=== PATIENT | female | born 1970 | race Caucasian/White ===

== ENCOUNTER → 2020-04-08 15:47 | Outpatient (BNVA) | payer OTHER, SELFPAY | PROVIDERS: PCP Family Medicine; Visit Provider Surgery | DX: L02.213 Cutaneous abscess of chest wall (principal); E11.9 Type 2 diabetes mellitus without complications | CPT/HCPCS: 10061; 99202 ==

== ENCOUNTER → 2020-04-15 15:12 | Outpatient (BNVA) | payer OTHER, SELFPAY | PROVIDERS: PCP Family Medicine; Visit Provider Internal Medicine Cardiovascular Disease | DX: I51.81 Takotsubo syndrome (principal); E11.9 Type 2 diabetes mellitus without complications; R94.31 Abnormal electrocardiogram [ECG] [EKG] | CPT/HCPCS: 93005; 99212 ==

== ENCOUNTER 2020-06-23 11:18 | Outpatient (REF) | payer OTHER, SELFPAY ==
--- NOTE | ~2020-06-23 | CT_ITS ---
EXAMINATION: CT ABDOMEN AND PELVIS WITH CONTRAST CLINICAL INFORMATION: Anorexia COMPARISON: Renal ultrasound dated 11/18/2019 TECHNIQUE: Multidetector volumetric images were obtained from the superior aspect of the liver through the pubic symphysis following administration 85 mL of Omnipaque 350 intravenous contrast. Sagittal and coronal reformatted images were obtained on the technologist's workstation. Oral contrast: No This CT examination was performed using dose optimization techniques as appropriate, variously including the following: *Automated exposure control *Adjustment of mA and/or kV according to patient size (this includes techniques or standardized protocols for targeted exams where dose is matched to indication/reason for exam; i.e. extremities or head) *Use of iterative reconstruction technique DLP: 503 mGy-cm FINDINGS: LUNG BASES: The visualized lung bases are unremarkable. LIVER, GALLBLADDER, AND BILIARY TREE: The liver is normal in size, shape, and attenuation. No focal hepatic lesion or biliary ductal dilatation is present. Gallbladder is surgically absent. PANCREAS: Unremarkable. SPLEEN: Unremarkable. ADRENAL GLANDS: Unremarkable. KIDNEYS AND URETERS: The kidneys are normal in size, shape, and attenuation. No hydronephrosis, hydroureter, or calculi seen. No perinephric stranding. A subcentimeter cyst in the right kidney at the right upper renal pole is less pronounced as compared to the prior ultrasound. No suspicious features. This is too small to characterize but statistically favored to correspond to a cyst. No suspicious renal lesions are identified. BLADDER: Unremarkable. GASTROINTESTINAL TRACT: Stomach, small bowel, and colon are normal in caliber. No bowel wall thickening or surrounding inflammatory changes. Incidental note is made of a 1 cm fat density polypoid focus within the lumen of the duodenum (image 44/92 of series 3), likely a submucosal lipoma. No intraperitoneal free fluid or free air. Appendix is surgically absent. ABDOMINAL WALL: No significant hernia is appreciated. LYMPH NODES: Normal. VASCULAR: Unremarkable. PELVIC VISCERA: Uterus is surgically absent. No adnexal lesions. OSSEOUS STRUCTURES: No acute osseous abnormalities in the lumbar spine. Minimal arthrosis in the hips. CT/CT abdomen pelvis w con IMPRESSION: 1. No acute intra-abdominal or intrapelvic abnormalities. 2. Status post hysterectomy and cholecystectomy. 3. Small 1 cm submucosal lipoma in the duodenum.
[2020-06-23 12:34] LABS: Blood Urea Nitrogen 9 mg/dL (9-16); Estimated Glomerular Filt Rate > 60
[2020-06-23 12:44] LABS: Estimated Average Glucose 229 mg/dL; Hemoglobin A1c % 9.6 %
[2020-06-23] MEDS: iohexoL 350 MG/ML 100 ML INFUS..BTL IV (16:07)
[2020-06-23] MEDS: Barium Sulfate Oral (Mocha) 450 ML ORAL.SUSP 900 ML PO (16:16)
== END 2020-06-23 11:19 | disposition home or self-care (01) ==
LOC: HO.CT 11:18
PROVIDERS: PCP Family Medicine; Visit Provider Family Medicine
DX: R63.0 Anorexia (principal); E11.9 Type 2 diabetes mellitus without complications
CPT/HCPCS: 36415; 74177; 82565; 83036; 84520; Q9967

== ENCOUNTER 2020-06-25 14:47 | Outpatient (REF) | payer OTHER, SELFPAY ==
--- NOTE | ~2020-06-25 | XR_ITS ---
EXAMINATION: XR ORBITS CLINICAL INFORMATION: Hx of detached retina 1985. COMPARISON: None TECHNIQUE: 4 views of the orbits were obtained. FINDINGS: No radiodense foreign bodies. There is no fracture. No bone, joint or soft tissue abnormality is demonstrated. XR/XR pre mri screening IMPRESSION: No metallic foreign bodies in the periorbital regions.
--- NOTE | ~2020-06-25 | MR_ITS ---
EXAMINATION: MR LUMBAR SPINE WITHOUT CONTRAST CLINICAL INFORMATION: Incontinence. COMPARISON: Lumbar spine radiographs 09/15/2014. TECHNIQUE: MRI of the lumbar spine was obtained using routine sequences without contrast. FINDINGS: Alignment is normal. Vertebral heights are preserved. No acute bone marrow signal changes. There is disc desiccation at L5-S1 without substantial loss of intervertebral disc height. The tip of the conus medullaris is located at L1. No mass effect on the conus. Visualized distal cord signal intensity is normal. No abnormal thickening of the filum terminale and no identifiable filar fibrolipoma. At L1-L2 and L2-L3 the annular contours are normal. No canal or neuroforaminal compromise at these 2 levels. At L3-L4 there is a slightly bulging disc. No canal stenosis. No mass effect on the traversing or foraminal nerve roots. At L4-L5 there is a slightly bulging disc. No canal stenosis. No mass effect on the traversing or foraminal nerve roots. At L5-S1 there is a slightly bulging disc. Bilateral facet degenerative change. No canal stenosis. No mass effect on the traversing or foraminal nerve root. Limited visualization of the retroperitoneal anatomy reveals no abnormal finding. Psoas and paraspinal muscle groups are symmetric. MR/MR lumbar spine wo con IMPRESSION: There is disc degeneration at multiple levels within the mid to lower lumbar spine. Otherwise unremarkable examination. No canal stenosis. No mass effect on the traversing or foraminal nerve roots.
== END 2020-06-25 14:48 | disposition home or self-care (01) ==
LOC: HO.MRI 14:47
PROVIDERS: Visit Provider Family Medicine
DX: R15.9 Full incontinence of feces (principal)
CPT/HCPCS: 72148

== ENCOUNTER 2020-06-29 10:17 | Outpatient (REF) | payer OTHER, SELFPAY ==
--- NOTE | ~2020-06-29 | US_ITS ---
EXAMINATION: US ABDOMEN COMPLETE CLINICAL INFORMATION: Fatty liver. COMPARISON: CT abdomen and pelvis 06/23/2020. Ultrasound renals 11/18/2019. Ultrasound abdomen 11/20/2017. TECHNIQUE: Real-time imaging of the abdominal viscera. FINDINGS: PANCREAS: Normal. ABDOMINAL AORTA: The proximal, mid, and distal segments are normal in caliber. INFERIOR VENA CAVA: Visualized portions are normal. LIVER: The liver is normal in size. The liver contour is normal. The liver echogenicity is diffusely increased. No focal hepatic lesion. There is no intrahepatic biliary duct dilatation seen. GALLBLADDER: Surgically absent. COMMON BILE DUCT: Normal in caliber measuring 0.33 cm in diameter. RIGHT KIDNEY: The kidney measures 12.0 cm in maximum dimension. 3 mm nonobstructing lower pole calculus. There is no hydronephrosis. Also appreciated is a 1.2 cm simple appearing upper pole cyst which is stable in size. LEFT KIDNEY: Normal. No hydronephrosis. No renal calculi or focal parenchymal lesions. The kidney measures 11.8 cm in maximum dimension. SPLEEN: Normal. The spleen measures 12.3 cm in maximum dimension. FREE FLUID: None. US/US abdomen complete IMPRESSION: 1. Diffusely increased liver echogenicity. This is a nonspecific finding but most suggestive of hepatic steatosis. Correlation with liver enzymes recommended. 2. Tiny nonobstructing renal calculi of the right kidney. There is no hydronephrosis.
== END 2020-06-29 10:18 | disposition home or self-care (01) ==
LOC: HO.US 10:17
PROVIDERS: Visit Provider Family Medicine
DX: K76.0 Fatty (change of) liver, not elsewhere classified (principal)
CPT/HCPCS: 76700

== ENCOUNTER → 2020-07-20 14:53 | Outpatient (BNVA) | payer OTHER, SELFPAY | PROVIDERS: PCP Family Medicine; Referring Provider Family Medicine; Visit Provider Surgery | DX: N64.4 Mastodynia (principal) | CPT/HCPCS: 99212 ==

== ENCOUNTER 2020-07-29 14:30 | Outpatient (REF) | payer OTHER, SELFPAY ==
--- NOTE | ~2020-07-29 | MM_ITS ---
EXAMINATION: MM DIAGNOSTIC DIGITAL BREAST TOMOSYNTHESIS, BILATERAL US DIAGNOSTIC ULTRASOUND BREAST, RIGHT CLINICAL INFORMATION: Right-sided breast pain. Remote history bilateral reduction mammoplasty 1985 and revised bilateral reduction surgery 1995. Recent aspiration at outside office lower outer right breast. Diabetic. Due for yearly. The lifetime risk of breast cancer based on the Tyrer-Cuzick Model is 13%. COMPARISON: Mammography: 11/20/2017, 04/02/2015, 09/09/2014 TECHNIQUE: Digital breast tomosynthesis is performed in both the craniocaudal and mediolateral oblique views along with computer-aided detection (CAD). Synthesized 2D images are generated from the tomosynthesis. Additional exaggerated right CC x2 views are obtained. Ultrasound right breast is targeted to the area of clinical concern outer right breast. Grayscale imaging and color Doppler are performed without and with harmonics. FINDINGS: There are scattered areas of fibroglandular density (ACR BI-RADS breast composition Category b). There is minor scarring consistent with the prior bilateral breast surgeries. Parenchymal pattern is similar to prior studies. There are scattered stable asymmetries similar to previous exams. There is no developing density or interval mass or architectural abnormality or abnormal calcifications. No skin thickening or coarsening of the Nain's ligaments. Ultrasound demonstrates no cystic or solid mass or architectural abnormality or focal duct ectasia. No skin thickening or edema tracking in soft tissue plane. Results are discussed with the patient at time of visit. MM/MM tomosynthesis diagnostic BI IMPRESSION: 1. No mammographic evidence of malignancy or inflammatory changes. 2. Unremarkable targeted right breast ultrasound.. ASSESSMENT: BI-RADS 2: Benign RECOMMENDATION: 1. Patient's breast pain should be managed based on the clinical impression. 2. Otherwise, routine annual screening mammography. This patient's information was entered into a reminder system with a target due date for their next mammogram.
== END 2020-07-29 14:31 | disposition home or self-care (01) ==
LOC: HO.MAMMO 14:30
PROVIDERS: Visit Provider Surgery
DX: N64.4 Mastodynia (principal)
CPT/HCPCS: 76642; 77062; 77066

== ENCOUNTER → 2020-08-26 15:21 | Outpatient (BNVA) | payer OTHER, SELFPAY | PROVIDERS: PCP Family Medicine; Referring Provider Family Medicine; Visit Provider Surgery ==

== ENCOUNTER → 2020-10-01 14:35 | Outpatient (BNVA) | payer OTHER, SELFPAY | PROVIDERS: PCP Family Medicine; Referring Provider Family Medicine; Visit Provider Nurse Practitioner Family | DX: K21.9 Gastro-esophageal reflux disease without esophagitis (principal); K59.00 Constipation, unspecified | CPT/HCPCS: 99202 ==

== ENCOUNTER 2020-10-22 13:49 | Outpatient (REF) | payer OTHER, SELFPAY ==
--- NOTE | ~2020-10-22 | CT_ITS ---
EXAMINATION: CT CHEST SCREENING CLINICAL INFORMATION: Smoking history COMPARISON: Previous chest x-ray most recent February 2015 TECHNIQUE: Multidetector volumetric CT imaging of the chest is performed without contrast using low dose technique. Additional 2D coronal and sagittal reformatted images and axial 3D maximum intensity projection (MIP) images are generated on the CT workstation. This CT examination was performed using dose optimization techniques as appropriate, variously including the following: *Automated exposure control *Adjustment of mA and/or kV according to patient size (this includes techniques or standardized protocols for targeted exams where dose is matched to indication/reason for exam; i.e. extremities or head) *Use of iterative reconstruction technique DLP: 53 mGy-cm FINDINGS: LUNGS: There is evidence of mild paraseptal emphysema. There is a 3 mm right lower lobe nodule axial image 216 series 5. There is a 3 mm right lower lobe nodule axial image 236 series 5..There is a 2 mm left lower lobe nodule axial image 353 series 5. MEDIASTINUM: There is a slightly prominent precarinal mediastinal lymph node measures 1.2 x 1.7 cm in AP and transverse dimension. No other adenopathy is seen. The mediastinum is otherwise normal. PLEURA: There is no pleural effusion. No pleural mass or thickening. AXILLA: No lymphadenopathy. UPPER ABDOMEN: The gallbladder has been removed. OSSEOUS STRUCTURES: Unremarkable. CT/CT lung screening IMPRESSION: Mild emphysema. Small pulmonary nodules. Prominent precarinal mediastinal lymph node. ASSESSMENT: Lung-RADS category 2: Benign RECOMMENDATION: Annual low-dose chest CT follow-up recommended.
== END 2020-10-22 13:50 | disposition home or self-care (01) ==
LOC: HO.CT 13:49
PROVIDERS: Visit Provider Physician Assistant Medical
DX: Z12.2 Encounter for screening for malignant neoplasm of respiratory organs (principal); F17.210 Nicotine dependence, cigarettes, uncomplicated
CPT/HCPCS: 71271; Q3014

== ENCOUNTER 2020-10-25 14:01 | Outpatient (REF) | payer OTHER, SELFPAY ==
[2020-10-25 15:13] LABS: Hematocrit 37.9 % (37-47); Mean Corpuscular HGB Conc 34.3 g/dl (31.0-35.0); Mean Corpuscular Hemoglobin 29.1 pg (27.0-33.0); Mean Platelet Volume 10.8 fL (9.4-12.3); Platelet Count 227 X10*3/uL (160-400); Red Blood Count 4.46 X10*6/uL (4.20-5.50); Red Cell Distribution Width 12.6 % (11.0-16.0); White Blood Count 10.1 X10*3/uL (4.8-10.8)
[2020-10-25 15:26] LABS: Estimated Average Glucose 278 mg/dL; Hemoglobin A1c % 11.3 %
[2020-10-25 15:48] LABS: Alanine Aminotransferase 29 U/L (0-31); Albumin Level 4.4 g/dL (3.5-5.0); Alkaline Phosphatase 177 U/L (39-117); Anion Gap 15 (12-20); Aspartate Amino Transferase 21 U/L (5-31); Bilirubin Total 0.4 mg/dL (0.0-1.0); Blood Urea Nitrogen 7 mg/dL (9-16); C Reactive Protein 1.58 mg/dL (< or = 0.50); Calcium 9.7 mg/dL (8.4-10.2); Carbon Dioxide 21 mmol/L (22-29); Chloride 107 mmol/L (96-108); Estimated Glomerular Filt Rate 57; Potassium 3.4 mmol/L (3.3-5.1); Sodium 140 mmol/L (135-145)
[2020-10-25 15:50] LABS: Glucose Random 467 mg/dL (60-115)
[2020-10-28 22:11] LABS: Transglutaminase Ab IgG 1 U/mL; Transglutaminase IgA 1 U/mL
== END 2020-10-25 14:02 | disposition home or self-care (01) ==
LOC: HO.LAB 14:01
PROVIDERS: PCP Family Medicine; Visit Provider Nurse Practitioner Family
DX: Z12.11 Encounter for screening for malignant neoplasm of colon (principal); K58.9 Irritable bowel syndrome, unspecified; E11.9 Type 2 diabetes mellitus without complications; R10.11 Right upper quadrant pain; R14.0 Abdominal distension (gaseous)
CPT/HCPCS: 36415; 80053; 83036; 83516; 85027; 86140

== ENCOUNTER 2020-11-22 13:44 | Outpatient (REF) | payer OTHER, SELFPAY ==
--- NOTE | 2020-11-22 13:54 | ECG_ITS ---
Test Reason : preop Blood Pressure : / mmHG Vent. Rate : 074 BPM Atrial Rate : 074 BPM P-R Int : 180 ms QRS Dur : 088 ms QT Int : 386 ms P-R-T Axes : 059 036 057 degrees QTc Int : 428 ms Normal sinus rhythm Normal ECG No previous ECGs available Referred By: Tracie Mcginnis Electronically Signed By:RASHMI FRAZIER
[2020-11-22 14:21] LABS: Hematocrit 40.2 % (37-47); Hemoglobin 13.5 g/dl (12.0-16.0); Mean Corpuscular HGB Conc 33.6 g/dl (31.0-35.0); Mean Corpuscular Volume 86.5 fL (80-98); Platelet Count 218 X10*3/uL (160-400); Red Blood Count 4.65 X10*6/uL (4.20-5.50); Red Cell Distribution Width 12.7 % (11.0-16.0); White Blood Count 7.7 X10*3/uL (4.8-10.8)
[2020-11-22 15:14] LABS: Alanine Aminotransferase 31 U/L (0-31); Albumin Level 4.4 g/dL (3.5-5.0); Alkaline Phosphatase 144 U/L (39-117); Anion Gap 14 (12-20); Aspartate Amino Transferase 23 U/L (5-31); Bilirubin Direct 0.2 mg/dL (0.0-0.5); Bilirubin Total 0.6 mg/dL (0.0-1.0); Blood Urea Nitrogen 10 mg/dL (9-16); Calcium 9.2 mg/dL (8.4-10.2); Carbon Dioxide 21 mmol/L (22-29); Chloride 108 mmol/L (96-108); Cholesterol 166 mg/dL; Estimated Glomerular Filt Rate > 60; Glucose Random 359 mg/dL (60-115); HDL Cholesterol 33 mg/dL; LDL Cholesterol Calculated 89 mg/dl; Potassium 4.1 mmol/L (3.3-5.1); Sodium 139 mmol/L (135-145); Triglycerides 224 mg/dL
[2020-11-22 15:20] LABS: Estimated Average Glucose 298 mg/dL
[2020-11-22 15:28] LABS: Free T4 (Free Thyroxine) 0.81 ng/dL (0.71-1.85); Vitamin D 25-OH Total 15.3 ng/mL (>30)
[2020-11-22 15:34] LABS: Creatinine Urine 156.01 mg/dL; Microalbum/Creatinine Ratio Ur 8.9 ug/mg cr
[2020-11-22 16:55] LABS: Syphilis Screen Nonreactive (Nonreactive)
[2020-11-22 17:02] LABS: CT PCR NOT DETECTED (Not Detect.); NG PCR NOT DETECTED (Not Detect.)
[2020-11-23 04:47] LABS: ~HepC Num1 0.13 S/CO (0.00-0.79); ~Hepatitis C Antibody Nonreactive (Nonreactive)
[2020-11-23 04:48] LABS: HIV AB/AG Nonreactive (Nonreactive); HIV Num 1 0.25 S/CO (0.00-0.99)
[2020-11-25 13:21] LABS: TS Negative Control Passed; TS Panel A 0; TS Panel B 0; TS Positive Control Passed; TSpotTB Negative (SeeBelow)
== END 2020-11-22 13:45 | disposition home or self-care (01) ==
LOC: HO.LAB 13:44
PROVIDERS: PCP Family Medicine; Visit Provider Family Medicine
DX: Z01.818 Encounter for other preprocedural examination (principal); Z11.4 Encounter for screening for human immunodeficiency virus [HIV]; Z11.3 Encounter for screening for infections with a predominantly sexual mode of transmission; Z11.1 Encounter for screening for respiratory tuberculosis; E11.65 Type 2 diabetes mellitus with hyperglycemia
CPT/HCPCS: 80048; 80061; 80076; 82043; 82306; 83036; 84439; 84443; 85027; 86481; 86780; 86803; 87389; 87491; 87591; 93005

== ENCOUNTER 2021-04-21 07:29 | Outpatient (REF) | payer OTHER, SELFPAY | END 2021-04-21 07:30 | disposition home or self-care (01) | LOC: HO.HOSX 07:29 | PROVIDERS: Visit Provider Physician Assistant | DX: Z13.89 Encounter for screening for other disorder (principal) ==

== ENCOUNTER → 2021-07-25 08:54 | Outpatient (BNVA) | payer OTHER, SELFPAY | PROVIDERS: PCP Family Medicine; Referring Provider Family Medicine; Visit Provider Nurse Practitioner Family | DX: K21.9 Gastro-esophageal reflux disease without esophagitis (principal); K58.0 Irritable bowel syndrome with diarrhea; R19.7 Diarrhea, unspecified | CPT/HCPCS: 99212 ==

== ENCOUNTER 2021-09-06 10:35 | Outpatient (REF) | payer OTHER, SELFPAY ==
--- NOTE | ~2021-09-06 | US_ITS ---
EXAMINATION: US ABDOMEN COMPLETE CLINICAL INFORMATION: Fatty liver. COMPARISON: Ultrasound abdomen complete 06/29/2020. TECHNIQUE: Real-time imaging of the abdominal viscera. FINDINGS: PANCREAS: Normal. ABDOMINAL AORTA: The proximal, mid, and distal segments are normal in caliber. INFERIOR VENA CAVA: Visualized portions are normal. LIVER: Liver is enlarged measuring 18.8 cm in span. The liver contour is normal. There is diffuse increased liver parenchymal echogenicity, consistent with infiltrative hepatocellular disease. No focal hepatic lesion. There is no intrahepatic biliary duct dilatation seen. GALLBLADDER: Surgically absent. COMMON BILE DUCT: Normal in caliber measuring 0.3 cm in diameter. RIGHT KIDNEY: Punctate 3 mm nonobstructing right upper pole renal stone new from prior. Benign-appearing 1.4 cm right renal cyst, no imaging follow-up recommended. No hydronephrosis. The kidney measures 10.7 cm in maximum dimension. LEFT KIDNEY: Normal. No hydronephrosis. No renal calculi or focal parenchymal lesions. The kidney measures 10.7 cm in maximum dimension. SPLEEN: Normal. The spleen measures 11.3 cm in maximum dimension. FREE FLUID: None. US/US abdomen complete IMPRESSION: Hepatomegaly. Increased hepatic echogenicity which can be seen in the setting of hepatic steatosis or underlying liver disease. Punctate 3 mm nonobstructing right upper pole renal stones new from prior.
== END 2021-09-06 10:36 | disposition home or self-care (01) ==
LOC: HO.US 10:35
PROVIDERS: Visit Provider Family Medicine
DX: K76.0 Fatty (change of) liver, not elsewhere classified (principal)
CPT/HCPCS: 76700

== ENCOUNTER 2021-11-18 12:47 | Outpatient (REF) | payer OTHER, SELFPAY ==
--- NOTE | ~2021-11-18 | XR_ITS ---
EXAMINATION: 1. RADIOGRAPHS BILATERAL HANDS 2. RADIOGRAPHS BILATERAL KNEES 3. RADIOGRAPHS BILATERAL ANKLES 4. RADIOGRAPHS BILATERAL FEET CLINICAL INFORMATION: Diffuse chronic pain COMPARISON: Bilateral ankle radiographs October 29, 2019, left foot x-rays August 04, 2019 and bilateral knee x-rays May 07, 2018. Bilateral hand x-rays November 22, 2014 were also reviewed. TECHNIQUE: 3 views of each hand, 3 views of each knee, 2 views of each ankle and 3 views of each foot were obtained. FINDINGS: Right hand: Visualized portion of the distal radius and ulna demonstrate no fracture. Carpal rows are aligned. No carpal bone fracture. No metacarpal or phalangeal fracture. Mild degenerative changes of scattered IP joints. No focal soft tissue swelling of the hand. No radiopaque foreign body. Left hand: Visualized portion of the distal radius and ulna demonstrate no fracture. Carpal rows are well aligned. No carpal bone fracture. No metacarpal or phalangeal fracture. Mild degenerative changes of scattered IP joints. No focal soft tissue swelling of the left hand. No radiopaque foreign body. Right knee: No fracture or dislocation. No suprapatellar joint effusion. Joint spaces are well-maintained. Tiny tricompartmental marginal osteophytes. No focal soft tissue swelling of the anterior knee. Left knee: No fracture or dislocation. No suprapatellar joint effusion. Mild narrowing of the medial joint space height. Tiny tricompartmental marginal osteophytes. No focal soft tissue swelling of the anterior knee. Right ankle/foot: Sized portion of the distal tibia and fibula demonstrate no fracture. Ankle mortise is grossly maintained. There is no focal soft tissue swelling of the ankle. No gross ankle joint effusion. Bones of the midfoot are well aligned. No tarsal, metatarsal or phalangeal fracture. Mild degenerative changes of scattered IP joints. No focal soft tissue swelling of the right foot. Tiny posterior calcaneal enthesophyte. Left ankle/foot: Visualized portion of the distal tibia and fibula demonstrate no fracture. Ankle mortise is grossly maintained. No focal soft tissue swelling of the ankle. No gross ankle joint effusion. Bones of the midfoot are well aligned. No tarsal, metatarsal or phalangeal fracture. Mild degenerative changes of scattered IP joints. No focal soft tissue swelling of the left foot. Small posterior calcaneal enthesophytes. XR/XR ankle RT min 3V IMPRESSION: 1. Minimal degenerative changes of both hands without fracture. 2. Minimal degenerative changes of both knees without fracture or dislocation. 3. No fracture or dislocation of either foot or ankle. Mild degenerative changes of both feet.
[2021-11-18 14:54] LABS: Vitamin B12 644 pg/mL (200-900)
[2021-11-23 12:32] LABS: Vitamin D 25-OH, D2 21 ng/mL; Vitamin D 25-OH, D3 12 ng/mL; Vitamin D 25-OH, Total 33 ng/mL (30-100)
== END 2021-11-18 12:48 | disposition home or self-care (01) ==
LOC: HO.LAB 12:47
PROVIDERS: Absent Provider Nurse Practitioner Family; PCP Family Medicine; Visit Provider Family Medicine
DX: R19.7 Diarrhea, unspecified (principal); E55.9 Vitamin D deficiency, unspecified; M79.642 Pain in left hand; M79.641 Pain in right hand; M25.561 Pain in right knee; M25.562 Pain in left knee; M25.571 Pain in right ankle and joints of right foot; M25.572 Pain in left ankle and joints of left foot; M79.671 Pain in right foot; M79.672 Pain in left foot
CPT/HCPCS: 36415; 73130; 73562; 73610; 73630; 82306; 82607; 82746; 99212

== ENCOUNTER 2021-12-06 15:10 | Outpatient (REF) | payer OTHER, SELFPAY ==
--- NOTE | ~2021-12-06 | MM_ITS ---
EXAMINATION: MM SCREENING DIGITAL BREAST TOMOSYNTHESIS, BILATERAL CLINICAL INFORMATION: Screening. Asymptomatic. History reduction mammoplasty, 1985; and revised bilateral reduction surgery, 1995. The lifetime risk of breast cancer based on the Tyrer-Cuzick Model is 12%. COMPARISON: Mammography: 07/29/2020, 11/20/2017, 04/02/2015 TECHNIQUE: Digital breast tomosynthesis is performed in both the craniocaudal and mediolateral oblique views along with computer-aided detection (CAD). Synthesized 2D images are generated from the tomosynthesis. FINDINGS: There are scattered areas of fibroglandular density (ACR BI-RADS breast composition Category b). Parenchymal pattern is similar to prior exams and there is no developing density or interval mass or architectural abnormality. Minor scarring is consistent with the prior studies and surgery. No abnormal calcifications. The axilla are unremarkable. No significant changes. MM/MM tomosynthesis screening BI IMPRESSION: No mammographic evidence of malignancy. ASSESSMENT: BI-RADS 2: Benign RECOMMENDATION: Routine annual mammography screening. This patient's information was entered into a reminder system with a target due date for their next mammogram.
== END 2021-12-06 15:11 | disposition home or self-care (01) ==
LOC: HO.MAMMO 15:10
PROVIDERS: Visit Provider Family Medicine
DX: Z12.31 Encounter for screening mammogram for malignant neoplasm of breast (principal)
CPT/HCPCS: 77063; 77067

== ENCOUNTER 2022-02-07 12:22 | Day surgery (SDC) | payer OTHER, SELFPAY ==
[2022-02-02 11:36] VITALS: BMI 25.7
[2022-02-03 09:55] VITALS: BMI 26.5
--- NOTE | 2022-02-06 12:31 | P.CONAN_ITS ---
Documented by User: Mary Jane Delanye NP 02/06/22 12:33 HPI - Anesthesia Eval Consult details Narrative: 51yo F for Upper Endoscopy Follows [facility] [place] cardiology for prolonged QT/Takatsubo - last seen 04/2020 and ok'd for 2 year f/u [facility] Active Problems Active Problems: All Active Problems (Updated 02/03/22 @ 09:43 by Chetna Murphy RN) Prolonged Q-T interval on ECG (Acute) Breast pain, right (Acute) Personal history of nicotine dependence (Acute) Takotsubo cardiomyopathy (Acute) Diabetes mellitus (Acute) GERD (gastroesophageal reflux disease) (Acute) Smoker (Acute) Abscess of skin or subcutaneous tissue (Acute) Past Medical History Medical History Abscess of skin or subcutaneous tissue Arthritis Bipolar disorder Diabetes mellitus Full dentures GERD (gastroesophageal reflux disease) High cholesterol HTN (hypertension) Peripheral neuropathy Personal history of nicotine dependence Smoker Takotsubo cardiomyopathy Family History Family History Mother Ovarian cancer Surgical History Surgical History History of cystoscopy History of endometrial ablation History of rectal sphincterotomy Hx of appendectomy Hx of bilateral breast reduction surgery Hx of cholecystectomy Hx of colonoscopy Hx of eye surgery Hx of nephrolithotomy with removal of calculi Hx of release of tendon Hx of tonsillectomy S/P excision of ganglion cyst S/P hysterectomy Social History Social History Are you a primary medical care administrator to a significant other at home: No Do you presently have visiting nurse or other home services: No Alcohol intake: current Alcohol intake frequency: does not drink Patient Tobacco Use Status: Current everyday Tobacco user Tobacco use type: Cigarette Cigarette Packs Per Day: 2 Cigarettes Per Day: 15 Years Smoked: 36 (onset 14, 1ppd x 36yrs, now 2-2.5ppd - 35+PYH) Substance Use Type: Marijuana Meds Allergies Allergy/AdvReac Type Severity Reaction Status Date / Time bupropion [From WELLBUTRIN] Allergy Severe SHAKES, Verified 02/07/22 12:32 VIOLENTLY ILL metformin [METFORMIN] Allergy Severe VIOLENTLY Verified 02/07/22 12:32 SICK, nausea and vomiting promethazine [From PHENERGAN] Allergy Severe HIVES,sob Verified 02/07/22 12:32 Home Medications Medication Instructions Recorded Confirmed Last Taken Type cetirizine 10 mg tablet 10 mg PO QAM 04/08/20 02/03/22 Unknown History ergocalciferol (vitamin D2) 1,250 1,250 mcg PO QWEEK 04/08/20 02/03/22 Unknown History mcg (50,000 unit) capsule ferrous sulfate 325 mg (65 mg 325 mg PO QAM 04/08/20 02/03/22 Unknown History iron) tablet fluticasone propionate 50 2 spray intranasal DAILY 04/08/20 02/03/22 Unknown History mcg/actuation nasal spray,suspension folic acid 1 mg tablet 1 mg PO QAM 04/08/20 02/03/22 Unknown History lamotrigine 100 mg tablet 150 mg PO DAILY 04/08/20 02/03/22 Unknown History metoprolol tartrate 50 mg tablet 50 mg PO BID 04/08/20 02/03/22 Unknown History mirtazapine 30 mg tablet 60 mg PO BEDTIME 04/08/20 02/03/22 Unknown History quetiapine 300 mg tablet 900 mg PO BEDTIME 04/08/20 02/03/22 Unknown History topiramate 50 mg tablet 50 mg PO BID 04/08/20 02/03/22 Unknown History zolpidem 10 mg tablet 10 mg PO BEDTIME PRN insomnia 04/08/20 02/03/22 Unknown History butorphanol 10 mg/mL nasal spray intranasal 04/15/20 07/22/20 Unknown History gabapentin 300 mg capsule 300 mg PO TID 04/15/20 02/03/22 Unknown History metoclopramide HCl 5 mg tablet 5 mg PO TID 10/01/20 02/03/22 Unknown History atorvastatin 40 mg tablet 40 mg PO BEDTIME 11/18/21 02/03/22 Unknown History cholecalciferol (vitamin D3) 50 50 mcg PO DAILY 11/18/21 02/03/22 Unknown H istory mcg (2,000 unit) capsule (Vitamin D3) diazepam 10 mg tablet 10 mg PO BID PRN Anxiety 11/18/21 02/03/22 Unknown History ondansetron HCl 4 mg tablet 4 mg PO Q8H 11/18/21 02/03/22 Unknown History oiaejt-rlyyunvas-pntswyap-dextrose g PO 11/18/21 Unknown History 10.6 mEq-4.7mEq/8.5 gram powdr pack (Pedialyte) triamcinolone acetonide 55 mcg 2 spray intranasal DAILY 11/18/21 02/03/22 Unknown History nasal spray aerosol varenicline 1 mg tablet 1 mg PO BID 11/18/21 02/03/22 02/07/22 09:00 History Exam Exam Date and Time: February 06, 2022 1231 Height,Weight and Vital Signs: Height 5 ft 3 in Weight 68.039 kg Assessment and Plan Assessment Anesthesia Assessment: Chart Reviewed Documented by User: Mark Krishnamurthy MD 02/07/22 19:52 [facility] Past Medical History Medical History Abscess of skin or subcutaneous tissue Arthritis Bipolar disorder Diabetes mellitus Full dentures GERD (gastroesophageal reflux disease) High cholesterol HTN (hypertension) Peripheral neuropathy Personal history of nicotine dependence Smoker Takotsubo cardiomyopathy Family History Family History Mother Ovarian cancer Family history of problems with anesthesia: No Surgical History Surgical History History of cystoscopy History of endometrial ablation History of rectal sphincterotomy Hx of appendectomy Hx of bilateral breast reduction surgery Hx of cholecystectomy Hx of colonoscopy Hx of eye surgery Hx of nephrolithotomy with removal of calculi Hx of release of tendon Hx of tonsillectomy S/P excision of ganglion cyst S/P hysterectomy History of Problems with Anesthesia: No Social History Social History Are you a primary medical care administrator to a significant other at home: No Do you presently have visiting nurse or other home services: No Alcohol intake: current Alcohol intake frequency: does not drink Patient Tobacco Use Status: Current everyday Tobacco user Tobacco use type: Cigarette Cigarette Packs Per Day: 2 Cigarettes Per Day: 15 Years Smoked: 35 (onset 14, 1ppd x 36yrs, now 2-2.5ppd - 35+PYH) Substance Use Type: Marijuana Meds Allergies Allergy/AdvReac Type Severity Reaction Status Date / Time bupropion [From WELLBUTRIN] Allergy Severe SHAKES, Verified 02/07/22 12:32 VIOLENTLY ILL metformin [METFORMIN] Allergy Severe VIOLENTLY Verified 02/07/22 12:32 SICK, nausea and vomiting promethazine [From PHENERGAN] Allergy Severe HIVES,sob Verified 02/07/22 12:32 Home Medications Medication Instructions Recorded Confirmed Last Taken Type cetirizine 10 mg tablet 10 mg PO QAM 04/08/20 02/03/22 Unknown History ergocalciferol (vitamin D2) 1,250 1,250 mcg PO QWEEK 04/08/20 02/03/22 Unknown History mcg (50,000 unit) capsule ferrous sulfate 325 mg (65 mg 325 mg PO QAM 04/08/20 02/03/22 Unknown History iron) tablet fluticasone propionate 50 2 spray intranasal DAILY 04/08/20 02/03/22 Unknown History mcg/actuation nasal spray,suspension folic acid 1 mg tablet 1 mg PO QAM 04/08/20 02/03/22 Unknown History lamotrigine 100 mg tablet 150 mg PO DAILY 04/08/20 02/03/22 Unknown History metoprolol tartrate 50 mg tablet 50 mg PO BID 04/08/20 02/03/22 Unknown History mirtazapine 30 mg tablet 60 mg PO BEDTIME 04/08/20 02/03/22 Unknown History quetiapine 300 mg tablet 900 mg PO BEDTIME 04/08/20 02/03/22 Unknown History topiramate 50 mg tablet 50 mg PO BID 04/08/20 02/03/22 Unknown History zolpidem 10 mg tablet 10 mg PO BEDTIME PRN insomnia 04/08/20 02/03/22 Unknown History butorphanol 10 mg/mL nasal spray intranasal 04/15/20 07/22/20 Unknown History gabapentin 300 mg capsule 300 mg PO TID 04/15/20 02/03/22 Unknown History metoclopramide HCl 5 mg tablet 5 mg PO TID 10/01/20 02/03/22 Unknown History atorvastatin 40 mg tablet 40 mg PO BEDTIME 11/18/21 02/03/22 Unknown History cholecalciferol (vitamin D3) 50 50 mcg PO DAILY 11/18/21 02/03/22 Unknown History mcg (2,000 unit) capsule (Vitamin D3) diazepam 10 mg tablet 10 mg PO BID PRN Anxiety 11/18/21 02/03/22 Unknown History ondansetron HCl 4 mg tablet 4 mg PO Q8H 11/18/21 02/03/22 Unknown History zjdzom-wvfzcviby-ewezflvr-dextrose g PO 11/18/21 Unknown History 10.6 mEq-4.7mEq/8.5 gram powdr pack (Pedialyte) triamcinolone acetonide 55 mcg 2 spray intranasal DAILY 11/18/21 02/03/22 Unknown History nasal spray aerosol varenicline 1 mg tablet 1 mg PO BID 11/18/21 02/03/22 02/07/22 09:00 History Exam Airway Mallampati Class: III TM Dist: >3cm Denture: Upper and Lower Loose/Missing/Broken Teeth: Yes Heart: S1,S2 Lungs: b/l breath sounds Assessment and Plan Assessment Anesthesia Assessment: Anesthesia Plan Discussed Final Anesthetic Review Family History of Problems with Anesthesia: No History of Problems with Anesthesia: No NPO: Yes ASA Class: III Final Preanesthetic Review: Meds/Allgs Chart Reviewed, Consent Obtained/Reviewed and Anes Risks/Benef Reviewed Patient Risk: Intermediate Procedure Risk: Intermediate Anesthetic Plan Anesthetic Plan: MAC: Disposition: Standard PACU
--- NOTE | 2022-02-07 | ECG_ITS ---
Test Reason : Prolonged QT Blood Pressure : / mmHG Vent. Rate : 074 BPM Atrial Rate : 074 BPM P-R Int : 202 ms QRS Dur : 084 ms QT Int : 414 ms P-R-T Axes : 034 006 035 degrees QTc Int : 459 ms Normal sinus rhythm Normal ECG When compared with ECG of 22-NOV-2020 14:07, No significant change was found Referred By: Mary Jane Delaney Electronically Signed By:LV SNELL MD
--- NOTE | 2022-02-07 12:42 | MHC.SHP ---
Pre-Procedural Eval Section A Date of Service: 02/07/22 Section B Chief Complaint: Gastro-esophageal reflux disease without esophagit Details of Present Illness: nausea, vomiting Relevant Family History (Specify if Yes): No Relevant Social History: Tobacco Use Present Medications: see Short Stay Collaborative assessment Medical History: Significant History (Abscess of skin or subcutaneous tissue Arthritis Bipolar disorder Diabetes mellitus Full dentures GERD (gastroesophageal reflux disease) High cholesterol HTN (hypertension) Peripheral neuropathy Personal history of nicotine dependence Smoker Takotsubo cardiomyopathy) History of Previous Operations: Relevant previous surgery/procedure and date(s) (History of cystoscopy History of endometrial ablation History of rectal sphincterotomy Hx of appendectomy Hx of bilateral breast reduction surgery Hx of cholecystectomy Hx of colonoscopy Hx of eye surgery Hx of nephrolithotomy with removal of calculi Hx of release of tendon Hx of tonsillectomy S/P e) Allergies: Allergies Allergy/AdvReac Type Severity Reaction Status Date / Time bupropion [From WELLBUTRIN] Allergy Severe SHAKES, Verified 02/07/22 12:32 VIOLENTLY ILL metformin [METFORMIN] Allergy Severe VIOLENTLY Verified 02/07/22 12:32 SICK, nausea and vomiting promethazine [From PHENERGAN] Allergy Severe HIVES,sob Verified 02/07/22 12:32 Review of Systems Sugical H&P ROS: Negative: Constitution, Cardiovascular, Respiratory, Neurological, Psychiatric, Hem-Onc, Allergic/Immunologic, Gastrointestinal, Genitourinary, Musculoskeletal, Integumentary, Endocrine and Eyes/Ears/Nose/Throat Exam Surgical H&P Exam: Normal: HEENT, Normal: Heart, Normal: Lungs, Normal: Extremities, Normal: Abdomen, Normal: Skin and Normal: Neurological Plan Diagnosis/Plan: Unchanged I have reviewed the history and physical and performed a pertinent physical examination on my patient. No changes have occurred unless specified.
[2022-02-07 13:04] VITALS: BP 112/70; PULSE 74; RESP 15; TEMP 36.9; O2SAT 99
[2022-02-07] MEDS: Lactated Ringers 1,000 ML 100 ML IVCONT (13:07)
[2022-02-07 13:14] LABS: Glucose, Whole Blood 100 mg/dL (60-115)
[2022-02-07] MEDS: Haloperidol Lactate 5 MG/ML VIAL 1 MG IV (13:28)
--- NOTE | 2022-02-07 14:04 | W.PM.OPN ---
Operative Note Operative Note Date of Service: 02/07/22 Narrative: Procedure Description: EGD Indication: nausea, vomiting Anesthesia: MAC FLEXIBLE TRANSORAL UPPER GASTROINTESTINAL ENDOSCOPY UPPER ENDOSCOPY Consent: Indications for the procedure and potential complications of bleeding, perforation, reaction to medications and missed diagnosis were discussed with the patient and informed consent was obtained. Instrument: Olympus GIF H 190 J mid size upper endoscope Monitoring: Vital signs and clinical assessment, continuous EKG monitoring, Pulse oximetry, Carbon Dioxide monitoring and blood pressure monitoring were done throughout the procedure. Procedure: The patient was placed in the left lateral decubitis position and pre-procedure medications were administered and a bite block was placed. The endoscope was inserted into the mouth and advanced under direct vision to the third part of duodenum. A careful inspection was made as the upper endoscope was withdrawn including a retroflexed examination of the proximal stomach; Findings and interventions are described below. Findings: Larynx:normal Esophagus: GE junction at 40 cm, diaphragm hiatus at 40 cm, bogginess and erythema at GEJ consistent with esophagitis, bx taken. The UES and LEs were balloon dialted to 19 mm, no tears seen. Stomach: Patchy gastric erythema. Biopsies were obtained. Grade 2 flap valve on retroflexed examination of the cardia. Some bile refluxate noted in stomach with abnormal angulation of the antrum. The pylorus was dilated with balloon up to 19 mm Duodenum: Normal bulb and descending duodenum, bx taken, there was a nodule in the descending part looked like a lipoma, with pillow sign,. tunneled bx taken Intervention: Biopsies as noted above Impression/Findings: esophagitis bile acid reflux gastritis PLAN: trial of PPi if not taking if ongoing sx then gastric emptying study sx could also be due to opiate use
[2022-02-07 14:45] VITALS: BP 99/54; PULSE 100; RESP 16; TEMP 36.4; O2SAT 97
[2022-02-07 15:00] VITALS: BP 102/81; PULSE 94; RESP 16; O2SAT 97
[2022-02-07 15:15] VITALS: BP 106/65; PULSE 94; RESP 16; O2SAT 94
[2022-02-07 15:30] VITALS: BP 117/49; PULSE 93; RESP 16; TEMP 36.5; O2SAT 100
== END 2022-02-07 15:52 | disposition home or self-care (01) ==
PROVIDERS: PCP Family Medicine; Visit Provider Internal Medicine Gastroenterology
PROC: 0DJ08ZZ Inspection of Upper Intestinal Tract, Via Natural or Artificial Opening Endoscopic (ICD-10-PCS; CPT 43235; principal; 2022-02-07 13:30)
DX: K21.00 Gastro-esophageal reflux disease with esophagitis, without bleeding (principal); R11.2 Nausea with vomiting, unspecified; K29.70 Gastritis, unspecified, without bleeding; K31.89 Other diseases of stomach and duodenum; K58.2 Mixed irritable bowel syndrome; E11.9 Type 2 diabetes mellitus without complications; I10 Essential (primary) hypertension; I51.81 Takotsubo syndrome; F17.210 Nicotine dependence, cigarettes, uncomplicated; Z79.899 Other long term (current) drug therapy; Z88.8 Allergy status to other drugs, medicaments and biological substances
CPT/HCPCS: 43249; 43245; 43239; 82947; 88305; 88342; 93005; C1726; J2250

== ENCOUNTER 2022-07-12 16:11 | Outpatient (REF) | payer OTHER, SELFPAY ==
--- NOTE | ~2022-07-12 | XR_ITS ---
EXAMINATION: XR FOOT, LEFT CLINICAL INFORMATION: Pain COMPARISON: None available. TECHNIQUE: AP, lateral, and oblique views of the left foot. FINDINGS: The bones and soft tissues are normal. No fracture. Alignment is anatomic. Joint spaces are maintained. XR/XR foot LT min 3V IMPRESSION: No fracture or dislocation.
== END 2022-07-12 16:12 | disposition home or self-care (01) ==
LOC: HO.HHCX 16:11
PROVIDERS: Visit Provider Registered Nurse
DX: M79.672 Pain in left foot (principal)
CPT/HCPCS: 73630

== ENCOUNTER 2022-09-04 13:53 | Outpatient (REF) | payer OTHER, SELFPAY | END 2022-09-04 13:54 | disposition home or self-care (01) | LOC: HO.US 13:53 | PROVIDERS: PCP Family Medicine; Visit Provider Family Medicine | DX: N20.0 Calculus of kidney (principal) | CPT/HCPCS: 76775 ==

== ENCOUNTER 2022-09-22 14:44 | Outpatient (AMB) | payer OTHER, SELFPAY ==
--- NOTE | 2022-09-22 07:11 | A.OFFVIS_ITS ---
Intake Intake Visit Reasons: Nephrolithiasis ([place] 09/04) Intake Note: NEW Patient presents today to established treatment for: Meds- None Allergies to Antibiotic- No Known Allergies Blood Thinner- None Welding Equipment Repairer Supervisor Required: No Accompanied by: Self / Same As Patient Allergies bupropion [From WELLBUTRIN] Allergy (Severe, Verified 09/22/22 14:47) SHAKES, VIOLENTLY ILL metformin [METFORMIN] Allergy (Severe, Verified 09/22/22 14:47) VIOLENTLY SICK, nausea and vomiting promethazine [From PHENERGAN] Allergy (Severe, Verified 09/22/22 14:47) HIVES,sob HPI HPI Comments History of Present Illness Details Tiffanie is a 52-year-old female who presents today to the office as a new patient for evaluation for nephrolithiasis. 09/22/2022-- Past medical history notable for diabetes, bipolar disorder, and history of nicotine dependence. She had a renal ultrasound on 09/04/22. The renal ultrasound results revealed multiple echogenic foci suggestive of right kidney stones and a 4 mm renal calculus in the upper pole of the left kidney. She has had multiple procedures for kidney stones. About 11 years ago, she had a percutaneous nephrolithotomy for a large kidney stone and has had ureteroscopies in the past for obstructing smaller ureteral stones. She is on vitamin B6 currently. She has a diagnosis of gastroparesis and she states that water is a trigger and she has not been able to drink a lot of water as it makes her extremely nauseous. She is able to tolerate lemonade. She does take soda as well. She has found a specialist in GI who is going to be managing her gastroparesis. She does smoke cigarettes. She is trying to quit smoking, but she is having a hard time due to her history of gastroparesis. Evaluation today -- UA -- Leukocytes: 1+ Severo/uL. Blood: Negative Tawanda/uL. Plan: Ordered a CAT scan of the abdomen and pelvis. Continue drinking lemonade. I counseled her to limit her soda intake. Recommended to quit smoking. Follow up pending CAT scan results. [facility] Medical History Abscess of skin or subcutaneous tissue Arthritis Bipolar disorder Diabetes mellitus Full dentures GERD (gastroesophageal reflux disease) High cholesterol HTN (hypertension) Peripheral neuropathy Personal history of nicotine dependence Smoker Takotsubo cardiomyopathy Surgical History History of cystoscopy History of endometrial ablation History of esophagogastroduodenoscopy (EGD) History of rectal sphincterotomy Hx of appendectomy Hx of bilateral breast reduction surgery Hx of cholecystectomy Hx of colonoscopy Hx of eye surgery Hx of nephrolithotomy with removal of calculi Hx of release of tendon Hx of tonsillectomy S/P excision of ganglion cyst S/P hysterectomy Family History Mother Ovarian cancer Social History Are you a primary physician primary care sports medicine to a significant other at home: No Do you presently have visiting nurse or other home services: No Alcohol intake: current Alcohol intake frequency: does not drink Patient Tobacco Use Status: Current everyday Tobacco user Tobacco use type: Cigarette Cigarette Packs Per Day: 2 Cigarettes Per Day: 15 Years Smoked: 35 (onset 14, 1ppd x 36yrs, now 2-2.5ppd - 35+PYH) Substance Use Type: Marijuana Review of Systems Const All systems reviewed & are unremarkable except as noted in HPI and below Reports no additional complaints Eyes Reports no additional complaints ENT Reports no additional complaints Card Denies dyspnea Resp Denies cough and Denies dyspnea GI Reports no additional complaints Reports no additional complaints Musc Reports no additional complaints Skin/Breast Denies rash and Denies unusual bruising Neuro Reports no additional complaints Psych Reports no additional complaints Endo Reports no additional complaints Matt/Lymph Reports no additional complaints Aller/Immun Reports no additional complaints Physical Exam Const General: cooperative, healthy appearing and no acute distress Orientation/consciousness: patient oriented x3 HEENT Head: Yes normal to inspection, Yes normocephalic and Yes atraumatic Eyes Conjunctivae: conjunctivae normal Neck Neck: Yes normal visual inspection and Yes trachea midline Chest Chest palpation & inspection: normal inspection of the chest Resp Effort & Inspection: normal respiratory effort Cardio Rate: regular rate GI Inspection: Yes normal to inspection Neuro General: patient oriented x3 Extrem General: No edema Psych Appearance: grossly normal Results AMB Urinalysis, Automated UA Leukoctes 70 Severo/uL Last Edit by Priyank Fowler [facility] on 09/22/22 14:55 UA Nitrite Negative Last Edit by Priyank Fowler [facility] on 09/22/22 14:55 UA Urobilinogen 0.2 mg/dL Last Edit by Priyank Fowler [facility] on 09/22/22 14:5 5 UA Protein 15 mg/dL Last Edit by Priyank Folwer [facility] on 09/22/22 14:55 UA pH 6.0 Last Edit by Priyank Fowler [facility] on 09/22/22 14:55 UA Blood 0 Tawanda/uL Last Edit by Priyank Fowler [facility] on 09/22/22 14:55 UA Specific Pratts 1.030 Last Edit by Priyank Fowler [facility] on 09/22/22 14: 55 UA Ketone Negative Last Edit by Priyank Fowler [facility] on 09/22/22 14:55 UA Bilirubin 1 mg/dL Last Edit by Priyank Fowler [facility] on 09/22/22 14:55 1+ Priyank Fowler 09/22/22 14:55 UA Glucose 0 mg/dL Last Edit by Priyank Fowler [facility] on 09/22/22 14:55 Results Reviewed Results Reviewed: Laboratory Last Values Urine pH (Auto) 6.0 09/22/22 14:51 Specific Pratts (Auto) 1.030 09/22/22 14:51 Urine Protein (Auto) 15 mg/dL 09/22/22 14:51 Glucose (UA)(Auto) 0 mg/dL 09/22/22 14:51 Urine Ketones (Auto) Negative 09/22/22 14:51 Urine Blood (Auto) 0 Tawanda/uL 09/22/22 14:51 Urine Nitrite (Auto) Negative 09/22/22 14:51 Urine Bilirubin (Auto) 1 mg/dL 09/22/22 14:51 Urine Urobilinogen (Auto) 0.2 mg/dL 09/22/22 14:51 Leukocyte Esterase (Auto) 70 Severo/uL 09/22/22 14:51 Date of Service: 09/04/22 EXAMINATION: US RETROPERITONEAL LIMITED (RENAL ONLY) CLINICAL INFORMATION: Renal calculus. COMPARISON: None available. FINDINGS: RIGHT KIDNEY: 10.1 x 5.6 x 5.3 cm (SAG x AP x TRV). The kidney is normal in size, contour, and echogenicity. Renal cortical thickness is normal. No hydronephrosis. 1.1 x 0.9 x 1.1 cm simple upper pole cyst is seen. No imaging follow-up of this finding is recommended. There are multiple areas of echogenic foci. LEFT KIDNEY: 9.1 x 5.8 x 5.3 cm (SAG x AP x TRV). The kidney is normal in size, contour, and echogenicity. Renal cortical thickness is normal. No focal parenchymal lesions or hydronephrosis. 0.4 x 0.2 x 0.4 cm nodule in calculus is seen in the upper pole. IMPRESSION: 1.? Multiple echogenic foci within the right kidney. 2.? 0.4 cm calculus in the upper pole of the left kidney. Assessment & Plan Assessment & Plan (1) Nephrolithiasis: Code(s): N20.0 - Calculus of kidney (2) Bilateral flank pain: Code(s): R10.9 - Unspecified abdominal pain (3) Nicotine dependence: Code(s): F17.200 - Nicotine dependence, unspecified, uncomplicated Plan Ordered a CAT scan of the abdomen and pelvis. Continue drinking lemonade. I counseled her to limit her soda intake. Recommended to quit smoking. Follow up pending CAT scan results. Orders: Orders AMB Urinalysis Automated 09/22/22 Z13.9 - Encounter for screening, unspecified Patient Instructions: The patient had an opportunity to ask questions regarding treatment plan. All questions were answered. Imaging, Laboratory studies and physical exam results were discussed and reviewed in detail. No major barriers to understanding were identified. The patient expressed understanding and agreement with the above treatment plan. The patient is aware they should contact our office by phone for worsening of their current condition or the appearance of new symptoms. Compliance is encouraged with any medications and followup testing that is ordered. It is a privilege to be allowed the opportunity to participate in the urologic care of your patient. If you have any questions or concerns regarding treatment for the above conditions please do not hesitate to contact me. The office telephone contact is [phone]. This note is constructed in part using voice recognition software. While every effort has been made to ensure accuracy laboratory machinist errors may have been included. Yours sincerely, Emir Pablo MD Coding Level of Care Code New Pt Level 4 (18561) Diagnoses Nephrolithiasis N20.0 Bilateral flank pain R10.9 Nicotine dependence F17.200
== END 2022-09-22 16:06 | disposition home or self-care (01) ==
PROVIDERS: PCP Family Medicine; Visit Provider Urology
DX: N20.0 Calculus of kidney (principal); R10.9 Unspecified abdominal pain; F17.200 Nicotine dependence, unspecified, uncomplicated
CPT/HCPCS: 99204

== ENCOUNTER → 2022-09-22 14:44 | Outpatient (BNVA) | payer OTHER, SELFPAY | PROVIDERS: PCP Family Medicine; Visit Provider Urology | DX: N20.0 Calculus of kidney (principal); R10.9 Unspecified abdominal pain; F17.210 Nicotine dependence, cigarettes, uncomplicated | CPT/HCPCS: 99202 ==

== ENCOUNTER 2022-11-10 14:11 | Outpatient (AMB) | payer OTHER, SELFPAY ==
--- NOTE | 2022-11-10 14:13 | A.OFFVIS_ITS ---
Intake Intake Visit Reasons: [address] Intake Note: Patient presents today for a follow-up on CT Results: CT scan booked for 12/04/2022 Meds- None Allergies to Antibiotic- No Known Allergies Blood Thinner- None Linux Vmware Administrator Required: No Accompanied by: Self / Same As Patient Allergies bupropion [From WELLBUTRIN] Allergy (Severe, Verified 09/22/22 14:47) SHAKES, VIOLENTLY ILL metformin [METFORMIN] Allergy (Severe, Verified 09/22/22 14:47) VIOLENTLY SICK, nausea and vomiting promethazine [From PHENERGAN] Allergy (Severe, Verified 09/22/22 14:47) HIVES,sob HPI HPI Comments History of Present Illness Details Tiffanie is a 52-year-old female who presents today to the office for a follow-up. 11/10/2022? She was scheduled for CT scan to FU on kidney stones. Imaging pending. She was last seen by me on 09/22/2022 for bilateral flank pain. CAT scan of the abdomen and pelvis was ordered at that time. The patient was counseled her to limit her soda intake. The patient was recommended to quit smoking. The patient has h/o gastroparesis and states she has difficulty drinking alot of water. I reviewed the renal US results from 09/04/2022 revealed multiple echogenic foci suggestive of right kidney stones and a 4 mm renal calculus in the upper pole of the left kidney. She did not have her CAT scan of the abdomen/pelvis. She has a history of kidney stones. She states that she has had multiple procedures in the past. Currently, she is complaining of pain on the right flank area. She states that she is not able to drink a lot of water due to the diagnosis of gastroparesis, but she tries to drink lemonade.? Review of charts: Last visit: 09/22/2022? Past medical history notable for diabetes, bipolar disorder, and history of nicotine dependence. She had a renal ultrasound on 09/04/22. The renal ultrasound results revealed multiple echogenic foci suggestive of right kidney stones and a 4 mm renal calculus in the upper pole of the left kidney. She has had multiple procedures for kidney stones. About 11 years ago, she had a percutaneous nephrolithotomy for a large kidney stone and has had ureteroscopies in the past for obstructing smaller ureteral stones. She is on vitamin B6 currently. She has a diagnosis of gastroparesis and she states that water is a trigger and she has not been able to drink a lot of water as it makes her extremely nauseous. She is able to tolerate lemonade. She does take soda as well. She has found a specialist in GI who is going to be managing her gastroparesis. She does smoke cigarettes. She is trying to quit smoking, but she is having a hard time due to her history of gastroparesis. Evaluation today -- UA -- Leukocytes: 1+ Severo/uL. Blood: Negative Tawanda/uL. Plan: Ordered a CAT scan of the abdomen and pelvis. 11/10/2022: Plan: Diet sheet for renal calculi prevention was provided to the patient. Discussed to reduce sodium intake. Discussed to consume adequate amount of water. Discussed Low oxalate diet---green leafy vegetable, nuts, and tea in moderation as they are rich in oxalate. CAT scan of the abdomen/pelvis is pending. Will obtain blood work for serum calcium, and serum parathyroid hormone level, and 24 hr urine PFSH Medical History Abscess of skin or subcutaneous tissue Arthritis Bipolar disorder Diabetes mellitus Full dentures GERD (gastroesophageal reflux disease) High cholesterol HTN (hypertension) Peripheral neuropathy Personal history of nicotine dependence Smoker Takotsubo cardiomyopathy Surgical History History of cystoscopy History of endometrial ablation History of esophagogastroduodenoscopy (EGD) History of rectal sphincterotomy Hx of appendectomy Hx of bilateral breast reduction surgery Hx of cholecystectomy Hx of colonoscopy Hx of eye surgery Hx of nephrolithotomy with removal of calculi Hx of release of tendon Hx of tonsillectomy S/P excision of ganglion cyst S/P hysterectomy Family History Mother Ovarian cancer Social History Are you a primary hospice patient care secretary to a significant other at home: No Do you presently have visiting nurse or other home services: No Alcohol intake: current Alcohol intake frequency: does not drink Patient Tobacco Use Status: Current everyday Tobacco user Tobacco use type: Cigarette Cigarette Packs Per Day: 2 Cigarettes Per Day: 15 Years Smoked: 36 (onset 14, 1ppd x 36yrs, now 2-2.5ppd - 35+PYH) Substance Use Type: Marijuana Review of Systems Const All systems reviewed & are unremarkable except as noted in HPI and below Reports no additional complaints Eyes Reports no additional complaints ENT Reports no additional complaints Card Denies dyspnea Resp Denies cough and Denies dyspnea GI Reports no additional complaints Reports no additional complaints Musc Reports no additional complaints Skin/Breast Denies rash and Denies unusual bruising Neuro Reports no additional complaints Psych Reports no additional complaints Endo Reports no additional complaints Matt/Lymph Reports no additional complaints Aller/Immun Reports no additional complaints Assessment & Plan Assessment & Plan (1) Nephrolithiasis: Code(s): N20.0 - Calculus of kidney (2) Nicotine dependence: Code(s): F17.200 - Nicotine dependence, unspecified, uncomplicated (3) Bilateral flank pain: Code(s): R10.9 - Unspecified abdominal pain Plan Diet sheet for renal calculi prevention was provided to the patient. Discussed to reduce sodium intake. Discussed to consume adequate amount of water. Discussed Low oxalate diet---green leafy vegetable, nuts, and tea in moderation as they are rich in oxalate. CAT scan of the abdomen/pelvis is pending. Will obtain blood work for serum calcium, and serum parathyroid hormone level, 24 hr urine Orders: Orders Calcium Today N20.0 - Calculus of kidney Parathyroid Hormone Related Pr Today N20.0 - Calculus of kidney Patient Instructions: The patient had an opportunity to ask questions regarding treatment plan. All questions were answered. Imaging, Laboratory studies and physical exam results were discussed and reviewed in detail. No major barriers to understanding were identified. The patient expressed understanding and agreement with the above treatment plan. The patient is aware they should contact our office by phone for worsening of their current condition or the appearance of new symptoms. Compliance is encouraged with any medications and followup testing that is ordered. It is a privilege to be allowed the opportunity to participate in the urologic care of your patient. If you have any questions or concerns regarding treatment for the above conditions please do not hesitate to contact me. The office telephone contact is [phone]. This note is constructed in part using voice recognition software. While every effort has been made to ensure accuracy brush stainer errors may have been included. Yours sincerely, Emir Pablo MD Coding Level of Care Code Est Pt Level 3 (05306) Diagnoses Nephrolithiasis N20.0 Nicotine dependence F17.200 Bilateral flank pain R10.9
--- NOTE | 2022-11-10 14:14 | A.OFFVIS_ITS ---
Intake Intake Visit Reasons: [address] Allergies bupropion [From WELLBUTRIN] Allergy (Severe, Verified 09/22/22 14:47) SHAKES, VIOLENTLY ILL metformin [METFORMIN] Allergy (Severe, Verified 09/22/22 14:47) VIOLENTLY SICK, nausea and vomiting promethazine [From PHENERGAN] Allergy (Severe, Verified 09/22/22 14:47) HIVES,sob HPI HPI Comments History of Present Illness Details Tiffanie is a 52-year-old female who presents today to the office for a follow-up. 11/10/2022? She is followed today for [address] She was last seen by me on 09/22/2022 for bilateral flank pain. CAT scan of the abdomen and pelvis was ordered at that time. The patient was advised to continue drinking lemonade. The patient was counseled her to limit her soda intake. The patient was recommended to quit smoking. I reviewed the renal US results from 09/04/2022 revealed multiple echogenic foci suggestive of right kidney stones and a 4 mm renal calculus in the upper pole of the left kidney. Review of charts: Last visit: 09/22/2022? Past medical history notable for diabetes, bipolar disorder, and history of nicotine dependence.? She had a renal ultrasound on 09/04/22. The renal ultrasound results revealed multiple echogenic foci suggestive of right kidney stones and a 4 mm renal calculus in the upper pole of the left kidney.? She has had multiple procedures for kidney stones. About 11 years ago, she had a percutaneous nephrolithotomy for a large kidney stone and has had ureteroscopies in the past for obstructing smaller ureteral stones. She is on vitamin B6 currently. She has a diagnosis of gastroparesis and she states that water is a trigger and she has not been able to drink a lot of water as it makes her extremely nauseous. She is able to tolerate lemonade. She does take soda as well. She has found a specialist in GI who is going to be managing her gastroparesis. She does smoke cigarettes. She is trying to quit smoking, but she is having a hard time due to her history of gastroparesis Evaluation today -- UA -- Leukocytes: 1+ Severo/uL. Blood: Negative Tawanda/uL. Plan: Ordered a CAT scan of the abdomen and pelvis.? Continue drinking lemonade. I counseled her to limit her soda intake. Recommended to quit smoking. Follow up pending CAT scan results. 11/10/2022: Evaluation today?UA? 11/10/2022: Plan: [facility] Medical History Abscess of skin or subcutaneous tissue Arthritis Bipolar disorder Diabetes mellitus Full dentures GERD (gastroesophageal reflux disease) High cholesterol HTN (hypertension) Peripheral neuropathy Personal history of nicotine dependence Smoker Takotsubo cardiomyopathy Surgical History History of cystoscopy History of endometrial ablation History of esophagogastroduodenoscopy (EGD) History of rectal sphincterotomy Hx of appendectomy Hx of bilateral breast reduction surgery Hx of cholecystectomy Hx of colonoscopy Hx of eye surgery Hx of nephrolithotomy with removal of calculi Hx of release of tendon Hx of tonsillectomy S/P excision of ganglion cyst S/P hysterectomy Family History Mother Ovarian cancer Social History Are you a primary long term care administrator to a significant other at home: No Do you presently have visiting nurse or other home services: No Alcohol intake: current Alcohol intake frequency: does not drink Patient Tobacco Use Status: Current everyday Tobacco user Tobacco use type: Cigarette Cigarette Packs Per Day: 2 Cigarettes Per Day: 15 Years Smoked: 36 (onset 14, 1ppd x 36yrs, now 2-2.5ppd - 35+PYH) Substance Use Type: Marijuana Assessment & Plan Assessment & Plan Patient Instructions: The patient had an opportunity to ask questions regarding treatment plan. All questions were answered. Imaging, Laboratory studies and physical exam results were discussed and reviewed in detail. No major barriers to understanding were identified. The patient expressed understanding and agreement with the above treatment plan.? ? ? The patient is aware they should contact our office by phone for worsening of their current condition or the appearance of new symptoms. Compliance is encouraged with any medications and followup testing that is ordered.? ? ? It is a privilege to be allowed the opportunity to participate in the urologic care of your patient. If you have any questions or concerns regarding treatment for the above conditions please do not hesitate to contact me. The office telephone contact is [phone].? ? ? This note is constructed in part using voice recognition software. While every effort has been made to ensure accuracy investigation lieutenant errors may have been included.? ? ? Yours sincerely,? ? ? Emir Pablo MD? ? Coding
== END 2022-11-10 14:58 | disposition home or self-care (01) ==
PROVIDERS: PCP Family Medicine; Visit Provider Urology
DX: N20.0 Calculus of kidney (principal); F17.200 Nicotine dependence, unspecified, uncomplicated; R10.9 Unspecified abdominal pain
CPT/HCPCS: 99213

== ENCOUNTER → 2022-11-10 14:11 | Outpatient (BNVA) | payer OTHER, SELFPAY | PROVIDERS: PCP Family Medicine; Visit Provider Urology | DX: N20.0 Calculus of kidney (principal); F17.210 Nicotine dependence, cigarettes, uncomplicated | CPT/HCPCS: 99212 ==

== ENCOUNTER 2022-11-24 12:03 | Outpatient (REF) | payer OTHER, SELFPAY ==
--- NOTE | ~2022-11-24 | CT_ITS ---
EXAMINATION: CT ABDOMEN AND PELVIS WITHOUT CONTRAST CLINICAL INFORMATION: Renal calculus. COMPARISON: Renal ultrasound from 09/04/2022. Abdomen CT from 06/23/2020. TECHNIQUE: Multidetector volumetric imaging was performed from the superior aspect of the liver through the pubic symphysis. Sagittal and coronal reformatted images were obtained on the technologist's workstation. This CT examination was performed using dose optimization techniques as appropriate, variously including the following: *Automated exposure control *Adjustment of mA and/or kV according to patient size (this includes techniques or standardized protocols for targeted exams where dose is matched to indication/reason for exam; i.e. extremities or head) *Use of iterative reconstruction technique DLP: 479 mGy-cm FINDINGS: LOCALIZER IMAGES: Large body habitus. Cholecystectomy clips in right upper quadrant of the abdomen. Normal bowel gas pattern. LUNG BASES: Normal. No pulmonary consolidation or pleural effusion. LIVER: Chronic mild hepatomegaly. Liver has normal parenchymal attenuation. No evidence of hepatic mass. GALLBLADDER AND BILIARY TREE: Gallbladder is surgically absent. No dilated bile ducts. PANCREAS: Mildly atrophied. No edema, pancreatic ductal dilatation or mass. SPLEEN: Normal. ADRENAL GLANDS: Normal. KIDNEYS AND URETERS: Kidneys are normal in size. There appears to be a small 0.2 cm calyceal stone of the mid right kidney. The left kidney is unremarkable. No large renal calculi. No ureteral stones, hydroureter or hydronephrosis. BLADDER: Normal. No calculi or wall thickening. BOWEL AND PERITONEUM: Stomach is unremarkable. 1 cm lipoma of the duodenum is unchanged compared to 06/23/2020. No dilated bowel loops. No focal bowel wall thickening, mesenteric fat stranding or free fluid. Status post appendectomy. ABDOMINAL WALL: Unremarkable. VASCULATURE: Mild atherosclerosis of the abdominal aorta without aneurysm. LYMPH NODES: No pathologic sized lymph nodes in the abdomen or pelvis. No inguinal lymphadenopathy. PELVIC VISCERA: Hysterectomy. No adnexal mass or pelvic free fluid. MUSCULOSKELETAL: There is a focal concave depression or Schmorl's node of the L4 superior endplate that is new since 06/23/2020. No acute abnormalities within the lumbar spine. L5 and left iliac bone islands. No suspicious osseous lesion. CT/CT abdomen pelvis wo IV con IMPRESSION: * There appears to be a 0.2 cm stone of the mid right kidney. No large renal stones or hydronephrosis. * Large body habitus and mild hepatomegaly. * Incidentally noted is a 1 cm lipoma of the duodenum.
== END 2022-11-24 12:04 | disposition home or self-care (01) ==
LOC: HO.CT 12:03
PROVIDERS: PCP Family Medicine; Visit Provider Urology
DX: N20.0 Calculus of kidney (principal); R10.9 Unspecified abdominal pain
CPT/HCPCS: 74176

== ENCOUNTER 2022-12-13 13:18 | Outpatient (AMB) | payer OTHER, SELFPAY ==
--- NOTE | 2022-12-13 13:19 | A.OFFVIS_ITS ---
Intake Intake Visit Reasons: CT results- follow up/litholink Intake Note: Patient presents today via telephone for a follow-up on CT Results: Completed on 11/24/2022, No urine specimen was sent to [facility] Meds- None Allergies to Antibiotic- No Known Allergies Blood Thinner- None Mitten Sewer Required: No Accompanied by: Self / Same As Patient Allergies bupropion [From WELLBUTRIN] Allergy (Severe, Verified 12/13/22 13:20) SHAKES, VIOLENTLY ILL metformin [METFORMIN] Allergy (Severe, Verified 12/13/22 13:20) VIOLENTLY SICK, nausea and vomiting promethazine [From PHENERGAN] Allergy (Severe, Verified 12/13/22 13:20) HIVES,sob HPI CT results- follow up/litholink HPI Details Tiffanie Dumont is a 52-year-old female who presents today via tele- visit for a follow up review of CT scan and litholink results. 12/13/22 -- The patient last visit was on 11/10/22. She has not completed the 24 hr urine. I reviewed CTKUB results 2 mm right renal stone. She inquired about the renal calculi on the left side and denies passing any stone recently. I reviewed the renal US from 09/04/22 that revealed 4 mm renal calculi in the upper pole of the left kidney. I informed the patient that at this time there is only a small stone in the right side. I encouraged her to follow the diet plan that was given to her including maintaining a good fluid intake, low sodium, low protein diet. 11/24/22 ? CTAP result reviewed: Kidneys are normal in size. There appears to be a 0.2 cm stone of the mid right kidney. The left kidney is unremarkable. No large renal calculi. No ureteral stones, hydroureter or hydronephrosis. LV-- 11/10/2022 She was scheduled for CT scan to FU on kidney stones. Imaging pending. She was last seen by me on 09/22/2022 for bilateral flank pain. CAT scan of the abdomen and pelvis was ordered at that time. The patient was counseled her to limit her soda intake. The patient was recommended to quit smoking. The patient has h/o gastroparesis and states she has difficulty drinking a lot of water. I reviewed the renal US results from 09/04/2022 revealed multiple echogenic foci suggestive of right kidney stones and a 4 mm renal calculus in the upper pole of the left kidney. She did not have her CAT scan of the abdomen/pelvis. She has a history of kidney stones. She states that she has had multiple procedures in the past. Currently, she is complaining of pain on the right flank area. She states that she is not able to drink a lot of water due to the diagnosis of gastroparesis, but she tries to drink lemonade. Plan: Diet sheet for renal calculi prevention was provided to the patient on the last visit. Discussed to consume about 32-60 ounces of water. Discussed Low sodium, protein, and oxalate diet The patient will continue to monitor at this time. The patient will follow up in a year. I will check a stone protocol CAT scan at that time. She will call us, renal colic pain or blood in the urine. [facility] Medical History Full dentures Arthritis Peripheral neuropathy High cholesterol HTN (hypertension) Bipolar disorder Personal history of nicotine dependence Takotsubo cardiomyopathy Diabetes mellitus GERD (gastroesophageal reflux disease) Smoker Abscess of skin or subcutaneous tissue Surgical History History of esophagogastroduodenoscopy (EGD) History of cystoscopy History of rectal sphincterotomy S/P excision of ganglion cyst S/P hysterectomy Hx of release of tendon Hx of nephrolithotomy with removal of calculi Hx of colonoscopy Hx of eye surgery History of endometrial ablation Hx of bilateral breast reduction surgery Hx of cholecystectomy Hx of tonsillectomy Hx of appendectomy Family History Mother Ovarian cancer Social History Are you a primary campground caretaker to a significant other at home: No Do you presently have visiting nurse or other home services: No Alcohol intake: current Alcohol intake frequency: does not drink Patient Tobacco Use Status: Current everyday Tobacco user Tobacco use type: Cigarette Cigarette Packs Per Day: 2 Cigarettes Per Day: 15 Years Smoked: 36 (onset 14, 1ppd x 36yrs, now 2-2.5ppd - 35+PYH) Substance Use Type: Marijuana Review of Systems Const All systems reviewed & are unremarkable except as noted in HPI and below Reports no additional complaints Eyes Reports no additional complaints ENT Reports no additional complaints Card Reports no additional complaints Resp Reports no additional complaints GI Reports no additional complaints Musc Reports no additional complaints Skin/Breast Reports system reviewed and no additional complaints, except as documented Neuro Reports no additional complaints Psych Reports no additional complaints Endo Reports no additional complaints Matt/Lymph Reports no additional complaints Aller/Immun Reports no additional complaints Results Reviewed Results Reviewed: 11/24/22: CT ABDOMEN AND PELVIS WITHOUT CONTRAST FINDINGS: LOCALIZER IMAGES: Large body habitus. Cholecystectomy clips in right upper quadrant of the abdomen. Normal bowel gas pattern. LUNG BASES: Normal. No pulmonary consolidation or pleural effusion. LIVER: Chronic mild hepatomegaly. Liver has normal parenchymal attenuation. No evidence of hepatic mass. GALLBLADDER AND BILIARY TREE: Gallbladder is surgically absent. No dilated bile ducts. PANCREAS: Mildly atrophied. No edema, pancreatic ductal dilatation or mass. SPLEEN: Normal. ADRENAL GLANDS: Normal. KIDNEYS AND URETERS: Kidneys are normal in size. There appears to be a small 0.2 cm calyceal stone of the mid right kidney. The left kidney is unremarkable. No large renal calculi. No ureteral stones, hydroureter or hydronephrosis. BLADDER: Normal. No calculi or wall thickening. BOWEL AND PERITONEUM: Stomach is unremarkable. 1 cm lipoma of the duodenum is unchanged compared to 06/23/2020. No dilated bowel loops. No focal bowel wall thickening, mesenteric fat stranding or free fluid. Status post appendectomy. ABDOMINAL WALL: Unremarkable. VASCULATURE: Mild atherosclerosis of the abdominal aorta without aneurysm. LYMPH NODES: No pathologic sized lymph nodes in the abdomen or pelvis. No inguinal lymphadenopathy. PELVIC VISCERA: Hysterectomy. No adnexal mass or pelvic free fluid. MUSCULOSKELETAL: There is a focal concave depression or Schmorl's node of the L4 superior endplate that is new since 06/23/2020. No acute abnormalities within the lumbar spine. L5 and left iliac bone islands. No suspicious osseous lesion. IMPRESSION: * There appears to be a 0.2 cm stone of the mid right kidney. No large renal stones or hydronephrosis. * Large body habitus and mild hepatomegaly. * Incidentally noted is a 1 cm lipoma of the duodenum. Assessment & Plan Assessment & Plan (1) Nephrolithiasis: Code(s): N20.0 - Calculus of kidney Plan Diet sheet for renal calculi prevention was provided to the patient on the last visit. Discussed to consume about 32-60 ounces of water. Discussed Low sodium, protein, and oxalate diet The patient will continue to monitor at this time. The patient will follow up in a year. I will check a stone protocol CAT scan at that time. She will call us, renal colic pain or blood in the urine. Orders: Orders CT abdomen pelvis wo IV con 11 Months N20.0 - Calculus of kidney Patient Instructions: The patient had an opportunity to ask questions regarding treatment plan. All questions were answered. Imaging, Laboratory studies and physical exam results were discussed and reviewed in detail. No major barriers to understanding were identified. The patient expressed understanding and agreement with the above treatment plan. The patient is aware they should contact our office by phone for worsening of their current condition or the appearance of new symptoms. Compliance is encouraged with any medications and followup testing that is ordered. It is a privilege to be allowed the opportunity to participate in the urologic care of your patient. If you have any questions or concerns regarding treatment for the above conditions please do not hesitate to contact me. The office telephone contact is [phone]. This note is constructed in part using voice recognition software. While every effort has been made to ensure accuracy parts room associate errors may have been included. Yours sincerely, Emir Pablo MD Telehealth Telehealth Location of provider rendering services: practice address Location of patient: address on file Patient Identification confirmed using: Name, : Yes Telehealth method: voice only Patient verbally consented to treatment: Yes Patient verbally consented to billing insurance company: Yes Patient informed of any privacy concerns related to visit: Yes Minutes spent on Phone/Video with Pt.: 15 Coding Level of Care Code Tele New Pt Level 3 (93068) Diagnoses Nephrolithiasis N20.0
== END 2022-12-13 13:51 | disposition home or self-care (01) ==
LOC: HO.HUSH 13:18
PROVIDERS: PCP Family Medicine; Visit Provider Urology
DX: N20.0 Calculus of kidney (principal)
CPT/HCPCS: 99442

== ENCOUNTER → 2022-12-13 13:18 | Outpatient (BNVA) | payer OTHER, SELFPAY | PROVIDERS: PCP Family Medicine; Visit Provider Urology ==

== ENCOUNTER 2023-01-03 15:10 | Outpatient (REF) | payer OTHER, SELFPAY ==
[2023-01-03 15:55] LABS: MANUAL DIFF FLAG NO
[2023-01-03 16:10] LABS: Basophils Percent Auto 0.4 % (0-2); Eosinophils Absolute Auto 0.2 X10*3/uL (0.0-0.4); Hematocrit 35.8 % (37.0-47.0); Hemoglobin 11.7 g/dl (12.0-16.0); Imm Gran Abs Auto 0.02 X10*3/uL (0.00-0.03); Imm Gran Pct Auto 0.3 % (0.0-0.4); Lymphocytes Absolute Auto 2.8 X10*3/uL (1.2-4.9); Lymphocytes Percent Auto 35.5 % (20-40); Mean Corpuscular HGB Conc 32.7 g/dl (31.0-35.0); Mean Corpuscular Hemoglobin 29.3 pg (27.0-33.0); Mean Corpuscular Volume 89.7 fL (80.0-98.0); Mean Platelet Volume 10.1 fL (9.4-12.3); Monocytes Absolute Auto 0.3 X10*3/uL (0.1-1.2); Monocytes Percent Auto 3.9 % (2-11); Neutrophils Absolute Auto 4.4 x10*3/uL (2.0-8.3); Neutrophils Percent Auto 56.9 % (45-73); Platelet Count 219 X10*3/uL (160-400); Red Blood Count 3.99 X10*6/uL (4.20-5.50); Red Cell Distribution Width 13.3 % (11.0-16.0); White Blood Count 7.8 X10*3/uL (4.8-10.8)
[2023-01-03 16:24] LABS: Estimated Average Glucose 117 mg/dL; Hemoglobin A1c % 5.7 % (<6.0)
[2023-01-03 16:57] LABS: Erythrocyte Sedimentation Rate 20 MM/HR (0-20)
[2023-01-03 17:50] LABS: Rheumatoid Factor < 13.0 IU/mL (<15.0)
[2023-01-03 17:59] LABS: Creatinine Urine 332.73 mg/dL; Microalbum/Creatinine Ratio Ur 4.5 ug/mg cr (<30)
[2023-01-03 18:00] LABS: Alanine Aminotransferase 16 U/L (0-31); Albumin Level 4.4 g/dL (3.5-5.0); Alkaline Phosphatase 187 U/L (39-117); Anion Gap 11 (12-20); Aspartate Amino Transferase 13 U/L (5-31); Bilirubin Direct 0.2 mg/dL (0.0-0.5); Bilirubin Total 0.3 mg/dL (0.0-1.0); Blood Urea Nitrogen 7 mg/dL (9-16); C Reactive Protein 0.89 mg/dL (< or = 0.50); Calcium 9.3 mg/dL (8.4-10.2); Carbon Dioxide 21 mmol/L (22-29); Chloride 112 mmol/L (96-108); Cholesterol 128 mg/dL (<200); Estimated Glomerular Filt Rate > 60; Glucose Random 104 mg/dL (60-115); HDL Cholesterol 32 mg/dL (>40); LDL Cholesterol Calculated 76 mg/dL (<100); Sodium 141 mmol/L (135-145); Total Protein 7.6 g/dL (6.5-8.0); Triglycerides 104 mg/dL (<150)
[2023-01-03 18:17] LABS: Free T4 (Free Thyroxine) 0.69 ng/dL (0.71-1.85); Thyroid Stimulating Hormone 2.01 uIU/mL (0.32-4.0); Vitamin D 25-OH Total 21.3 ng/mL (>30)
[2023-01-04 07:25] LABS: HBS Num1 4.19 mIU/mL (0-7.99); HBsAGNum1 0.73 S/CO (0.00-0.99); HIV AB/AG Nonreactive (Nonreactive); HIV Num 1 0.08 S/CO (0.00-0.99); Hepatitis B Surface Antigen Negative (Negative); ~HepC Num1 0.09 S/CO (0.00-0.79); ~Hepatitis B Surface Antibody NONREACTIVE (Nonreactive); ~Hepatitis C Antibody Nonreactive (Nonreactive)
[2023-01-04 07:31] LABS: Syphilis Screen Nonreactive (Nonreactive)
[2023-01-04 11:40] LABS: CT PCR NOT DETECTED (Not Detect.); NG PCR NOT DETECTED (Not Detect.)
[2023-01-05 09:09] LABS: Lyme Abs Screen <0.90 index
[2023-01-05 12:48] LABS: Alpha Fetoprotein 4.6 ng/mL
[2023-01-08 12:13] LABS: Anti Nuclear Antibody Screen NEGATIVE (NEGATIVE)
== END 2023-01-03 15:11 | disposition home or self-care (01) ==
LOC: HO.HHCL 15:10
PROVIDERS: Visit Provider Family Medicine
DX: E11.9 Type 2 diabetes mellitus without complications (principal); K76.0 Fatty (change of) liver, not elsewhere classified; M25.50 Pain in unspecified joint; Z20.2 Contact with and (suspected) exposure to infections with a predominantly sexual mode of transmission; K21.9 Gastro-esophageal reflux disease without esophagitis; R11.2 Nausea with vomiting, unspecified; R19.7 Diarrhea, unspecified; E78.5 Hyperlipidemia, unspecified; I10 Essential (primary) hypertension; N20.0 Calculus of kidney
CPT/HCPCS: 0353U; 36415; 80048; 80061; 80076; 82043; 82105; 82306; 82570; 83036; 84439; 84443; 85025; 85652; 86038; 86140; 86431; 86617; 86618; 86706; 86780; 86803; 87340; 87389

== ENCOUNTER 2023-04-09 14:59 | Outpatient (REF) | payer OTHER, SELFPAY ==
--- NOTE | ~2023-04-09 | XR_ITS ---
EXAMINATION: XR WRIST, LEFT CLINICAL INFORMATION: Pain and swelling status-post fall. COMPARISON: Radiographs dated 11/18/2021. TECHNIQUE: PA, lateral, and oblique views of the left wrist are submitted, together with a dedicated navicular view. FINDINGS: Bony alignment and mineralization are normal. There is a neutral ulnar variance. No fracture or dislocation is seen. The proximal and distal carpal rows are intact. There is very mild osteoarthritic change of the first carpometacarpal joint. A small subarticular cyst is seen of the distal trapezoid. There is no abnormal bone erosion. No focal soft tissue swelling, gas or foreign body seen. XR/XR wrist LT min 3V IMPRESSION: 1. No acute fracture or dislocation is seen. 2. There is very mild osteoarthritic change of the left first carpometacarpal joint.
[2023-04-09 17:21] LABS: Anion Gap 13 (12-20); Blood Urea Nitrogen 8 mg/dL (9-16); Calcium 9.2 mg/dL (8.4-10.2); Carbon Dioxide 23 mmol/L (22-29); Chloride 107 mmol/L (96-108); Estimated Glomerular Filt Rate 48; Glucose Random 148 mg/dL (60-115); Potassium 3.8 mmol/L (3.3-5.1); Sodium 139 mmol/L (135-145)
[2023-04-09 17:31] LABS: TSH reflex Free T4 2.48 uIU/mL (0.32-4.0)
== END 2023-04-09 15:00 | disposition home or self-care (01) ==
LOC: HO.HHCL 14:59
PROVIDERS: Visit Provider General Practice
DX: M25.532 Pain in left wrist (principal); M25.432 Effusion, left wrist; R55 Syncope and collapse
CPT/HCPCS: 36415; 73110; 80048; 84443

== ENCOUNTER 2023-04-27 13:22 | Outpatient (REF) | payer OTHER, SELFPAY ==
[2023-04-29 22:23] LABS: TS Negative Control Passed; TS Panel A 0; TS Panel B 0; TS Positive Control Passed; TSpotTB Negative (Negative)
== END 2023-04-27 13:23 | disposition home or self-care (01) ==
LOC: HO.HHCL 13:22
PROVIDERS: Visit Provider Internal Medicine
DX: Z11.1 Encounter for screening for respiratory tuberculosis (principal)
CPT/HCPCS: 36415; 86481

== ENCOUNTER 2023-09-03 09:48 | Outpatient (REF) | payer OTHER, SELFPAY | END 2023-09-03 09:49 | disposition home or self-care (01) | LOC: HO.HOSX 09:48 | DX: Z13.89 Encounter for screening for other disorder (principal) ==

== ENCOUNTER 2023-09-04 09:25 | Outpatient (REF) | payer OTHER, SELFPAY ==
--- NOTE | ~2023-09-04 | XR_ITS ---
Examination: Left toe and left hand. CLINICAL INDICATION: Left second toe swelling and redness after trauma Technique:: 3 views left hand and 3 views left toe. Findings left toes: There is a nondisplaced fracture distal end proximal phalanx second toe. No additional fracture or dislocation. As mild soft tissue swelling second digit. Left hand: There is no visible acute fracture, dislocation or subluxation. The soft tissues are normal. XR/XR hand LT min 3V IMPRESSION: 1. Nondisplaced fracture distal end proximal phalanx second toe with mild soft tissue swelling. 2. No acute fracture or dislocation left hand.
--- NOTE | ~2023-09-04 | XR_ITS ---
Examination: Left toe and left hand. CLINICAL INDICATION: Left second toe swelling and redness after trauma Technique:: 3 views left hand and 3 views left toe. Findings left toes: There is a nondisplaced fracture distal end proximal phalanx second toe. No additional fracture or dislocation. As mild soft tissue swelling second digit. Left hand: There is no visible acute fracture, dislocation or subluxation. The soft tissues are normal. XR/XR toe LT min 2V IMPRESSION: 1. Nondisplaced fracture distal end proximal phalanx second toe with mild soft tissue swelling. 2. No acute fracture or dislocation left hand.
== END 2023-09-04 09:26 | disposition home or self-care (01) ==
LOC: HO.HOSX 09:25
DX: M79.642 Pain in left hand (principal); M25.532 Pain in left wrist; M79.675 Pain in left toe(s); R22.42 Localized swelling, mass and lump, left lower limb
CPT/HCPCS: 73130; 73660; 99202

== ENCOUNTER 2023-09-04 12:37 | Outpatient (AMB) | payer OTHER, SELFPAY ==
--- NOTE | 2023-09-04 13:04 | A.OFFVIS_ITS ---
Vital Signs 09/04/23 13:07 Height 5 ft 3 in Weight 170 lb BMI 30.1 Intake Visit Reasons: N/P Left hand/wrist pain Intake Note: Tiffanie a 53 year old female who presents today for as a new patient for an evaluation of left hand/wrist pain. Patient reports that she fell down a flight of stairs about 4 months ago. She presented to [facility] ER however her wrist was not evaluated. She followed up with her PCP who ordered and MRI and wrist brace was given. She d/c use of brace due to an increase of discomfort. MRI done at [facility]. Her pain is located around her wrist and radiates into her fingers. Allergies bupropion [From WELLBUTRIN] Allergy (Severe, Verified 09/04/23 13:05) SHAKES, VIOLENTLY ILL metformin [METFORMIN] Allergy (Severe, Verified 09/04/23 13:05) VIOLENTLY SICK, nausea and vomiting promethazine [From PHENERGAN] Allergy (Severe, Verified 09/04/23 13:05) HIVES,sob HPI HPI N/P Left hand/wrist pain : Details: Patient is a 53-year-old female who presents for evaluation of left hand and wrist pain that began approximately 4 months ago after a fall down a flight of stairs. Patient reports that she was previously evaluated at [facility], and no acute intervention was taken at time of injury. Patient was also evaluated by primary care provider, who ordered MRI and placed the patient in a wrist splint. MRI report indicates that the MRI demonstrated nondisplaced triquetral body fracture, fraying of the scapholunate ligament, generalized inflammatory changes potentially indicative of a rheumatologic condition, and trace tenosynovitis involving the 1st extensor compartment. We do not currently have access to the MRI itself. Today, the patient reports that she is still experiencing pain, worst on the ulnar and dorsal aspect of the left hand, but also present in the palm, radial aspect of the hand, wrist, and fingers. She reports that she stopped using the brace, because ?there was a piece of metal in it and it was very uncomfortable?. Patient is a smoker. [facility] Medical History Full dentures Arthritis Peripheral neuropathy High cholesterol HTN (hypertension) Bipolar disorder Personal history of nicotine dependence Takotsubo cardiomyopathy Diabetes mellitus GERD (gastroesophageal reflux disease) Smoker Abscess of skin or subcutaneous tissue Surgical History History of esophagogastroduodenoscopy (EGD) History of cystoscopy History of rectal sphincterotomy S/P excision of ganglion cyst S/P hysterectomy Hx of release of tendon Hx of nephrolithotomy with removal of calculi Hx of colonoscopy Hx of eye surgery History of endometrial ablation Hx of bilateral breast reduction surgery Hx of cholecystectomy Hx of tonsillectomy Hx of appendectomy Family History Mother Ovarian cancer Social History Are you a primary career technical education instructor to a significant other at home: No Do you presently have visiting nurse or other home services: No Alcohol intake: current Alcohol intake frequency: does not drink Patient Tobacco Use Status: Current everyday Tobacco user Tobacco use type: Cigarette Cigarette Packs Per Day: 2 Cigarettes Per Day: 15 Years Smoked: 36 (onset 14, 1ppd x 36yrs, now 2-2.5ppd - 35+PYH) Substance Use Type: Marijuana Review of Systems Const All systems reviewed & are unremarkable except as noted in HPI and below Physical Exam Vital Signs: BMI result Body Mass Index 30.1 Const Other: Patient is alert, oriented, cooperative, and in no acute distress HEENT Head: Yes normocephalic and Yes atraumatic Resp Effort & Inspection: normal respiratory effort and able to speak in complete sentences Cardio Jugular venous distension: no JVD Neuro General: gait normal Cognition (Neuro): normal cognition Extrem Other: Patient is alert, oriented, and in no acute distress. Neuro: Patient denies any numbness or tingling in the median nerve distribution, however she reports that her sensation ?feels different? than in her other fingers Ulnar, radial nerves motor and sensory intact Vascular: Cap refill brisk Pain: Patient reports diffuse tenderness to palpation throughout the left hand, but re ports that her pain is worst along the ulnar and dorsal aspects of the left hand ROM: Patient is able to flex and extend fingers fully Able to make a fist with encouragement, good finger cross Patient is able to flex and extend at the wrist Skin: No lacerations or abrasions. General: No ecchymosis, erythema, or evidence of infection. Psych: Appears grossly normal Affect normal Attitude cooperative Psych Appearance: grossly normal Mental Status: mental status grossly normal Results Reviewed Results Reviewed: X-rays obtained in the office today and independently reviewed by me, Edy Patel PA-C, demonstrate area of lucency on the left triquetral body, concerning for potential delayed healing versus nonunion of old triquetral body fracture. Assessment & Plan Assessment & Plan (1) Left hand pain: Code(s): M79.642 - Pain in left hand Category: Medical Plan 1. Left wrist triquetrum fracture 2. Left hand and wrist pain DOI 4 months ago At the time, after consultation with Dr. Reynolds, we decided that it would be best for this patient to be evaluated by Dr. Reynolds in clinic Due to patient's smoking history, delayed healing versus nonunion of triquetral fracture must be considered Referral to OT placed to promote ROM in the fingers, gentle ROM at the wrist Patient provided with a velcro wrist splint for additional stabilization of the wrist. Patient will see Dr. Reynolds at some point in the next 4 weeks for further evaluation, sooner for any acute concerns. Orders: Orders XR hand LT min 3V Today M79.642 - Pain in left hand OT Evaluation and Treatment Today M79.642 - Pain in left hand Coding Level of Care Code New Pt Level 3 (97349) Diagnoses Left hand pain M79.642
[2023-09-04 13:07] VITALS: BMI 30.1
== END 2023-09-04 14:55 | disposition home or self-care (01) ==
PROVIDERS: PCP Family Medicine
DX: M79.642 Pain in left hand (principal); S62.115A Nondisplaced fracture of triquetrum [cuneiform] bone, left wrist, initial encounter for closed fracture
CPT/HCPCS: 99203

== ENCOUNTER 2023-09-21 12:55 | Outpatient (REF) | payer OTHER, SELFPAY ==
[2023-09-24 13:24] LABS: Mumps Virus IgG Antibody >300.00 AU/mL; Rubeola IgG (Measles) >300.00 AU/mL
[2023-09-24 19:13] LABS: Varicella IgG Antibody >4000.00 index
== END 2023-09-21 12:56 | disposition home or self-care (01) ==
LOC: HO.HHCL 12:55
PROVIDERS: Visit Provider Family Medicine
DX: Z00.00 Encounter for general adult medical examination without abnormal findings (principal); S92.502A Displaced unspecified fracture of left lesser toe(s), initial encounter for closed fracture; W20.8XXA Other cause of strike by thrown, projected or falling object, initial encounter; Y93.9 Activity, unspecified; Y92.9 Unspecified place or not applicable; Y99.9 Unspecified external cause status
CPT/HCPCS: 36415; 86735; 86762; 86765; 86787; 99212

== ENCOUNTER 2023-09-21 13:23 | Outpatient (AMB) | payer OTHER, SELFPAY ==
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
== END 2023-09-21 13:53 | disposition home or self-care (01) ==
PROVIDERS: PCP Family Medicine
DX: S92.502A Displaced unspecified fracture of left lesser toe(s), initial encounter for closed fracture (principal)
CPT/HCPCS: 99213

== ENCOUNTER 2023-10-02 08:44 | Outpatient (REF) | payer OTHER, SELFPAY ==
--- NOTE | ~2023-10-02 | XR_ITS ---
EXAMINATION: XR WRIST, LEFT CLINICAL INFORMATION: Left wrist pain. COMPARISON: 04/09/2023 TECHNIQUE: PA, lateral, oblique, and scaphoid views of the left wrist. FINDINGS: Minimal osteoarthritis at the first MCP, first CMC, and second CMC joints. No fractures. Bones are osteopenic. No erosions. Soft tissues are unremarkable. No soft tissue calcifications. No periostitis. 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 No acute osseous findings.
== END 2023-10-02 08:45 | disposition home or self-care (01) ==
LOC: HO.HOSX 08:44
DX: M79.642 Pain in left hand (principal); M25.532 Pain in left wrist
CPT/HCPCS: 73110; 99212

== ENCOUNTER 2023-10-02 13:42 | Outpatient (AMB) | payer OTHER, SELFPAY ==
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
== END 2023-10-02 15:15 | disposition home or self-care (01) ==
PROVIDERS: PCP Family Medicine
DX: M79.642 Pain in left hand (principal)
CPT/HCPCS: 99213

== ENCOUNTER → 2023-10-19 19:30 | Outpatient (REF) | payer OTHER, SELFPAY | LOC: HO.SL 19:30 | PROVIDERS: PCP Family Medicine; Visit Provider Family Medicine | DX: Z13.89 Encounter for screening for other disorder (principal) ==

== ENCOUNTER 2023-10-22 07:58 | Outpatient (REF) | payer OTHER, SELFPAY | END 2023-10-22 07:59 | disposition home or self-care (01) | LOC: HO.HOSX 07:58 | DX: Z13.89 Encounter for screening for other disorder (principal) ==

== ENCOUNTER 2023-11-28 10:57 | Outpatient (AMB) | payer OTHER, SELFPAY ==
[2023-11-28 10:58] VITALS: BMI 30.1
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
== END 2023-11-28 11:36 | disposition home or self-care (01) ==
PROVIDERS: PCP Family Medicine; Visit Provider Orthopaedic Surgery
DX: S62.115 Nondisplaced fracture of triquetrum [cuneiform] bone, left wrist (principal); E11.9 Type 2 diabetes mellitus without complications; F17.200 Nicotine dependence, unspecified, uncomplicated
CPT/HCPCS: 99214

== ENCOUNTER → 2023-11-28 10:57 | Outpatient (BNVA) | payer OTHER, SELFPAY | PROVIDERS: PCP Family Medicine; Visit Provider Orthopaedic Surgery | DX: M79.642 Pain in left hand (principal); S62.115 Nondisplaced fracture of triquetrum [cuneiform] bone, left wrist; X58.XXXD Exposure to other specified factors, subsequent encounter | CPT/HCPCS: 99212 ==

== ENCOUNTER 2023-12-04 13:32 | Outpatient (AMB) | payer OTHER, SELFPAY ==
--- NOTE | 2023-12-04 13:33 | A.OFFVIS_ITS ---
Vital Signs 12/04/23 13:34 Height 5 ft 3 in Weight 178 lb BMI 31.5 BP 129/67 Blood Pressure Location Rt brachial Position Sitting Pulse 99 Intake Visit Reasons: Abscess left lower abdominal Intake Note: Patient referred by pcp Dr. Mcginnis for abscess on lt lower abdomen. Patient c/o: reports hard lump, reports purple color, reports completed a round of abx and cream with no improvement. Head Of Merchandise Buying Required: No Accompanied by: Self / Same As Patient Allergies bupropion [From WELLBUTRIN] Allergy (Severe, Verified 12/04/23 13:42) SHAKES, VIOLENTLY ILL metformin [METFORMIN] Allergy (Severe, Verified 12/04/23 13:42) VIOLENTLY SICK, nausea and vomiting promethazine [From PHENERGAN] Allergy (Severe, Verified 12/04/23 13:42) HIVES,sob Medication List - Last Reconciled 12/04/23 by Miguel Torre MD atorvastatin 40 mg PO BEDTIME butorphanol intranasal cetirizine 10 mg PO QAM diazepam 10 mg PO BID PRN ergocalciferol (vitamin D2) 1,250 mcg PO QWEEK famotidine 40 mg PO BEDTIME ferrous sulfate 325 mg PO QAM fluticasone propionate 50 mcg/actuation 2 sprays intranasal DAILY folic acid 1 mg PO QAM gabapentin 300 mg PO TID lamotrigine 150 mg PO DAILY ossxkq-uaxootsj-zohdnsm 12,000-38,000 -60,000 unit (Creon) 1 cap PO QID metoclopramide HCl 5 mg PO TID metoprolol tartrate 50 mg PO BID mirtazapine 60 mg PO BEDTIME ondansetron HCl 4 mg PO Q8H oxycodone 5 mg PO TID PRN quetiapine 900 mg PO BEDTIME topiramate 50 mg PO BID triamcinolone acetonide 2 sprays intranasal DAILY varenicline 1 mg PO BID zolpidem 10 mg PO BEDTIME PRN HPI Comments Details: Patient presents for evaluation of abdominal wall abscess. She has had this fascia was for several weeks time. She has had antibiotic course is with minimal relief of symptoms. She has never had such lesion before. Chart was reviewed and patient evaluated [facility] Medical History Full dentures Arthritis Peripheral neuropathy High cholesterol HTN (hypertension) Bipolar disorder Personal history of nicotine dependence Takotsubo cardiomyopathy Diabetes mellitus GERD (gastroesophageal reflux disease) Smoker Abscess of skin or subcutaneous tissue Surgical History History of esophagogastroduodenoscopy (EGD) History of cystoscopy History of rectal sphincterotomy S/P excision of ganglion cyst S/P hysterectomy Hx of release of tendon Hx of nephrolithotomy with removal of calculi Hx of colonoscopy Hx of eye surgery History of endometrial ablation Hx of bilateral breast reduction surgery Hx of cholecystectomy Hx of tonsillectomy Hx of appendectomy Family History Mother Ovarian cancer Social History Are you a primary healthcare translator to a significant other at home: No Do you presently have visiting nurse or other home services: No Alcohol intake: current Alcohol intake frequency: does not drink Patient Tobacco Use Status: Current everyday Tobacco user Tobacco use type: Cigarette Cigarette Packs Per Day: 2 Cigarettes Per Day: 15 Years Smoked: 35 (onset 14, 1ppd x 36yrs, now 2-2.5ppd - 35+PYH) Substance Use Type: Marijuana Current occupation: rt handed Physical Exam Vital Signs: Last Vital Signs Pulse 99 12/04/23 13:34 BP 129/67 12/04/23 13:34 BMI result Body Mass Index 31.5 GI Other: Left lower quadrant abdominal wall abscess measuring roughly 3 x 2 cm. Office Procedures I&D Drain Details: Risks, benefits, alternatives of incision drainage of abdominal abscess were reviewed the patient included but not limited to bleeding, infection, recurrence, numbness, pain, scarring the patient wished to proceed. All questions answered. After appropriate positioning, patient underwent 1% lidocaine and Betadine prep and uneventful incision drainage of abdominal wall abscess measuring roughly 3 x 2 cm with small loculations.. Permanent serial was retrieved. Wound was irrigated, secured hemostasis, packed, and sterile dressing applied. Patient tolerated procedure well. [address]5535-[place] of Skin Abscess, complex All charges added?: Procedure code (CPT) selection complete Assessment & Plan Assessment & Plan (1) Abdominal wall abscess: Code(s): L02.211 - Cutaneous abscess of abdominal wall Category: Surgical Plan: Patient has analgesics home, she had been given a script for antibiotics, local wound instructions, we will arrange with Ramos Arriaga nurse packing changes, and will see me as directed or p.r.n.. All questions answered. Orders: Orders AMB Incision & Drainage Today L02.211 - Cutaneous abscess of abdominal wall Medications: New cephalexin 500 mg PO TID 30 caps 0RF Coding Level of Care Code New Pt Level 5 (78369) Diagnoses Abdominal wall abscess L02. CPT Codes I&D Drain - Drain 2: [id number]-[facility] of Skin Abscess, complex ([id number])
[2023-12-04 13:34] VITALS: BP 129/67; PULSE 99; BMI 31.5
== END 2023-12-04 14:00 | disposition home or self-care (01) ==
PROVIDERS: PCP Family Medicine; Visit Provider Surgery
DX: L02.211 Cutaneous abscess of abdominal wall (principal)
CPT/HCPCS: 10060; 99204

== ENCOUNTER → 2023-12-04 13:32 | Outpatient (BNVA) | payer OTHER, SELFPAY | PROVIDERS: PCP Family Medicine; Visit Provider Surgery | DX: L02.211 Cutaneous abscess of abdominal wall (principal) | CPT/HCPCS: 10060; 99202 ==

== ENCOUNTER → 2023-12-05 13:37 | Outpatient (BNVA) | payer OTHER, SELFPAY | PROVIDERS: PCP Family Medicine; Visit Provider Surgery | DX: Z48.00 Encounter for change or removal of nonsurgical wound dressing (principal) | CPT/HCPCS: 99211 ==

== ENCOUNTER 2023-12-10 10:16 | Outpatient (REF) | payer OTHER, SELFPAY ==
--- NOTE | ~2023-12-10 | XR_ITS ---
EXAMINATION: XR FOOT LEFT 4 VIEWS CLINICAL INFORMATION: Pain in left foot M79.672. Attn second toe. COMPARISON: XR Left foot 07/12/2022 TECHNIQUE: AP, lateral, and oblique views of the left foot. FINDINGS: No acute visible fracture or dislocation. Extracortical chronic changes involving the second proximal phalangeal diaphysis potentially representing sequela of trauma, chronicity indeterminate. Joint space alignment otherwise maintained. Soft tissues are unremarkable. XR/XR foot LT min 3V IMPRESSION: 1. No acute visible fracture or dislocation. 2. Extracortical chronic changes involving the second proximal phalangeal diaphysis potentially representing sequela of trauma, chronicity indeterminate. Electronically signed by: Moises Lopez MD 02/19/2024 02:42 PM EST
== END 2023-12-10 10:17 | disposition home or self-care (01) ==
LOC: HO.HOSX 10:16
DX: M79.672 Pain in left foot (principal); M25.642 Stiffness of left hand, not elsewhere classified; S92.502D Displaced unspecified fracture of left lesser toe(s), subsequent encounter for fracture with routine healing; Z87.2 Personal history of diseases of the skin and subcutaneous tissue; Z98.890 Other specified postprocedural states
CPT/HCPCS: 73630; 99212

== ENCOUNTER 2023-12-10 13:03 | Outpatient (AMB) | payer OTHER, SELFPAY ==
--- NOTE | 2023-12-10 13:22 | A.OFFVIS_ITS ---
Vital Signs 12/10/23 13:24 Height 5 ft 3 in Weight 175 lb BMI 31.0 Intake Visit Reasons: OV-LT 2nd toe fx, swelling Intake Note: Tiffanie is a 53 year old female who presents today for a follow up of her left foot fracture of second toe, DOI: 08/31/2023. Patient reports she is having pain that comes and goes. If she has extreme pain she says she takes oxycodone and ib uprofen for relief. Patient has some concerns but she would like to wait for the provider to see her so she can talk with him. Allergies bupropion [From WELLBUTRIN] Allergy (Severe, Verified 12/10/23 14:39) SHAKES, VIOLENTLY ILL metformin [METFORMIN] Allergy (Severe, Verified 12/10/23 14:39) VIOLENTLY SICK, nausea and vomiting promethazine [From PHENERGAN] Allergy (Severe, Verified 12/10/23 14:39) HIVES,sob HPI HPI OV-LT 2nd toe fx, swelling: Details: Patient is a 53-year-old female who presents for follow-up evaluation of left 2nd toe fracture, date of injury 08/31/2023. 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 Today, the patient reports that she has been going about her daily life with no extra precautions or issues. No other acute complaints or concerns at this time. [facility] Medical History Full dentures Arthritis Peripheral neuropathy High cholesterol HTN (hypertension) Bipolar disorder Personal history of nicotine dependence Takotsubo cardiomyopathy Diabetes mellitus GERD (gastroesophageal reflux disease) Smoker Abscess of skin or subcutaneous tissue Surgical History History of esophagogastroduodenoscopy (EGD) History of cystoscopy History of rectal sphincterotomy S/P excision of ganglion cyst S/P hysterectomy Hx of release of tendon Hx of nephrolithotomy with removal of calculi Hx of colonoscopy Hx of eye surgery History of endometrial ablation Hx of bilateral breast reduction surgery Hx of cholecystectomy Hx of tonsillectomy Hx of appendectomy Family History Mother Ovarian cancer Social History Are you a primary rn care manager to a significant other at home: No Do you presently have visiting nurse or other home services: No Alcohol intake: current Alcohol intake frequency: does not drink Patient Tobacco Use Status: Current everyday Tobacco user Tobacco use type: Cigarette Cigarette Packs Per Day: 2 Cigarettes Per Day: 15 Years Smoked: 36 (onset 14, 1ppd x 36yrs, now 2-2.5ppd - 35+PYH) Substance Use Type: Marijuana Current occupational status: disabled Current occupation: rt handed Review of Systems Const All systems reviewed & are unremarkable except as noted in HPI and below Physical Exam Vital Signs: BMI result Body Mass Index 31.0 Extrem Other: On examination, there is no edema, erythema, ecchymosis noted of the left foot Patient is non tender to palpation over this area No subungual hematoma noted No open area noted Patient is able to flex and extend in all toes Sensation intact Capillary refill brisk Normal gait Results Reviewed Results Reviewed: X-rays obtained in the office today and independently reviewed by me, Edy Patel PA-C, demonstrate minimally displaced transverse fracture of the proximal phalanx of the left 2nd digit with evidence of interval bony healing. Assessment & Plan Assessment & Plan (1) Fracture of second toe, left, closed: Code(s): S92.502A - Displaced unspecified fracture of left lesser toe(s), initial encounter for closed fracture Category: Medical Plan 1. Fracture of the left 2nd toe, minimally displaced Date of injury 08/31/2023 Patient appears to be recovering well from her injury Patient is educated about the typical recovery course Patient is informed that at this time, no further acute intervention is indicated for her toe fracture, as she still appears to be Healing well no evidence of displacement or refracture of previous fracture after injury Patient was amenable to this plan Patient will follow-up as needed with any acute concerns Orders: Orders OT Evaluation and Treatment Today M25.642 - Stiffness of left hand, not elsewhere classified XR foot LT min 3V Today M79.672 - Pain in left foot Coding Level of Care Code Est Pt Level 3 (58350) Diagnoses Fracture of second toe, left, closed S92.502A
[2023-12-10 13:24] VITALS: BMI 31.0
== END 2023-12-10 13:44 | disposition home or self-care (01) ==
PROVIDERS: PCP Family Medicine
DX: S92.502A Displaced unspecified fracture of left lesser toe(s), initial encounter for closed fracture (principal); W10.8XXA Fall (on) (from) other stairs and steps, initial encounter
CPT/HCPCS: 99213

== ENCOUNTER 2023-12-10 14:29 | Outpatient (AMB) | payer OTHER, SELFPAY ==
--- NOTE | 2023-12-10 14:35 | A.OFFVIS_ITS ---
Intake Visit Reasons: one week, post I&D abscess left lower abdominal Intake Note: Patient here for 1wk s/p I&D abdomen. Did not take Cephalexin due to it being called to wrong pharmacy. Patient uses [facility] [place] which is pharmacy on file. Patient c/o: inflammation, redness. Director Of Physical Education Required: No Accompanied by: Self / Same As Patient Allergies bupropion [From WELLBUTRIN] Allergy (Severe, Verified 12/10/23 14:39) SHAKES, VIOLENTLY ILL metformin [METFORMIN] Allergy (Severe, Verified 12/10/23 14:39) VIOLENTLY SICK, nausea and vomiting promethazine [From PHENERGAN] Allergy (Severe, Verified 12/10/23 14:39) HIVES,sob HPI Comments Details: Patient presents for follow-up status post I&D abdominal wall infected sebaceous cyst abscess. She has had marked improvement of her symptoms. She has undergoing local wound care. [facility] Medical History Full dentures Arthritis Peripheral neuropathy High cholesterol HTN (hypertension) Bipolar disorder Personal history of nicotine dependence Takotsubo cardiomyopathy Diabetes mellitus GERD (gastroesophageal reflux disease) Smoker Abscess of skin or subcutaneous tissue Surgical History History of esophagogastroduodenoscopy (EGD) History of cystoscopy History of rectal sphincterotomy S/P excision of ganglion cyst S/P hysterectomy Hx of release of tendon Hx of nephrolithotomy with removal of calculi Hx of colonoscopy Hx of eye surgery History of endometrial ablation Hx of bilateral breast reduction surgery Hx of cholecystectomy Hx of tonsillectomy Hx of appendectomy Family History Mother Ovarian cancer Social History Are you a primary care associate to a significant other at home: No Do you presently have visiting nurse or other home services: No Alcohol intake: current Alcohol intake frequency: does not drink Patient Tobacco Use Status: Current everyday Tobacco user Tobacco use type: Cigarette Cigarette Packs Per Day: 2 Cigarettes Per Day: 15 Years Smoked: 36 (onset 14, 1ppd x 36yrs, now 2-2.5ppd - 35+PYH) Substance Use Type: Marijuana Current occupational status: disabled Current occupation: rt handed Physical Exam GI Other: Marked improvement of sebaceous cyst abscess wound of abdominal wall. Erythema and edema resolved. Wound granulating well. Assessment & Plan Assessment & Plan (1) Status post incision and drainage: Code(s): Z98.890 - Other specified postprocedural states Category: Medical Plan Patient was been given local instructions. She will see me in a few weeks time for elective excision of this process because she does not wished to have it recur or p.r.n.. Arrangements were made for this. Coding Level of Care Code Est Pt Level 3 (84026) Diagnoses Status post incision and drainage Z98.890
== END 2023-12-10 14:54 | disposition home or self-care (01) ==
PROVIDERS: PCP Family Medicine; Visit Provider Surgery
DX: Z98.890 Other specified postprocedural states (principal)
CPT/HCPCS: 99024

== ENCOUNTER 2023-12-10 14:51 | Outpatient (REF) | payer OTHER, SELFPAY ==
[2023-12-10 15:25] LABS: Hematocrit 37.5 % (37.0-47.0); Hemoglobin 12.3 g/dl (12.0-16.0); Mean Corpuscular HGB Conc 32.8 g/dl (31.0-35.0); Mean Corpuscular Hemoglobin 29.4 pg (27.0-33.0); Mean Corpuscular Volume 89.7 fL (80.0-98.0); Mean Platelet Volume 9.7 fL (9.4-12.3); Platelet Count 247 X10*3/uL (160-400); Red Blood Count 4.18 X10*6/uL (4.20-5.50); Red Cell Distribution Width 13.2 % (11.0-16.0); White Blood Count 9.1 X10*3/uL (4.8-10.8)
[2023-12-10 15:37] LABS: Estimated Average Glucose 140 mg/dL; Hemoglobin A1C 146.8521 umol/L; Hemoglobin A1c % 6.5 % (<6.0); Total Hemoglobin (HGBA1C) 3090.6354 umol/L
[2023-12-10 15:59] LABS: Creatinine Urine 164.37 mg/dL; Microalbum/Creatinine Ratio Ur 4.2 ug/mg cr (<30)
[2023-12-10 16:02] LABS: Alanine Aminotransferase 25 U/L (0-31); Albumin Level 4.2 g/dL (3.5-5.0); Alkaline Phosphatase 159 U/L (39-117); Anion Gap 11 (12-20); Aspartate Amino Transferase 22 U/L (5-31); Bilirubin Direct 0.1 mg/dL (0.0-0.5); Bilirubin Total 0.3 mg/dL (0.0-1.0); Blood Urea Nitrogen 7 mg/dL (9-16); Calcium 9.1 mg/dL (8.4-10.2); Carbon Dioxide 24 mmol/L (22-29); Chloride 106 mmol/L (96-108); Cholesterol 145 mg/dL (<200); Estimated Glomerular Filt Rate 53; Glucose Random 154 mg/dL (60-115); HDL Cholesterol 32 mg/dL (>40); LDL Cholesterol Calculated 81 mg/dL (<100); Potassium 3.8 mmol/L (3.3-5.1); Sodium 137 mmol/L (135-145); Total Protein 7.4 g/dL (6.5-8.0); Triglycerides 161 mg/dL (<150)
[2023-12-10 16:22] LABS: Free T4 (Free Thyroxine) 0.69 ng/dL (0.71-1.85); Thyroid Stimulating Hormone 1.27 uIU/mL (0.32-4.0); Vitamin D 25-OH Total 22.1 ng/mL (>30)
[2023-12-10 17:20] LABS: CT PCR NOT DETECTED (Not Detect.); NG PCR NOT DETECTED (Not Detect.)
[2023-12-11 04:35] LABS: HBS Num1 7.75 mIU/mL (0-7.99); HBc Num1 0.35 S/CO (0.00-0.79); HBsAGNum1 0.45 S/CO (0.00-0.99); HIV AB/AG Nonreactive (Nonreactive); HIV Num 1 0.07 S/CO (0.00-0.99); Hepatitis B Core Antibody Nonreactive (Nonreactive); Hepatitis B Surface Antigen Negative (Negative); ~HepC Num1 0.18 S/CO (0.00-0.79); ~Hepatitis B Surface Antibody NONREACTIVE (Nonreactive); ~Hepatitis C Antibody Nonreactive (Nonreactive)
[2023-12-11 04:42] LABS: Hepatitis A Antibody IgG Nonreactive (Nonreactive); ~Hepatitis A Antibody IgG 0.32 S/CO (0.00-0.99)
[2023-12-12 11:03] LABS: Alpha Fetoprotein 5.6 ng/mL
[2023-12-12 16:58] LABS: RPR Rapid Plasma Reagin NON-REACTIVE (NON-REACTIVE)
== END 2023-12-10 14:52 | disposition home or self-care (01) ==
LOC: HO.LAB 14:51
PROVIDERS: PCP Family Medicine; Visit Provider Family Medicine
DX: Z00.00 Encounter for general adult medical examination without abnormal findings (principal); E11.22 Type 2 diabetes mellitus with diabetic chronic kidney disease; N18.30 Chronic kidney disease, stage 3 unspecified; I10 Essential (primary) hypertension; E78.49 Other hyperlipidemia; F31.9 Bipolar disorder, unspecified; G43.909 Migraine, unspecified, not intractable, without status migrainosus; K76.0 Fatty (change of) liver, not elsewhere classified; K21.9 Gastro-esophageal reflux disease without esophagitis; R11.2 Nausea with vomiting, unspecified; R19.7 Diarrhea, unspecified; N20.0 Calculus of kidney; R20.2 Paresthesia of skin; M25.532 Pain in left wrist; G89.29 Other chronic pain; R93.89 Abnormal findings on diagnostic imaging of other specified body structures; J38.5 Laryngeal spasm; L02.91 Cutaneous abscess, unspecified; F17.200 Nicotine dependence, unspecified, uncomplicated
CPT/HCPCS: 80048; 80061; 80076; 82043; 82105; 82306; 82570; 83036; 84439; 84443; 85027; 86592; 86704; 86706; 86708; 86803; 87340; 87389; 87491; 87591

== ENCOUNTER 2023-12-21 09:25 | Outpatient (REF) | payer OTHER, SELFPAY ==
--- NOTE | ~2023-12-21 | XR_ITS ---
EXAMINATION: XR KNEE LEFT 2 VIEWS CLINICAL INFORMATION: Pain in left knee M25.562. COMPARISON: XR Left knee 11/18/2021 TECHNIQUE: Two views of the left knee. FINDINGS: No significant joint effusion. Alignment is anatomic. Mild patellofemoral joint space narrowing. XR/XR knee LT 3V IMPRESSION: No acute abnormality. Electronically signed by: Naresh Law MD 02/14/2024 01:52 PM EST
== END 2023-12-21 09:26 | disposition home or self-care (01) ==
LOC: HO.HOSX 09:25
DX: M25.562 Pain in left knee (principal); M25.561 Pain in right knee; M17.12 Unilateral primary osteoarthritis, left knee
CPT/HCPCS: 73560; 73562; 99212

== ENCOUNTER 2023-12-21 12:53 | Outpatient (AMB) | payer OTHER, SELFPAY ==
[2023-12-21 13:06] VITALS: BMI 31.0
--- NOTE | 2023-12-21 13:06 | A.OFFVIS_ITS ---
Vital Signs 12/21/23 13:06 Height 5 ft 3 in Weight 175 lb BMI 31.0 Intake Visit Reasons: Newprob-Left knee pain Intake Note: Tiffanie is a 53 year old female who presents in the office today for a new problem visit with complaints of left knee pain. Patient states that she fell downstairs in May. Patient states that she ad other injuries that were more concerning at the time, and the pin her left knee is painful, she is currently taking oxycodone for pain relief. Allergies bupropion [From WELLBUTRIN] Allergy (Severe, Verified 12/21/23 13:18) SHAKES, VIOLENTLY ILL metformin [METFORMIN] Allergy (Severe, Verified 12/21/23 13:18) VIOLENTLY SICK, nausea and vomiting promethazine [From PHENERGAN] Allergy (Severe, Verified 12/21/23 13:18) HIVES,sob HPI HPI Newprob-Left knee pain: Details: Patient is a 53-year-old female who presents for a new problem visit for left knee pain, ongoing for multiple years. Patient reports that this pain is intermittent, does not occur every day, and he is primarily associated with going down stairs. The patient states that she is not overly bothered by this pain, but states that she would like to ?have a better idea what is going on in my knee?. The patient reports that her daily activities and not affected by this pain. No other acute complaints concerns at this time. [facility] Medical History Full dentures Arthritis Peripheral neuropathy High cholesterol HTN (hypertension) Bipolar disorder Personal history of nicotine dependence Takotsubo cardiomyopathy Diabetes mellitus GERD (gastroesophageal reflux disease) Smoker Abscess of skin or subcutaneous tissue Surgical History History of esophagogastroduodenoscopy (EGD) History of cystoscopy History of rectal sphincterotomy S/P excision of ganglion cyst S/P hysterectomy Hx of release of tendon Hx of nephrolithotomy with removal of calculi Hx of colonoscopy Hx of eye surgery History of endometrial ablation Hx of bilateral breast reduction surgery Hx of cholecystectomy Hx of tonsillectomy Hx of appendectomy Family History Mother Ovarian cancer Social History Are you a primary personal care attendant to a significant other at home: No Do you presently have visiting nurse or other home services: No Alcohol intake: current Alcohol intake frequency: does not drink Patient Tobacco Use Status: Current everyday Tobacco user Tobacco use type: Cigarette Cigarette Packs Per Day: 2 Cigarettes Per Day: 15 Years Smoked: 36 (onset 14, 1ppd x 36yrs, now 2-2.5ppd - 35+PYH) Substance Use Type: Marijuana Current occupational status: disabled Current occupation: rt handed Physical Exam Vital Signs: BMI result Body Mass Index 31.0 Extrem Other: On inspection, there is no visible deformity of the left knee No edema, erythema, ecchymosis noted No lacerations, abrasions, open areas No evidence of infection Patient reports mild tenderness to palpation about the left patella and parapatellar region Patient reports no tenderness to palpation of the medial and lateral joint line, posterior knee Patient is able to extend the left knee to 0 degrees and flex to approximately 120 degrees without difficulty No ligamentous laxity noted Distal sensation intact Capillary refill brisk Negative Grayson's Positive patellar grind Results Reviewed Results Reviewed: X-rays obtained in the office today and independently reviewed by me, Edy Patel PA-C, demonstrate mild degenerative changes of the left knee consistent with osteoarthritis. No fracture or acute bony abnormality noted. Assessment & Plan Assessment & Plan (1) Osteoarthritis of left knee: Code(s): M17.12 - Unilateral primary osteoarthritis, left knee Category: Medical Plan 1. Left knee osteoarthritis, mild Symptoms ongoing for approximately 2-3 years Patient is educated about this condition and the treatment options available, including but not limited to conservative pain management, physical therapy, and injections Patient states she would like to proceed with conservative management and physical therapy Patient was referred to PT at this time for range of motion, strengthening, stabilization of left knee Patient is also educated on conservative pain management measures, such as rest, ice, elevation, and [id number]-[id number]-[id number] pain medication as needed Patient is amenable to this plan Patient will follow-up as needed with any acute concerns Orders: Orders XR knee LT 3V 12/21/23 M25.562 - Pain in left knee XR knee RT 1V 12/21/23 M25.561 - Pain in right knee Coding Level of Care Code Est Pt Level 3 (86099) Diagnoses Osteoarthritis of left knee M17.12
== END 2023-12-21 13:35 | disposition home or self-care (01) ==
PROVIDERS: PCP Family Medicine
DX: M17.12 Unilateral primary osteoarthritis, left knee (principal)
CPT/HCPCS: 99213

== ENCOUNTER 2023-12-25 13:36 | Outpatient (REF) | payer OTHER, SELFPAY ==
--- NOTE | ~2023-12-25 | MM_ITS ---
EXAMINATION: MM SCREENING DIGITAL BREAST TOMOSYNTHESIS, BILATERAL CLINICAL INFORMATION: Screening. Asymptomatic. COMPARISON: Mammography: Comparison is made with available priors TECHNIQUE: Digital breast mammography with tomosynthesis is performed in both the craniocaudal and mediolateral oblique views along with computer-aided detection (CAD). FINDINGS: There are scattered areas of fibroglandular density (ACR BI-RADS breast composition Category b). Bilateral reduction mammoplasty. There are no significant masses, abnormal calcifications, or other abnormalities. MM/MM tomosynthesis screening BI IMPRESSION: No mammographic evidence of malignancy. ASSESSMENT: BI-RADS BI-RADS 2 - Benign Findings RECOMMENDATION: Routine annual mammography screening. 1 year F/U This examination should not preclude the clinical evaluation of a suspicious palpable abnormality. This patient's information was entered into a reminder system with a target due date for their next mammogram. Electronically signed by: Zandra Casas DO 01/07/2024 03:46 PM TANYA
== END 2023-12-25 13:37 | disposition home or self-care (01) ==
LOC: HO.MAMMO 13:36
PROVIDERS: PCP Family Medicine; Visit Provider Family Medicine
DX: Z12.31 Encounter for screening mammogram for malignant neoplasm of breast (principal)
CPT/HCPCS: 77063; 77067

== ENCOUNTER → 2023-12-25 13:45 | Outpatient (BNV) | payer OTHER, SELFPAY | PROVIDERS: PCP Family Medicine; Visit Provider Internal Medicine | DX: Z12.31 Encounter for screening mammogram for malignant neoplasm of breast (principal) | CPT/HCPCS: 77063; 77067 ==

== ENCOUNTER 2023-12-31 12:50 | Outpatient (REF) | payer OTHER, SELFPAY | END 2023-12-31 12:51 | disposition home or self-care (01) | LOC: HO.LNP 12:50 | PROVIDERS: PCP Family Medicine; Visit Provider Surgery | DX: L02.211 Cutaneous abscess of abdominal wall (principal); L72.3 Sebaceous cyst | CPT/HCPCS: 11403; 88304 ==

== ENCOUNTER 2023-12-31 12:50 | Outpatient (AMB) | payer OTHER, SELFPAY ==
--- NOTE | 2023-12-31 12:59 | A.OFFVIS_ITS ---
Vital Signs 12/31/23 13:20 Height 5 ft 3 in Weight 184 lb BMI 32.6 BP 115/64 Blood Pressure Location Rt brachial Position Sitting Pulse 94 Intake Visit Reasons: Excision abscess left lower abdominal Intake Note: Patient here for excision of abscess on left lower abdomen. Corrections Identification Technician Required: No Accompanied by: Self / Same As Patient Allergies bupropion [From WELLBUTRIN] Allergy (Severe, Verified 12/31/23 13:21) SHAKES, VIOLENTLY ILL metformin [METFORMIN] Allergy (Severe, Verified 12/31/23 13:21) VIOLENTLY SICK, nausea and vomiting promethazine [From PHENERGAN] Allergy (Severe, Verified 12/31/23 13:21) HIVES,sob Medication List - Last Reconciled 12/31/23 by Miguel Torre MD atorvastatin 40 mg PO BEDTIME butorphanol intranasal cephalexin 500 mg PO TID cephalexin 500 mg PO BID cetirizine 10 mg PO QAM diazepam 10 mg PO BID PRN ergocalciferol (vitamin D2) 1,250 mcg PO QWEEK famotidine 40 mg PO BEDTIME ferrous sulfate 325 mg PO QAM fluticasone propionate 50 mcg/actuation 2 sprays intranasal DAILY folic acid 1 mg PO QAM gabapentin 300 mg PO TID lamotrigine 150 mg PO DAILY ldtyoe-cgumozre-hjotlbt 12,000-38,000 -60,000 unit (Creon) 1 cap PO QID metoclopramide HCl 5 mg PO TID metoprolol tartrate 50 mg PO BID mirtazapine 60 mg PO BEDTIME ondansetron HCl 4 mg PO Q8H oxycodone 5 mg PO TID PRN quetiapine 900 mg PO BEDTIME topiramate 50 mg PO BID triamcinolone acetonide 2 sprays intranasal DAILY varenicline 1 mg PO BID zolpidem 10 mg PO BEDTIME PRN HPI Comments Details: Patient presents for excision of lower left abdominal wall sebaceous cyst/mass. Risks, benefits, alternatives of the procedure reviewed with the patient included but not limited to bleeding, infection, recurrence, numbness, pain, scarring the patient wished to proceed. All questions answered. Consent site. [facility] Medical History Full dentures Arthritis Peripheral neuropathy High cholesterol HTN (hypertension) Bipolar disorder Personal history of nicotine dependence Takotsubo cardiomyopathy Diabetes mellitus GERD (gastroesophageal reflux disease) Smoker Abscess of skin or subcutaneous tissue Surgical History History of esophagogastroduodenoscopy (EGD) History of cystoscopy History of rectal sphincterotomy S/P excision of ganglion cyst S/P hysterectomy Hx of release of tendon Hx of nephrolithotomy with removal of calculi Hx of colonoscopy Hx of eye surgery History of endometrial ablation Hx of bilateral breast reduction surgery Hx of cholecystectomy Hx of tonsillectomy Hx of appendectomy Family History Mother Ovarian cancer Social History Are you a primary career based intervention coordinator to a significant other at home: No Do you presently have visiting nurse or other home services: No Alcohol intake: current Alcohol intake frequency: does not drink Patient Tobacco Use Status: Current everyday Tobacco user Tobacco use type: Cigarette Cigarette Packs Per Day: 2 Cigarettes Per Day: 15 Years Smoked: 36 (onset 14, 1ppd x 36yrs, now 2-2.5ppd - 35+PYH) Substance Use Type: Marijuana Current occupational status: disabled Current occupation: rt handed Physical Exam Vital Signs: Last Vital Signs Pulse 94 12/31/23 13:20 BP 115/64 12/31/23 13:20 BMI result Body Mass Index 32.6 Office Procedures Excision Details: After appropriate positioning, patient underwent % lidocaine Betadine prep and transverse by elliptical incision of left lower quadrant abdominal wall sebaceous cyst. Specimen excised and sent to pathology. Wound was irrigated, secured hemostasis, and closed using running subcuticular 3-0 Vicryl suture followed by Steri-Strips and sterile dressings. Patient tolerated procedure well. 48788-cudfv/arms/legs 2.1-3cm Procedure code (CPT) selection complete Office Meds lidocaine 1 %-epinephrine 1:100,000 injection solution Performing Provider: Miguel Torre MD Performing Location[place] [facility] Administered by: Miguel Torre MD on 12/31/23 13:36 Dose Route Admin Location Dispensed Lot Number Expiration Date [facility] Machine Operator Replanter 10 mL Infiltration 10 mL Assessment & Plan Assessment & Plan (1) Sebaceous cyst: Code(s): L72.3 - Sebaceous cyst Category: Surgical Plan: Patient was been given local instructions including avoiding strenuous activities, may shower in 2 days removing only outside dressing leaving Steri- Strips intact, Tylenol and Motrin p.r.n. pain, ice periodically and will see me as directed or p.r.n.. All questions answered. Orders: Orders AMB Excision Today L72.3 - Sebaceous cyst Medications: New lidocaine-epinephrine 1 %-1:100,000 10 mL Infiltration ONCE 30 mL 0RF L72.3 - Sebaceous cyst Coding Level of Care Code Est Pt Level 5 (30262) Diagnoses Sebaceous cyst L72.3 CPT Codes Trunk/Arms/Legs - CPT: 67614-bnsiq/arms/legs 2.1-3cm ([id number])
[2023-12-31 13:20] VITALS: BP 115/64; PULSE 94; BMI 32.6
== END 2023-12-31 13:21 | disposition home or self-care (01) ==
LOC: HO.HGS 12:50
PROVIDERS: PCP Family Medicine; Visit Provider Surgery
DX: L72.3 Sebaceous cyst (principal)
CPT/HCPCS: 11403

== ENCOUNTER 2024-01-08 13:07 | Outpatient (AMB) | payer OTHER, SELFPAY ==
--- NOTE | 2024-01-08 13:08 | A.OFFVIS_ITS ---
Vital Signs 01/08/24 13:13 Height 5 ft 3 in Weight 184 lb BMI 32.6 BP 121/68 Blood Pressure Location Rt brachial Position Sitting Pulse 106 H Intake Visit Reasons: abscess excision follow up Intake Note: This patient presents for follow-up assessment status post excision left lower quadrant abdominal wall sebaceous cyst. Pt c/o; reports no complaints. Solar Pv Installer Required: No Accompanied by: Self / Same As Patient Allergies bupropion [From WELLBUTRIN] Allergy (Severe, Verified 01/08/24 13:15) SHAKES, VIOLENTLY ILL metformin [METFORMIN] Allergy (Severe, Verified 01/08/24 13:15) VIOLENTLY SICK, nausea and vomiting promethazine [From PHENERGAN] Allergy (Severe, Verified 01/08/24 13:15) HIVES,sob HPI Comments Details: Patient presents for follow-up status post I&D of abdominal wall abscess wound. She is doing well. She says her wound is completely healed. [facility] Medical History Full dentures Arthritis Peripheral neuropathy High cholesterol HTN (hypertension) Bipolar disorder Personal history of nicotine dependence Takotsubo cardiomyopathy Diabetes mellitus GERD (gastroesophageal reflux disease) Smoker Abscess of skin or subcutaneous tissue Surgical History History of esophagogastroduodenoscopy (EGD) History of cystoscopy History of rectal sphincterotomy S/P excision of ganglion cyst S/P hysterectomy Hx of release of tendon Hx of nephrolithotomy with removal of calculi Hx of colonoscopy Hx of eye surgery History of endometrial ablation Hx of bilateral breast reduction surgery Hx of cholecystectomy Hx of tonsillectomy Hx of appendectomy Family History Mother Ovarian cancer Social History Are you a primary emergency care attendant to a significant other at home: No Do you presently have visiting nurse or other home services: No Alcohol intake: current Alcohol intake frequency: does not drink Patient Tobacco Use Status: Current everyday Tobacco user Tobacco use type: Cigarette Cigarette Packs Per Day: 2 Cigarettes Per Day: 15 Years Smoked: 35 (onset 14, 1ppd x 36yrs, now 2-2.5ppd - 35+PYH) Substance Use Type: Marijuana Current occupational status: disabled Current occupation: rt handed Physical Exam Vital Signs: Last Vital Signs Pulse 106 H 01/08/24 13:13 BP 121/68 01/08/24 13:13 BMI result Body Mass Index 32.6 GI Other: I&D site completely healed on abdomen abdominal wall Assessment & Plan Assessment & Plan (1) Follow-up exam: Code(s): Z09 - Encounter for follow-up examination after completed treatment for conditions other than malignant neoplasm Category: Surgical Plan Patient was doing well. She has been given local instructions and otherwise follow-up p.r.n.. All questions answered. Coding Level of Care Code Global (79089) Diagnoses Follow-up exam Z09
[2024-01-08 13:13] VITALS: BP 121/68; PULSE 106; BMI 32.6
== END 2024-01-08 13:33 | disposition home or self-care (01) ==
LOC: HO.HGS 13:07
PROVIDERS: PCP Family Medicine; Visit Provider Surgery
DX: Z09 Encounter for follow-up examination after completed treatment for conditions other than malignant neoplasm (principal)
CPT/HCPCS: 99024

== ENCOUNTER → 2024-01-08 13:07 | Outpatient (BNVA) | payer OTHER, SELFPAY | PROVIDERS: PCP Family Medicine; Visit Provider Surgery | DX: Z09 Encounter for follow-up examination after completed treatment for conditions other than malignant neoplasm (principal) | CPT/HCPCS: 99212 ==

== ENCOUNTER 2024-03-10 13:26 | Outpatient (REF) | payer OTHER, SELFPAY ==
--- OUTSIDE RECORDS SUMMARY | 2024-03-10 15:46 | XMS_ITS ---
Author Organization [facility], Address [address] [facility] [place] [address] Care Team Providers Care Health Insurance Agent Name Role Phone Tracie Villavicencio Unavailable [phone] ALLERGIES, ADVERSE REACTIONS, ALERTS Substance Code Code System Type Reaction Severity Status Start Date End Date Phenergan 057026 RxNorm Drug allergy () 0 Wellbutrin 96697 RxNorm Drug allergy () 1 Wellbutrin 27337 RxNorm Drug allergy () 0 metformin 6809 RxNorm Drug allergy () 1 metformin 6809 RxNorm Drug allergy () 0 Phenergan 152200 RxNorm Drug allergy () 1 MEDICATIONS Medication Code Code System Start Date Stop Date Route Dosage Directions Fill Instructions Seroquel RxNorm 3 metoprolol succinate RxNorm 3 Ambien RxNorm 3 butorphanol tartrate (bulk) RxNorm 3 ondansetron RxNorm 3 diazepam RxNorm 3 Remeron RxNorm 3 amantadine HCl 100 mg tablet RxNorm 3 1 butorphanol 10 mg/mL nasal spray RxNorm 3 1 fexofenadine 180 mg tablet RxNorm 3 1 gabapentin 300 mg capsule RxNorm 3 2 mirtazapine 30 mg tablet RxNorm 3 2 quetiapine 300 mg tablet RxNorm 3 3 PROBLEMS Problem Name Code Code System Start Date End Date [facility] Bipolar disorder, unspecified 331032580 [facility] 07/14/2022 Active Anxiety disorder 84946152 [facility] 07/14/2022 Act veronica Pain in unspecified foot 09571702 [facility] 07/14/2022 Resolved Nondisplaced unspecified fra cture of left lesser toe(s), initial encounter for closed fracture 35082012 [facility] 11/07/2022 Active ENCOUNTERS Encounter Diagnosis Code Code System Date Stat us Nondisplaced unspecified fra cture of left lesser toe(s), initial encounter for closed fracture 71291706 [facility] 11/07/2022 Active IMMUNIZATIONS * None VITAL SIGNS Code Code System Vitals Name Date Value and Un its 8462-4 Lost. [facility] Blood Pressure-Diastolic 11/07/2022 84 mmHg 8480-6 [facility] Blood Pressure-Systolic 11/07/2022 1 22 mmHg 8867-4 [facility] Heart Rate 11/07/2022 74 /min 9279-1 [facility] Respiratory Rate 11/07/2022 16 /min 8310-5 [facility] Body Temperature 11/07/2022 97.9 F 41707-3 [facility] Oxygen Saturation 11/07/2022 98 % SOCIAL HISTORY * None PROCEDURES Code Code System Procedure Date Status Notes 35653 Cpt4 Finger/Toe Taping 11/07/2022 completed Tracie Villavicencio - 11/07/2022 left fourth toe(s) taped, Patient tolerated procedure well, Patient left room ambulating without difficulty. MEDICAL EQUIPMENT * Patient has no history of implantable devices ASSESSMENT * None TREATMENT PLAN Type Description Date [facility] [address] [id number] [phone]. [id number] [place], [place] [address] [address] [place], [place] [phone] 11/07/2022 APPOINTMENT If not feeling debbi r in 3 day(s), please see your primary care physician. If you do not have a primary care physician, please return to this clinic. 11/07/2022 Lab Tests None GOALS * None HEALTH CONCERNS * No Health Concerns FUNCTIONAL AND COGNITIVE STATUS * None CONSULTATION NOTES * None DISCHARGE SUMMARY NOTES * None HISTORY AND PHYSICAL NOTES * Reason for visit - Illness IMAGING NOTES * /Eastern History: pt stubbed toeLeft Fourth Toe, 3 views:There is a minimally displaced fracture involving the distal aspect of the proximal phalanx.There is preservation of the joint spaces. There is mild soft tissue swelling about the fracture. IMPRESSION:Minimally displaced proximal phalanx fracture. LABORATORY REPORT NARRATIVE NOTES * None PATHOLOGY REPORT NARRATIVE NOTES * None PROGRESS NOTES * None
[2024-03-10 17:13] LABS: Free T4 (Free Thyroxine) 0.71 ng/dL (0.71-1.85); T4 Thyroxine < 3.0 ug/dL (4.5-12.0); Thyroid Stimulating Hormone 1.12 uIU/mL (0.32-4.0)
[2024-03-11 09:14] LABS: Triiodothyronine T3 Free 2.4 pg/mL (2.3-4.2); Triiodothyronine T3 Total 76 ng/dL (76-181)
[2024-03-11 10:49] LABS: Thyroglobulin Antibodies <1 IU/mL (< or = 1)
[2024-03-14 21:23] LABS: Thyrotropin Receptor Antibody <1.00 IU/L (<=2.00)
== END 2024-03-10 13:27 | disposition home or self-care (01) ==
LOC: HO.HHCL 13:26
PROVIDERS: Visit Provider Family Medicine
DX: R79.89 Other specified abnormal findings of blood chemistry (principal)
CPT/HCPCS: 36415; 83520; 84436; 84439; 84443; 84480; 84481; 86800

== ENCOUNTER 2024-05-10 14:11 | Outpatient (REF) | payer OTHER, SELFPAY ==
--- NOTE | ~2024-05-10 | MR_ITS ---
EXAMINATION: MR BRAIN WITHOUT IV CONTRAST HISTORY: Pt having sx of mild cognitive impairment TECHNIQUE: Sagittal T1, and axial T1, FLAIR, T2, gradient echo, and diffusion weighted MR images of the brain were obtained. COMPARISON: None FINDINGS: A few scattered subcortical white matter hyperintensities are noted on the FLAIR and T2-weighted images which are nonspecific, but often seen in the setting of small vessel ischemic disease. Mejía/white differentiation is otherwise normal. There is no mass effect or midline shift. The ventricular system is normal in size and configuration. No intra or extra-axial fluid collections are identified. There are no foci of restricted diffusion. Normal vascular flow voids are noted in the basilar and carotid arteries. The visualized paranasal sinuses are clear. There is fluid signal intensity in the bilateral mastoid air cells. There is T2 hyperintense signal in the left petrous apex, which could represent fluid within and otherwise normally aerated petrous apex. MR/MR head/brain wo con IMPRESSION: 1. Minimal nonspecific white matter hyperintensities, often seen in the setting of small vessel ischemic disease. 2. Fluid in the bilateral mastoid air cells. Electronically signed by: Eduardo Yang MD 05/13/2024 07:17 AM EDT
== END 2024-05-10 14:12 | disposition home or self-care (01) ==
LOC: HO.MRI 14:11
PROVIDERS: PCP Family Medicine
DX: G31.84 Mild cognitive impairment of uncertain or unknown etiology (principal)
CPT/HCPCS: 70551

== ENCOUNTER → 2024-05-10 14:59 | Outpatient (BNV) | payer OTHER, SELFPAY | PROVIDERS: PCP Family Medicine; Visit Provider Radiology Diagnostic Radiology | DX: H74.8X3 Other specified disorders of middle ear and mastoid, bilateral (principal) | CPT/HCPCS: 70551 ==

== ENCOUNTER 2024-06-04 12:21 | Outpatient (REF) | payer OTHER, SELFPAY ==
[2024-06-04 13:17] LABS: MANUAL DIFF FLAG NO
[2024-06-04 13:33] LABS: Basophils Percent Auto 0.4 % (0-2); Eosinophils Absolute Auto 0.2 X10*3/uL (0.0-0.4); Eosinophils Percent Auto 2.1 % (0-4); Hematocrit 35.4 % (37.0-47.0); Hemoglobin 11.7 g/dl (12.0-16.0); Imm Gran Abs Auto 0.03 X10*3/uL (0.00-0.03); Imm Gran Pct Auto 0.4 % (0.0-0.4); Lymphocytes Absolute Auto 2.4 X10*3/uL (1.2-4.9); Mean Corpuscular HGB Conc 33.1 g/dl (31.0-35.0); Mean Corpuscular Hemoglobin 30.2 pg (27.0-33.0); Mean Corpuscular Volume 91.5 fL (80.0-98.0); Mean Platelet Volume 10.1 fL (9.4-12.3); Monocytes Absolute Auto 0.3 X10*3/uL (0.1-1.2); Monocytes Percent Auto 4.5 % (2-11); Neutrophils Absolute Auto 4.6 x10*3/uL (2.0-8.3); Neutrophils Percent Auto 60.6 % (45-73); Platelet Count 216 X10*3/uL (160-400); Red Blood Count 3.87 X10*6/uL (4.20-5.50); Red Cell Distribution Width 13.3 % (11.0-16.0); White Blood Count 7.5 X10*3/uL (4.8-10.8)
[2024-06-04 13:38] LABS: Estimated Average Glucose 206 mg/dL; Hemoglobin A1C 225.1637 umol/L; Hemoglobin A1c % 8.8 % (<6.0); Total Hemoglobin (HGBA1C) 3077.2176 umol/L
[2024-06-04 14:10] LABS: Erythrocyte Sedimentation Rate 29 MM/HR (0-20)
[2024-06-04 14:13] LABS: Alanine Aminotransferase 37 U/L (0-31); Alkaline Phosphatase 163 U/L (39-117); Anion Gap 9 (12-20); Aspartate Amino Transferase 26 U/L (5-31); Bilirubin Direct 0.1 mg/dL (0.0-0.5); Bilirubin Total 0.3 mg/dL (0.0-1.0); Blood Urea Nitrogen 11 mg/dL (9-16); Calcium 8.9 mg/dL (8.4-10.2); Carbon Dioxide 26 mmol/L (22-29); Chloride 109 mmol/L (96-108); Cholesterol 146 mg/dL (<200); Estimated Glomerular Filt Rate 60; Glucose Random 173 mg/dL (60-115); HDL Cholesterol 31 mg/dL (>40); Iron 35 mcg/dL (30-160); LDL Cholesterol Calculated 82 mg/dL (<100); Percent Iron Saturation 15 % (15-50); Potassium 3.8 mmol/L (3.3-5.1); Rheumatoid Factor < 13.0 IU/mL (<15.0); Sodium 140 mmol/L (135-145); Total Iron Binding Capacity 234 mcg/dL (228-428); Triglycerides 165 mg/dL (<150); Unsaturated Iron Binding 199 ug/dL
[2024-06-04 14:35] LABS: Folate 2.4 ng/mL (> or = 4.0); Vitamin B12 624 pg/mL (200-900)
[2024-06-04 14:41] LABS: Ferritin 88 ng/mL (10-250); Vitamin D 25-OH Total 19.1 ng/mL (>30)
--- OUTSIDE RECORDS SUMMARY | 2024-06-04 14:51 | XMS_ITS | Encounter Summary ---
Author Organization [employer] Address [address] [place] [address] [address] [place] [address] Care Team Providers Care Radio Communications Mechanician Name Role Phone Tracie Mcginnis DO Primary Care Provider + [phone] Reason for Visit * Reason Comments Med Refill Encounter Details Date Type Department Care Team ([facility] st Contact Info) Description 06/15/2023 Refill [facility] [address] [place], [place] [phone] Tracie Mcginnis DO [address] [place], [place] [phone] Social History Tobacco Use Types Packs/Day Years Used Date Smoking Tobacco: Every Day Cigarettes Passive Smoke Exposure: Current Smokeless Tobacco: Never Alcohol Use Standard Drinks/Week Comments Never 0 (1 standard drink = 0.6 oz pur e alcohol) Depression Answer Date Recorded Patient Health Questionnaire-9 Score 0 05/11/2023 Patient Health Questionnaire-9 Score 0 05/11/2023 Last PHQ-9: Questionnaire Data Not on file 0 05/11/2023 Housing Stability Answer Date Recorded What is your housing situation today? I have nahid smart 05/11/[address] you li ve. Do you have problems with any of the following? None of the above 05/11/2023 Food Insecurity Answer Date Recorded Within the past 12 months, y ou worried that your food would run out before you got money to buy more: Never True 05/11/2023 Within the past 12 months,th e food you bought just didn't last and you didn't have enough money to get more: Never True 10/2023 Transportation Answer Date Recorded In the past 12 months, has l ack of transportation kept you from medical appts, meetings, work or from getting things needed for daily living? Yes, it has kept me from medical appointments or getting medications. 05/11/2023 Utilities Answer Date Recorded In the past 12 months, has t he electric, gas, oil or water company threatened to shut off services in your home? No 05/11/2023 Depression Answer Date Recorded Patient Health Questionnaire-2 Score 0 05/11/2023 Comments Unknown Sex and Gender Information Value Date Recorded Sex Assigned at Female 01/02/2022 10:22 AM EDT Legal Sex Female 10:22 AM EDT Gender Identity Female 01/02/2022 10:22 AM EDT Sexual Orientation Straight 01/02/2022 10 :22 AM EDT documented as of this encounter Plan of Treatment Not on file documented as of this encounter Visit Diagnoses Not on filedocumented in this encounter Additional Health Concerns Assessment Noted Time PHQ-9 Depression Total Score: 0 05/11/19 24 11:50 AM EST documented as of this encounter Care Teams Radio Communications Mechanician Relationship Specialty Start Date End Date Tracie Mcginnis DO [address] [place] [address] PCP - General Family Medicine 08/27/13 documented as of this encounter
--- OUTSIDE RECORDS SUMMARY | 2024-06-04 14:51 | XMS_ITS | Encounter Summary ---
Author Organization [employer] Address [address] [facility] [address] [place] [address] Care Team Providers Care Physical Education Teacher Name Role Phone Tracie Mcginnis DO Primary Care Provider + [phone] Encounter Details Date Type Department Care Team ([facility] st Contact Info) Description 08/17/2023 Telephone [facility] [address] [place], [place] [phone] Tracie Mcginnis DO [address] [place], [place] [phone] Social History Tobacco Use Types Packs/Day Years [...] documented as of this encounter Care Teams Physical Education Teacher Relationship Specialty Start Date End Date Tracie Mcginnis DO [address] [place] [address] PCP - General Family Medicine 08/27/13 documented as of this encounter
--- OUTSIDE RECORDS SUMMARY | 2024-06-04 14:51 | XMS_ITS | Encounter Summary ---
Author Organization [employer] Address [address] [place] [address] [address] [place] [address] Care Team Providers Care Client Architect Name Role Phone Ras Tracie Primary Care Provider + [phone] Reason for Visit * Reason Comments Med Refill Encounter Details Date Type Department Care Team ([facility] st Contact Info) Description 03/03/2024 Refill [facility] [address] [place], [place] [phone] Gwendolyn Ortega MD [address] [place], [place] [phone] Nonintractable chronic migraine Social History Tobacco Use Types Packs/Day Years [...] AM EDT documented as of this encounter Miscellaneous Notes * Telephone Encounter - Tracie Mcginnis DO - 03/10/2024 2:20 PM EST Rx already sent. documented in this encounter Plan of Treatment Not on file documented as of this encounter Visit Diagnoses Diagnosis Nonintractable chronic migraine documented in this encounter Additional Health Concerns Assessment Noted Time PHQ-9 Depression Total Score: 0 05/11/19 24 11:50 AM EST documented as of this encounter Care Teams Client Architect Relationship Specialty Start Date End Date Tracie Mcginnis DO [address] [place] [id number] PCP - General Family Medicine 08/27/13 documented as of this encounter
--- OUTSIDE RECORDS SUMMARY | 2024-06-04 14:51 | XMS_ITS | Encounter Summary ---
Author Organization [employer] Address [address] [place] [address] 7t [place] [address] Care Team Providers Care Vest Backer Name Role Phone Tracie Mcginnis DO Primary Care Provider [phone] Encounter Details Date Type Department Care Team ([facility] st Contact Info) Description 02/28/2022 Orders Only [facility] [address] [place], [place] [phone] Tracie Dalton LPN Social History Tobacco Use Types Packs/Day Years Used Date Smoking Tobacco: Never Assessed Comments Unknown Sex and Gender Information Value Date Recorded Sex Assigned at Female 01/02/2022 10:22 AM EDT Legal Sex Female 10:22 AM EDT Gender Identity Female 01/02/2022 10:22 AM EDT Sexual Orientation Straight 01/02/2022 10 :22 AM EDT documented as of this encounter Plan of Treatment Not on file documented as of this encounter Visit Diagnoses Not on filedocumented in this encounter Care Teams Vest Backer Relationship Specialty Start Date End Date Tracie Mcginnis DO [address] [place] [address] PCP - General Family Medicine 08/27/13 documented as of this encounter
--- OUTSIDE RECORDS SUMMARY | 2024-06-04 14:51 | XMS_ITS | Encounter Summary ---
Author Organization [employer] Address [address] [place] [address] 7t [place] [address] Care Team Providers Care Stamp Mounter Name Role Phone Tracie Mcginnis DO Primary Care Provider + [phone] Reason for Visit * Reason Comments Med Refill Encounter Details Date Type Department Care Team ([facility] st Contact Info) Description 02/12/2023 Refill [facility] MED[facility]INE [address] [place], [place] [phone] Tracie Mcginnis DO [address] [place], [place] [phone] Social History Tobacco Use Types Packs/Day Years Used Date Smoking Tobacco: Every Day Cigarettes Passive Smoke Exposure: Current Smokeless Tobacco: Never Alcohol Use Standard Drinks/Week Comments Never 0 (1 standard drink = 0.6 oz pur e alcohol) PHQ-2 Answer Date Recorded Patient Health Questionnaire-2 Score 0 04/06/2022 Housing Stability Answer Date Recorded What is your housing situation today? I have nahid smart 12/21/[address] you li ve. Do you have problems with any of the following? None of the above 12/21/2022 Food Insecurity Answer Date Recorded Within the past 12 months, y ou worried that your food would run out before you got money to buy more: Never True 12/21/2022 Within the past 12 months,th e food you bought just didn't last and you didn't have enough money to get more: Never True Transportation Answer Date Recorded In the past 12 months, has l ack of transportation kept you from medical appts, meetings, work or from getting things needed for daily living? Yes, it has kept me from medical appointments or getting medications. 12/11/2022 Utilities Answer Date Recorded In the past 12 months, has t he electric, gas, oil or water company threatened to shut off services in your home? No 12/21/2022 Depression Answer Date Recorded Patient Health Questionnaire-2 Score 0 04/06/2022 Comments Unknown Sex and Gender Information Value [...] on filedocumented in this encounter Care Teams Stamp Mounter Relationship Specialty Start Date End Date Tracie Mcginnis DO [address] [place] [address] PCP - General Family Medicine 08/27/13 documented as of this encounter
--- OUTSIDE RECORDS SUMMARY | 2024-06-04 14:51 | XMS_ITS | Encounter Summary ---
Author Organization [employer] Address [address] [place] [address] 7 [place] [address] Care Team Providers Care Wireline Supervisor Name Role Phone Tracie Mcginnis DO Primary Care Provider + [phone] Reason for Visit * Reason Onset Date Comments Med Refill 08/17/2023 Encounter Details Date Type Department Care Team ([facility] st Contact Info) Description 08/17/2023 Telephone [facility] MED[facility]INE [address] [place], [place] [phone] Tracie Mcginnis DO [address] [place], [place] [phone] Med Refill Social History Tobacco Use Types Packs/Day Years [...] Miscellaneous Notes * Telephone Encounter - Tracie Dalton LPN - 08/17/2023 3:09 PM EDT Medication pended to PCP. * Telephone Encounter - Silvia Segovia - 08/17/2023 3:06 PM EDT TC from pt requesting medication refill. Medications needing refill : ondansetron ODT (Zofran-ODT) 4 MG disintegrating tablet To be sent to: [facility] - [place], [place] - [address] documented in this encounter Plan of Treatment Not on file documented as of this encounter Visit Diagnoses Not on filedocumented in this encounter Additional Health Concerns Assessment Noted Time PHQ-9 Depression Total Score: 0 05/11/19 24 11:50 AM EST documented as of this encounter Care Teams Wireline Supervisor Relationship Specialty Start Date End Date Tracie Mcginnis DO [address] [place] [address] PCP - General Family Medicine 08/27/13 documented as of this encounter
--- OUTSIDE RECORDS SUMMARY | 2024-06-04 14:51 | XMS_ITS | Encounter Summary ---
Author Organization [employer] Address [address] [place] [address] 7t [place] [address] Care Team Providers Care Corporate Real Estate Specialist Name Role Phone Tracie Mcginnis DO Primary Care Provider + [phone] Reason for Visit * Reason Comments Med Change Request Encounter Details Date Type Department Care Team ([facility] st Contact Info) Description 06/02/2024 Refill [facility] MEDICINE [address] [place], [place] [phone] Tracie Mcginnis DO [address] [place], [place] [phone] Social History Tobacco Use Types Packs/Day Years Used Date Smoking Tobacco: Every Day Cigarettes Passive Smoke Exposure: Current Smokeless Tobacco: Never Alcohol Use Standard Drinks/Week Comments Never 0 (1 standard drink = 0.6 oz pur e alcohol) Depression Answer Date Recorded Patient Health Questionnaire-9 Score 14 06/04/2024 Patient Health Questionnaire-9 Score 14 06/04/2024 Last PHQ-9: Questionnaire Data Not on file 0 06/04/2024 Housing Stability Answer Date Recorded What is your housing situation today? I have nahid smart 06/04/[address] you li ve. Do you have problems with any of the following? None of the above 06/04/2024 Food Insecurity Answer Date Recorded Within the past 12 months, y ou worried that your food would run out before you got money to buy more: Never True 2024 Within the past 12 months,th e food you bought just didn't last and you didn't have enough money to get more: Sometimes True 06/04/2024 Transportation Answer Date Recorded In the past 12 months, has l ack of transportation kept you from medical appts, meetings, work or from getting things needed for daily living? No 06/04/2024 Utilities Answer Date Recorded In the past 12 months, has t he electric, gas, oil or water company threatened to shut off services in your home? No 06/04/2024 Depression Answer Date Recorded Patient Health Questionnaire-2 Score 2 06/04/2024 Internet Access Answer Date Recorded Internet Access Q1 Yes 06/04/2024 Internet Access Q2 Not on file 06/04/2024 Comments Unknown Sex and Gender Information Value [...] documented as of this encounter Care Teams Corporate Real Estate Specialist Relationship Specialty Start Date End Date Tracie Mcginnis DO [address] [place] [address] PCP - General Family Medicine 08/27/13 documented as of this encounter
--- OUTSIDE RECORDS SUMMARY | 2024-06-04 14:51 | XMS_ITS | Encounter Summary ---
Author Organization [employer] Address [address] [place] [address] 7 [place] [address] Care Team Providers Care Front End Manager Name Role Phone Tracie Mcginnis DO Primary Care Provider + [phone] Reason for Visit * Reason Onset Date Comments Nurse Triage 04/18/2023 Encounter Details Date Type Department Care Team ([facility] st Contact Info) Description 04/18/2023 Telephone [facility] MEDICINE [address] [place], [place] [phone] Tracie Mcginnis DO [address] [place], [place] [phone] Nurse Triage Social History Tobacco Use Types Packs/Day Years [...] encounter Miscellaneous Notes * Telephone Encounter - Yumiko French RN - 04/18/2023 3:36 PM EST Triage call Pt reports some dizziness when turning over in the bed and when standing up. Dizziness comes and goes. Pt reports blood sugars have been good the highest has been 130. Pt was seen in OV 04/09/23 due to fall. Pt also reports 12 purvi on the left side of head which need to be removed. Pt reports inadequate liquids, advised to increase liquids 6-8 glasses daily. Careful not to get up toofast and wait for any dizziness to pass before ambulating. Pt also reports much pain from rib area.Pt is taking tylenol with little to no relief. Pt is given appt with Dr. Erwin 03/26/23 1215pm for staple removal. Insurance is verified as active prior to booking. Protocol Used: Dizziness (Adult) Care Advice Discussed: * Reassurance and Education - Dizziness From Not Drinking Enough Liquids * Drink Fluids * Lie Down and Rest * Prevention - Dizziness * Reasons To Call Back - After 2 hours of rest and fluids And still feeling dizzy. - Passes out (faints). - You become worse. * Telephone Encounter - Maria Isabel Feldman - 04/18/2023 2:57 PM EST Symptom: Dizziness Outcome: Schedule an appointment to be seen within 24 hours Reason: Caller denied all higher acuity questions The caller accepted this outcome documented in this encounter Plan of Treatment Not on file documented as of this encounter Visit Diagnoses Not on filedocumented in this encounter Care Teams Front End Manager Relationship Specialty Start Date End Date Tracie Mcginnis DO [address] [place] [id number] PCP - General Family Medicine 08/27/13 documented as of this encounter
--- OUTSIDE RECORDS SUMMARY | 2024-06-04 14:51 | XMS_ITS | Clinical Summary ---
Author Organization [employer] Address [address] [address] Care Team Providers Care Fax Machine Operator Name Role Phone Tracie Mcginnis Primary Care Provider Allergies Active Allergy Reactions Criticality Noted Date Comments Metformin GI Intolerance 09/03/2015 Promethazine Hives 09/03/2015 Bupropion Hcl Anxiety Low 09/03/2015 Medications EPIPEN 2-ALEJANDRA 0.3 mg/0.3 mL atIn INJECT 1 SYRINGE INTRAMUSCULARLY NEEDED FOR AIRWAY SWELLING AND GO TO [facility] 0 08/23/19 16 Active glipiZIDE (GLUCOTROL) 5 MG tablet Take 5 mg by mouth 2 (two) times a day before meals. Active QUEtiapine (SEROquel XR) 300 MG 24 hr tablet Take 300 mg by mouth nightly. Active metoprolol (TOPROL-XL) 100 MG 24 hr tablet Take 1 mg by mouth daily. Active lamoTRIgine (LaMICtal) 100 MG tablet Take 100 mg by mouth daily. Active Social History Tobacco Use Types Packs/Day Years Used Date Smoking Tobacco: Every Day Comments No Sex and Gender Information Value Date Recorded Sex Assigned at Not on file Legal Sex Female 5:39 PM EDT Gender Identity Not on file Sexual Orientation Not on file Last Filed Vital Signs Vital Sign Reading Time Taken Comments Blood Pressure 118/68 09/03/2015 5:53 PM EDT Pulse 80 09/03/2015 5:53 PM EDT Temperature 37.7 ??C (99.8 ??F) 09/03/2015 5:53 PM ED T Respiratory Rate 14 09/03/2015 5:53 PM EDT Oxygen Saturation - - Inhaled Oxygen Concentration - - Weight 97.1 kg (214 lb) 09/03/2015 5:53 PM EDT Height 160 cm (5' 3 ) 09/03/2015 5:53 PM EDT Body Mass Index 37.91 09/03/2015 5:53 PM EDT Plan of Treatment Health Maintenance Due Date Last Done Comments Colorectal Cancer: COLONOS[place] PY Screening every 10 yrs (or Modifier) 1969 Depression: Screening Annual ly using PHQ-2/9 in Adults 18 yrs or above (or HM Modifier)([facility]) 05/27/1987 Hepatitis C Virus Infection in Adolescents and Adults: Screening (or Modifier) ([facility]) 05/27/1987 SDOH Screening Reminder: Jacki cummins for all adults ([facility]) 05/27/1987 Tobacco Smoking Cessation: i n Adults excluding Women: Behavioral and Pharmacotherapy Interventions ([facility]) 05/27/1987 DTaP/Tdap/Td Vaccines ([facility]) (1 - Tdap) 1988 Cervical Cancer Screenin 1-65 yrs of age (or Modifier) 1990 Cervical Cancer Screening: P ap every 3 yrs pts age 21-65 1990 Cervical Cancer: Pap Screeni ng with Modifier timing ([facility]) 1990 Cervical Cancer: hrHPV alone or with cotesting Pap for Pts 30-65yrs screening every 5yrs ([facility]) 1990 Colorectal Cancer Screening 45 -75 Yrs (or HM Modifier) 2014 Colorectal Cancer: FLEXIBLE SIGMOIDOSCOPY Screening every 5 yrs 2014 Colorectal Cancer: Fecal Immunochemical Test (FIT) Annually [facility] 2014 Colorectal Cancer: High-sens itivity gFOBT Screening Annually [facility] 2014 Colorectal Cancer: Stool Col oguard Screening every 3 yrs 2014 Colorectal Cancer:CT Colonog joao Screening every 5 yrs 2014 Lipid Screening: Every 5 yrs for Women aged 45+ (or HM Modifier) ([facility]) 05/27/2015 Breast Cancer: Screening Jacki ually age 50-74 yrs (or HM Modifier)([facility]) 05/27/2019 Lung Cancer: Screening Annua lly in adults aged 50 to 80 years (or HM Modifiers)([facility]) 05/27/2019 Zoster/Shingles Vaccine Seri es Screening: Adults aged 18+ yrs (or HM Modifiers)([facility]) (1 of 2) 05/27/2019 Flu Vaccination: Yearly for ages 18mos through 64 years (or Modifier)([facility]) 10/04/2023 COVID-19 Vaccine Screening: Initial Series and Booster Status ([facility]) (2023- season) 2023 Pneumococcal Vaccination Scr eening: Pts 0-19 & 19-49 yrs of age ([facility]) Aged Out No longer eligible based on patient's age to complete this topic Medical Devices Not on file Insurance [facility] [employer] Care Teams Fax Machine Operator Relationship Specialty Start Date End Date Tracie Mcginnis DO [address] [place] [phone] PCP - General Family Medicine 09/03/15
--- OUTSIDE RECORDS SUMMARY | 2024-06-04 14:51 | XMS_ITS | Encounter Summary ---
Author Organization [employer] Address [address] [facility] 7t [place] [address] Care Team Providers Care Materials Management Supervisor Name Role Phone RasTracie Primary Care Provider + [phone] Encounter Details Date Type Department Care Team (Latest Contact Info) Description 06/04/2024 Travel Social History Tobacco Use Types Packs/Day Years [...] Access Q2 Not on file 06/04/2024 Comments No Sex and Gender Information Value [...] Assessment Noted Time PHQ-9 Depression Total Score: 14 025 11:26 AM EDT documented as of this encounter Care Teams Materials Management Supervisor Relationship Specialty Start Date End Date Tracie Mcginnis DO [address] [place] [address] PCP - General Family Medicine 08/27/13 documented as of this encounter
--- OUTSIDE RECORDS SUMMARY | 2024-06-04 14:51 | XMS_ITS | Encounter Summary ---
Author Organization [employer] Address [address] [place] [address] 7t [place] [address] Care Team Providers Care Ripsaw Operator Name Role Phone Tracie Mcginnis DO Primary Care Provider + [phone] Reason for Visit * Reason Comments Med Refill Encounter Details Date Type Department Care Team ([facility] st Contact Info) Description 04/11/2024 Refill [facility] MEDICINE [address] [place], [place] [phone] Tracie Mcginnis DO [address] [place], [place] [phone] Primary insomnia Social History Tobacco Use Types Packs/Day Years [...] as of this encounter Visit Diagnoses Diagnosis Primary insomnia Persistent disorder of initiating or maintaining sleep documented in this encounter Additional Health Concerns Assessment Noted Time PHQ-9 Depression Total Score: 0 05/11/19 24 11:50 AM EST documented as of this encounter Care Teams Ripsaw Operator Relationship Specialty Start Date End Date Tracie Mcginnis DO [address] [place] [address] PCP - General Family Medicine 08/27/13 documented as of this encounter
--- OUTSIDE RECORDS SUMMARY | 2024-06-04 14:51 | XMS_ITS | Encounter Summary ---
Author Organization [employer] Address [address] [place] [address] 7t [place] [address] Care Team Providers Care Field Mechanical Meter Tester Name Role Phone Tracie Mcginnis DO Primary Care Provider + [phone] Reason for Visit * Reason Comments Med Refill Encounter Details Date Type Department Care Team ([facility] st Contact Info) Description 05/11/2023 Refill [facility] MEDICINE 230 [place], [place] [phone] Tracie Mcginnis DO [address] [place], [place] [phone] Nonintractable chronic migraine Social History Tobacco Use [...] documented as of this encounter Care Teams Field Mechanical Meter Tester Relationship Specialty Start Date End Date Tracie Mcginnis DO [address] [place] [id number] PCP - General Family Medicine 08/27/13 documented as of this encounter
--- OUTSIDE RECORDS SUMMARY | 2024-06-04 14:51 | XMS_ITS | Encounter Summary ---
Author Organization [email or web address] Address [address] [place] [address] 7t [place] [address] Care Team Providers Care Engineer Operations And Maintenance Name Role Phone Tracie Mcginnis DO Primary Care Provider + [phone] Reason for Visit * Reason Comments Med Refill Encounter Details Date Type Department Care Team ([facility] st Contact Info) Description 02/06/2024 Refill [facility] MEDICINE [address] [place], [place] [phone] Tracie Mcginnis DO [address] [place], [place] [phone] Primary insomnia Social History Tobacco Use Types [...] documented as of this encounter Care Teams Engineer Operations And Maintenance Relationship Specialty Start Date End Date Tracie Mcginnis DO [address] [place] [address] PCP - General Family Medicine 08/27/13 documented as of this encounter
--- OUTSIDE RECORDS SUMMARY | 2024-06-04 14:51 | XMS_ITS | Encounter Summary ---
Author Organization [employer] Address [address] [facility] 7t [place] [address] Care Team Providers Care Welt Wheeler Name Role Phone Tracie Mcginnis DO Primary Care Provider + [phone] Encounter Details Date Type Department Care Team ([facility] st Contact Info) Description 12/13/2022 Telephone [facility] MEDICINE [address] [place], [place] [phone] Tracie Mcginnis DO [address] [place], [place] [phone] Social History Tobacco Use Types Packs/Day Years Used Date Smoking Tobacco: Every Day Cigarettes Passive Smoke Exposure: Current Smokeless Tobacco: Never Alcohol Use Standard Drinks/Week Comments Never 0 (1 standard drink = 0.6 oz pur e alcohol) PHQ-2 Answer Date Recorded Patient Health Questionnaire-2 Score 0 04/06/2022 Housing Stability Answer Date Recorded What is your housing situation today? I have nahid smart 12/11/[address] you li ve. Do you have problems with any of the following? None of the above 12/11/2022 Food Insecurity Answer Date Recorded Within the past 12 months, y ou worried that your food would run out before you got money to buy more: Never True 12/11/2022 Within the past 12 months,th e food you bought just didn't last and you didn't have enough money to get more: Never True 11/2022 Transportation Answer Date Recorded In the past [...] shut off services in your home? No 12/11/2022 Depression Answer Date Recorded Patient Health Questionnaire-2 [...] on filedocumented in this encounter Care Teams Welt Wheeler Relationship Specialty Start Date End Date Tracie Mcginnis DO [address] [place] [address] PCP - General Family Medicine 08/27/13 documented as of this encounter
--- OUTSIDE RECORDS SUMMARY | 2024-06-04 14:51 | XMS_ITS | Encounter Summary ---
Author Organization [employer] Address [address] [place] [address] 7t [place] [address] Care Team Providers Care Correctional Casework Specialist Name Role Phone Ras Tracie Primary Care Provider + [phone] Reason for Visit * Reason Comments Med Refill Encounter Details Date Type Department Care Team ([facility] st Contact Info) Description 02/29/2024 Refill [facility] MEDICINE 230 [place], [place] [phone] Gwendolyn Ortega MD [address] [place], [place] [phone] Nonintractable chronic migraine Social History Tobacco Use [...] documented as of this encounter Care Teams Correctional Casework Specialist Relationship Specialty Start Date End Date Tracie Mcginnis DO [address] [place] [address] PCP - General Family Medicine 08/27/13 documented as of this encounter
--- OUTSIDE RECORDS SUMMARY | 2024-06-04 14:51 | XMS_ITS | Encounter Summary ---
Author Organization [employer] Address [address] [facility] 7t [place] [address] Care Team Providers Care Technical Lead Name Role Phone Ras Tracie Primary Care Provider + [phone] Encounter Details Date Type Department Care Team (Late st Contact Info) Description 06/14/2023 Orders Only [facility] MEDICINE [address] [place], [place] [phone] Abbi Conway MD [address] [place], [place] [phone] Social History Tobacco Use Types Packs/Day Years [...] documented as of this encounter Care Teams Technical Lead Relationship Specialty Start Date End Date Tracie Mcginnis DO [address] [place] [address] PCP - General Family Medicine 08/27/13 documented as of this encounter
--- OUTSIDE RECORDS SUMMARY | 2024-06-04 14:51 | XMS_ITS | Encounter Summary ---
Author Organization [employer] Address [address] [place] [address] Care Team Providers Care Mine Manager Name Role Phone Tracie Mcginnis DO Primary Care Provider + [phone] Reason for Visit * Reason Comments Med Refill Encounter Details Date Type Department Care Team ([facility] st Contact Info) Description 11/28/2022 Refill [facility] MEDICINE 230 [place], [place] [phone] Tracie Mcginnis DO [address] [place] [address] Social History Tobacco Use Types Packs/Day Years Used Date Smoking Tobacco: Every Day Cigarettes Passive Smoke Exposure: Current Smokeless Tobacco: Never Alcohol Use Standard Drinks/Week Comments Never 0 (1 standard drink = 0.6 oz pur e alcohol) PHQ-2 Answer Date Recorded Patient Health Questionnaire-2 Score 0 04/06/2022 Depression Answer Date Recorded Patient Health Questionnaire-2 [...] on filedocumented in this encounter Care Teams Mine Manager Relationship Specialty Start Date End Date Tracie Mcginnis DO [address] [place], [place] [phone] PCP - General Family Medicine 08/27/13 documented as of this encounter
--- OUTSIDE RECORDS SUMMARY | 2024-06-04 14:51 | XMS_ITS | Clinical Summary ---
Author Organization [facility] ity Address [address] [place] [address] Care Team Providers Care Quantitative Analyst Developer Name Role Phone BroallieWendy marshallfer Robyn MATUTE Primary Care Provider [phone] Social History Tobacco Use Types Packs/Day Years Used Date Smoking Tobacco: Never Assessed Comments Unknown Sex and Gender Information Value Date Recorded Sex Assigned at Not on file Legal Sex Female 8:00 AM EST Gender Identity Not on file Sexual Orientation Not on file Plan of Treatment Health Maintenance Due Date Last Done Comments Breast Cancer Screening 1969 DTaP,Tdap,and Td Vaccines (1 - Tdap) 1988 Hepatitis B Vaccines (1 of 3 - 19+ 3-dose series) 1988 Cervical Cancer Screening: P ap Smear 1990 Pneumococcal Vaccine: 50+ Ye ars (1 of 1 - PCV) 05/27/2019 Zoster Vaccines (1 of 2) 05/27/2019 Colorectal Cancer Screening: Colonoscopy 02/05/2022 Depression Screening 02/05/2022 HIV Screening 02/05/2022 Hepatitis C Screening 02/05/2022 Social Influencers of Health Screening 02/05/2022 COVID-19 Vaccine (1 - 2023-2 5 season) 2023 Influenza Vaccine (Season Ended) 2024 HIB Vaccines Aged Out No longer eligi ble based on patient's age to complete this topic HPV Vaccines Aged Out No longer eligi ble based on patient's age to complete this topic Hepatitis A Vaccines Aged Out No long er eligible based on patient's age to complete this topic IPV Vaccines Aged Out No longer eligi ble based on patient's age to complete this topic MMR Vaccines Aged Out No longer eligi ble based on patient's age to complete this topic Meningococcal ACWY Vaccine Aged Out N o longer eligible based on patient's age to complete this topic Meningococcal B Vacine Aged Out No lo nger eligible based on patient's age to complete this topic Pneumococcal Vaccine: Pediat rics (0 to 5 Years) and At-Risk Patients (6 to 64 Years) Aged Out No longer eligible b ased on patient's age to complete this topic RSV Immunization Patients Un robert 20 months Aged Out No longer eligible b ased on patient's age to complete this topic Varicella Vaccines Aged Out No longer eligible based on patient's age to complete this topic Care Teams Quantitative Analyst Developer Relationship Specialty Start Date End Date Tracie Mcginnis DO [address] [place] [address] PCP - General 10/10/16
--- OUTSIDE RECORDS SUMMARY | 2024-06-04 14:51 | XMS_ITS | Encounter Summary ---
Author Organization [employer] Address [address] [place] [address] [address] [place] [address] Care Team Providers Care Heat And Vent Aircraft Mechanic Name Role Phone Tracie Mcginnis DO Primary Care Provider [phone] Encounter Details Date Type Department Care Team (Late st Contact Info) Description 03/16/2022 Telephone [facility] MEDICINE [address] [place], [place] [phone] Tracie Mcginnis DO [address] [place] [address] Social History Tobacco Use Types Packs/Day Years [...] on filedocumented in this encounter Care Teams Heat And Vent Aircraft Mechanic Relationship Specialty Start Date End Date Tracie Mcginnis DO [address] [place], [place] [phone] PCP - General Family Medicine 08/27/13 documented as of this encounter
--- OUTSIDE RECORDS SUMMARY | 2024-06-04 14:51 | XMS_ITS | Encounter Summary ---
Author Organization [employer] Address [address] [place] [address] [address] [place] [address] Care Team Providers Care Underwriter Solicitation Director Name Role Phone Tracie Mcginnis DO Primary Care Provider + [phone] Reason for Visit * Reason Comments Med Refill Encounter Details Date Type Department Care Team ([facility] st Contact Info) Description 02/26/2024 Refill [facility] MEDICINE [address] [place], [place] [phone] Tracie Mcginnis DO [address] [place], [place] [phone] Primary insomnia Social History Tobacco Use Types [...] documented as of this encounter Care Teams Underwriter Solicitation Director Relationship Specialty Start Date End Date Tracie Mcginnis DO [address] [place] [address] PCP - General Family Medicine 08/27/13 documented as of this encounter
--- OUTSIDE RECORDS SUMMARY | 2024-06-04 14:51 | XMS_ITS | Encounter Summary ---
Author Organization [employer] Address [address] [facility] [address]t [place] [address] Care Team Providers Care Dye Range Operator Name Role Phone Wendy Mcginnisfer Primary Care Provider + [phone] Encounter Details Date Type Department Care Team (Late st Contact Info) Description 04/19/2024 Orders Only [facility] MEDICINE [address] [place] [address] ProviderMarlon MD Social History Tobacco Use Types Packs/Day Years [...] on file documented as of this encounter Procedures Procedure Name Priority Date/Time Associated Diagnosis Comments HM COLONOSCOPY Routine 11/21/2022 6:53 PM EDT documented in this encounter Results * Hm Colonoscopy (11/21/2022 6:53 PM EDT) us Historical Provider HEALTH MAINTENANCE Final Result documented in this encounter Visit Diagnoses Not on filedocumented in this encounter Additional Health Concerns Assessment Noted Time PHQ-9 Depression Total Score: 0 05/11/19 24 11:50 AM EST documented as of this encounter Care Teams Dye Range Operator Relationship Specialty Start Date End Date Tracie Mcginnis DO [address] [place] [address] PCP - General Family Medicine 08/27/13 documented as of this encounter
--- OUTSIDE RECORDS SUMMARY | 2024-06-04 14:51 | XMS_ITS | Encounter Summary ---
Author Organization [employer] Address [address] [facility] [address]t [place] [address] Care Team Providers Care Field Operations Supervisor Name Role Phone Tracie Mcginnis DO Primary Care Provider + [phone] Reason for Visit * Reason Comments Med Refill Encounter Details Date Type Department Care Team ([facility] st Contact Info) Description 04/23/2024 Refill [facility] [address] [place], [place] [phone] Tracie Mcginnis DO [address] [place] [address] Social History Tobacco Use Types Packs/Day Years [...] enough money to get more: Never True 03/ 10/2023 Transportation Answer Date Recorded In the [...] as of this encounter Care Teams Field Operations Supervisor Relationship Specialty Start Date End Date Tracie Mcginnis DO [address] [place] [address] PCP - General Family Medicine 08/27/13 documented as of this encounter
--- OUTSIDE RECORDS SUMMARY | 2024-06-04 14:51 | XMS_ITS | Encounter Summary ---
Author Organization [employer] Address [address] [place] [address] [address] [place] [address] Care Team Providers Care Subscription Agent Name Role Phone Tracie Mcginnis DO Primary Care Provider + [phone] Reason for Visit * Reason Comments Med Refill Encounter Details Date Type Department Care Team ([facility] st Contact Info) Description 02/07/2024 Refill [facility] MEDICINE [address] [place], [place] [phone] Tracie Mcginnis DO [address] [place], [place] [phone] Primary insomnia Social History Tobacco Use Types [...] documented as of this encounter Care Teams Subscription Agent Relationship Specialty Start Date End Date Tracie Mcginnis DO [address] [place] [address] PCP - General Family Medicine 08/27/13 documented as of this encounter
--- OUTSIDE RECORDS SUMMARY | 2024-06-04 14:51 | XMS_ITS | Encounter Summary ---
Author Organization [employer] Address [address] [place] [address] [address] [place] [address] Care Team Providers Care Solid Tire Finisher Name Role Phone Tracie Mcginnis DO Primary Care Provider + [phone] Reason for Visit * Reason Comments Med Refill Encounter Details Date Type Department Care Team ([facility] st Contact Info) Description 06/02/2024 Refill [facility] MEDICINE [address] [place], [place] [phone] Tracie Mcginnis DO [address] [place], [place] [phone] Nonintractable chronic migraine Social History Tobacco Use [...] documented as of this encounter Care Teams Solid Tire Finisher Relationship Specialty Start Date End Date Tracie Mcginnis DO [address] [place] [address] PCP - General Family Medicine 08/27/13 documented as of this encounter
--- OUTSIDE RECORDS SUMMARY | 2024-06-04 14:51 | XMS_ITS | Encounter Summary ---
Author Organization [employer] Address [address] [place] [address] 7[address] [place] [address] Care Team Providers Care Supervisor Coin Machine Name Role Phone Tracie Mcginnis DO Primary Care Provider + [phone] Encounter Details Date Type Department Care Team (Latest Contact Info) Description 06/04/2024 10:45 AM EDT Office Visit [facility] [address] [place], [place] [phone] Tracie Mcginnis DO [address] [place], [place] [phone] Type 2 diabetes mellitus with stage 3 chronic kidney disease, without long-term current use of insulin, unspecified whether stage 3a or 3b CKD (CMS/HCC) (Primary Dx); Essential hypertension; Other hyperlipidemia; Chronic bipolar disorder (CMS/HCC); Chronic migraine; Fatty liver; Chronic gastroesophageal reflux disease; Nausea, vomiting, and diarrhea; Nephrolithiasis; Paresthesia of both feet; Chronic pain of left wrist; Abnormal MRI; Sleep related laryngospasm; Abscess; Tobacco dependence; Healthcare maintenance; Type 2 diabetes mellitus without complication, without long-term current use of insulin (CMS/HCC) Social History Tobacco Use Types Packs/Day Years [...] your housing situation today? I have nahid sing 06/04/[address] you li [...] AM EDT documented as of this encounter Last Filed Vital Signs Vital Sign Reading Time Taken Comments Blood Pressure 110/70 06/04/2024 11:18 AM EDT Pulse 92 06/04/2024 11:18 AM EDT Temperature 36.2 ??C (97.1 ??F) 06/04/2024 11:18 AM E DT Respiratory Rate 20 06/04/2024 11:18 AM EDT Oxygen Saturation 99% 06/04/2024 11:18 AM EDT Inhaled Oxygen Concentration - - Weight 81.6 kg (180 lb) 06/04/2024 11:18 AM EDT Height 160 cm (5' 3 ) 06/04/2024 11:18 AM EDT Body Mass Index 31.89 06/04/2024 11:18 AM EDT documented in this encounter Plan of Treatment Scheduled Orders Name Type Priority Associated Diagnoses Orde r Schedule Albumin, Random Urine W/Creatinine Lab Routine Type 2 diabetes mellitus with stage 3 chronic kidney disease, without long-term current use of insulin, unspecified whether stage 3a or 3b CKD (CMS/HCC) Expected: 06/04/2024 (Approximate), Expires: 06/04/2025 documented as of this encounter Procedures Procedure Name Priority Date/Time Associated Diagnosis Comments VITAMIN D,25-OH,TOTAL,IA Routine 06/04/2024 12:26 PM EDT Type 2 diabetes mellitus with stage 3 chronic kidney disease, without long-term current use of insulin, unspecified whether stage 3a or 3b CKD (CMS/HCC) VITAMIN B12/FOLATE, SERUM PANEL Routine 06/04/2024 12:26 PM EDT Type 2 diabetes mellitus with stage 3 chronic kidney disease, without long-term current use of insulin, unspecified whether stage 3a or 3b CKD (CMS/HCC) CBC WITH AUTO DIFFERENTIAL Routine 06/04/2024 12:26 PM EDT Type 2 diabetes mellitus with stage 3 chronic kidney disease, without long-term current use of insulin, unspecified whether stage 3a or 3b CKD (CMS/HCC) IRON AND TOTAL IRON BINDING CAPACITY Routine 06/04/2024 12:26 PM EDT Type 2 diabetes mellitus with stage 3 chronic kidney disease, without long-term current use of insulin, unspecified whether stage 3a or 3b CKD (CMS/HCC) TSH Routine 06/04/2024 12:26 PM EDT Type 2 diabetes mellitus with stage 3 chronic kidney disease, without long-term current use of insulin, unspecified whether stage 3a or 3b CKD (CMS/HCC) T4, FREE Routine 06/04/2024 12:26 PM EDT Type 2 diabetes mellitus with stage 3 chronic kidney disease, without long-term current use of insulin, unspecified whether stage 3a or 3b CKD (CMS/HCC) HEMOGLOBIN A1C Routine 06/04/2024 12:26 PM EDT Type 2 diabetes mellitus with stage 3 chronic kidney disease, without long-term current use of insulin, unspecified whether stage 3a or 3b CKD (CMS/HCC) FERRITIN Routine 06/04/2024 12:26 PM EDT Type 2 diabetes mellitus with stage 3 chronic kidney disease, without long-term current use of insulin, unspecified whether stage 3a or 3b CKD (CMS/HCC) HEPATIC FUNCTION PANEL Routine 06/04/2024 12:26 PM EDT Type 2 diabetes mellitus with stage 3 chronic kidney disease, without long-term current use of insulin, unspecified whether stage 3a or 3b CKD (CMS/HCC) LIPID PANEL, STANDARD Routine 06/04/2024 12:26 PM EDT Type 2 diabetes mellitus with stage 3 chronic kidney disease, without long-term current use of insulin, unspecified whether stage 3a or 3b CKD (CMS/HCC) BASIC METABOLIC PANEL Routine 06/04/2024 12:26 PM EDT Type 2 diabetes mellitus with stage 3 chronic kidney disease, without long-term current use of insulin, unspecified whether stage 3a or 3b CKD (CMS/HCC) POCT GLYCATED HEMOGLOBIN, TOTAL Routine 06/04/2024 11:30 AM EDT Type 2 diabetes mellitus with stage 3 chronic kidney disease, without long-term current use of insulin, unspecified whether stage 3a or 3b CKD (CMS/HCC) POCT GLUCOSE Routine 06/04/2024 11:30 AM EDT Type 2 diabetes mellitus with stage 3 chronic kidney disease, without long-term current use of insulin, unspecified whether stage 3a or 3b CKD (CMS/HCC) documented in this encounter Results * (ABNORMAL) CBC auto differential (06/04/2024 12:26 PM EDT) White Blood Count 7.5 4.8 - 10.8 X10*3/uL [facility] Red Blood Count 3.87(L) 4.20 - 5.50 X10*6/uL [facility] Hemoglobin 11.7(L) 12.0 - 16.0 g/dl [facility] Hematocrit 35.4(L) 37.0 - 47.0 % [facility] Mean Corpuscular Volume 91.5 80.0 - 98.0 fL [facility] Mean Corpuscular Hemoglobin 30.2 27.0 - 33.0 pg [facility] Mean Corpuscular HGB Conc 33.1 31.0 - 35.0 g/dl [facility] Red Cell Distribution Width 13.3 11.0 - 16.0 % [facility] Platelet Count 216 160 - 400 X10*3/uL [facility] Mean Platelet Volume 10.1 9.4 - 12.3 fL [facility] Neutrophils Percent Auto 60.6 45 - 73 % [facility] Imm Gran Pct Auto 0.4 0.0 - 0.4 % [facility] Lymphocytes Percent Auto 32.0 20 - 40 % [facility] Monocytes Percent Auto 4.5 2 - 11 % [facility] Eosinophils Percent Auto 2.1 0 - 4 % [facility] Basophils Percent Auto 0.4 0 - 2 % [facility] NRBC Pct Auto 0.0 0.0 - 0.2 /100WBC [facility] Neutrophils Absolute Auto 4.6 2.0 - 8.3 x10*3/uL [facility] Imm Gran Abs Auto 0.03 0.00 - 0.03 X10*3/uL [facility] Lymphocytes Absolute Auto 2.4 1.2 - 4.9 X10*3/uL [facility] Monocytes Absolute Auto 0.3 0.1 - 1.2 X10*3/uL [facility] Eosinophils Absolute Auto 0.2 0.0 - 0.4 X10*3/uL [facility] Basophils Absolute Auto 0.0 0.0 - 0.2 X10*3/uL [facility] NRBC Abs Auto 0.000 0.0 - 0.012 X10*3/uL [facility] Blood Venous blood specimen / Unknown 06/04/2024 12:26 PM EDT 06/04/2024 1:12 PM EDT us Tracie Ras DO LAB BLOOD ORDERABLES Final R esult Performing Organization Address [facility]/ZIP Co de Phone Number [facility] [address] [place] [phone] * Iron And Total Iron Binding Capacity (06/04/2024 12:26 PM EDT) Iron 35 30 - 160 mcg/dL [facility] Total Iron Binding Capacity 234 228 - 428 mcg/dL [facility] Percent Iron Saturation 15 15 - 50 % [facility] Unsaturated Iron Binding 199 ug/dL [facility] Blood Venous blood specimen / Unknown 06/04/2024 12:26 PM EDT 06/04/2024 1:12 PM EDT Tracie Ras DO LAB BLOOD ORDERABLES Final R esult Performing Organization Address [facility] Co de Phone Number [facility] [address] [place] [phone] * Ferritin (06/04/2024 12:26 PM EDT) Pathologist [facility] Ferritin 88 10 - 250 ng/mL [facility] Blood Venous blood specimen / Unknown 06/04/2024 12:26 PM EDT 06/04/2024 1:12 PM EDT Tracie Ras DO LAB BLOOD ORDERABLES Final R esult Performing Organization Address [facility] Co de Phone Number [facility] [address] [place] [phone] * (ABNORMAL) Vitamin B12 (Cobalamin) and Folate Panel, Serum (06/04/2024 12:26 PM EDT) Vitamin B12 624 200 - 900 pg/mL [facility] Comment:NORMAL 200-900 PG/ML INDETERMINATE 160-199 PG/ML DEFICIENT < 160 PG/ML Folate 2.4(L) > or = 4.0 ng/mL [facility] Comment:Reference Values:> o r = 4.0 ng/mL< 4.0 ng/mL suggests folate deficiency Methotrexate, aminopterin and folinic acid(leucovorin) are chemotherapeutic agents whose molecularstructures are similar to folate; therefore, the Architectfolate assay cannot be used for patients using these drugs. Blood 06/04/2024 12:2 6 PM EDT 06/04/2024 1:12 PM EDT Tracie Mcginnis DO LAB BLOOD ORDERABLES Final R esult Performing Organization Address City/[facility]/ZIP Co de Phone Number [facility] [address] [place] [phone] * (ABNORMAL) Basic Metabolic Panel (06/04/2024 12:26 PM EDT) Sodium 140 135 - 145 mmol/L [facility] Potassium 3.8 3.3 - 5.1 mmol/L [facility] Chloride 109(H) 96 - 108 mmol/L [facility] Carbon Dioxide 26 22 - 29 mmol/L [facility] Anion Gap 9(L) 12 - 20 [facility] Urea Nitrogen (BUN) 11 9 - 16 mg/dL [facility] Creatinine, Serum 0.97 0.5 - 1.4 mg/dL [facility] Estimated Glomerular Filt Rate 60 [facility] Comment:Chronic Kidney Disea se: Estimated GFR < 60 mL/min/1.53t0Drkgov Kidney Disease: Estimated GFR < 15 mL/min/1.73m2 Glucose 173(H) 60 - 115 mg/dL [facility] Calcium 8.9 8.4 - 10.2 mg/dL [facility] Blood Venous blood specimen / Unknown 06/04/2024 12:26 PM EDT 06/04/2024 1:12 PM EDT Tracie Mcginnis DO LAB BLOOD ORDERABLES Final R esult [facility] [address] [place] [phone] * (ABNORMAL) Hemoglobin A1c (06/04/2024 12:26 PM EDT) Hemoglobin A1c 8.8(H) <6.0 % [facility] Comment:Hemoglobin A1C Refer ence Range Adults: 4.8 - 6.0 % Non diabetic: < 6.0 % Goal: < 7.0 %Additional Action Suggested: > 8.0 %Note: Hemoglobin A1c results are invalid for patients with abnormal amounts of HbF. Blood transfusions may impact the HbA1c concentration in the patient sample. Estimated Average Glucose 206 mg/dL [facility] Comment:eAG = Estimated ave rage glucose which is %A1C expressed asaverage glucose, using the formula of the O4Y-OuyqvolTbbdfks Glucose study (ADAG), Diabetes Care, Vol.31,#8,Oct. 2007 Blood Venous blood specimen / Unknown 06/04/2024 12:26 PM EDT 06/04/2024 1:12 PM EDT us Tracie Mcginnis DO LAB BLOOD ORDERABLES Final R esult Performing Organization Address City/[facility]/ZIP Co de Phone Number [facility] [address] [place] [phone] * (ABNORMAL) Hepatic Function Panel (06/04/2024 12:26 PM EDT) Bilirubin, Total 0.3 0.0 - 1.0 mg/dL [facility] Bilirubin, Direct 0.1 0.0 - 0.5 mg/dL [facility] Aspartate Amino Transferase 26 5 - 31 U/L [facility] Alanine Aminotransferase 37(H) 0 - 31 U/L [facility] Total Protein 7.0 6.5 - 8.0 g/dL [facility] Albumin Level 4.0 3.5 - 5.0 g/dL [facility] Alkaline Phosphatase 163(H) 39 - 117 U/L [facility] Blood Venous blood specimen / Unknown 06/04/2024 12:26 PM EDT 06/04/2024 1:12 PM EDT Tracie Mcginnis DO LAB BLOOD ORDERABLES Final R esult Performing Organization Address [facility]/ZIP Co de Phone Number [facility] [address] [place] [phone] * TSH (06/04/2024 12:26 PM EDT) Thyroid Stimulating Hormone 2.00 0.32 - 4.0 uIU/mL [facility] Comment:TSH 3rd Generation ( [employer]) Blood Venous blood specimen / Unknown 06/04/2024 12:26 PM EDT 06/04/2024 1:12 PM EDT Tracie Ras LAB BLOOD ORDERABLES Final R esult Performing Organization Address [facility] Co de Phone Number [facility] [address] [place] [phone] * (ABNORMAL) Lipid Panel, Standard (06/04/2024 12:26 PM EDT) Triglycerides 165(H) <150 mg/dL [facility] Comment:Desirable Triglyceri de: less than 150 mg/dLBorderline High Triglyceride 150-199 mg/dLHigh Triglyceride: 200-499 mg/dLVery High Triglyceride: greater than or equal to 5OO mg/dL Cholesterol 146 <200 mg/dL [facility] Comment:Desirable Cholestero l: less than 200 mg/dLBorderline High Cholesterol: 200-239 mg/dLHigh Cholesterol: greater than 239 mg/dL LDL Cholesterol Calculated 82 <100 mg/dL [facility] Comment:Desirable LDL: less than 100 mg/dLNear Optimal/Above Optimal LDL: 110- 129 mg/dLBorderline High LDL: 130-159 mg/dLHigh LDL: 160-189 mg/dLVery High LDL: greater than or equal to 190 mg/dL HDL Cholesterol 31(L) >40 mg/dL [facility] Comment:Desirable HDL: great er than 40 mg/dL Note: This HDL assay may give artificially low results in patients with liver disease. Blood Venous blood specimen / Unknown 06/04/2024 12:26 PM EDT 06/04/2024 1:12 PM EDT Tracie Mcginnis DO LAB BLOOD ORDERABLES Final R esult [facility] [address] [place] [phone] * (ABNORMAL) Vitamin D, 25-Hydroxy, Total, Immunoassay (06/04/2024 12:26 PM EDT) Vitamin D 25-OH Total 19.1(L) >30 ng/mL [facility] Comment: Health Based Reference Values*< 20 ??ng/mL ??Zoyhcntci91-61 ng/mL ??Insufficient> 30 ??ng/mL ??Sufficient*Carline CAM. N Engl J Med. 2007;357:266-280There is no well-established upper level of normal vitamin Dlevels. Some laboratories use 50 ng/mL as an upper limit ofnormal. However, toxicity is patient-dependent and may occurat any level. Careful correlation with the patient'spresentation is necessary and, if there is concern forvitamin D toxicity, treatment should be consideredirrespective of the serum level.Care must be taken in interpreting Vitamin D results fromdifferent laboratories and methodologies. ??Published datademonstrated that results from patients undergoinghemodialysis may show a negative bias when tested withvarious automated 25-OH vitamin D assays when compared toLC- MS/MS.When testing samples from patients whose predominant form ofVitamin D is Vitamin D2, such as patients receiving VitaminD2 supplementation, results that are subtherapeutic shouldbe confirmed with another method such as LC-MS/MS. Blood Venous blood specimen / Unknown 06/04/2024 12:26 PM EDT 06/04/2024 1:12 PM EDT Tracie Mcginnis DO LAB BLOOD ORDERABLES Final R esult Performing Organization Address City/[facility]/ZIP Co de Phone Number [facility] [address] [place] [phone] * (ABNORMAL) T4, Free (06/04/2024 12:26 PM EDT) Free T4 (Free Thyroxine) 0.70(L) 0.71 - 1.85 ng/dL [facility] Blood Venous blood specimen / Unknown 06/04/2024 12:26 PM EDT 06/04/2024 1:12 PM EDT Tracie Mcginnis DO LAB BLOOD ORDERABLES Final R esult Performing Organization Address [facility]/ZIP Co de Phone Number [facility] [address] [place] [phone] * (ABNORMAL) POCT HGB A1C (06/04/2024 11:30 AM EDT) Hemoglobin A1C 10,230,191 .0(A) 4.0 - 6.0 % QC Media Lot # ,[id number] Lot# Expiration Date Blood 06/04/2024 11:3 0 AM EDT Result [facility] Tracie Mcginnis DO POINT OF CARE TEST ENTER/CRISTOPHER T ORDERABLES Final Result * POCT Glucose (06/04/2024 11:30 AM EDT) Glucose Blood, POC 194 60 - 200 mg/dL QC Media Lot # [id number] Lot# Expiration Date Blood Capillary blood specimen / Unknown 06/04/2024 11:30 AM EDT Result [facility] Tracie Mcginnis DO POINT OF CARE TEST ENTER/CRISTOPHER T ORDERABLES Final Result documented in this encounter Visit Diagnoses Diagnosis Type 2 diabetes mellitus with stage 3 chronic kidney disease, without long-term current use of insulin, unspecified whether stage 3a or 3b CKD (CMS/HCC)- Primary Essential hypertension Unspecified essential hypertension Other hyperlipidemia Chronic bipolar disorder (CMS/HCC) Chronic migraine Fatty liver Other chronic nonalcoholic liver disease Chronic gastroesophageal reflux disease Nausea, vomiting, and diarrhea Nephrolithiasis Calculus of kidney Paresthesia of both feet Chronic pain of left wrist Abnormal MRI Other nonspecific (abnormal) findings on radiological and other examinations of body structure Sleep related laryngospasm Abscess Cellulitis and abscess of unspecified site Tobacco dependence Tobacco use disorder Healthcare maintenance documented in this encounter Additional Health Concerns Assessment Noted Time PHQ-9 Depression Total Score: 14 025 11:26 AM EDT documented as of this encounter Care Teams Supervisor Coin Machine Relationship Specialty Start Date End Date Tracie Mcginnis DO [address] [place] [phone] PCP - General Family Medicine 08/27/13 documented as of this encounter
--- OUTSIDE RECORDS SUMMARY | 2024-06-04 14:51 | XMS_ITS | Encounter Summary ---
Author Organization [employer] Address [address] [place] [address] [address] [place] [address] Care Team Providers Care Physical Education Professor Name Role Phone Tracie Mcginnis DO Primary Care Provider + [phone] Reason for Visit * Reason Comments Med Refill Encounter Details Date Type Department Care Team (Late st Contact Info) Description 03/30/2022 Refill [facility] [address] [place], [place] [phone] Tracie Mcginnis DO [address] [place], [place] [phone] Other hyperlipidemia (Primary Dx) Social History Tobacco Use Types Packs/Day Years Used Date Smoking Tobacco: Never Assessed Comments Unknown Sex and Gender Information Value Date Recorded Sex Assigned at Female 01/02/2022 10:22 AM EDT Legal Sex Female 10:22 AM EDT Gender Identity Female 01/02/2022 10:22 AM EDT Sexual Orientation Straight 01/02/2022 10 :22 AM EDT COVID-19 Exposure Response Date Recorded In the last 10 days, have yo u been in contact with someone who was confirmed or suspected to have Coronavirus/COVID-19? No / Unsure 03/31/2022 3:52 PM EST documented as of this encounter Miscellaneous Notes * Telephone Encounter - Ann Jain RN - 04/03/2022 1:35 PM EST T/C placed to pt re below lab results and POC. Pt verbalized understanding and denied having any further questions or concerns at this time. * Telephone Encounter - Ann Jain RN - 04/03/2022 1:35 PM EST ----- Message from AMEE Herron sent at 04/03/2022 12:56 PM EST ----- Please contact Pt and notify her urine culture came back positive for E. Coli, a type of bacteria. The Antibiotic your provider sent on Sunday03/31/22 will treat that type of bacteria. Finish the antibiotic as prescribed. Macrobid 100mg BID x 5 days Followup PRN ----- Message ----- From: Narcisa Toro Sent: 03/31/2022 4:23 PM EST To: AMEE Herron documented in this encounter Plan of Treatment Not on file documented as of this encounter Visit Diagnoses Diagnosis Other hyperlipidemia- Primary documented in this encounter Care Teams Physical Education Professor Relationship Specialty Start Date End Date Tracie Mcginnis DO [address] [place] [phone] PCP - General Family Medicine 08/27/13 documented as of this encounter
--- OUTSIDE RECORDS SUMMARY | 2024-06-04 14:52 | XMS_ITS | Encounter Summary ---
Author Organization [employer] Address [address] [place] [address] [address] [place] [address] Care Team Providers Care Nurse Assessor Name Role Phone Tracie Mcginnis DO Primary Care Provider + [phone] Reason for Visit * Reason Comments Med Refill Encounter Details Date Type Department Care Team (Late st Contact Info) Description 08/11/2022 Refill [facility] [address] [place], [place] [phone] Tracie Mcginnis DO [address] [place], [place] [phone] Nonintractable chronic migraine Social History Tobacco Use [...] suspected to have Coronavirus/COVID-19? No / Unsure 07/12/2022 2:38 PM EDT documented as of this encounter Miscellaneous Notes * Telephone Encounter - Tracie Mcginnis DO - 08/11/2022 3:22 PM EDT Rx already sent. documented in this encounter Plan of Treatment Not on file documented as of this encounter Visit Diagnoses Diagnosis Nonintractable chronic migraine documented in this encounter Care Teams Nurse Assessor Relationship Specialty Start Date End Date Tracie Mcginnis DO [address] [place] [phone] PCP - General Family Medicine 08/27/13 documented as of this encounter
--- OUTSIDE RECORDS SUMMARY | 2024-06-04 14:52 | XMS_ITS | Encounter Summary ---
Author Organization [employer] Address [address] [place] [address] 7 [place] [address] Care Team Providers Care Sorting Supervisor Name Role Phone Tracie Mcginnis DO Primary Care Provider + [phone] Reason for Visit * Reason Onset Date Comments Nurse Triage 10/26/2023 Encounter Details Date Type Department Care Team ([facility] st Contact Info) Description 10/26/2023 Telephone [facility] [address], [place] [phone] Tracie Mcginnis DO [address] [place], [place] [phone] Nurse Triage Social History Tobacco Use Types [...] encounter Miscellaneous Notes * Telephone Encounter - Deyanira Dye RN - 10/29/2023 1:52 PM EDT Noted. [facility] Pt was dx w/ cellulitis and given RX for cephalexin 500mg q6 hours x10 days. Per instED note: Dispatched to the call address for the female with a spot of concern on her stomach. Pt states shehad this small area on her lower left abd that didn't bother her really but after a month she saw her embedder who advised to just leave it alone unless it starts to bother her. About 2 weeks ago it started to become painful and tender. Pt called her embedder today who was not able to see her and is calling back Sunday with an appointment. Pt was found sitting at kitchen table, CAOx4 airway open and patent, breathing non labored, able to speak in full sentences, -JVD, -HEENT, skin PWD with good turgor, abd soft non tender/distended (except for area of concern), lung sounds CTA, +CMSx4, pupils PERRL. Area of concern is approx the size of a quarter, raised, red and tender. [facility] consulted. Pt given 500mg of Cephalexin. Script called into preferred pharmacy. Red flags discussed. ALL times are approx. TC placed to pt [phone] who reports she has NOT p/u abx yet from the pharmacy. Pt reports she will p/u the abx today (from [facility]). Pt advised if no improvement once the abx are completed to call [facility] for an appt for re-evaluation. Pt advised to avoid ETOH while on abx and to take abx in their entirety even if improvement is noted. Pt aware a message was sent to dermatology pool to schedule pt for a f/u as well and should be receiving a call from derm to schedule. Pt verbalized understanding. RN has printed instED note and placed in scan bin. * Telephone Encounter - Carrie Massey LPN - 10/26/2023 2:47 PM EDT Triage call returned to patient who reports area in right groin in abdominal fold that has been present for some time and was seen by previously. Now larger red hot and painful. It is about the size of a quarter. Not draining and patient reports not feeling well and feverish she thinksfor the last several days. Patient wants area removed/excised as needed. No PCP or Team appts available at time of call. Patient wih [facility] and Insted visit offered and accepted for today. Address and phone verified at time of call. Dermatology Team tasked to follow with patient appt. PCP Team tasked to follow with patient next week for update and need for appt following Insted visit. Protocol Used: Boil (Skin Abscess) (Adult) Protocol-Based Disposition: Go to Office or Video Visit Now Override (Final) Disposition: Go to Urgent Care Now Override Reason: Nurse judgment Positive Triage Question: * Severe pain (e.g., excruciating) * All higher-acuity triage questions were negative Care Advice Discussed: * Treatment - General * Treatment for a Boil - Incision and Drainage by a Healthcare Provider * Pain Medicines * Reasons To Call Back - Severe pain or fever occurs - Widespread rash occurs - You become worse * Telephone Encounter - Randall Jenkins - 10/26/2023 2:27 PM EDT Symptom: Skin Lump Outcome: Schedule an urgent appointment (within 4 hours) or talk to a nurse or provider soon Reason: Red and larger than 1 inch The caller accepted this outcome documented in this encounter Plan of Treatment Not on file documented as of this encounter Visit Diagnoses Not on filedocumented in this encounter Additional Health Concerns Assessment Noted Time PHQ-9 Depression Total Score: 0 05/11/19 11:50 AM EST documented as of this encounter Care Teams Sorting Supervisor Relationship Specialty Start Date End Date Tracie Mcginnis DO [address] [place] [address] PCP - General Family Medicine 08/27/13 documented as of this encounter
--- OUTSIDE RECORDS SUMMARY | 2024-06-04 14:52 | XMS_ITS | Clinical Summary ---
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 Role Phone RasTracie Primary Care Provider [phone] Allergies Active Allergy Reactions Criticality Noted Date Comments Bupropion Anxiety High 09/03/2015 Other reaction(s): Not Indicated, severe tremors Other reaction(s): Other (See Comments) Very nervous, agitation Other Reaction(s): severe tremors Other reaction(s): Not Indicated, severe tremors Other reaction(s): Other (See Comments) Very nervous, agitation Fish Allergy Anaphylaxis High 08/11/2022 Reaction varies form rash to shortness of breath Fish-Derived Products Anaphylaxis High 08/11/2022 Reaction varies form rash to shortness of breath Metformin Diarrhea Medium 08/11/2014 Other reaction(s): GI Intolerance Other reaction(s): Gi upset, Not Indicated vomiting Promethazine Hives,Shortness of breath,Anaphylaxis High 02/22/2012 Other reaction(s): Not Indicated hives Shellfish Allergy Anaphylaxis High 08/11/2022 Reaction varies form rash to difficulty breathing. Reaction varies form rash to difficulty breathing. Medications varenicline (Chantix Continuing Month ) 1 MG tabletIndications :Tobacco dependence Take 1 tablet by mouth twice daily after meals with glass of water 56 tablet 022 Active lamoTRIgine (LaMICtal) 100 MG tablet TAKE 1 AND 1/2 TABLETS BY MOUTH IN THE MORNING AND AT BEDTIME 023 Active mirtazapine (Remeron) 30 MG tablet TAKE 2 TABLETS BY MOUTH EVERY DAY AT BEDTIME Active Oral Electrolytes (Pedialyte) pack MIX ONE PACKET WITH LARGE GLASS OF WATER AND TAKE SMALL SIPS THROUGHOUT THE DAY NEEDED FOR VOMITING Active betamethasone dipropionate 0.05 % creamIndications: Dermatitis Apply topically if needed in the morning and at bedtime for rash. 45 g 023 Active triamcinolone (Kenalog) 0.1 % ointment APPLY A THIN LAYER TOPICALLY TO THE AFFECTED AREA(S) TWICE DAILY NEEDED FOR ITCHING AND RASH 30 g 1 023 Active haloperidol (Haldol) 1 MG tablet Active omeprazole (PriLOSEC) [address] capsule Active naloxone (Narcan) 4 mg/0.1 mL nasal spray FOR SUSPECTED OPIOID OVERDOSE. SPRAY 0.1mL IN ONE NOSTRIL. REPEAT IN ALTERNATE NOSTRIL 2-3 MINUTES IF NEEDED. SEEK MEDICAL ATTENTION IMMEDIATELY EVEN IF PATIENT RESPONDS. Active nabumetone (Relafen) 500 MG tablet Take 1 tablet (500 mg) by mouth 2 times daily. 60 tablet 024 2024 Active metoprolol succinate XL (Toprol XL) 50 MG 24 hr tablet Take 1 tablet (50 mg) by mouth Once per day. Do not crush or chew. 30 tablet 11 024 2024 Active vilazodone (Viibryd) 10 mg tablet Active Diclofenac Sodium 1 % gel Apply 2 g topically if needed in the morning, at noon, in the evening, and at bedtime (pain). 150 g 3 024 Active metoclopramide (Reglan) 5 MG tabletIndications :Nausea TAKE 1 TABLET BY MOUTH BEFORE MEALS DIRECTED 90 tablet Active famotidine (Pepcid) 40 MG tablet Take 40 mg by mouth at bedtime. Active Spacer/Aero-Holdi ng Chambers device Use with albuterol MDI as directed 1 each Active albuterol 108 (90 Base) MCG/ACT inhaler Inhale 2 puffs every 4 (four) hours if needed for wheezing or shortness of breath. 18 g 024 2024 Active FeroSul 325 (65 Fe) MG tabletIndications :Iron deficiency TAKE 1 TABLET BY MOUTH EVERY MORNING 90 tablet 1 024 Active QUEtiapine (SEROquel) 300 MG tablet TAKE 3 TABLETS BY MOUTH AT BEDTIME 90 tablet 024 Active folic acid (Folvite) 1 MG tablet TAKE 1 TABLET BY MOUTH EVERY MORNING 90 tablet 1 024 Active zolpidem (Ambien) 10 MG tabletIndications :Primary insomnia Take 1 tablet (10 mg) by mouth if needed at bedtime for sleep. 30 tablet 024 Active D3 Super Strength 50 MCG (1999 UT) capsuleIndication s:Vitamin D deficiency TAKE 1 CAPSULE BY MOUTH EVERY MORNING 90 capsule 3 025 Active topiramate 50 MG tablet TAKE 1 TABLET BY MOUTH TWICE DAILY IN THE MORNING AND AT BEDTIME 60 tablet 5 025 Active ondansetron ODT (Zofran-ODT) 4 MG disintegrating tabletIndications :Nausea, vomiting, and diarrhea DISSOLVE TWO TABLETS BY MOUTH TWICE A DAY DIRECTED 30 tablet 2 025 Active atorvastatin (Lipitor) 40 MG tabletIndications :Other hyperlipidemia TAKE 1 TABLET BY MOUTH AT BEDTIME 90 tablet 3 025 Active potassium chloride CR (Klor-Con M20) 20 MEQ ER tablet TAKE 1 TABLET BY MOUTH TWICE DAILY WITH FOOD 60 tablet 5 025 Active Fiber-Lax 625 MG tablet TAKE 1 TABLET BY MOUTH TWICE DAILY WITH A FULL GLASS OF WATER 60 tablet 5 025 Active gabapentin (Neurontin) 300 MG capsuleIndication s:Diabetic polyneuropathy associated with type 2 diabetes mellitus (CMS/HCC) TAKE 2 CAPSULES BY MOUTH THREE TIMES DAILY IN THE MORNING, EVENING AND BEDTIME 180 capsule 1 025 Active butorphanol (Stadol) 10 MG/ML nasal sprayIndications: Nonintractable chronic migraine USE 1 SPRAY IN one NOSTRIL ONCE DAILY NEEDED FOR MIGRAINE 2.5 mL 025 Active Vascepa 1 g capsule TAKE 1 CAPSULE BY MOUTH TWICE DAILY IN THE MORNING AND IN THE EVENING 180 capsule 3 025 Active fluconazole (Diflucan) 150 MG tablet Take 1 tablet (150 mg) by mouth 1 (one) time for 1 dose. 1 tablet 025 2024 Active terconazole (Terazol 7) 0.4 % vaginal cream Insert 1 applicator into the vagina at bedtime for 7 days. 45 g 025 2024 Active triamcinolone (Nasacort) 55 MCG/ACT nasal inhaler Administer 2 sprays into each nostril Once per day. 16.5 g 11 Active cetirizine (ZyrTEC) 10 MG tablet Take 1 tablet (10 mg) by mouth Once per day. 30 tablet 11 025 2025 Active pseudoephedrine (Sudafed) 30 MG tablet Take 1 tablet (30 mg) by mouth every 6 (six) hours if needed for congestion for up to 10 days. 20 tablet 025 2024 Active triamcinolone (Nasacort) 55 MCG/ACT nasal inhaler USE 2 SPRAYS IN EACH NOSTRIL EVERY DAY 023 2024 Discontinued(R eorder (will not trigger notification to Pharmacy)) Continuous Blood Gluc Sensor (FreeStyle Nelda 2 Sensor) [facility] [place] 2 each 2 023 2024 Discontinued fexofenadine (Allergy Relief) 180 MG tablet Take 1 tablet (180 mg) by mouth in the morning. 90 tablet 3 024 2024 Discontinued omega-3 (Fish Oil) 1000 MG capsule TAKE 1 CAPSULE BY MOUTH TWICE DAILY IN THE MORNING AND IN THE EVENING 180 capsule 3 024 2024 Discontinued atorvastatin (Lipitor) 40 MG tabletIndications :Other hyperlipidemia TAKE 1 TABLET BY MOUTH AT BEDTIME 90 tablet 3 024 2024 Discontinued Continuous Glucose Bid Manager (FreeStyle Nelda 14 Day [place]) deviceIndications :Type 2 diabetes mellitus without complication, without long-term current use of insulin ([facility]) Use as directed 1 each 024 2024 Discontinued potassium chloride CR (Klor-Con M20) 20 MEQ ER tablet TAKE 1 TABLET BY MOUTH TWICE DAILY WITH FOOD 60 tablet 5 024 2024 Discontinued polycarbophil (Fiber-Lax) 625 MG tablet TAKE 1 TABLET BY MOUTH TWICE DAILY WITH A FULL GLASS OF WATER 60 tablet 5 024 2024 Discontinued ondansetron ODT (Zofran-ODT) 4 MG disintegrating tabletIndications :Nausea, vomiting, and diarrhea DISSOLVE TWO TABLETS BY MOUTH TWICE A DAY DIRECTED 30 tablet 2 024 2024 Discontinued gabapentin (Neurontin) 300 MG capsuleIndication s:Diabetic polyneuropathy associated with type 2 diabetes mellitus (CMS/HCC) TAKE 2 CAPSULES BY MOUTH THREE TIMES DAILY IN THE MORNING, EVENING AND BEDTIME 180 capsule 1 025 2024 Discontinued butorphanol (Stadol) 10 MG/ML nasal sprayIndications: Nonintractable chronic migraine USE 1 SPRAY IN one NOSTRIL ONCE DAILY NEEDED FOR MIGRAINE 2.5 mL 025 2024 Discontinued amoxicillin-clavu lanate (Augmentin) 875-125 MG tabletIndications :Other acute nonsuppurative otitis media of right ear, recurrence not specified Take 1 tablet by mouth 2 times daily for 5 days. 10 tablet 025 2024 Discontinued(T herapy completed) fluconazole (Diflucan) 150 MG tablet Take 1 tablet (150 mg) by mouth 1 (one) time for 1 dose. 1 tablet 025 2024 Discontinued(R eorder (will not trigger notification to Pharmacy)) terconazole (Terazol 7) 0.4 % vaginal cream Insert 1 applicator into the vagina at bedtime for 7 days. 45 g 025 2024 Discontinued(R eorder (will not trigger notification to Pharmacy)) Active Problems Problem Noted Date Diagnosed Date Mild cognitive impairment 04/25/2024 Assessment & Plan (04/25/2024 1:34 PM EST): Pt exhibiting s/sx of short term memory loss over last 2-3 weeks and has a family hx of alzheimers Neuromotor exam was abnormal Plan to obtain brain MRI and refer to neurology Also educated pt about her medications and their interactions with caffeine and how it may be affecting her sleeping patterns Encouraged reduction of soda consumption and advised sleep hygiene F/u with PCP in june Paresthesia of both feet 11/09/2023 Chronic pain of left wrist 05/13/2023 Assessment & Plan (05/13/2023 5:25 PM EDT): Xrays negative x 2 for fracture Ongoing pain at anatomic snuffbox Will MRI to rule out occult fracture or ligamentous injury Erosive esophagitis 08/11/2022 Gastroparesis 08/11/2022 Chronic bipolar disorder 08/11/2022 Irritable bowel syndrome 08/11/2022 Hyperlipidemia 05/05/2022 Nephrolithiasis 04/06/2022 Healthcare maintenance 04/06/2022 Assessment & Plan (04/27/2023 1:32 PM EST): -Order Tb test for her PCP -she needs RSV vax, o/w IZs UTD -f/u w/ PCP for PE if needed Assessment & Plan (04/06/2022 11:40 AM EST): -s/p flu vaccine FEB 2021->repeat today -s/p COVID vaccine June 2020+booster#03 JUN 2021+booster#2 encouraged -s/p Tdap Nov 2014 -s/p pneumovax Nov 2014 and Jan 2020 -s/p shingrix SEP 2020 -s/p Hep A vaccine -Hep-B immune -pap wnl/HPV neg Oct 2014 with midwifery, s/p RA [facility] BSO, pathology benign, Oct 2016 -mammo BIRADS 04 Jul 2020->referred for repeat -colonoscopy nml May 2016 -STI/HIV screen negative Jan 2020 Polyarthralgia 04/06/2022 Assessment & Plan (04/25/2024 1:32 PM EST): Plan to obtain repeat FESTUS, Rf and ESR Pt was referred to rheum 11/2023, appt is pending Advised pt that she would benefit from soft wrist brace for support while doing activities such as typing or writing. F/u with PCP in june Assessment & Plan (04/06/2022 11:39 AM EST): Diffuse joint/bone pain, LE>UE -ESR slightly elevated JULY 2021 -CRP, FESTUS, RF, and lyme disease neg JULY 2021 -re-referred for knee x-rays -re-referred for ankle x-rays -re-referred for foot x-rays -encouraged diclofenac gel and lidocaine patch -cont gabapentin TID -consider trial amitriptyline -advised reschedule rheumatology eval -advised contact [facility] if sx worsen or do not improve Nausea, vomiting, and diarrhea 04/06/2022 Assessment & Plan (05/05/2022 2:36 PM EST): With continued daily N/V and intermittent explosive diarrhea -CT abd/pelvis w/ no acute abnormalities JUN 2020 -stool studies and fecal WBCs neg JUN 2021 -GES w/ delayed gastric emptying FEB 2022 -EGD w/ esophageal stricture, esophagitis, and gastritis FEB 2022 -cont reglan TID before meals -cont protonix daily and pepcid nightly as per GI -cont fiber supplement BID -cont vit B6 prn -referred to GI for eval Assessment & Plan (04/06/2022 11:37 AM EST): With persistent sx -CT abd/pelvis w/ no acute abnormalities JUN 2020 -cont reglan TID before meals -cont nexium BID -cont fiber supplement BID -cont vit B6 prn -stool studies and fecal WBCs neg JUN 2021 -will check status of GES order -will have sooner f/u w/ GI scheduled Fatty liver 04/06/2022 Assessment & Plan (04/06/2022 11:36 AM EST): -abd US with echogenic liver and hepatomegaly, no focal lesion SEP 2021 -AFP 6.05 JAN 2020->repeat w/ next labs -LFTs nml JUN 2021 -s/p Hep A vaccine -Hep B immune Essential hypertension 03/28/2022 Assessment & Plan (04/06/2022 11:35 AM EST): BP controlled -cont metoprolol BID -Cr, GFR, and urine microalbumin nml JUN 2021 -there is EKG in chart -optho as above -f/u with cards as scheduled, due APR 2022 BMI 32.0-32.9,adult 12/08/2014 Chronic gastroesophageal reflux disease 12/09/19 15 Assessment & Plan (04/06/2022 11:38 AM EST): Controlled -encouraged protonix daily -encouraged pepcid nightly -f/u w/ GI as scheduled Chronic migraine 12/08/2014 Assessment & Plan (04/06/2022 11:37 AM EST): -cont topamax 50mg BID -cont with SC imitrex for acute migraine and stadol if no relief with imitrex -she is to use marinol as needed for severe N/V -f/u with neurology as scheduled Tobacco dependence 12/08/2014 Assessment & Plan (04/06/2022 11:36 AM EST): CT chest OCT 2020->repeat 1 year Type 2 diabetes mellitus 12/08/2014 Assessment & Plan (04/06/2022 11:35 AM EST): A1c at-goal -will cont to monitor -cont lipitor daily -s/p optho eval JUN 2021->awaiting copy of most recent eval -nml monofilament exam JAN 2020->repeat next visit Resolved Problems Problem Noted Date Diagnosed Date Resolved Date Scalp laceration, subsequent encounter 04/27/2023 05/09/2023 Assessment & Plan (04/27/2023 1:33 PM EST): Completely healed. 10 [place] removed w/ staple removed w/out complication -advised pt keep area clean and dry -advised shampoo gently w/ warm water -advised pt if she notices any additional purvi, she may RTC -will put Td booster today, as last Td IZ was >5 y/a Syncope 04/12/2023 05/09/2023 Assessment & Plan (04/12/2023 3:23 PM EST): TSH and CMP normal No seizure activity witnessed She will speak with her psychiatrist about appropriateness of medication combination Echo/Holter with cardiology Fall down stairs 04/09/2023 05/09/2023 Pain and swelling of left wrist 04/09/2023 05/09/2023 Assessment & Plan (04/12/2023 3:22 PM EST): Limited flexion and extension of L wrist, bruising at lateral edge Xray negative for fracture Oxycodone 5mg every 8 hours for 3 days Atypical chest pain 08/11/2022 08/12/19 Bipolar affective disorder, currently depressed, moderate 08/11/2022 08/11/2022 Daily nausea 08/11/2022 08/11/2022 Epigastric pain 08/11/2022 08/11/2022 Heartburn symptom 08/11/2022 08/11/2022 Pain in unspecified foot 04/06/202211/2022 Assessment & Plan (04/06/2022 11:39 AM EST): Likely diabetic neuropathy -cont gabapentin 600mg TID -cont check feet daily -advised contact [facility] if sx change or worsen Urinary urgency 08/20/2017 04/06/2022 Bipolar I disorder 12/08/2014 Assessment & Plan (04/06/2022 11:36 AM EST): Mood stable -she denies any current SI/HI -she denies any AH/VH -she has the number for crisis and contracts for safety -cont current med regimen as per psychiatry -f/u closely with therapist and new psychiatrist as scheduled Other hyperlipidemia 12/08/2014 03 023 Assessment & Plan (04/06/2022 11:35 AM EST): Slight bump in LDL JUN 2021 -cont lipitor nightly -cont fish oil supplementation BID Kidney stone 12/08/2014 04/06/2022 Encounters Date Type Department Care Team Description 06/04/2024 10:45 AM EDT Office Visit [facility] [address] [place] [id number] Tracie Mcginnis DO Type 2 diabetes mellitus with stage 3 chronic kidney disease, without long-term current use of insulin, unspecified whether stage 3a or 3b CKD (CMS/HCC) (Primary Dx); Essential hypertension; Other hyperlipidemia; Chronic bipolar disorder ([facility]); Chronic migraine; Fatty liver; Chronic gastroesophageal reflux disease; Nausea, vomiting, and diarrhea; Nephrolithiasis; Paresthesia of both feet; Chronic pain of left wrist; Abnormal MRI; Sleep related laryngospasm; Abscess; Tobacco dependence; Healthcare maintenance; Type 2 diabetes mellitus without complication, without long-term current use of insulin ([facility]) 06/04/2024 Travel 06/02/2024 Refill [facility] [address] [place] [address] Tracie Mcginnis DO 06/02/2024 Refill [facility] [address] [place] [address] Tracie Mcginnis DO Nonintractable chronic migraine 2024 6:00 PM EDT Office Visit [facility] [address] [place] [address] Other acute nonsuppurative otitis media of right ear, recurrence not specified (Primary Dx) 2024 Travel 05/25/2024 Refill [facility] [address] [place] [address] Tracie Mcginnis DO Diabetic polyneuropathy associated with type 2 diabetes mellitus ([facility]) 05/19/2024 Refill [facility] [address] [place] [address] Tracie Mcginnis DO Other hyperlipidemia 05/12/2024 Refill [facility] [address] [place] [address] Tracie Mcginnis DO Nausea, vomiting, and diarrhea 05/02/2024 Refill [facility] [address] [place] [address] Tracie Mcginnis DO Nonintractable chronic migraine 04/28/2024 Telephone [facility] [address] [place] [address] Tracie Mcginnis DO Durable Medical Equipment (brace) 04/28/2024 Refill [facility] [address] [place] [address] Tracie Mcginnis DO 04/23/2024 3:45 PM EST Office Visit [facility] [address] [facility] [place] [address] Rolando Brito CNP Mild cognitive impairment (Primary Dx); Polyarthralgia 04/23/2024 Travel 04/23/2024 Refill [facility] [address] [facility] [place] [facility] [place] [address] Tracie Mcginnis DO 04/22/2024 Telephone [facility] [address] [facility] [place] [address] Tracie Mcginnis DO Chart Prep 04/19/2024 Orders Only [facility] [address] [facility] [place] [address] ProviderMarlon MD 04/17/2024 Travel 04/11/2024 Refill [facility] [address] [facility] [place] [address] Tracie Mcginnis DO Primary insomnia 04/10/2024 Telephone [facility] [address] [place] [address] Tracie Mcginnis DO Recall Letter (Recall Letter sent 04/09/24.) 03/31/2024 Refill [facility] [address] [facility] [place] [address] Gwendolyn Ortega MD Nonintractable chronic migraine 03/31/2024 Refill [facility] [address] [place] [address] Tracie Mcginnis DO Primary insomnia 03/24/2024 Refill [facility] [address] [place] [address] Tracie Mcginnis DO Vitamin D deficiency 03/20/2024 Refill [facility] [address] [place] [address] Tracie Mcginnis DO Diabetic polyneuropathy associated with type 2 diabetes mellitus ([facility]) 03/14/2024 Orders Only [facility] [address] [facility] [place] [address] Tracie Mcginnis DO Sleep related laryngospasm (Primary Dx) 03/10/2024 Orders Only [facility] [address] [place] [address] Tracie Mcginnis DO 03/06/2024 Refill [facility] [address] [place] [address] Tracie Mcginnis DO Nonintractable chronic migraine 03/06/2024 Telephone [facility] [address] [place] [address] Tracie Mcginnis DO from Last 3 Months Immunizations Name Administration Dates Next Due Hep A, Adult 03/27/2017,09/12/2016 Hep B, adult 06/23/2015,01/20/2015,11/16/2014 Influenza injectable quadriv alent IIV4 with preservative 01/25/2016,11/16/2014 Influenza injectable quadriv alent preservative free 01/16/2023,11/11/2021,02/18/2021,11/25,11/29/2018,03/12/2018,12/12/2016 Influenza, IIV3, injectable 02/14/2011 Influenza, Split (incl. suki fied surface antigen) 02/22/2012 Moderna Covid-19 Vaccine 12+ 06/24/2021,06/09/19 21,05/11/2020 Moderna Covid-19 Vaccine 6+ Bivalent 04/06/2022 Pneumococcal Conjugate PCV 20 02/14/2022 Pneumococcal Polysaccharide PPSV23 02/02/2020, RSV Bivalent 04/27/2023 TD (adult), 2 Lf tetanus tox oid, preservative free, adsorbed 04/27/2023 Tdap 11/16/2014 Zoster, Recombinant 09/09/2020,06/29/2020 Social History Tobacco Use Types Packs/Day Years Used Date Smoking Tobacco: Every Day Cigarettes Passive Smoke Exposure: Current Smokeless Tobacco: Never Tobacco Cessation:Ready to Q uit: Not Asked; Counseling Given: Not Answered Alcohol Use Standard Drinks/Week Comments Never 0 [...] Orientation Straight 01/02/2022 10 :22 AM EDT Last Filed Vital Signs Vital Sign Reading [...] Mass Index 31.89 06/04/2024 11:18 AM EDT Plan of Treatment Health Maintenance Due Date Last Done Comments CT Colonography 1969 FIT DNA/Cologuard 1969 FIT 1969 FOBT 1969 Sigmoidoscopy 1969 Diabetes: Foot Exam 05/27/1979 Eye Exam 05/27/1979 Pap Smear 1990 Cervical Cancer Screening 05/27/1999 HPV/Cotest 05/27/1999 Influenza Vaccine (#1) 2023 , 11/11/2021, 02/18/2021, Additional history exists Diabetes: Hemoglobin A1C 09/03/2024 025, 06/04/2024, 12/10/2023, Additional history exists Depression Monitoring (PHQ-9) 12/04/2024 06/04/2024, 06/04/2024 Mammogram 12/24/2024 12/25/2023, 06/2021, 07/29/2020, Additional history exists Alcohol/Substance Use Screening 06/04/2025 06/04/2024 Depression Screening 06/04/2025 06/04/2024, 06/05/19 25 Lipid Panel 06/04/2025 06/04/2024, 09/2023, 01/03/2023, Additional history exists SDOH Screening 06/04/2025 06/04/2024 Tobacco Screening 06/04/2025 06/04/2024 Colonoscopy 11/21/2032 11/21/2022 Colorectal Cancer Screening 11/21/2032 DTaP/Tdap/Td Vaccines (3 - Td or Tdap) 04/27/2033 04/27/2023, 11/16/2014 Hepatitis B Vaccines Completed 06/23/2015, 01/20/2015, 11/16/2014 Hepatitis A Vaccines Completed 03/27/2017, 09/13/19 17 Zoster Vaccines Completed 09/09/2020, 06/29/2020 Pneumococcal Vaccine: 50+ Years Completed 02/14/2022, 02/02/2020, 11/16/2014 RSV Patients and Patients Aged 60 years or older Completed 04/27/2023 HIV Screening Completed 12/10/2023, 03/2022, 11/22/2020, Additional history exists Hepatitis C Screening Completed 12/10/2023 , 01/03/2023, 11/22/2020, Additional history exists COVID-19 Vaccine Completed 02/12/2024, , 04/06/2022, Additional history exists HIB Vaccines Aged Out No longer eligi ble based on patient's age to complete this topic HPV Vaccines Aged Out No longer eligi ble based on patient's age to complete this topic IPV Vaccines Aged Out No longer eligi ble based on patient's age to complete this topic Meningococcal Vaccine Aged Out No chikis brandon eligible based on patient's age to complete this topic RSV under 20 months Aged Out No longe r eligible based on patient's age to complete this topic Rotavirus Vaccines Aged Out No longer eligible based on patient's age to complete this topic Procedures Procedure Name Priority Date/Time Associated Diagnosis Comments CBC WITH AUTO DIFFERENTIAL Routine 06/04/2024 12:26 [...] stage 3a or 3b CKD (CMS/HCC) VITAMIN D,25-OH,TOTAL,IA Routine 06/04/2024 12:26 PM EDT Type 2 diabetes mellitus with stage 3 chronic kidney disease, without long-term current use of insulin, unspecified whether stage 3a or 3b CKD (CMS/HCC) T4, FREE Routine 06/04/2024 12:26 PM EDT Type 2 diabetes mellitus with stage 3 chronic kidney disease, without long-term current use of insulin, unspecified whether stage 3a or 3b CKD (CMS/HCC) RHEUMATOID FACTOR Routine 06/04/2024 12: 26 PM EDT Polyarthralgia SED RATE BY MODIFIED WESTERGREN Routine 06/04/2024 12:26 PM EDT Polyarthralgia POCT GLYCATED HEMOGLOBIN, TOTAL Routine 06/04/2024 11:30 [...] whether stage 3a or 3b CKD (CMS/HCC) MR BRAIN WO CONTRAST Routine 05/10/2024 2:40 PM EST Mild cognitive impairment AMB REFERRAL TO ENDOCRINOLOGY Urgent 03/13/2024 Low thyroxine (T4) level THYROGLOBULIN ANTIBODIES Routine 03/10/2024 1:29 PM EST T4 (THYROXINE), TOTAL Routine 03/10/2024 1:29 PM EST Low thyroxine (T4) level TRAB (TSH RECEPTOR BINDING ANTIBODY) Routine 03/10/2024 1:29 PM EST Low thyroxine (T4) level T3, FREE Routine 03/10/2024 1:29 PM EST Low thyroxine (T4) level T3, TOTAL Routine 03/10/2024 1:29 PM EST Low thyroxine (T4) level T4, FREE Routine 03/10/2024 1:29 PM EST Low thyroxine (T4) level TSH Routine 03/10/2024 1:29 PM EST Low thyroxine (T4) level BI MAMMOGRAM SCREENING TOMOSYNTHESIS BILATERAL Routine 12/25/2023 1:40 PM EDT Breast cancer screening by mammogram HEPATITIS C AB W/REFL TO HCV RNA, QN, PCR Routine 12/10/2023 3:11 PM EDT Type 2 diabetes mellitus with stage 3 chronic kidney disease, without long-term current use of insulin, unspecified whether stage 3a or 3b CKD (CMS/HCC) Essential hypertension Other hyperlipidemia Chronic bipolar disorder (CMS/HCC) Chronic migraine Fatty liver Chronic gastroesophageal reflux disease Nausea, vomiting, and diarrhea Nephrolithiasis Paresthesia of both feet Chronic pain of left wrist Abnormal MRI Sleep related laryngospasm Abscess Tobacco dependence Healthcare maintenance HIV 1/2 ANTIGEN/ANTIBODY, FOURTH GENERATION W/RFL Routine 12/10/2023 3:11 PM EDT Type 2 diabetes mellitus with stage 3 chronic kidney disease, without long-term current use of insulin, unspecified whether stage 3a or 3b CKD (CMS/HCC) Essential hypertension Other hyperlipidemia Chronic bipolar disorder (CMS/HCC) Chronic migraine Fatty liver Chronic gastroesophageal reflux disease Nausea, vomiting, and diarrhea Nephrolithiasis Paresthesia of both feet Chronic pain of left wrist Abnormal MRI Sleep related laryngospasm Abscess Tobacco dependence Healthcare maintenance COLONOSCOPY Routine 11/21/2022 6:53 PM EDT from Last 3 Months or Most Recently Relevant to Health Maintenance Results * (ABNORMAL) Vitamin D, 25-Hydroxy, Total, Immunoassay (06/04/2024 12:26 PM EDT) [facility] Vitamin D 25-OH Total 19.1(L) >30 ng/mL [facility] Comment: Health Based Reference Values*< 20 ??ng/mL ??Qcrsnfulg39-61 ng/mL ??Insufficient> 30 ??ng/mL ??Sufficient*Carline CAM. N [...] DO LAB BLOOD ORDERABLES Final R esult [facility] [address] [place] [phone] * (ABNORMAL) Vitamin B12 (Cobalamin) and Folate Panel, Serum (06/04/2024 12:26 PM EDT) Vitamin B12 624 200 - 900 pg/mL [facility] Comment:NORMAL 200-900 PG/ML INDETERMINATE 160-199 PG/ML DEFICIENT < 160 PG/ML Folate 2.4(L) > or = 4.0 ng/mL [facility] Comment:Reference Values:> o r = 4.0 ng/mL< 4.0 ng/mL suggests folate deficiency Methotrexate, aminopterin and folinic acid(leucovorin) are chemotherapeutic agents whose molecularstructures are similar to folate; therefore, the Architectfolate assay cannot be used for patients using these drugs. Blood 06/04/2024 12:2 6 PM EDT 06/04/2024 1:12 PM EDT us Tracie Mcginnis DO LAB BLOOD ORDERABLES Final R esult Performing Organization Address [facility] Co de Phone Number [facility] [address] [place] [phone] * (ABNORMAL) CBC auto differential (06/04/2024 12:26 PM EDT) White Blood Count 7.5 4.8 - 10.8 X10*3/uL [facility] Red Blood Count 3.87(L) 4.20 - 5.50 X10*6/uL [facility] Hemoglobin 11.7(L) 12.0 - 16.0 g/dl [facility] Hematocrit 35.4(L) 37.0 - 47.0 % [facility] Mean Corpuscular Volume 91.5 80.0 - 98.0 fL [facility] Mean Corpuscular Hemoglobin 30.2 27.0 - 33.0 pg [facility] Mean Corpuscular HGB Conc 33.1 31.0 - 35.0 g/dl [facility] Red Cell Distribution Width 13.3 11.0 - 16.0 % [facility] Platelet Count 216 160 - 400 X10*3/uL [facility] Mean Platelet Volume 10.1 9.4 - 12.3 fL [facility] Neutrophils Percent Auto 60.6 45 - 73 % [facility] Imm Gran Pct Auto 0.4 0.0 - 0.4 % [facility] Lymphocytes Percent Auto 32.0 20 - 40 % [facility] Monocytes Percent Auto 4.5 2 - 11 % [facility] Eosinophils Percent Auto 2.1 0 - 4 % [facility] Basophils Percent Auto 0.4 0 - 2 % [facility] NRBC Pct Auto 0.0 0.0 - 0.2 /100WBC [facility] Neutrophils Absolute Auto 4.6 2.0 - 8.3 x10*3/uL [facility] Imm Gran Abs Auto 0.03 0.00 - 0.03 X10*3/uL [facility] Lymphocytes Absolute Auto 2.4 1.2 - 4.9 X10*3/uL [facility] Monocytes Absolute Auto 0.3 0.1 - 1.2 X10*3/uL [facility] Eosinophils Absolute Auto 0.2 0.0 - 0.4 X10*3/uL [facility] Basophils Absolute Auto 0.0 0.0 - 0.2 X10*3/uL [facility] NRBC Abs Auto 0.000 0.0 - 0.012 X10*3/uL [facility] Blood Venous blood specimen / Unknown 06/04/2024 12:26 PM EDT 06/04/2024 1:12 PM EDT us Tracie Mcginnis DO LAB BLOOD ORDERABLES Final R esult [facility] [address] [place] [phone] * Iron And Total Iron Binding Capacity (06/04/2024 12:26 PM EDT) Iron 35 30 - 160 mcg/dL [facility] Total Iron Binding Capacity 234 228 - 428 mcg/dL [facility] Percent Iron Saturation 15 15 - 50 % [facility] Unsaturated Iron Binding 199 ug/dL [facility] Blood Venous blood specimen / Unknown 06/04/2024 12:26 PM EDT 06/04/2024 1:12 PM EDT Tracie Mcginnis DO LAB BLOOD ORDERABLES Final R esult Performing Organization Address [facility]/ZIP Co de Phone Number [facility] [address] [place] [phone] * (ABNORMAL) Sed Rate by Modified Darshana (06/04/2024 12:26 PM EDT) Erythrocyte Sedimentation Rate 29(H) 0 - 20 MM/HR [facility] Comment:Patients with polycy themia and many hemoglobin abnormalitiesmay have depressed sed rates whereas patients with anemiamay have elevated sed rates. Blood Venous blood specimen / Unknown 06/04/2024 12:26 PM EDT 06/04/2024 1:12 PM EDT [facility] LAB BLOOD ORDERABLES Denise l Result Performing Organization Address [facility] Co de Phone Number [facility] [address] [place] [phone] * Rheumatoid Factor (06/04/2024 12:26 PM EDT) Rheumatoid Factor <13.0 <15.0 IU/mL [facility] Blood Venous blood specimen / Unknown 06/04/2024 12:26 PM EDT 06/04/2024 1:12 PM EDT [facility] LAB BLOOD ORDERABLES Denise l Result Performing Organization Address City/[facility]/ZIP Co de Phone Number [facility] [address] [place] [address] [phone] * TSH (06/04/2024 12:26 PM EDT) Only the most recent of2 resultswithin the time period is included. Thyroid Stimulating Hormone 2.00 0.32 - 4.0 uIU/mL [facility] Comment:TSH 3rd Generation ( [employer]) Blood Venous blood specimen / Unknown 06/04/2024 12:26 PM EDT 06/04/2024 1:12 PM EDT us Tracie Mcginnis LAB BLOOD ORDERABLES Final R esult [facility] [address] [place] [address] [phone] * (ABNORMAL) T4, Free (06/04/2024 12:26 PM EDT) Only the most recent of2 resultswithin the time period is included. Free T4 (Free Thyroxine) 0.70(L) 0.71 - 1.85 ng/dL [facility] Blood Venous blood specimen / Unknown 06/04/2024 12:26 PM EDT 06/04/2024 1:12 PM EDT us Tracie Mcginnis DO LAB BLOOD ORDERABLES Final R esult [facility] [address] [place] [phone] * (ABNORMAL) Hemoglobin A1c (06/04/2024 12:26 PM EDT) Hemoglobin A1c 8.8(H) <6.0 % [facility] Comment:Hemoglobin A1C Refer ence Range Adults: 4.8 - 6.0 % Non diabetic: < 6.0 % Goal: < 7.0 %Additional Action Suggested: > 8.0 %Note: Hemoglobin A1c results are invalid for patients with abnormal amounts of HbF. Blood transfusions may impact the HbA1c concentration in the patient sample. Estimated Average Glucose 206 mg/dL [facility] Comment:eAG = Estimated ave rage glucose which is %A1C expressed asaverage glucose, using the formula of the K8S-BcqyvauOguntkt Glucose study (ADAG), Diabetes Care, Vol.31,#8,2007 Blood Venous blood specimen / Unknown 06/04/2024 12:26 PM EDT 06/04/2024 1:12 PM EDT Tracie Mcginnis DO LAB BLOOD ORDERABLES Final R esult Performing Organization Address [facility]/ZIP Co de Phone Number [facility] [address] [place] [phone] * Ferritin (06/04/2024 12:26 PM EDT) Ferritin 88 10 - 250 ng/mL [facility] Blood Venous blood specimen / Unknown 06/04/2024 12:26 PM EDT 06/04/2024 1:12 PM EDT Tracie Mcginnis DO LAB BLOOD ORDERABLES Final R esult Performing Organization Address [facility] Co de Phone Number [facility] [address] [place] [phone] * (ABNORMAL) Hepatic Function Panel (06/04/2024 12:26 PM EDT) Bilirubin, Total 0.3 0.0 - 1.0 mg/dL [facility] Bilirubin, Direct 0.1 0.0 - 0.5 mg/dL [facility] Aspartate Amino Transferase 26 5 - 31 U/L [facility] Alanine Aminotransferase 37(H) 0 - 31 U/L [facility] Total Protein 7.0 6.5 - 8.0 g/dL [facility] Albumin Level 4.0 3.5 - 5.0 g/dL [facility] Alkaline Phosphatase 163(H) 39 - 117 U/L [facility] Blood Venous blood specimen / Unknown 06/04/2024 12:26 PM EDT 06/04/2024 1:12 PM EDT Tracie Ras LAB BLOOD ORDERABLES Final R esult Performing Organization Address [facility] Co de Phone Number [facility] [address] [place] [address] [phone] * (ABNORMAL) Lipid Panel, Standard (06/04/2024 12:26 PM EDT) Triglycerides 165(H) <150 mg/dL [facility] Comment:Desirable Triglyceri de: less than 150 mg/dLBorderline High Triglyceride 150-199 mg/dLHigh Triglyceride: 200-499 mg/dLVery High Triglyceride: greater than or equal to 5OO mg/dL Cholesterol 146 <200 mg/dL [facility] Comment:Desirable Cholestero l: less than 200 mg/dLBorderline High Cholesterol: 200-239 mg/dLHigh Cholesterol: greater than 239 mg/dL LDL Cholesterol Calculated 82 <100 mg/dL [facility] Comment:Desirable LDL: less than 100 mg/dLNear Optimal/Above Optimal LDL: 110- 129 mg/dLBorderline High LDL: 130-159 mg/dLHigh LDL: 160-189 mg/dLVery High LDL: greater than or equal to 190 mg/dL HDL Cholesterol 31(L) >40 mg/dL [facility] Comment:Desirable HDL: great er than 40 mg/dL Note: This HDL assay may give artificially low results in patients with liver disease. Blood Venous blood specimen / Unknown 06/04/2024 12:26 PM EDT 06/04/2024 1:12 PM EDT Tracie Mcginnis LAB BLOOD ORDERABLES Final R esult Performing Organization Address City/[facility]/ZIP Co de Phone Number [facility] [address] [place] [phone] * (ABNORMAL) Basic Metabolic Panel (06/04/2024 12:26 PM EDT) Pathologist [facility] Sodium 140 135 - 145 mmol/L [facility] Potassium 3.8 3.3 - 5.1 mmol/L [facility] Chloride 109(H) 96 - 108 mmol/L [facility] Carbon Dioxide 26 22 - 29 mmol/L [facility] Anion Gap 9(L) 12 - 20 [facility] Urea Nitrogen (BUN) 11 9 - 16 mg/dL [facility] Creatinine, Serum 0.97 0.5 - 1.4 mg/dL [facility] Estimated Glomerular Filt Rate 60 [facility] Comment:Chronic Kidney Disea se: Estimated GFR < 60 mL/min/1.88x1Htcadq Kidney Disease: Estimated GFR < 15 mL/min/1.73m2 Glucose 173(H) 60 - 115 mg/dL [facility] Calcium 8.9 8.4 - 10.2 mg/dL [facility] Blood Venous blood specimen / Unknown 06/04/2024 12:26 PM EDT 06/04/2024 1:12 PM EDT Tracie Mcginnis DO LAB BLOOD ORDERABLES Final R esult [facility] [address] [place] [phone] * (ABNORMAL) POCT HGB A1C (06/04/2024 11:30 AM EDT) Pathologist [facility] Hemoglobin A1C 10,230,191 .0(A) 4.0 - 6.0 % QC Media Lot # Lot# Expiration Date Blood 06/04/2024 11:3 0 AM EDT Tracie Mcginnis DO POINT OF CARE TEST ENTER/CRISTOPHER T ORDERABLES Final Result * POCT Glucose (06/04/2024 11:30 AM EDT) Glucose Blood, POC 194 60 - 200 mg/dL QC Media Lot # [id number] Lot# Expiration Date Blood Capillary blood specimen / Unknown 06/04/2024 11:30 AM EDT us Tracie Mcginnis DO POINT OF CARE TEST ENTER/CRISTOPHER T ORDERABLES Final Result * MR Brain w/o Contrast (05/10/2024 2:40 PM EST) Anatomical Region Laterality Modality Brain Magnetic Resonan ce 05/10/2024 2:40 PM EST Narrative 05/13/2024 7:20 AM EDT ? [facility] ?[address] ?[place] [address] ? Magnetic Resonance Report ? Signed ? Patient: JuliaTiffanie A ?MR#: [id number] ?? [id number] ? : 1970 ?Acct:[id number] ? Age/Sex: 53 / F ?ADM Date: 05/10/24 ? Loc: HO.MRI ? Attending Dr: Rolando Brito BENEFITS SPECIALIST ? Ordering Physician: Rolando Brito ?? Date of Service: 05/10/24 ?? Procedure(s): MR head/brain wo con ?? Accession Number(s): [id number] ? cc: Tracie Mcginnis DO; Rolando Brito ? EXAMINATION: ??MR BRAIN WITHOUT IV CONTRAST ? HISTORY: ??Pt having sx of mild cognitive impairment ? TECHNIQUE: ?Sagittal T1, and axial T1, FLAIR, T2, gradient echo, and ?? diffusion weighted MR images of the brain were obtained. ? COMPARISON: None ? FINDINGS: ? A few scattered subcortical white matter hyperintensities are noted on ?? the FLAIR and T2-weighted images which are nonspecific, but often seen ?? in the setting of small vessel ischemic disease. Mejía/white ?? differentiation is otherwise normal. ??There is no mass effect or ?? midline shift. ??The ventricular system is normal in size and ?? configuration. No intra or extra-axial fluid collections are ?? identified. There are no foci of restricted diffusion. ? Normal vascular flow voids are noted in the basilar and carotid ?? arteries. ??The visualized paranasal sinuses are clear. There is fluid ?? signal intensity in the bilateral mastoid air cells. There is T2 ?? hyperintense signal in the left petrous apex, which could represent ?? fluid within and otherwise normally aerated petrous apex. ? MR/MR head/brain wo con ?? IMPRESSION: ? 1. Minimal nonspecific white matter hyperintensities, often seen in the ?? setting of small vessel ischemic disease. ? 2. Fluid in the bilateral mastoid air cells. ? Electronically signed by: ??Eduardo Yang MD ??05/13/2024 07:17 AM EDT ? Dictated By: ?Eduardo Yang MD ? Signed By: ?<Electronically signed by Eduardo Yang MD in OV> ?05/13/24 0717 ? DD/ 1440 ? TD/TT: 05/10/24 1456 ? Venereal Disease Control Head: ? Procedure Note [place], Image - 05/13/2024 [place] [id number] Magnetic Resonance Report Signed Patient: Tiffanie Dumont AMR#: [id number] : 1970Acct:[id number] Age/Sex: 53 / FADM Date: 05/10/24 Loc: HO.MRI Attending Dr: Rolando Brito BENEFITS SPECIALIST Ordering Physician: Rolando Brito Date of Service: 05/10/24 Procedure(s): MR head/brain wo con Accession Number(s): [id number] cc: Tracie Mcginnis DO; Rolando Brito EXAMINATION: MR BRAIN WITHOUT IV CONTRAST HISTORY: Pt having sx of mild cognitive impairment TECHNIQUE: Sagittal T1, and axial T1, FLAIR, T2, gradient echo, and diffusion weighted MR images of the brain were obtained. COMPARISON: None FINDINGS: A few scattered subcortical white matter hyperintensities are noted on the FLAIR and T2-weighted images which are nonspecific, but often seen in the setting of small vessel ischemic disease. Mejía/white differentiation is otherwise normal. There is no mass effect or midline shift. The ventricular system is normal in size and configuration. No intra or extra-axial fluid collections are identified. There are no foci of restricted diffusion. Normal vascular flow voids are noted in the basilar and carotid arteries. The visualized paranasal sinuses are clear. There is fluid signal intensity in the bilateral mastoid air cells. There is T2 hyperintense signal in the left petrous apex, which could represent fluid within and otherwise normally aerated petrous apex. MR/MR head/brain wo con IMPRESSION: 1. Minimal nonspecific white matter hyperintensities, often seen in the setting of small vessel ischemic disease. 2. Fluid in the bilateral mastoid air cells. Electronically signed by: Eduardo Yang MD 05/13/2024 07:17 AM EDT Dictated By: Eduardo Yang MD Signed By: <Electronically signed by Eduardo Yang MD in OV> 05/13/24 0717 DD/ 1440 TD/TT: 05/10/24 1456 Venereal Disease Control Head: us Rolando Brito CNP IM MRI PROCEDURES Final Result * Referral to Endocrinology (03/13/2024) Tracie Mcginnis DO OUTPATIENT REFERRAL ORDERABL ES Final Result * TRAb (TSH Receptor Binding Antibody) (03/10/2024 1:29 PM EST) TRAb (TSH Receptor Binding Antibody) <1.00 <=2.00 IU/L [facility] Comment:This test was perfor med using the TRAb Antibody ELISAmethod which is standardized against the 1stInternational Standard 90/672 and is reported inInternational Units (IU/L). The reference rangereported was established specifically for this testmethod.THIS TEST WAS PERFORMED AT:[employer]/[id number] [place] [id number] LOWRY MD,PHD Blood Venous blood specimen / Unknown 03/10/2024 1:29 PM EST 03/10/2024 4:16 PM EST Tracie Mcginnis DO LAB BLOOD ORDERABLES Final R esult Performing Organization Address City/[facility]/ZIP Co de Phone Number [facility] [address] [place] [phone] * Thyroglobulin Antibodies (03/10/2024 1:29 PM EST) Thyroglobulin Antibodies <1 < or = 1 IU/mL [facility] Comment:THIS TEST WAS PERFOR MED AT:[facility] [place] [phone] FAITH MD 03/10/2024 1:29 PM EST 03/10/2024 4:16 PM EST Tracie Mcginnis LAB BLOOD ORDERABLES Final R esult Performing Organization Address [facility]/ZIP Co de Phone Number [facility] [address] [place] [phone] * T3, Free (03/10/2024 1:29 PM EST) T3, Free 2.4 2.3 - 4.2 pg/mL [facility] Comment:THIS TEST WAS PERFOR MED AT:[facility] [place] [phone] FAITH MD Blood Venous blood specimen / Unknown 03/10/2024 1:29 PM EST 03/10/2024 4:16 PM EST Tracie Mcginnis LAB BLOOD ORDERABLES Final R esult Performing Organization Address City/[facility]/ZIP Co de Phone Number [facility] [address] [place] [address] [phone] * T3, Total (03/10/2024 1:29 PM EST) T3, Total 76 76 - 181 ng/dL [facility] Comment:THIS TEST WAS PERFOR MED AT:[facility] [place] [phone] FAITH MD Blood Venous blood specimen / Unknown 03/10/2024 1:29 PM EST 03/10/2024 4:16 PM EST Tracie Mcginnis DO LAB BLOOD ORDERABLES Final R esult Performing Organization Address City/[facility]/ZIP Co de Phone Number [facility] [address] [place] [address] [phone] * (ABNORMAL) T4 (Thyroxine), Total (03/10/2024 1:29 PM EST) Pathologist [facility] T4 Thyroxine <3.0(L) 4.5 - 12.0 ug/dL [facility] Blood Venous blood specimen / Unknown 03/10/2024 1:29 PM EST 03/10/2024 4:16 PM EST Tracie Mcginnis DO LAB BLOOD ORDERABLES Final R esult Performing Organization Address City/[facility] Co de Phone Number [facility] [address] [place] [address] [phone] * BI Mammogram Screening Tomosynthesis Bilateral (12/25/2023 1:40 PM EDT) Anatomical Region Laterality Modality Breast Bilateral Mammography 12/25/2023 1:40 PM EDT Narrative 01/07/2024 3:49 PM EST ? [facility] ? [address] ?[place] [address] ? Mammography Report ? Signed ? Patient: Julia,Tiffanie A ?MR#: [id number] ?? [id number] ? : 1970 ?Acct:[id number] ? Age/Sex: 53 / F ?ADM Date: 10/22/24 ? Loc: HO.MAMMO ? Attending Dr: Tracie Mcginnis DO ? Ordering Physician: Tracie Mcginnis DO ?Results: 2B ?? enign Findings ? Date of Service: 12/25/23 ?Follow Up: 1 Year From Orig ?? inal Mammogram ? Procedure(s): MM tomosynthesis screening BI ?? Accession Number(s): [id number] ? cc: Tracie Mcginnis DO ? EXAMINATION: ?? MM SCREENING DIGITAL BREAST TOMOSYNTHESIS, BILATERAL ? CLINICAL INFORMATION: ? Screening. Asymptomatic. ? COMPARISON: ?? Mammography: Comparison is made with available priors ? TECHNIQUE: ?? Digital breast mammography with tomosynthesis is performed in both the ?? craniocaudal and mediolateral oblique views along with computer-aided ?? detection (CAD). ? FINDINGS: ?? There are scattered areas of fibroglandular density (ACR BI-RADS breast ?? composition Category b). ?? Bilateral reduction mammoplasty. ?? There are no significant masses, abnormal calcifications, or other ?? abnormalities. ? MM/MM tomosynthesis screening BI ?? IMPRESSION: ?? No mammographic evidence of malignancy. ? ASSESSMENT: ? BI-RADS BI-RADS 2 - Benign Findings ? RECOMMENDATION: ?? Routine annual mammography screening. ? 1 year F/U ? This examination should not preclude the clinical evaluation of a ?? suspicious palpable abnormality. ? This patient's information was entered into a reminder system with a ?? target due date for their next mammogram. ? Electronically signed by: ??Zandra Casas DO ??01/07/2024 03:46 PM EST ?? RP ? Dictated By: ?Zandra Casas DO ? Signed By: ?<Electronically signed by Zandra Casas, DO in OV> ? 01/07/24 1546 ? DD/ 1340 ? TD/TT: 12/25/23 1353 ? Venereal Disease Control Head: ? Procedure Note Donmichel[place], Image - 01/07/2024 Jack[facility] [address] [place], [place] [address] Mammography Report Signed Patient: Tiffanie Dumont AMR#: [id number] : 1970Acct:[id number] Age/Sex: 53 / FADM Date: 12/25/23 Loc: HO.MAMMO Attending Dr: Tracie Mcginnis DO Ordering Physician: Tracie Mcginnisults: 2B enign Findings Date of Service: 12/25/23Follow Up: 1 Year From Orig inal Mammogram Procedure(s): MM tomosynthesis screening BI Accession Number(s): [id number] cc: Tracie Mcginnis DO EXAMINATION: MM SCREENING DIGITAL BREAST TOMOSYNTHESIS, BILATERAL CLINICAL INFORMATION: Screening. Asymptomatic. COMPARISON: Mammography: Comparison is made with available priors TECHNIQUE: Digital breast mammography with tomosynthesis is performed in both the craniocaudal and mediolateral oblique views along with computer-aided detection (CAD). FINDINGS: There are scattered areas of fibroglandular density (ACR BI-RADS breast composition Category b). Bilateral reduction mammoplasty. There are no significant masses, abnormal calcifications, or other abnormalities. MM/MM tomosynthesis screening BI IMPRESSION: No mammographic evidence of malignancy. ASSESSMENT: BI-RADS BI-RADS 2 - Benign Findings RECOMMENDATION: Routine annual mammography screening. 1 year F/U This examination should not preclude the clinical evaluation of a suspicious palpable abnormality. This patient's information was entered into a reminder system with a target due date for their next mammogram. Electronically signed by: Zandra Casas DO 01/07/2024 03:46 PM EST Dictated By: Zandra Casas DO Signed By: <Electronically signed by Zandra Casas DO in OV> 01/07/24 1546 DD/ 1340 TD/TT: 12/25/23 1353 Venereal Disease Control Head: Tracie Mcginnis DO IMG BI PROCEDURES Edited Res ult - Final * Hepatitis C Antibody with Reflex to HCV, RNA, Quantitative, Real-Time PCR (12/10/2023 3:11 PM EDT) Hepatitis C Antibody Nonreactive Nonreactive [facility] Comment:Antibodies to HCV no t detected; does not exclude early acuteHCV infection. Blood Venous blood specimen / Unknown 12/10/2023 3:11 PM EDT 12/10/2023 3:11 PM EDT us Tracie Mcginnis DO LAB BLOOD ORDERABLES Final R esult [facility] [address] [place] [phone] * HIV-1/2 Antigen and Antibodies, Fourth Generation, with Reflexes (12/10/2023 3:11 PM EDT) HIV AB/AG Nonreactive Nonreactive [facility] Comment:HIV-1 p24 Ag and/or HIV-1/HIV-2 Ab not detected.A test result that is nonreactive does not exclude thepossibility of exposure to or infection with HIV-1 and/orHIV-2. Nonreactive results in this assay for individualswith prior exposure to HIV-1 and/or HIV-2 may be due toantigen and antibody levels that are below the limit ofdetection of this assay.The [employer] HIV Ag/Ab Combo assay result andsupplemental assay results should be interpreted inconjunction with the patient's clinical presentation,history and other laboratory results. If the results areinconsistent with clinical evidence, additional testing issuggested to confirm the result. 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
--- OUTSIDE RECORDS SUMMARY | 2024-06-04 14:52 | XMS_ITS | Encounter Summary ---
Author Organization [facility] Address [address] [place] [address] [place] [phone] Phone Care Team Providers Care Electrical And Electronic Assembler Name Role Phone Debbie Luna MD Primary Care Provider [phone] Encounter Details Date Type Department Care Team (Late st Contact Info) Description 02/20/2023 Procedure Pass [facility] Endoscopy Admitting Dept Virtual Department [address] [place] [address] Social History Tobacco Use Types Packs/Day Years Used Date Smoking Tobacco: Every Day Cigarettes 1.5 40 Smokeless Tobacco: Never Alcohol Use Standard Drinks/Week Comments Not Currently 0 (1 standard drink = 0.6 oz pur e alcohol) Education Answer Date Recorded Are you interested in more education? Not on wilner e 09/29/2022 Are you concerned about learning? Not on file 09/29/2022 No 09/29/2022 No 09/29/2022 Digital Access Answer Date Recorded No 09/29/2022 No 09/29/2022 Reliable internet access at home? Not on file 09/29/2022 Device with a working camera? Not on file Intimate Partner Violence Answer Date R ecorded Are you denied basic needs s uch as food, clothing, or medical care? No 02/19/2023 In the past 12 months have y ou been in a relationship with a person who hurts, threatens, or tries to control you? No 02/19/2023 Are you denied basic needs s uch as food, clothing, or medical care? No 02/19/2023 In the past 12 months have y ou been in a relationship with a person who hurts, threatens, or tries to control you? No 02/19/2023 Sex and Gender Information Value Date Recorded Sex Assigned at Not on file Gender Identity Not on file Sexual Orientation Not on file documented as of this encounter Plan of Treatment Not on file documented as of this encounter Visit Diagnoses Not on filedocumented in this encounter Care Teams Electrical And Electronic Assembler Relationship Specialty Start Date End Date Debbie Luna MD [email or web address] PCP - General Internal Medicine 02/08/23 KAVYA SUBRAMANIAN Primary Care Physician 02/20/23 documented as of this encounter Additional Source Comments The information contained in this document represents components of the legal health record. It is not the complete legal health record.[facility]
--- OUTSIDE RECORDS SUMMARY | 2024-06-04 14:52 | XMS_ITS | Clinical Summary ---
Author Organization [facility] Address [address] [place] [address] Phone Care Team Providers Care Group Leader Wafer Polishing Name Role Phone Debbie Luna MD Primary Care Provider [phone] Allergies Active Allergy Reactions Criticality Noted Date Comments Bupropion Anxiety High 09/03/2015 Other Reaction(s): severe tremors Other reaction(s): Not Indicated, severe tremors Other reaction(s): Other (See Comments) Very nervous, agitation Fish Containing Products Anaphylaxis High 08/11/2022 Reaction varies form rash to shortness of breath Metformin Diarrhea Medium 11/16/2022 vomiting Promethazine Anaphylaxis High 11/16/2022 hives Shellfish Containing Products Anaphylaxis High 08/11/2022 Reaction varies form rash to difficulty breathing. Bupropion Hcl Other (See Comments) High 11/16/2022 Very nervous, agitation Medications Medication Sig Dispensed Refills Start Date End Date Status diazePAM (VALIUM) 5 MG tabletIndications:anx iety,as needed only Take 5 mg by mouth 3 (three) times a day. Indications: anxious, as needed only Active zolpidem (AMBIEN) 10 mg tabletIndications:@ BT Take 10 mg by mouth daily. Indications: @ BT Active haloperidoL (HALDOL) 1 MG tabletIndications:as needed only Take 1 mg by mouth 3 (three) times a day. Indications: as needed only Active butorphanol (STADOL) 10 mg/mL nasal spray 1 spray by Nasal route as needed for pain (specific location in comments). Active QUEtiapine (SEROQUEL) 300 MG tabletIndications:@ BT Take 900 mg by mouth nightly at bedtime. Indications: @ BT Active mirtazapine (REMERON) 30 MG tablet Take 60 mg by mouth nightly at bedtime. Active metoprolol succinate (TOPROL-XL) 50 MG 24 hr tabletIndications:@ BT Take 50 mg by mouth daily. Indications: @ BT Active lamoTRIgine (LAMICTAL XR) 100 mg [id number]:@ BT Take 150 mg by mouth daily. Indications: @ BT Active gabapentin (NEURONTIN) 600 MG tabletIndications:@ BT Take 600 mg by mouth daily. Indications: @ BT Active atorvastatin (LIPITOR) 40 MG tabletIndications:hyp erlipidemia Take 40 mg by mouth daily. Indications: excessive fat in the blood Active famotidine (PEPCID) 40 MG tabletIndications:@ BT Take 40 mg by mouth daily. Indications: @ BT Active potassium chloride (KLOR-CON) 10 MEQ ER tablet Take 20 mEq by mouth 2 (two) times a day. Active fluticasone propionate (FLONASE) 50 mcg/actuation nasal spray 1 spray by Nasal route daily. Active pantoprazole (PROTONIX) 40 MG tablet Take 40 mg by mouth daily. Active [employer] 2 READER as directed. 05/25/2022 Active Active Problems No known active problems Social History Tobacco Use Types Packs/Day Years [...] Sign Reading Time Taken Comments Blood Pressure 90/53 02/20/2023 11:36 AM EST Pulse 80 02/20/2023 11:36 AM EST Temperature 36.1 ??C (97 ??F) 02/20/2023 11:29 AM EST Respiratory Rate 16 02/20/2023 11:36 AM EST Oxygen Saturation 99% 02/20/2023 11:36 AM EST Inhaled Oxygen Concentration - - Weight 77.1 kg (170 lb) 11/16/2022 2:52 PM EDT Height 160 cm (5' 3 ) 11/16/2022 2:52 PM EDT Body Mass Index 30.11 11/16/2022 2:52 PM EDT Plan of Treatment Health Maintenance Due Date Last Done Comments POTASSIUM LEVEL 1970 DEPRESSION SCREENING 1981 SMOKING Hx and SMOKELESS TOBACCO SCREENING 1982 HEPATITIS C SCREENING 05/27/1987 HIV ONE-TIME SCREENING (18-65 YEARS) 05/27/1987 PAP SMEAR 1990 COLOGUARD 2014 FIT TEST 2014 FOBT 2014 SIGMOIDOSCOPY 2014 VIRTUAL COLONOSCOPY 2014 MAMMOGRAM 11/22/2019 11/21/2017 INFLUENZA VACCINE (#1) 2023 , 11/11/2021, 02/18/2021, Additional history exists COVID-19 VACCINE ( season) 2023 01/16/2023, 04/06/2022, 06/24/2021, Additional history exists Adult Td,Tdap Booster 11/16/2024 11/16/2014 SCREENING FOR DIABETES 12/13/2025 12/13/2022 LIPID PANEL 01/04/2028 01/03/2023 COLONOSCOPY 11/21/2032 11/21/2022 COLORECTAL CANCER SCREENING 11/21/2032 HEPATITIS A VACCINES Aged Out 03/27/2017, 09/13/19 17 No longer eligible based on patient's age to complete this topic ZOSTER VACCINES Completed 09/09/2020, 06/29/2020 PNEUMOCOCCAL VACCINES (50+ years) Completed 02/14/2022, 02/02/2020, 11/16/2014 HIB VACCINES Aged Out No longer eligi ble based on patient's age to complete this topic MENINGOCOCCAL VACCINES (ACWY) Aged Out No longer eligible based on patient's age to complete this topic Medical Devices Not on file Procedures Procedure Name Priority Date/Time Associated Diagnosis Comments ENDOSCOPY, COLON 11/21/2022 9:42 AM EDT from Last 3 Months or Most Recently Relevant to Health Maintenance Results * ENDOSCOPY, COLON (11/21/2022 9:42 AM EDT) Narrative Transcriptions Debbie Luna MD, MPH - 11/21/2022 9:42 AM EDT [facility] Patient Name: Tiffanie Julia Attending MD:: Debbie Luna MD, Procedure Date: 11/21/2022 9:42 AM Date of : 1970 Age: 52 Admit Type: Outpatient Gender: Female Room: [place] [address] Referring MD: Kavya Mcginnis MD Exam Type: Colonoscopy Indications: Generalized abdominal pain, Clinically significant diarrhea of unexplained origin Medications: Monitored Anesthesia Care Procedure: Informed consent was obtained from the patientafter discussion of the indications, limitations, alternatives, benefits, and risks of the procedure. Risks specifically discussed include but are not limited to medication reactions, missed lesions, bleeding, perforation, or the need for emergent surgery. Throughout the procedure, the patient's blood pressure, pulse, end-tidal CO2, and oxygensaturations were monitored continuously. The Olympus adult variable colonoscope [id number] #6 was introduced through the anus and advanced to the cecum, identified by appendiceal orifice andileocecal valve. The colonoscopy was performed without difficulty. The patient tolerated the procedurewell. The quality of the bowel preparation was evaluated using the BBPS ([place] Bowel Preparation Scale)with scores of: Right Colon = 3, Transverse Colon = 3and Left Colon = 3 (entire mucosa seen well with no residual staining, small fragments of stool oropaque liquid). The total BBPS score equals 9. Theileocecal valve, appendiceal orifice, and rectum were photographed. Complications: No immediate complications. Findings: The perianal and digital rectal examinations were normal. The colon (entire examined portion) appearednormal. Biopsies were taken with a cold forceps forhistology and to rule out microscopic colitis. No additional abnormalities were found onretroflexion. Impression: - The entire examined colon is normal. Biopsied. Recommendation: - Await pathology results. - The etiology of the patient's diarrhea was not clearly elucidated on this exam. - Follow-up in clinic. Dr Debbie Luna Debbie Luna MD 11/21/2022 10:31:39 AM This report has been signed electronically. Number of Addenda: 0 Note Initiated On: 11/21/2022 9:42 AM Procedure Code(s): --- Professional --- 81257, Colonoscopy, flexible; with biopsy, single or multiple --- Technical --- 68800, Colonoscopy, flexible; with biopsy, single or multiple Diagnosis Code(s): --- Professional --- R10.84, Generalized abdominal pain R19.7, Diarrhea, unspecified --- Technical --- R10.84, Generalized abdominal pain R19.7, Diarrhea, unspecified CPT copyright 2021 [employer]. All rights reserved. The codes documented in this report are preliminary and upon mysql dba reviewmay be revised to meet current compliance requirements. Procedure Date: 11/21/2022 9:42:58 AM [address] [place] [address] Kavya CAIN PROCEDURE ORDERAB LES from Last 3 Months or Most Recently Relevant to Health Maintenance Care Teams Group Leader Wafer Polishing Relationship Specialty Start Date End Date Debbie Luna MD [email or web address] PCP - General Internal Medicine 02/08/23 KAVYA MCGINNIS Primary Care Physician 02/20/23 Additional Source Comments The information contained in this document represents components of the legal health record. It is not the complete legal health record.[facility]
--- OUTSIDE RECORDS SUMMARY | 2024-06-04 14:52 | XMS_ITS | Encounter Summary ---
Author Organization [facility] Address [address] [place] [address] [place] [address] Phone Care Team Providers Care Computer Security Specialist Name Role Phone Debbie Luna MD Primary Care Provider [phone] Encounter Details Date Type Department Care Team (Late st Contact Info) Description 11/21/2022 Procedure Pass [facility] Endoscopy Admitting Dept Virtual Department [address] [place] [address] Social History Tobacco Use Types Packs/Day Years Used Date Smoking Tobacco: Every Day Cigarettes Smokeless Tobacco: Never Alcohol Use Standard Drinks/Week [...] with a working camera? Not on file Sex and Gender Information Value Date Recorded Sex Assigned at Not on file Gender Identity Not on file Sexual Orientation Not on file documented as of this encounter Plan of Treatment Not on file documented as of this encounter Visit Diagnoses Not on filedocumented in this encounter Care Teams Computer Security Specialist Relationship Specialty Start Date End Date Debbie Luna MD PCP - General Internal Medicine 02/08/23 KAVYA SUBRAMANIAN Primary Care Physician 02/20/23 documented as of this encounter Additional Source Comments The information contained in this document represents components of the legal health record. It is not the complete legal health record.[facility]
--- OUTSIDE RECORDS SUMMARY | 2024-06-04 14:52 | XMS_ITS | Encounter Summary ---
Author Organization [employer] Address [address] [place] [address] [address] [place] [address] Care Team Providers Care Chair Name Role Phone Tracie Mcginnis DO Primary Care Provider [phone] Reason for Visit * Reason Comments Med Refill Encounter Details Date Type Department Care Team ([facility] st Contact Info) Description 12/07/2023 Refill [facility] [address] [place], [place] [phone] Tracie Mcginnis DO [address] [place], [place] [phone] Primary insomnia Social History Tobacco Use Types [...] documented as of this encounter Care Teams Chair Relationship Specialty Start Date End Date Tracie Mcginnis DO [address] [place] [address] PCP - General Family Medicine 08/27/13 documented as of this encounter
--- OUTSIDE RECORDS SUMMARY | 2024-06-04 14:52 | XMS_ITS | Data Portability ---
Author Organization [employer] [place] [facility] [email or web address] Address [address] [place] [id number] Care Team Providers Care Account Services Specialist Name Role Phone SAMPSONTAMELA KAVYA Primary Care Provider HIM FLAQUITA OTHER Assessment Encounter Date Assessment Date Assessment LastModified by Organization Details LastModified Time 09/17/2023 09/17/2023 As noted, we kathia murillo called to see this patient regarding concerns of laryngospasm. PMHx notable for: BMI 31.0-31.9 Essential hypertension Chronic gastroesophageal reflux disease Chronic migraine Tobacco dependence Type 2 diabetes mellitus ([facility]/HCC) Nephrolithiasis Healthcare maintenance Arthralgia Nausea, vomiting, and diarrhea Fatty liver Hyperlipidemia Erosive esophagitis Gastroparesis Chronic bipolar disorder (CMS/HCC) Irritable bowel syndrome 53 yo F with noted pmhx being evaluated today for episode of ?laryngospasm at appx 430a today while sleeping. Patient is a daily smoker, admits to chronic cough and also with hoarseness. No f/c. No sore throat. No cp. No sob. Able to take POs. No neck pain or stiffness. No new dental pain. Able to open mouth. Patient also reports chronic gerd and gastroparesis and she is on PPI On medic exam she appears well; no dysphonia; no drooling; no trismus; neck supple w/o obvious masses; op clear; mmm; no stridor; lungs clear Evaluation in the field was performed by my lodge attendant colleague, as noted above, I provided real-time direction and supervision for this visit. Impression & Plan: Laryngospasm DDx is broad given h/o tobacco use (current) and h/o GERD/gastroparesis . She is already on PPI. Lower clinical suspicion for acute infection or acute vascular issue. No stridor, drooling on exam. Can take POs Patient is due to f/u with her PCP on 09/20. Advised that she may need an ENT or GI evaluation to rule out any anatomical issues as well as CXR in light of chronic cough and tobacco hx Red flag s/s reviewed. She is comfortable with plan Primary care, consider ENT evaluation and CXR as patient has a tobacco hx and reports chronic hoarseness and cough. We also discussed possible reflux as contributor to hoarseness and sxs of laryngospasm. She is due to follow up in your office on 09/21/23. Thank you. Disposition: We discussed the diagnostic uncertainty of home visits and the risk associated with this. In this case, the patient and I felt this to be an acceptable and reasonable amount of risk given the benefit of avoiding an ED visit. We discussed the need to seek care urgently/emergentl y in the setting of any new or worsening serious symptoms, particularly fevers, chills, neck stiffness, trouble opening mouth or speaking or eating/drinking [email or web address] Not available 09/17/2023 18:14:04 10/26/2023 10/26/2023 HTN, DM c/o 2 wk worsening rash on lower abdomen, now tender, painful, red denies specific inciting event All: metformin, phenergan, wellbutrin VSS quarter-sized dark red and bright red area, raised no discharge visible #Cellulitis appears uncomplicated at this time empiric keflex notify service if no improvemnet or worsening otherwise return to primary team [email or web address] Not available 10/26/2023 23:27:31 Plan of Treatment Reminders Order Date Submit Date Provider Last Modified By Organization Details Last Modified Time Details Appointments None recorded . Lab None recorded . Referral None recorded . Procedures None recorded . Surgeries None recorded . Imaging None recorded . Medication Orders cephalex in 250 mg capsule 2023 024 [email or web address] [facility], [email or web address], [place], [address], 17:27:11 cephalex in 500 mg capsule 2023 024 [facility], [address], [place], [address], 4 17:27:14 ketorola c 30 mg/mL injectio n solution 2023 024 [email or web address] Not available 4 12:28:31 ketorola c 30 mg/mL injectio n solution 2023 024 [email or web address] Not available 4 21:43:11 ketorola c 30 mg/mL (1 mL) injectio n solution 2022 023 [email or web address] Not available 3 23:22:46 Patient TargetsNo targets recorded. Patient InstructionsNo instructions recorded. Reason for Referral None Reported. Medical Equipment None Reported. Allergies Allergen ID Allergen Name Allergen Category Reaction Reaction Severity Criticality Documentation Date Start Date Code Code System Note Provider Name and Address Organization Details Recorded Time 5439 Phenergan medicatio n Not available Not available Not available 09/17/2023 17964 8 RxNorm SELENA ODOM MD [address] [place] [address],[address], [place], [address], Revstr 4 17:33:21 5440 Wellbutri n medicatio n Not available Not available Not available 09/17/2023 21898 RxNorm SELENA ODOM MD [address] [facility],[address], [place], [address], Revstr 4 17:33:29 5441 metformin medicatio n Not available Not available Not available 09/17/2023 6809 RxNorm SELENA ODOM MD [address] [place] [address],[address], [place], [address], Revstr 4 17:33:39 Medications Name Sig Start Date Stop Date Status Note LastModified by Organization Details LastModified Time medbox status USE DIRECTED active Not Available Not Available No t Available amantadine HCl 100 mg tablet TAKE 1 TABLET BY MOUTH ONCE DAILY FOR 7 DAYS THEN INCREASE TO 1 TABLET TWICE DAILY active Not Available Not Available Not Available butorphanol 10 mg/mL nasal spray USE 1 SPRAY IN 1 NOSTRIL ONCE DAILY NEEDED FOR MIGRAINE active Not Available Not Available No t Available haloperidol 0.5 mg tablet active Not Available Not Available Not Available atorvastatin 40 mg tablet TAKE 1 TABLET BY MOUTH AT BEDTIME active Not Available Not Available No t Available Vitamin B-6 25 mg tablet TAKE 1 TABLET BY MOUTH THREE TIMES DAILY NEEDED FOR NAUSEA active Not Available Not Available N ot Available benztropine 0.5 mg tablet active Not Available Not Available Not Available quetiapine 300 mg tablet TAKE 3 TABLETS BY MOUTH AT BEDTIME active Not Available Not Available No t Available metoprolol succinate ER 50 mg tablet,exten ded release 24 hr active Not Available Not Available Not Available sucralfate 100 mg/mL oral suspension active Not Available Not Available N ot Available famotidine 40 mg tablet TAKE 1 TABLET BY MOUTH AT BEDTIME active Not Available Not Available No t Available haloperidol 1 mg tablet active Not Available Not Available Not Available fexofenadine 180 mg tablet TAKE 1 TABLET BY MOUTH EVERY MORNING active Not Available Not Available No t Available sulfamethoxa zole 800 mg-trimethop rim 160 mg tablet active Not Available Not Available Not Available omeprazole 40 mg capsule,ryan yed release active Not Available Not Available Not Available tramadol 50 mg tablet active Not Available Not Available No t Available ketorolac 30 mg/mL (1 mL) injection solution Inject 1 mL every 6 hours by intramuscul ar route. 2022 active Not Available Not Available Not Avai lable acetaminophe n ER 650 mg tablet,exten ded release active Not Available Not Available Not Available baclofen 20 mg tablet TAKE 1 TABLET BY MOUTH THREE TIMES DAILY NEEDED FOR MUSCLE SPASMS / FOR PAIN active Not Available Not Available No t Available potassium chloride ER 20 mEq tablet,exten ded release(part /cryst) TAKE 1 TABLET BY MOUTH TWICE DAILY WITH FOOD active Not Available Not Available No t Available metocloprami de 5 mg tablet TAKE 1 TABLET BY MOUTH BEFORE MEALS DIRECTED active Not Available Not Available No t Available cephalexin 500 mg capsule Take 1 capsule every 6 hours by oral route for 10 days. active Not Available Not Available No t Available pantoprazole 40 mg tablet,delay ed release TAKE 1 TABLET BY MOUTH EVERY MORNING active Not Available Not Available No t Available mirtazapine 30 mg tablet TAKE 2 TABLETS BY MOUTH EVERY DAY AT BEDTIME active Not Available Not Available No t Available triamcinolon e acetonide 0.1 % topical ointment APPLY TO THE AFFECTED AREA(S) TWICE DAILY NEEDED FOR ITCHING AND RASH active Not Available Not Available No t Available triamcinolon e acetonide 55 mcg nasal spray aerosol USE 2 SPRAYS IN EACH NOSTRIL EVERY DAY active Not Available Not Available No t Available metoprolol tartrate 50 mg tablet TAKE 1 TABLET BY MOUTH TWICE DAILY IN THE MORNING AND AT BEDTIME WITH MEALS active Not Available Not Available N ot Available betamethason e dipropionate 0.05 % topical cream active Not Available Not Available Not Available gabapentin 300 mg capsule TAKE 2 CAPSULES BY MOUTH THREE TIMES DAILY IN THE MORNING, EVENING AND BEDTIME active Not Available Not Available No t Available folic acid 1 mg tablet TAKE 1 TABLET BY MOUTH EVERY MORNING active Not Available Not Available No t Available hydroxyzine HCl 25 mg tablet TAKE 2 TABLETS BY MOUTH TWICE DAILY active Not Available Not Available No t Available mupirocin 2 % topical ointment active Not Available Not Available Not Available diazepam 10 mg tablet TAKE 1 TABLET BY MOUTH TWICE DAILY NEEDED FOR ANXIETY active Not Available Not Available No t Available zolpidem 10 mg tablet TAKE 1 TABLET BY MOUTH AT BEDTIME NEEDED for SLEEP active Not Available Not Available No t Available scopolamine 1 mg over 3 days transdermal patch active Not Available Not Available Not Available ondansetron 4 mg disintegrati ng tablet DISSOLVE 2 TABLETS UNDER THE TONGUE BY MOUTH TWICE DAILY DIRECTED active Not Available Not Available No t Available lamotrigine 100 mg tablet TAKE 1 AND 1/2 TABLETS BY MOUTH IN THE MORNING AND AT BEDTIME active Not Available Not Available No t Available Ventolin HFA 90 mcg/actuatio n aerosol inhaler active Not Available Not Available Not Available oxycodone 5 mg tablet active Not Available Not Available No t Available Fiber-Lax 625 mg tablet TAKE 1 TABLET BY MOUTH TWICE DAILY WITH A FULL GLASS OF WATER active Not Available Not Available No t Available topiramate 50 mg tablet TAKE 1 TABLET BY MOUTH TWICE DAILY IN THE MORNING AND AT BEDTIME active Not Available Not Available No t Available nitrofuranto in monohydrate/ macrocrystal s 100 mg capsule active Not Available Not Available Not Available varenicline tartrate 1 mg tablet TAKE 1 TABLET BY MOUTH TWICE DAILY AFTER MEALS WITH GLASS OF WATER active Not Available Not Available No t Available FeroSul 325 mg (65 mg iron) tablet TAKE 1 TABLET BY MOUTH EVERY MORNING active Not Available Not Available No t Available diclofenac 1 % topical gel active Not Available Not Available Not Available Creon 12,000-38,00 0-60,000 unit capsule,ryan yed release TAKE 1 CAPSULE BY MOUTH FOUR TIMES DAILY WITH MEALS AND / OR SNACKS active Not Available Not Available No t Available ketorolac 30 mg/mL injection solution Inject 1 mL by intravenous route. 2023 active Not Available Not Available Not Avai lable Pedialyte 10.6 mEq-4.7mEq/8 .5 gram oral powder packet MIX ONE PACKET WITH LARGE GLASS OF WATER AND TAKE SMALL SIPS THROUGHOUT THE DAY NEEDED FOR VOMITING active Not Available Not Available No t Available Vitamin D3 50 mcg (2,000 unit) capsule TAKE 1 CAPSULE BY MOUTH EVERY MORNING active Not Available Not Available No t Available vilazodone 10 mg tablet TAKE 1 TABLET BY MOUTH AT BEDTIME WITH FOOD active Not Available Not Available No t Available [facility] spacer active Not Available Not Available Not Available Pedialyte 10.6 mEq-4.7mEq/9 gram oral powder packet active Not Available Not Available Not Available naloxone 4 mg/actuation nasal spray FOR SUSPECTED OPIOID OVERDOSE. SPRAY 0.1mL IN ONE NOSTRIL. REPEAT IN ALTERNATE NOSTRIL 2-3 MINUTES IF NEEDED. SEEK MEDICAL ATTENTION IMMEDIATELY EVEN IF PATIENT RESPONDS. active Not Available Not Available No t Available omega-3 300 mg-dha 120 mg-epa 180 mg-fish oil 1,000 mg capsule TAKE 1 CAPSULE BY MOUTH TWICE DAILY IN THE MORNING AND IN THE EVENING active Not Available Not Available No t Available Vitals Date Recorded Heart rate Respiratory rate Body temperature Oxygen saturation Oxygen saturation in Arterial blood by Pulse oximetry Systolic blood pressure Diastolic blood pressure Provider Name and Address Organization Details Last Updated DateTime 3 98 /min 16 /min 97 [degF] 97 % 97 % 126 mm[Hg] 65 mm[Hg] Not Available [employer] [employer] 3 18:08:47 Date Recorded Body weight Body temperature Oxygen saturation Oxygen saturation in Arterial blood by Pulse oximetry Respiratory rate Heart rate Body height Systolic blood pressure Diastolic blood pressure Provider Name and Address Organization Details Last Updated DateTime 4 36434.8 g 98.4 [degF] 98 % 98 % 14 /min 106 /min 157.48 cm 124 mm[Hg] 80 mm[Hg] Not Available [employer] 4 19:03:10 Date Recorded Respiratory rate Oxygen saturation Oxygen saturation in Arterial blood by Pulse oximetry Body weight Body temperature Body height Heart rate Systolic blood pressure Diastolic blood pressure Provider Name and Address Organization Details Last Updated DateTime 4 14 /min 95 % 95 % 11565.3 76 g 98.3 [degF] 160.02 cm 80 /min 107 mm[Hg] 68 mm[Hg] Not Available [facility] [employer] 4 12:08:35 Date Recorded Oxygen saturation Oxygen saturation in Arterial blood by Pulse oximetry Body temperature Body height Heart rate Body weight Respiratory rate Systolic blood pressure Diastolic blood pressure Provider Name and Address Organization Details Last Updated DateTime 4 98 % 98 % 98.3 [degF] 160.02 cm 96 /min 88844.6 g 16 /min 111 mm[Hg] 76 mm[Hg] Not Available [employer] [employer] 4 17:31:33 Date Recorded Oxygen saturation Oxygen saturation in Arterial blood by Pulse oximetry Body temperature Respiratory rate Heart rate Systolic blood pressure Diastolic blood pressure Provider Name and Address Organization Details Last Updated DateTime 4 97 % 97 % 98.5 [degF] 16 /min 85 /min 122 mm[Hg] 86 mm[Hg] Not Available [employer] [facility] [employer] 4 17:18:53 Social History None recorded. Functional Status None recorded. Mental Status None recorded. Family History Nothing Reported. Medical History No medical history recorded. Gynecological HistoryNo gynecological history recorded. Obstetrics History GPAL:G 0 P 0 0 0 0 Past Encounters Encounter ID Performer Location Encounter Start Date Encounter Closed Date Diagnosis/Indication Diagnosis SNOMED-CT Code Diagnosis ICD10 Code Diagnosis Note [id number] Leigha Edwards MD [facility] [address] [place] [phone] 11/24/2022 19:46:20 11/26/2022 18:07:10 Kidney stone 21951328 N20.0 52 year old female with history of kidney stones, being evaluated for recurrent pain secondary to kidney stones. Patient reports having two known kidney stones that are both <5 mm. Patient reports no fever/chil ls, nausea or vomiting currently. Patient generally receives toradol and dilaudid with good effect, however has been unable to reach her urologist or PCP to assist with a prescripti on. Exam notable for normal vital signs. Presentati on consistent with uncomplica niki nephrolith iasis, with suboptimal pain control. Administer ed toradol IM, advised that would need to present to hospital for additional pain control beyond this, or if develops intractabl e nausea, vomiting with inability to tolerate PO. I have reviewed and agree with the assessment and plan as documented by the lodge attendant. I provided real-time medical direction for this encounter and was immediatel y available to provide additional phone-base d assistance as needed. [id number] Lisa Hensley MD [facility] [address] [place] [phone] 11/29/2022 18:06:21 01/15/2023 14:59:54 Kidney stone 75985610 N20.0 I provided real -time medical direction via phone for this encounter, and was available for additional phone based assistance as needed. I have reviewed and agree with the Assessment and Plan as documented by the Restrooms Or Lounges Maid. Patient given the opportunit y to ask questions. 52 yo F w/ known bilateral kidney stones followed by urology c/o persistent pain awaiting for definitive management of stones. Requesting toradol as she received last week with good relief. Pt verbalizes understand ing re risk of bleeding and renal injury. Agreed to administer 30mg toradol x1. Reviewed warning signs/sx. Leigha Edwards MD [facility] [address] [place] [phone] 04/18/2023 19:03:08 04/18/2023 21:43:21 Fall W19.XXXS 52 year old female being evaluated for pain after a fall 10 days ago. Patient reports being evaluated in the ER, had a head laceration and some bruising of her ribs and wrist without fracture. Patient reports no benefit from tylenol, but she has derived benefit from toradol in the past and would like this again for her pain. She is not on anticoagul ation. Exam notable for normal vital signs. Presentati on consistent with multiple minor injuries secondary to a fall 10 days ago, requesting IM toradol for additional pain relief. IM toradol administer ed, continue PO nsaids prn tomorrow. I have reviewed and agree with the assessment and plan as documented by the lodge attendant. I provided real-time medical direction for this encounter and was immediatel y available to provide additional phone-base d assistance as needed. We discussed the diagnostic uncertaint y of home visits and associated risks. We discussed the need to seek care urgently/e mergently in the setting of any new or worsening symptoms. Lisa Hensley MD [facility] [address] [place] [phone] 04/23/2023 12:08:33 04/24/2023 11:07:37 Pain in wrist 19841757 M25.532 I provided real -time medical direction via phone for this encounter, and was available for additional phone based assistance as needed. I have reviewed and agree with the Assessment and Plan as documented by the Restrooms Or Lounges Maid. Patient given the opportunit y to ask questions. fall down stairs 2 weeks ago with dx of wrist sprain and ? rib contusion. PCP prescribed oxycodone which has since run out. Tylenol not providing relief. Has not been immobilizi ng wrist. Got toradol 2d ago with improvemen t in pain. Agree with repeat toradol 30mg IM x1 and will help pt make PCP appt for further evaluation . Recommende d wrapping wrist and using heat/cold therapy. [id number] SELENA ODOM MD [facility] [address] [place] [phone] 09/17/2023 17:31:28 09/17/2023 20:57:33 Chronic hoarseness 4364192857 105 R49.0 Cough 06673785 R05.9 Laryngeal spasm 50163316 2 J38.5 [id number] Brennan Gonzalez MD [facility] [address] [place] [phone] 10/26/2023 17:18:45 10/28/2023 18:19:59 Cellulitis of skin 471607749 L03.90 Health Concerns Section Related Observation LastModified by Organization Detai ls LastModified Time None Recorded Concern Status LastModified by Organization Details LastModified Time None Recorded Advance Directives Directive None Recorded Payers Encounter Date Sequence Insurance Name Policy Number Policy Amor Covered Member ID Amor Member ID Guarantor Name 11/29/2022 1 [facility] - DOS ON OR AFTER 2022 - DUAL ELIGIBLE - PENITENTIARY OPTIONS AND ONE CARE (MEDICARE REPLACEMENT/ADV ANTAGE - HMO) Tiffanie Dumont [id number] Tiffanie Dumont 04/18/2023 1 [facility] - DOS ON OR AFTER 2022 - DUAL ELIGIBLE - PENITENTIARY OPTIONS AND ONE CARE (MEDICARE REPLACEMENT/ADV ANTAGE - HMO) Tiffanie Dumont [id number] Tiffanie Dumont 04/23/2023 1 [facility] - DOS ON OR AFTER 2022 - DUAL ELIGIBLE - PENITENTIARY OPTIONS AND ONE CARE (MEDICARE REPLACEMENT/ADV ANTAGE - HMO) Tiffanie Julia [id number] Tiffanie Carlson Julia 09/17/2023 1 [facility] - DOS ON OR AFTER 2022 - DUAL ELIGIBLE - PENITENTIARY OPTIONS AND ONE CARE (MEDICARE REPLACEMENT/ADV ANTAGE - HMO) Tiffanie Julia [id number] Tiffanie Carlson Julia 10/26/2023 1 [facility] - DOS ON OR AFTER 2022 - DUAL ELIGIBLE - PENITENTIARY OPTIONS AND ONE CARE (MEDICARE REPLACEMENT/ADV ANTAGE - HMO) Tiffanie Julia [id number] Tiffanie A Julia Notes Date Note Type Note Provider Name and Address Organization Details Recorded Time 11/29/2022 text/html [facility] Nursing Assessment: Reason For Request: Pain Chief Complaints: Pain PMH: Hypertension, Diabetes Allergies: Unknown Pain Assessment: Level 8 out of 10 Comments: Verified identity / address Member has 4mil left side/ 3 on right kidney stone . Member was given 30 mg of IM Toradol last week that helped control the pain . Member does not normally pass on their own, normally has to have them surgically removed . Member is currently looking for a new urologist . Member is not on blood thinners ................... ................... ................... ................... ................... ................... ................... ........ Restrooms Or Lounges Maid Note From iBju Garsia: Pt reports that she was recently DX with a kidney stone states that she has been having pain . States that her DR will not give her med and states that she hasn? t been taking any OTC states that she had a toradol shot last Sunday which help and is requesting another denies any changes or worsening of pain or symptoms. On scene vs taken and C was called m. Pt given 30mg of toradol and cleared. ................... ................... ................... ................... ................... ................... ................... ........ Disposition: Fulfilled Lisa Hensley MD [address] [facility],[address], [place], [address], [facility] 01/07/2023 23:23:06 04/18/2023 text/html [facility] Nurse Triage Notes (Guillermina Jenkins): Reason For Request: Pain Chief Complaints: Pain PMH: Hypertension, Diabetes Allergies: Unknown Pain Assessment: Level 10 out of 10 Comments: Verified identity / address / Member is a 52 yr old female. Member had a fall 1.5 weeks ago with rib bruising. Member has 12 purvi in her head. Member had exrays/ ct scan was in the hospital for observation. Member has c/o Rib pain/ Left wrist and hand / right knee Member is not on blood thinner/ no kidney disease ................... ................... ................... ................... ................... ................... ................... ........ Restrooms Or Lounges Maid Note From Jarrod Morgan: Pt [place] x3 complains of left rib pain and left wrist pain after a fall on that side x10 days ago. Was seen at ED and cleared by xray. Pt has been taking tylenol without relief. PT denies difficulty breathing or any other pain or complaints. Pt reports she had toradol x3-4 months ago and requests same. Pt pink warm and dry, no visible bruising or deformity noted. [facility] orders toradol 30mg IM, administered as noted. Red flags and pt education discussed. ................... ................... ................... ................... ................... ................... ................... ........ Disposition: Fulfilled Leigha Edwards MD [address] [place] [address],[address], [place], [phone], [facility] 04/18/2023 21:43:19 04/23/2023 text/html [facility] Nurse Triage Notes (Guillermina Jenkins): Reason For Request: Pain Chief Complaints: Pain PMH: Hypertension, Diabetes Allergies: Unknown Pain Assessment: Level 10 out of 10 Comments: Verified identity / address/ Member is a 52 yr old female/ a/o 3. Member has c/o Left wrist and hand and ribs . Member fells down the stairs 2 weeks ago , member has exrays at the time, denies any fracture . Member is not on blood thinners ................... ................... ................... ................... ................... ................... ................... ........ Restrooms Or Lounges Maid Note From Jose Cantu: 52 yo F suffered a mechanical fall down, estimated 5-12 stairs, about 2 weeks ago. Since then, pt has had pain 8/10 in left wrist and left rib cage. [ASSESSMENT] Pt is able to take full deep breaths. Lungs clear bilateral. No redness, warmth, or deformity noted to chest/abd area. Left wrist is able to rotate wrist in all direction without deficits. Pt is able to extend elbow to 180 degrees, and flex to below 90 degrees. Equal information technology account manager strength, and POS PMS in affected extremity. No swelling noted. Pt has tried Tylenol without relief, along with head and cold. Allergic: Metformin Wellbutrin Seafood Phenergan Tylenol 7am, 1g with no relief. Pt denies alcohol use. Pt is on Gabapentin for neuropathy. Has not taken Ibuprofen or other NSAIDs. Pt denies renal disease. Normal BM, last night. Pt denies, N/V/D. Pt reports normal urine functions as well. Pt denies flu/cold-like symptoms. Denies fever, sore throat, cough, or chills. iSTAT completed. Consult. Call PCP for PT - Unable to complete today due to office being closed. Pt reports will call tomorrow. questioning the need for PT. 30mg Toradol IM - Completed R deltoid. Left wrist was wrapped in Fabio wrap. ................... ................... ................... ................... ................... ................... ................... ........ Disposition: Evy Hensley MD [address] [facility],[address], [place], [address], [facility] - [facility] 04/23/2023 23:27:41 09/17/2023 text/html HPI: Call returned to Tiffanie Dumont to triage below. Pt believes having episodes of laryngeal spasm while asleep this morning at 4:30am. Per pt unsure if could be sleep apnea. Per pt only happens when starting to fall asleep or while asleep. Per pt denies difficulty with swallowing. Per pt having ST and hoarse voice. No choking episodes. No constant coughing . No fever. Pt advised of disposition, agrees to [email or web address] for exam as not able to come into our [facility] for exam today. Reviewed home care advise, ER precautions and reasons to call back.Pt address confirmed [id number] [place] [address] ................... ................... ................... ................... ................... ................... ................... ........ CRC Nurse Triage Notes (Guillermina Jenkins): Comments: CRC RN DID NOT NEED FURTHER INFO Restrooms Or Lounges Maid POC Test Results from Edy Torre JOHN Rapid strep test (18:24:28) Strep: - ................... ................... ................... ................... ................... ................... ................... ........ Restrooms Or Lounges Maid Note From Edy Torre: [facility] visit for female patient. Pt presents conscious and alert. Pt awoke this morning around 4am reportedly gasping for air with a history of laryngeal spasms. Pt reports issues resolved on it's own quickly. Pt is also questioning possible sleep apnea. Pt called PCP office today who put in request for home visit. V/S taken as listed. Pt afebrile. Rapid flu swab negative. Lung sounds clear. No stridor noted in upper airway. Difficult to view posterior pharynx but no obvious redness or inflammation in posterior pharynx. Consulted with [facility] Dr. Odom who advised follow up with PCP. Reviewed red flags for ED. Pt education provided. ................... ................... ................... ................... ................... ................... ................... ........ Disposition: Fulfilled SELENA ODOM MD [address] [place] [address],[address], [place], [address], [employer] [place] 09/17/2023 18:42:32 10/26/2023 text/html HPI: Patient with area in groin under abdominal fold larger than a quarter red raised and painful. ................... ................... ................... ................... ................... ................... ................... ........ CRC Nurse Triage Notes (Smitha Enciso): Chief Complaints: Pain, Wound Care PMH: Hypertension, Hypertension, Diabetes Other Allergies: Buproprion,fish, fish products, shellfish, promethazine,metfor min Comments: Allergies: Buproprion,fish, fish products, shellfish, promethazine,metfor minHPI reviewed. No further information needed to process visit. ................... ................... ................... ................... ................... ................... ................... ........ Restrooms Or Lounges Maid Note From Santosh Hernandez: Dispatched to the call address for the female with a spot of concern on her stomach. Pt states she had this small area on her lower left abd that didn't bother her really but after a month she saw her closing machine operator who advised to just leave it alone unless it starts to bother her. About 2 weeks ago it started to become painful and tender. Pt called her closing machine operator today who was not able to see [...] of a quarter, raised, red and tender. C consulted. Pt given 500mg of Cephalexin. Script called into preferred pharmacy. Red flags discussed. ALL times are approx. ................... ................... ................... ................... ................... ................... ................... ........ Disposition: Fulfilled Brennan Gonzalez MD [address] [place] [address],[address], [place], [address], [employer] [facility] 10/26/2023 23:27:43 OBGyn Episode No OBEpisode recorded.
--- OUTSIDE RECORDS SUMMARY | 2024-06-04 14:52 | XMS_ITS | Encounter Summary ---
Author Organization [employer] Address [address] [facility] 7t [place] [address] Care Team Providers Care Class A Lineman Name Role Phone Tracie Mcginnis DO Primary Care Provider + [phone] Reason for Visit * Reason Comments Med Refill Encounter Details Date Type Department Care Team ([facility] st Contact Info) Description 10/04/2023 Refill [facility] MED & PEDS [address] [place], [place] [phone] Tracie Mcginnis DO 230 [place], [place] [phone] Diabetic polyneuropathy associated with type 2 diabetes mellitus (CMS/HCC); Nausea Social History Tobacco Use Types Packs/Day Years [...] as of this encounter Visit Diagnoses Diagnosis Diabetic polyneuropathy associated with type 2 diabetes mellitus ([facility]) Nausea Nausea alone documented in this encounter Additional Health Concerns Assessment Noted Time PHQ-9 Depression Total Score: 0 05/11/19 24 11:50 AM EST documented as of this encounter Care Teams Class A Lineman Relationship Specialty Start Date End Date Tracie Mcginnis DO [address] [place] [address] PCP - General Family Medicine 08/27/13 documented as of this encounter
[2024-06-04 14:53] LABS: Creatinine Urine 157.52 mg/dL; Microalbum/Creatinine Ratio Ur 4.4 ug/mg cr (<30)
[2024-06-10 14:39] LABS: ANA Pattern 2 Nuclear, Homogeneous; Anti Nuclear Antibody Screen POSITIVE (NEGATIVE)
== END 2024-06-04 12:22 | disposition home or self-care (01) ==
LOC: HO.HHCL 12:21
PROVIDERS: Visit Provider Family Medicine
DX: E11.22 Type 2 diabetes mellitus with diabetic chronic kidney disease (principal); N18.30 Chronic kidney disease, stage 3 unspecified; M25.50 Pain in unspecified joint
CPT/HCPCS: 36415; 80048; 80061; 80076; 82043; 82306; 82570; 82607; 82728; 82746; 83036; 83540; 84439; 84443; 85025; 85652; 86038; 86039; 86431

== ENCOUNTER 2024-06-11 17:04 | Outpatient (REF) | payer OTHER, SELFPAY ==
--- OUTSIDE RECORDS SUMMARY | 2024-06-11 17:54 | XMS_ITS | Encounter Summary ---
Author Organization [employer] Address [address] [place] [address] 7t [place] [address] Care Team Providers Care Microscopist Name Role Phone Tracie Mcginnis DO Primary Care Provider + [phone] Reason for Visit * Reason Comments Med Refill Encounter Details Date Type Department Care Team ([facility] st Contact Info) Description 02/07/2024 Refill [facility] MEDICINE 230 [place], [place] [phone] Tracie Mcginnis DO 230 [place], [place] [phone] Primary insomnia Social History Tobacco Use Types [...] documented as of this encounter Care Teams Microscopist Relationship Specialty Start Date End Date Tracie Mcginnis DO [address] [place] [address] PCP - General Family Medicine 08/27/13 documented as of this encounter
--- OUTSIDE RECORDS SUMMARY | 2024-06-11 17:54 | XMS_ITS | Encounter Summary ---
Author Organization [employer] Address [address] [place] [address] 7 [place] [address] Care Team Providers Care Business Continuity Strategy Director Name Role Phone Tracie Mcginnis DO Primary Care Provider + [phone] Reason for Visit * Reason Onset Date Comments Med Refill 08/17/2023 Encounter Details Date Type Department Care Team ([facility] st Contact Info) Description 08/17/2023 Telephone [facility] MEDICINE 230 [place], [place] [phone] Tracie Mcginnis DO 230 [place], [place] [phone] Med Refill Social History Tobacco Use Types [...] MG disintegrating tablet To be sent to: [facility] - [place], [place] - [address] documented in this encounter Plan of Treatment Not on file documented as of this encounter Visit Diagnoses Not on filedocumented in this encounter Additional Health Concerns Assessment Noted Time PHQ-9 Depression Total Score: 0 05/11/19 24 11:50 AM EST documented as of this encounter Care Teams Business Continuity Strategy Director Relationship Specialty Start Date End Date Tracie Mcginnis DO 230 [place] [address] PCP - General Family Medicine 08/27/13 documented as of this encounter
--- OUTSIDE RECORDS SUMMARY | 2024-06-11 17:54 | XMS_ITS | Encounter Summary ---
Author Organization [employer] Address [address] [place] [address] 7t [place] [address] Care Team Providers Care Electrical Calibrator Name Role Phone Tracie Mcginnis DO Primary Care Provider + [phone] Reason for Visit * Reason Comments Med Refill Encounter Details Date Type Department Care Team ([facility] st Contact Info) Description 06/15/2023 Refill [facility] MEDICINE 230 [place], [place] [phone] Tracie Mcginnis DO 230 [place], [place] [phone] Social History Tobacco Use Types Packs/Day Years [...] documented as of this encounter Care Teams Electrical Calibrator Relationship Specialty Start Date End Date Tracie Mcginnis DO 230 [place] [address] PCP - General Family Medicine 08/27/13 documented as of this encounter
--- OUTSIDE RECORDS SUMMARY | 2024-06-11 17:54 | XMS_ITS | Encounter Summary ---
Author Organization [employer] Address [address] [facility] 7t [place] [address] Care Team Providers Care Escort Service Attendant Name Role Phone Tracie Mcginnis DO Primary Care Provider + [phone] Encounter Details Date Type Department Care Team ([facility] st Contact Info) Description 08/17/[address] [facility] MEDICINE [address] [place], [place] [phone] Tracie Mcginnis DO 230 [place], [place] [phone] Social History Tobacco Use Types Packs/Day Years [...] documented as of this encounter Care Teams Escort Service Attendant Relationship Specialty Start Date End Date Tracie Mcginnis DO [address] [place] [address] PCP - General Family Medicine 08/27/13 documented as of this encounter
--- OUTSIDE RECORDS SUMMARY | 2024-06-11 17:54 | XMS_ITS | Encounter Summary ---
Author Organization [employer] Address [address] [facility] 7t [place] [address] Care Team Providers Care Nuclear Powerplant Mechanic Helper Name Role Phone Ras Tracie Primary Care Provider + [phone] Encounter Details Date Type Department Care Team (Late st Contact Info) Description 06/14/2023 Orders Only [facility] MEDICINE 230 [place], [place] [phone] Abbi Conway MD 230 [place], [place] [phone] Social History Tobacco Use Types Packs/Day Years [...] documented as of this encounter Care Teams Nuclear Powerplant Mechanic Helper Relationship Specialty Start Date End Date Tracie Mcginnis DO 230 [place] [address] PCP - General Family Medicine 08/27/13 documented as of this encounter
--- OUTSIDE RECORDS SUMMARY | 2024-06-11 17:54 | XMS_ITS | Encounter Summary ---
Author Organization [employer] Address [address] [place] [address] 7t [place] [address] Care Team Providers Care Technology Applications Consultant Name Role Phone Tracie Mcginnis DO Primary Care Provider [phone] Encounter Details Date Type Department Care Team (Late st Contact Info) Description 03/16/2022 Telephone [facility] MEDICINE 230 [place], [place] [phone] Tracie Mcginnis DO 230 [place] [address] Social History Tobacco Use Types Packs/Day Years [...] on filedocumented in this encounter Care Teams Technology Applications Consultant Relationship Specialty Start Date End Date Tracie Mcgninis DO 230 [place], [place] [phone] PCP - General Family Medicine 08/27/13 documented as of this encounter
--- OUTSIDE RECORDS SUMMARY | 2024-06-11 17:54 | XMS_ITS | Encounter Summary ---
Author Organization [employer] Address [address] [place] [address] 7t [place] [address] Care Team Providers Care Manager Proposal Name Role Phone Tracie Mcginnis DO Primary Care Provider + [phone] Reason for Visit * Reason Comments Med Refill Encounter Details Date Type Department Care Team (Late st Contact Info) Description 03/30/2022 Refill [facility] MEDICINE 230 [place], [place] [phone] Tracie Mcginnis DO 230 [place], [place] [phone] Other hyperlipidemia (Primary Dx) Social History Tobacco [...] Primary documented in this encounter Care Teams Manager Proposal Relationship Specialty Start Date End Date Tracie Mcginnis DO [address] [place] [address] PCP - General Family Medicine 08/27/13 documented as of this encounter
--- OUTSIDE RECORDS SUMMARY | 2024-06-11 17:54 | XMS_ITS | Encounter Summary ---
Author Organization [employer] Address [address] [place] [address] 7 [place] [address] Care Team Providers Care Sandfill Operator Name Role Phone Tracie Mcginnis DO Primary Care Provider + [phone] Reason for Visit * Reason Onset Date Comments Nurse Triage 04/18/2023 Encounter Details Date Type Department Care Team ([facility] st Contact Info) Description 04/18/2023 Telephone [facility] MEDICINE 230 [place], [place] [phone] Tracie Mcginnis DO 230 [place], [place] [phone] Nurse Triage Social History Tobacco Use Types [...] on filedocumented in this encounter Care Teams Sandfill Operator Relationship Specialty Start Date End Date Tracie Mcginnis DO [address] [place] [address] PCP - General Family Medicine 08/27/13 documented as of this encounter
--- OUTSIDE RECORDS SUMMARY | 2024-06-11 17:54 | XMS_ITS | Clinical Summary ---
Author Organization [facility] ity Address [address] [place] [address] Care Team Providers Care Waffle Machine Operator Name Role Phone BroallieWendy marshallfer Robyn MATUTE Primary Care Provider [phone] Social History Tobacco Use Types Packs/Day Years [...] [employer] of Health Screening 02/05/2022 COVID-19 Vaccine ( - 2023-2 5 season) 2023 Influenza Vaccine [...] age to complete this topic Meningococcal B Vaccine Aged Out No l onger eligible based on patient's age to complete [...] age to complete this topic Care Teams Waffle Machine Operator Relationship Specialty Start Date End Date Tracie Mcginnis DO [address] [place] [address] PCP - General 10/10/16
--- OUTSIDE RECORDS SUMMARY | 2024-06-11 17:54 | XMS_ITS | Encounter Summary ---
Author Organization [employer] Address [address] [place] [address] 7t [place] [address] Care Team Providers Care Hand Striper Name Role Phone Tracie Mcginnis DO Primary Care Provider [phone] Encounter Details Date Type Department Care Team ([facility] st Contact Info) Description 02/28/2022 Orders Only [facility] MED & PEDS [address] [place], [place] [phone] Tracie Dalton LPN Social History Tobacco Use [...] on filedocumented in this encounter Care Teams Hand Striper Relationship Specialty Start Date End Date Tracie Mcginnis DO [address] [place] [address] PCP - General Family Medicine 08/27/13 documented as of this encounter
--- OUTSIDE RECORDS SUMMARY | 2024-06-11 17:54 | XMS_ITS | Encounter Summary ---
Author Organization [employer] Address [address] [place] [address] 7t [place] [address] Care Team Providers Care Dental Hygienist Name Role Phone Tracie Mcginnis DO Primary Care Provider + [phone] Reason for Visit * Reason Comments Med Refill Encounter Details Date Type Department Care Team ([facility] st Contact Info) Description 02/06/2024 Refill [facility] MEDICINE 230 [place], [place] [phone] Tracie Mcginnis DO 230 [place], [place] [phone] Primary insomnia Social History Tobacco Use Types [...] documented as of this encounter Care Teams Dental Hygienist Relationship Specialty Start Date End Date Tracie Mcginnis DO 230 [place] [address] PCP - General Family Medicine 08/27/13 documented as of this encounter
--- OUTSIDE RECORDS SUMMARY | 2024-06-11 17:54 | XMS_ITS | Encounter Summary ---
Author Organization [employer] Address [address] [place] [address] 7t [place] [address] Care Team Providers Care Glass Washer Name Role Phone Tracie Mcginnis DO Primary Care Provider + [phone] Reason for Visit * Reason Comments Med Refill Encounter Details Date Type Department Care Team ([facility] st Contact Info) Description 05/11/2023 Refill [facility] MEDICINE 230 [place], [place] [phone] Tracie Mcginnis DO 230 [place], [place] [phone] Nonintractable chronic migraine Social History Tobacco Use [...] documented as of this encounter Care Teams Glass Washer Relationship Specialty Start Date End Date Tracie Mcginnis DO [address] [place] [address] PCP - General Family Medicine 08/27/13 documented as of this encounter
--- OUTSIDE RECORDS SUMMARY | 2024-06-11 17:55 | XMS_ITS | Encounter Summary ---
Author Organization [employer] Address [address] [facility] 7t [place] [address] Care Team Providers Care Office Clinician Name Role Phone Wendy Mcginnisfer Primary Care Provider + [phone] Encounter Details Date Type Department Care Team (Late st Contact Info) Description 04/19/2024 Orders Only [facility] MEDICINE [address] [place] [address] ProviderMarlon MD Social History Tobacco Use Types [...] documented as of this encounter Care Teams Office Clinician Relationship Specialty Start Date End Date Tracie Mcginnis DO [address] [place] [address] PCP - General Family Medicine 08/27/13 documented as of this encounter
--- OUTSIDE RECORDS SUMMARY | 2024-06-11 17:55 | XMS_ITS | Encounter Summary ---
Author Organization [employer] Address [address] [place] [address] 7 [place] [address] Care Team Providers Care Corporate Associate Name Role Phone Tracie Mcginnis DO Primary Care Provider + [phone] Reason for Visit * Reason Onset Date Comments Medication Question 06/06/2024 Encounter Details Date Type Department Care Team ([facility] st Contact Info) Description 06/06/2024 Telephone [facility] MEDICINE 230 [place], [place] [phone] Tracie Mcginnis DO 230 [place], [place] [phone] Medication Question Social History Tobacco Use Types Packs/Day Years [...] Telephone Encounter - Deyanira Dye RN - 06/11/2024 1:56 PM EDT TC placed to patient [phone] in regards to below message. Upon chart review, patient had RX for verapamil sent to the pharmacy on 06/04/[address] Lebron. Patient confirms this is correct and confirms she obtained RX from the pharmacy. Patient reports her request was not for a refill on the medication however to determine if she should take the medication since she is switching neurologists (patient did not like neurologist at [facility] and requests a referral to [facility] neurology). Patient advised to take medication as Rx'd and to advise the new neurologist (when she obtains the appointment) of previous neurologist starting verapamil medication. Patient verbalized understanding. Patient to f/u PRN. New referral to [facility] neurologist will be placed by PCP. * Telephone Encounter - Lopez Dia RN - 06/06/2024 4:20 PM EDT TC placed to patient [phone] regarding below message. Pt reported if her PCP will order her Verapamil 40 mg which was ordered by prior neurologist or wait for a appt with new neurologist. Pt currently does not have a neurologist. PCP to review. Please advise if agreeable. PT to F/U PRN. * Telephone Encounter - Edwin Valeriy - 06/06/2024 4:09 PM EDT Tc form pt requesting call back regarding Verapamil 40 mg tablet stating it was prescribed by neurologist and pt wants to know if pcp wants pt to continue taking medication or rather her wait to see new neurologist. Please contact pt at [phone]. documented in this encounter Plan of Treatment Not on file documented as of this encounter Visit Diagnoses Not on filedocumented in this encounter Additional Health Concerns Assessment Noted Time PHQ-9 Depression Total Score: 14 025 11:26 AM EDT documented as of this encounter Care Teams Corporate Associate Relationship Specialty Start Date End Date Tracie Mcginnis DO [address] [place] [address] PCP - General Family Medicine 08/27/13 documented as of this encounter
--- OUTSIDE RECORDS SUMMARY | 2024-06-11 17:55 | XMS_ITS | Encounter Summary ---
Author Organization [employer] Address [address] [place] [address] 7t [place] [address] Care Team Providers Care Warehouse Delivery Manager Name Role Phone Tracie Mcginnis DO Primary Care Provider + [phone] Reason for Visit * Reason Comments Med Refill Encounter Details Date Type Department Care Team ([facility] st Contact Info) Description 12/07/2023 Refill [facility] MEDICINE 230 [place], [place] [phone] Tracie Mcginnis DO 230 [place], [place] [phone] Primary insomnia Social History Tobacco Use Types [...] documented as of this encounter Care Teams Warehouse Delivery Manager Relationship Specialty Start Date End Date Tracie Mcginnis DO [address] [place] [address] PCP - General Family Medicine 08/27/13 documented as of this encounter
--- OUTSIDE RECORDS SUMMARY | 2024-06-11 17:55 | XMS_ITS | Encounter Summary ---
Author Organization [employer] Address [address] [facility] 7t [place] [address] Care Team Providers Care Chemical Operator Name Role Phone Ras Tracie Primary Care Provider + [phone] Encounter Details Date Type Department Care Team (Latest Contact Info) Description 06/10/2024 Travel Social History Tobacco Use Types Packs/Day [...] documented as of this encounter Care Teams Chemical Operator Relationship Specialty Start Date End Date Tracie Mcginnis DO [address] [place] [address] PCP - General Family Medicine 08/27/13 documented as of this encounter
--- OUTSIDE RECORDS SUMMARY | 2024-06-11 17:55 | XMS_ITS | Encounter Summary ---
Author Organization [employer] Address [address] [place] [address] 7 [place] [address] Care Team Providers Care Computer Tech Name Role Phone Tracie Mcginnis DO Primary Care Provider + [phone] Reason for Visit * Reason Comments Med Refill Encounter Details Date Type Department Care Team (Late st Contact Info) Description 08/11/2022 Refill [facility] MEDICINE 230 [place], [place] [phone] Tracie Mcginnis DO [address] [place], [place] [phone] Nonintractable chronic migraine Social History Tobacco Use [...] migraine documented in this encounter Care Teams Computer Tech Relationship Specialty Start Date End Date Tracie Mcginnis DO [address] [place] [address] PCP - General Family Medicine 08/27/13 documented as of this encounter
--- OUTSIDE RECORDS SUMMARY | 2024-06-11 17:55 | XMS_ITS | Encounter Summary ---
Author Organization [employer] Address [address] [place] [address] [address] [place] [address] Care Team Providers Care Human Resources Assistant Manager Name Role Phone Tracie Mcginnis DO Primary Care Provider + [phone] Reason for Visit * Reason Comments Gynecologic Exam Encounter Details Date Type Department Care Team ([facility] st Contact Info) Description 06/10/2024 3:45 PM EDT Office Visit [facility] [address] [place], [place] [phone] Erica Almodovar CNM [address] [place] [address] Dysuria (Primary Dx) Social History Tobacco Use Types [...] Sign Reading Time Taken Comments Blood Pressure 132/75 06/10/2024 3:56 PM EDT Pulse 80 06/10/2024 3:56 PM EDT Temperature 36.2 ??C (97.2 ??F) 06/10/2024 3:56 PM ED T Respiratory Rate 20 06/10/2024 3:56 PM EDT Oxygen Saturation 98% 06/10/2024 3:56 PM EDT Inhaled Oxygen Concentration - - Weight 83.9 kg (185 lb) 06/10/2024 3:56 PM EDT Height 160 cm (5' 3 ) 06/10/2024 3:56 PM EDT Body Mass Index 32.77 06/10/2024 3:56 PM EDT documented in this encounter Progress Notes * Erica Almodovar CNM - 06/10/2024 3:45 PM EDT Subjective Patient ID: Tiffanie Dumont is a 54 y.o. female who presents for UTI symptoms Notes urgency, frequency and burning with urination since yesterday. Treated for vulvovaginal candidiasis last week with full resolution of vaginal symptoms. S/p hysterectomy. Doesn't think she has had UTI in the past year. eCrCl > 60, GFR > 60. History of kidney stones, this doesn't feel like kidney stone for her. Review of Systems Constitutional: Negative for chills and fever. Gastrointestinal: Negative for abdominal pain. Genitourinary: Positive for dysuria, frequency and urgency. Negative for flank pain, hematuria and vaginal discharge. Musculoskeletal: Negative for back pain. Objective BP 132/75 (BP Location: Left arm, Patient Position: Sitting, BP Cuff Size: Adult) Pulse 80 Temp97.2 ??F (36.2 ??C) (Temporal) Resp 20 Ht 5' 3 (1.6 m) Wt 185 lb (83.9 kg) LMP (LMP Unknown) SpO2 98% BMI 32.77 kg/m?? Physical Exam Constitutional: Appearance: Normal appearance. Abdominal: Tenderness: There is no right CVA tenderness or left CVA tenderness. Neurological: Mental Status: She is alert. Psychiatric: Mood and Affect: Mood normal. Behavior: Behavior normal. Assessment/Plan Diagnoses and all orders for this visit: Dysuria - POCT urinalysis dipstick manually resulted - Culture, Urine, Routine Leuks and blood on UA, symptomatic of UTI. Will send Macrobid. Stay hydrated. Urged to work on glucose control. Seek care urgently if symptoms worsen or persist after treatment. Urine C&S sent. Other orders - nitrofurantoin, macrocrystal-monohydrate, (Macrobid) 100 MG capsule; Take 1 capsule (100 mg) by mouth 2 times daily for 7 days. documented in this encounter Plan of Treatment Scheduled Orders Name Type Priority Associated Diagnoses Orde r Schedule Culture, Urine, Routine Microbiology Routine Dysuria Ordered: 06/10/2024 documented as of this encounter Procedures Procedure Name Priority Date/Time Associated Diagnosis Comments POCT URINALYSIS DIPSTICK Routine 06/10/2024 3:57 PM EDT Dysuria documented in this encounter Results * (ABNORMAL) POCT urinalysis dipstick manually resulted (06/10/2024 3:57 PM EDT) Color, UA Yellow Clarity, UA Clear Glucose, UA Negative Bilirubin, UA Negative Ketones, UA Negative Spec Grav, UA 1.020 Blood, UA Positive(A) Negative, None Detected pH, UA 7.0 Protein, UA Many Urobilinogen, UA 0.2 Leukocytes, UA Many(A) Negative, Rare, Trace Nitrite, UA Negative Negative, None Detected Appearance, UA clear QC Media Lot # [id number] Lot# Expiration Date ,[id number] Urine 06/10/2024 3:57 PM EDT Erica Almodovar CNM POINT OF CARE TEST ENTER/ EDIT ORDERABLES Final Result documented in this encounter Visit Diagnoses Diagnosis Dysuria- Primary documented in this encounter Additional Health Concerns Assessment Noted Time PHQ-9 Depression Total Score: 14 025 11:26 AM EDT documented as of this encounter Care Teams Human Resources Assistant Manager Relationship Specialty Start Date End Date Tracie Mcginnis DO [address] [place] [address] PCP - General Family Medicine 08/27/13 documented as of this encounter
--- OUTSIDE RECORDS SUMMARY | 2024-06-11 17:55 | XMS_ITS | Encounter Summary ---
Author Organization [email or web address] Address [address] [place] [address] Care Team Providers Care Weatherization Crew Leader Name Role Phone Tracie Mcginnis DO Primary Care Provider + [phone] Reason for Visit * Reason Comments Med Refill Encounter Details Date Type Department Care Team ([facility] st Contact Info) Description 11/28/[address] [facility] [address] [place], [place] [phone] Tracie Mcginnis DO [address] [place] [address] Social History Tobacco Use Types Packs/Day Years [...] on filedocumented in this encounter Care Teams Weatherization Crew Leader Relationship Specialty Start Date End Date Tracie Mcginnis DO [address] [place], [place] [phone] PCP - General Family Medicine 08/27/13 documented as of this encounter
--- OUTSIDE RECORDS SUMMARY | 2024-06-11 17:55 | XMS_ITS | Encounter Summary ---
Author Organization [employer] Address [address] [place] [address] [address] [place] [address] Care Team Providers Care Furnace Unloader Name Role Phone Ras Tracie Primary Care Provider + [phone] Reason for Visit * Reason Comments Med Refill Encounter Details Date Type Department Care Team ([facility] st Contact Info) Description 02/29/2024 Refill [facility] [address] [place], [place] [phone] Gwendolyn Ortega MD [address] [place], [place] [phone] Nonintractable chronic migraine Social History Tobacco Use [...] documented as of this encounter Care Teams Furnace Unloader Relationship Specialty Start Date End Date Tracie Mcginnis DO [address] [place] [address] PCP - General Family Medicine 08/27/13 documented as of this encounter
--- OUTSIDE RECORDS SUMMARY | 2024-06-11 17:55 | XMS_ITS | Encounter Summary ---
Author Organization [employer] Address [address] [facility] [address] [place] [address] Care Team Providers Care Side Hemmer Name Role Phone Tracie Mcginnis DO Primary Care Provider + [phone] Reason for Visit * Reason Comments Med Refill Encounter Details Date Type Department Care Team ([facility] st Contact Info) Description 04/23/2024 Refill [facility] [address] [place], [place] [phone] Tracie Mcginnis DO [address] [place] [address] Social History Tobacco Use Types Packs/Day Years [...] documented as of this encounter Care Teams Side Hemmer Relationship Specialty Start Date End Date Tracie Mcginnis DO [address] [place] [address] PCP - General Family Medicine 08/27/13 documented as of this encounter
--- OUTSIDE RECORDS SUMMARY | 2024-06-11 17:55 | XMS_ITS | Encounter Summary ---
Author Organization [employer] Address [address] [place] [address] [address] [place] [address] Care Team Providers Care Skilled Nursing Facility Counselor Name Role Phone Tracie Mcginnis DO Primary Care Provider + [phone] Reason for Visit * Reason Comments Med Refill Encounter Details Date Type Department Care Team ([facility] st Contact Info) Description 02/26/2024 Refill [facility] [address] [place], [place] [phone] Tracie Mcginnis DO [address] [place], [place] [phone] Primary insomnia Social History Tobacco Use Types [...] documented as of this encounter Care Teams Skilled Nursing Facility Counselor Relationship Specialty Start Date End Date Tracie Mcginnis DO [address] [place] [address] PCP - General Family Medicine 08/27/13 documented as of this encounter
--- OUTSIDE RECORDS SUMMARY | 2024-06-11 17:55 | XMS_ITS | Encounter Summary ---
Author Organization [employer] Address [address] [place] [address] [address] [place] [address] Care Team Providers Care Motor And Generator Assembler Name Role Phone Tracie Mcginnis DO Primary Care Provider + [phone] Reason for Visit * Reason Comments Med Refill Encounter Details Date Type Department Care Team ([facility] st Contact Info) Description 04/11/2024 Refill [facility] [address] [place], [place] [phone] Tracie Mcginnis DO [address] [place], [place] [phone] Primary insomnia Social History Tobacco Use Types [...] documented as of this encounter Care Teams Motor And Generator Assembler Relationship Specialty Start Date End Date Tracie Mcginnis DO [address] [place] [address] PCP - General Family Medicine 08/27/13 documented as of this encounter
--- OUTSIDE RECORDS SUMMARY | 2024-06-11 17:55 | XMS_ITS | Clinical Summary ---
Author Organization [employer] Address [address] [place] [address] 7 [place] [address] Care Team Providers Care Postal Sorting Officer Name Role Phone RasTracie Primary Care Provider + [phone] Allergies Active Allergy Reactions Criticality Noted Date [...] THE EVENING 180 capsule 3 025 Active terconazole (Terazol 7) 0.4 % vaginal cream Insert 1 applicator into the vagina at bedtime for 7 days. 45 g 2024 Active triamcinolone (Nasacort) 55 MCG/ACT nasal inhaler Administer 2 sprays into each nostril Once per day. 16.5 g Active cetirizine (ZyrTEC) 10 MG tablet Take 1 tablet (10 mg) by mouth Once per day. 30 tablet 2025 Active pseudoephedrine (Sudafed) 30 MG tablet Take 1 tablet (30 mg) by mouth every 6 (six) hours if needed for congestion for up to 10 days. 20 tablet 2024 Active Continuous Glucose Dramatic Critic (FreeStyle Nelda 3 [place]) deviceIndications :Type 2 diabetes mellitus with stage 3 chronic kidney disease, without long-term current use of insulin, unspecified whether stage 3a or 3b CKD (CMS/HCC) 1 each Once per day. Use as directed for CGM 1 each Active Continuous Glucose Sensor (FreeStyle Nelda 3 Plus Sensor) miscIndications:T ype 2 diabetes mellitus with stage 3 chronic kidney disease, without long-term current use of insulin, unspecified whether stage 3a or 3b CKD (CMS/HCC) 1 each every 15 days. Apply 1 every 15 days as directed for CGM 2 each Active glucose blood (FreeStyle Precision Krystian Test) test strip Use to test blood sugar 3 times daily in case of CGM failure or extremes of BG 100 each 2025 Active insulin degludec (Tresiba FlexTouch) 100 UNIT/ML injection Inject 5 Units under the skin at bedtime. 3 mL 2025 Active levothyroxine (Synthroid) 25 MCG tablet Take 1 tablet (25 mcg) by mouth before breakfast. 90 tablet 025 2025 Active nitrofurantoin, macrocrystal-mono hydrate, (Macrobid) 100 MG capsule Take 1 capsule (100 mg) by mouth 2 times daily for 7 days. 14 capsule 2024 Active triamcinolone (Nasacort) 55 MCG/ACT nasal inhaler USE 2 SPRAYS IN EACH NOSTRIL EVERY DAY 023 2024 Discontinued(R eorder (will not trigger notification to Pharmacy)) Continuous Blood Gluc Sensor (FreeStyle Nelda 2 Sensor) misc USE DIRECTED 2 each 2 023 2024 [...] tablet 3 024 2024 Discontinued Continuous Glucose Dramatic Critic (FreeStyle Nelda 14 Day [place]) deviceIndications :Type 2 diabetes mellitus without complication, without long-term current use of insulin ([facility]) Use as directed 1 each 024 2024 [...] eorder (will not trigger notification to Pharmacy)) fluconazole (Diflucan) 150 MG tablet Take 1 tablet (150 mg) by mouth 1 (one) time for 1 dose. 1 tablet 025 2024 Active Problems Problem Noted Date Diagnosed Date [...] neg Oct 2014 with midwifery, s/p RA TL BSO, pathology benign, Oct 2016 -mammo BIRADS [...] amitriptyline -advised reschedule rheumatology eval -advised contact C if sx worsen or do not improve [...] (04/27/2023 1:33 PM EST): Completely healed. 10 [place] removed w/ staple removed w/out complication -advised [...] TID -cont check feet daily -advised contact [facility] if sx change or worsen Urinary urgency 08/20/2017 04/06/2022 Bipolar I disorder 12/08/2014 Assessment & Plan (04/06/2022 11:36 AM EST): Mood stable -she denies any current SI/HI -she denies any AH/VH -she has the number for crisis and contracts for safety -cont current med regimen as per psychiatry -f/u closely with therapist and new psychiatrist as scheduled Other hyperlipidemia 12/08/2014 023 Assessment & Plan (04/06/2022 11:35 AM EST): Slight bump in LDL JUN 2021 -cont lipitor nightly -cont fish oil supplementation BID Kidney stone 12/08/2014 04/06/2022 Encounters Date Type Department Care Team Description 06/10/2024 3:45 PM EDT Office Visit [address] [address] Erica Almodovar CNM Dysuria (Primary Dx) 06/10/2024 Travel 06/10/[address] [address] Tracie Mcginnis DO Nurse Triage 06/10/[address] [address] Tracie Mcginnis DO call back 06/06/[address] [address] Tracie Mcginnis DO Medication Question 06/04/2024 10:45 AM EDT Office Visit [address] [address] Tracie Mcginnis DO Type 2 diabetes mellitus with stage 3 chronic kidney disease, without long-term current use of insulin, unspecified whether stage 3a or 3b CKD (CMS/HCC) (Primary Dx); Essential hypertension; Other hyperlipidemia; Chronic bipolar disorder ([facility]); Chronic migraine; Fatty liver; Chronic gastroesophageal reflux disease; Nausea, vomiting, and diarrhea; Nephrolithiasis; Paresthesia of both feet; Chronic pain of left wrist; Abnormal MRI; Sleep related laryngospasm; Abscess; Tobacco dependence; Healthcare maintenance; Type 2 diabetes mellitus without complication, without long-term current use of insulin ([facility]) 06/04/2024 Refill [facility] [address] [place] [address] Tracie Mcginnis DO 06/04/2024 Travel 06/02/2024 Refill [facility] [address] [place] [address] Tracie Mcginnis DO 06/02/2024 Refill [facility] [address] [place] [address] Tracie Mcginnis DO Nonintractable chronic migraine 2024 6:00 PM EDT Office Visit [facility] [address] [place] [address] Other acute nonsuppurative otitis media of right ear, recurrence not specified (Primary Dx) 2024 Travel 05/25/2024 Refill [facility] [address] [place] [address] Tracie Mcginnis DO Diabetic polyneuropathy associated with type 2 diabetes mellitus ([facility]) 05/19/2024 Refill [facility] [address] [place] [address] Tracie Mcginnis DO Other hyperlipidemia 05/12/2024 Refill [facility] [address] [place] [address] Tracie Mcginnis DO Nausea, vomiting, and diarrhea 05/02/2024 Refill [facility] [address] [place] [address] Tracie Mcginnis DO Nonintractable chronic migraine 04/28/2024 Telephone [facility] [address] [place] [address] Tracie Mcginnis DO Durable Medical Equipment (brace) 04/28/2024 Refill [facility] [address] [facility] [place] [address] Tracie Mcginnis DO 04/23/2024 3:45 PM EST Office Visit [facility] [address] [place] [address] Rolando Brito CNP Mild cognitive impairment (Primary Dx); Polyarthralgia 04/23/2024 Travel 04/23/2024 Refill [facility] [address] [place] [address] Tracie Mcginnis DO 04/22/2024 Telephone [facility] [address] [place] [place] [address] Tracie Mcginnis DO Chart Prep 04/19/2024 Orders Only [facility] [address] [place] [address] ProviderMarlon MD 04/17/2024 Travel 04/11/2024 Refill [facility] [address] [facility] [place] [address] Tracie Mcginnis DO Primary insomnia 04/10/2024 Telephone [facility] [address] [facility] [place] [address] Tracie Mcginnis DO Recall Letter (Recall Letter sent 04/09/24.) 03/31/2024 Refill [facility] [address] [facility] [place] [place] [address] Gwendolyn Ortega MD Nonintractable chronic migraine 03/31/2024 Refill [facility] [address] [facility] [place] [address] Tracie Mcginnis DO Primary insomnia 03/24/2024 Refill [facility] [address] [place] [place] [address] Tracie Mcginnis DO Vitamin D deficiency 03/20/2024 Refill [facility] [address] [place] [place] [address] Tracie Mcginnis DO Diabetic polyneuropathy associated with type 2 diabetes mellitus ([facility]) 03/14/2024 Orders Only [facility] [address] [place] [address] Tracie Mcginnis, Sleep related laryngospasm (Primary Dx) from Last 3 Months Immunizations Name Administration [...] Mass Index 32.77 06/10/2024 3:56 PM EDT Plan of Treatment Health Maintenance Due Date Last Done Comments CT Colonography 1969 FIT DNA/Cologuard 1969 FIT 1969 FOBT 1969 Sigmoidoscopy 1969 Diabetes: Foot Exam 05/27/1979 Eye Exam 05/27/1979 Pap Smear 1990 Cervical Cancer Screening 05/27/1999 HPV/Cotest 05/27/1999 Influenza Vaccine (#1) 2023 , 11/11/2021, 02/18/2021, Additional history exists Diabetes: Hemoglobin A1C 09/03/2024 025, 06/04/2024, 12/10/2023, Additional history exists Depression Monitoring 12/04/2024 06/04/2024, 025 Mammogram 12/24/2024 12/25/2023, 06/2021, 07/29/2020, Additional history exists Alcohol/Substance Use Screening 06/04/2025 06/04/2024 Depression Screening 06/04/2025 06/04/2024, 06/05/19 25 Lipid Panel 06/04/2025 06/04/2024, 09/2023, 01/03/2023, Additional history exists SDOH Screening 06/04/2025 06/04/2024 Tobacco Screening 06/10/2025 06/10/2024 Colonoscopy 11/21/2032 11/21/2022 Colorectal Cancer Screening 11/21/2032 [...] DIPSTICK Routine 06/10/2024 3:57 PM EDT Dysuria CBC WITH AUTO DIFFERENTIAL Routine 06/04/2024 12:26 PM EDT Type 2 diabetes mellitus with stage 3 chronic kidney disease, without long-term current use of insulin, unspecified whether stage 3a or 3b CKD ([facility]/HCC) IRON AND TOTAL IRON BINDING CAPACITY Routine [...] whether stage 3a or 3b CKD (CMS/HCC) ALBUMIN, RANDOM URINE W/CREATININE Routine 06/04/2024 12:26 PM EDT Type 2 [...] WESTERGREN Routine 06/04/2024 12:26 PM EDT Polyarthralgia FESTUS SCREEN, IFA, W/REFL TITER AND PATTERN Routine 06/04/2024 12:26 PM EDT Polyarthralgia POCT [...] whether stage 3a or 3b CKD (CMS/HCC) AMB REFERRAL TO NEUROLOGY Routine 06/04/2024 Mild cognitive impairment MR BRAIN WO CONTRAST Routine 05/10/2024 2:40 PM EST Mild cognitive impairment AMB REFERRAL TO ENDOCRINOLOGY Urgent 03/13/2024 Low thyroxine (T4) level BI MAMMOGRAM SCREENING [...] related laryngospasm Abscess Tobacco dependence Healthcare maintenance HM COLONOSCOPY Routine 11/21/2022 6:53 PM EDT from Last 3 Months or Most Recently Relevant to Health Maintenance Results * (ABNORMAL) POCT urinalysis dipstick manually [...] Media Lot # [id number] Lot# Expiration Date [id number] Urine 06/10/2024 3:57 PM EDT Erica CEJA POINT OF CARE TEST ENTER/ EDIT ORDERABLES Final Result * (ABNORMAL) Vitamin D, 25-Hydroxy, Total, Immunoassay (06/04/2024 12:26 PM EDT) Pathologist [facility] Vitamin D 25-OH Total 19.1(L) >30 ng/mL [facility] Comment: Health Based Reference Values*< 20 ??ng/mL ??[id number] ng/mL ??Insufficient> 30 ??ng/mL ??Sufficient*Carline CAM. N [...] ORDERABLES Final R esult Performing Organization Address [facility]/ZIP Co de Phone Number [facility] [address] [place] [phone] * (ABNORMAL) Vitamin B12 (Cobalamin) and Folate Panel, Serum (06/04/2024 12:26 PM EDT) Vitamin B12 624 200 - 900 pg/mL [facility] Comment:NORMAL 200-900 PG/ML INDETERMINATE 160-199 PG/ML DEFICIENT < 160 PG/ML Folate 2.4(L) > or = 4.0 ng/mL [facility] Comment:Reference Values:> o r = 4.0 ng/mL< 4.0 ng/mL suggests folate deficiency Methotrexate, aminopterin and folinic acid(leucovorin) are chemotherapeutic agents whose molecularstructures are similar to folate; therefore, the Architectfolate assay cannot be used for patients using these drugs. Blood 06/04/2024 12:2 6 PM EDT 06/04/2024 1:12 PM EDT Tracie Mcginnis LAB BLOOD ORDERABLES Final R esult Performing Organization Address [facility] Co de Phone Number [facility] [address] [place] [phone] * Albumin, Random Urine W/Creatinine (06/04/2024 12:26 PM EDT) Creatinine, Urine 157.52 mg/dL [facility] Microalbumin Urine 7.0 mg/L [facility] Microalbum Creatinine Ratio Ur 4.4 <30 ug/mg cr [facility] Comment:Albumin/Creatinine R atio Reference Ranges: Normal: < 30 ug/mg creatinine Microalbuminuria: 30 - 300 ug/mg creatinineClinical Albuminuria: > 300 ug/mg creatinine Urine (Urine, Random) 06/04/2024 12:26 PM EDT 06/04/2024 1:12 PM EDT us Tracie Mcginnis DO LAB URINE ORDERABLES Final R esult [facility] [address] [place] [address] [phone] * (ABNORMAL) CBC auto differential (06/04/2024 12:26 PM EDT) White Blood Count 7.5 4.8 - 10.8 X10*3/uL [facility] Red Blood Count 3.87(L) 4.20 - 5.50 X10*6/uL [facility] Hemoglobin 11.7(L) 12.0 - 16.0 g/dl [facility] Hematocrit 35.4(L) 37.0 - 47.0 % [facility] Mean Corpuscular Volume 91.5 80.0 - 98.0 fL [facility] Mean Corpuscular Hemoglobin 30.2 27.0 - 33.0 pg [facility] Mean Corpuscular HGB Conc 33.1 31.0 - 35.0 g/dl [facility] Red Cell Distribution Width 13.3 11.0 - 16.0 % [facility] Platelet Count 216 160 - 400 X10*3/uL [facility] Mean Platelet Volume 10.1 9.4 - 12.3 fL [facility] Neutrophils Percent Auto 60.6 45 - 73 % [facility] Imm Gran Pct Auto 0.4 0.0 - 0.4 % [facility] Lymphocytes Percent Auto 32.0 20 - 40 % [facility] Monocytes Percent Auto 4.5 2 - 11 % [facility] Eosinophils Percent Auto 2.1 0 - 4 % [facility] Basophils Percent Auto 0.4 0 - 2 % [facility] NRBC Pct Auto 0.0 0.0 - 0.2 /100WBC [facility] Neutrophils Absolute Auto 4.6 2.0 - 8.3 x10*3/uL [facility] Imm Gran Abs Auto 0.03 0.00 - 0.03 X10*3/uL [facility] Lymphocytes Absolute Auto 2.4 1.2 - 4.9 X10*3/uL [facility] Monocytes Absolute Auto 0.3 0.1 - 1.2 X10*3/uL [facility] Eosinophils Absolute Auto 0.2 0.0 - 0.4 X10*3/uL [facility] Basophils Absolute Auto 0.0 0.0 - 0.2 X10*3/uL [facility] NRBC Abs Auto 0.000 0.0 - 0.012 X10*3/uL [facility] Blood Venous blood specimen / Unknown 06/04/2024 12:26 PM EDT 06/04/2024 1:12 PM EDT us Tracie Mcginnis DO LAB BLOOD ORDERABLES Final R esult Performing Organization Address [facility] de Phone Number [facility] [address] [place] [phone] * Iron And Total Iron Binding Capacity (06/04/2024 12:26 PM EDT) Pathologist [facility] Iron 35 30 - 160 mcg/dL [facility] Total Iron Binding Capacity 234 228 - 428 mcg/dL [facility] Percent Iron Saturation 15 15 - 50 % [facility] Unsaturated Iron Binding 199 ug/dL [facility] Blood Venous blood specimen / Unknown 06/04/2024 12:26 PM EDT 06/04/2024 1:12 PM EDT Tracie Mcginnis DO LAB BLOOD ORDERABLES Final R esult Performing Organization Address [facility] Co de Phone Number [facility] [address] [place] [phone] * (ABNORMAL) Sed Rate by Komal Gilliland (06/04/2024 12:26 PM EDT) Erythrocyte Sedimentation Rate 29(H) 0 - 20 MM/HR [facility] Comment:Patients with polycy themia and many hemoglobin abnormalitiesmay have depressed sed rates whereas patients with anemiamay have elevated sed rates. Blood Venous blood specimen / Unknown 06/04/2024 12:26 PM EDT 06/04/2024 1:12 PM EDT [facility] LAB BLOOD ORDERABLES Denise l Result Performing Organization Address [facility] Co de Phone Number [facility] [address] [place] [phone] * Rheumatoid Factor (06/04/2024 12:26 PM EDT) Pathologist [facility] Rheumatoid Factor <13.0 <15.0 IU/mL [facility] Blood Venous blood specimen / Unknown 06/04/2024 12:26 PM EDT 06/04/2024 1:12 PM EDT [facility] LAB BLOOD ORDERABLES Denise l Result Performing Organization Address [facility] de Phone Number [facility] [address] [place] [phone] * (ABNORMAL) FESTUS Screen,IFA, with Reflex to Titer and Pattern (06/04/2024 12:26 PM EDT) Pathologist [facility] Anti Nuclear Antibody Screen POSITIV E(A) NEGATIVE [facility] Comment:FESTUS IFA is a first l ine screen for detecting thepresence of up to approximately 150 autoantibodies invarious autoimmune diseases. A positive FESTUS IFA resultis suggestive of autoimmune disease and reflexes totiter and pattern. Further laboratory testing may beconsidered if clinically indicated.For additional information, please refer [email or web address].[email or web address]/[email or web address](This link is being provided for informational/educational purposes only.) FESTUS Titer 1:80(A) titer [facility] Comment:A low level FESTUS tite r may be present in pre-clinicalautoimmune diseases and normal individuals. Reference Range <1:40 Negative 1:40-1:80 Low Antibody Level >1:80 Elevated Antibody Level FESTUS Pattern (A) [facility] Comment:Cytoplasmic, Reticul ar/AMA Abnormal Flag: ACoarse granular filamentous staining extendingthroughout the cytoplasm (e.g., anti-mitochondrialantibodies). Pattern is common in primary biliarycholangitis (PBC), systemic sclerosis, and rare inother systemic autoimmune rheumatic diseases (SARD).AC-21: Reticular/AMAInternational Consensus on FESTUS Patterns(https://doi.org/10.1515/fete-6555-9459) FESTUS TITER 2 (REF LAB) 1:80(A) titer [facility] Comment:A low level FESTUS tite r may be present in pre-clinicalautoimmune diseases and normal individuals. Reference Range <1:40 Negative 1:40-1:80 Low Antibody Level >1:80 Elevated Antibody Level FESTUS Pattern 2 Nuclear , Homogen eous(A) [facility] Comment:Homogeneous pattern is associated with systemic lupuserythematosus (SLE), drug-induced lupus and juvenileidiopathic arthritis.AC-1: HomogeneousInternational Consensus on FESTUS Patterns(https://doi.org/10.1515/pxcr-5103-4124)THIS TEST WAS PERFORMED AT:[facility] [place] [phone] FAITH MD FESTUS TITER 3 TNP [facility] FESTUS PATTERN 3 [facility] Blood Venous blood specimen / Unknown 06/04/2024 12:26 PM EDT 06/04/2024 1:20 PM EDT [facility] LAB BLOOD ORDERABLES Denise l Result [facility] [address] [place] [phone] * TSH (06/04/2024 12:26 PM EDT) Thyroid Stimulating Hormone 2.00 0.32 - 4.0 uIU/mL [facility] Comment:TSH 3rd Generation ( [facility]) Blood Venous blood specimen / Unknown 06/04/2024 12:26 PM EDT 06/04/2024 1:12 PM EDT Tracie Mcginnis LAB BLOOD ORDERABLES Final R esult Performing Organization Address [facility]/ZIP Co de Phone Number [facility] [address] [place] [phone] * (ABNORMAL) T4, Free (06/04/2024 12:26 PM EDT) Free T4 (Free Thyroxine) 0.70(L) 0.71 - 1.85 ng/dL [facility] Blood Venous blood specimen / Unknown 06/04/2024 12:26 PM EDT 06/04/2024 1:12 PM EDT [facility] ORDERABLES Final R esult Performing Organization Address [facility] Co de Phone Number [facility] [address] [place] [phone] * (ABNORMAL) Hemoglobin A1c (06/04/2024 12:26 PM EDT) Hemoglobin A1c 8.8(H) <6.0 % [facility] Comment:Hemoglobin A1C Refer ence Range Adults: 4.8 - 6.0 % Non diabetic: < 6.0 % Goal: < 7.0 %Additional Action Suggested: > 8.0 %Note: Hemoglobin A1c results are invalid for patients with abnormal amounts of HbF. Blood transfusions may impact the HbA1c concentration in the patient sample. Estimated Average Glucose 206 mg/dL [facility] Comment:eAG = Estimated ave rage glucose which is %A1C expressed asaverage glucose, using the formula of the K0T-[id number] Glucose study (ADAG), Diabetes Care, Vol.31,#8,2007 Blood Venous blood specimen / Unknown 06/04/2024 12:26 PM EDT 06/04/2024 1:12 PM EDT us Tracie Mcginnis DO LAB BLOOD ORDERABLES Final R esult Performing Organization Address City/[facility]/ZIP Co de Phone Number [facility] [address] [place] [phone] * Ferritin (06/04/2024 12:26 PM EDT) Ferritin 88 10 - 250 ng/mL [facility] Blood Venous blood specimen / Unknown 06/04/2024 12:26 PM EDT 06/04/2024 1:12 PM EDT Tracie Mcginnis DO LAB BLOOD ORDERABLES Final R esult Performing Organization Address [facility] Co de Phone Number [facility] [address] [place] [phone] * (ABNORMAL) Hepatic Function Panel (06/04/2024 12:26 PM EDT) Bilirubin, Total 0.3 0.0 - 1.0 mg/dL [facility] Bilirubin, Direct 0.1 0.0 - 0.5 mg/dL [facility] Aspartate Amino Transferase 26 5 - 31 U/L [facility] Alanine Aminotransferase 37(H) 0 - 31 U/L [facility] Total Protein 7.0 6.5 - 8.0 g/dL [facility] Albumin Level 4.0 3.5 - 5.0 g/dL [facility] Alkaline Phosphatase 163(H) 39 - 117 U/L [facility] Blood Venous blood specimen / Unknown 06/04/2024 12:26 PM EDT 06/04/2024 1:12 PM EDT Tracie Mcginnis DO LAB BLOOD ORDERABLES Final R esult Performing Organization Address City/[facility]/ZIP Co de Phone Number [facility] [address] [place] [phone] * (ABNORMAL) Lipid Panel, Standard (06/04/2024 12:26 PM EDT) Triglycerides 165(H) <150 mg/dL [facility] Comment:Desirable Triglyceri de: less than 150 mg/dLBorderline High Triglyceride 150-199 mg/dLHigh Triglyceride: 200-499 mg/dLVery High Triglyceride: greater than or equal to 5OO mg/dL Cholesterol 146 <200 mg/dL [facility] Comment:Desirable Cholestero l: less than 200 mg/dLBorderline High Cholesterol: 200-239 mg/dLHigh Cholesterol: greater than 239 mg/dL LDL Cholesterol Calculated 82 <100 mg/dL [facility] Comment:Desirable LDL: less than 100 mg/dLNear Optimal/Above Optimal LDL: 110- 129 mg/dLBorderline High LDL: 130-159 mg/dLHigh LDL: 160-189 mg/dLVery High LDL: greater than or equal to 190 mg/dL HDL Cholesterol 31(L) >40 mg/dL [facility] Comment:Desirable HDL: great er than 40 mg/dL Note: This HDL assay may give artificially low results in patients with liver disease. Blood Venous blood specimen / Unknown 06/04/2024 12:26 PM EDT 06/04/2024 1:12 PM EDT us Tracie Mcginnis DO LAB BLOOD ORDERABLES Final R esult [facility] [address] [place] [phone] * (ABNORMAL) Basic Metabolic Panel (06/04/2024 12:26 PM EDT) Sodium 140 135 - 145 mmol/L [facility] Potassium 3.8 3.3 - 5.1 mmol/L [facility] Chloride 109(H) 96 - 108 mmol/L [facility] Carbon Dioxide 26 22 - 29 mmol/L [facility] Anion Gap 9(L) 12 - 20 [facility] Urea Nitrogen (BUN) 11 9 - 16 mg/dL [facility] Creatinine, Serum 0.97 0.5 - 1.4 mg/dL [facility] Estimated Glomerular Filt Rate 60 [facility] Comment:Chronic Kidney Disea se: Estimated GFR < 60 mL/min/[id number] Kidney Disease: Estimated GFR < 15 mL/min/1.73m2 Glucose 173(H) 60 - 115 mg/dL [facility] Calcium 8.9 8.4 - 10.2 mg/dL [facility] Blood Venous blood specimen / Unknown 06/04/2024 12:26 PM EDT 06/04/2024 1:12 PM EDT Tracie Mcginnis DO LAB BLOOD ORDERABLES Final R esult [facility] [address] [place] [phone] * (ABNORMAL) POCT HGB A1C (06/04/2024 [...] specimen / Unknown 06/04/2024 11:30 AM EDT Tracie Mcginnis DO POINT OF CARE TEST ENTER/CRISTOPHER T ORDERABLES Final Result * Referral to Neurology (06/04/2024) us Rolando Brito FAST FOOD SHIFT SUPERVISOR OUTPATIENT REFERRAL ORDER RADHA Final Result * MR Brain w/o Contrast (05/10/2024 2:40 PM EST) Anatomical Region Laterality Modality Brain Magnetic Resonan ce 05/10/2024 2:40 PM EST Narrative 05/13/2024 7:20 AM EDT ? [facility] ?[address] ?[place] [address] ? Magnetic Resonance Report ? Signed ? Patient: Von Dumonthanie A ?MR#: [id number] ?? [id number] ? : 1970 ?Acct:[id number] ? Age/Sex: 53 / F ?ADM Date: 05/10/24 ? Loc: HO.MRI ? Attending Dr: Rolando Brito SHAREPOINT ADMINISTRATOR ? Ordering Physician: Rolando Brito ?? Date of Service: 05/10/24 ?? Procedure(s): MR head/brain wo con ?? Accession Number(s): [id number] ? cc: Tracie Mcginnis DO; Rolando Brito [...] DD/ 1440 ? TD/TT: 05/10/24 1456 ? Medical I D Sales: ? Procedure Note Donmichelleter, Image - 05/13/2024 [place] [address] Magnetic Resonance Report Signed Patient: Tiffanie Dumont AMR#: [id number] : 1970Acct:[id number] Age/Sex: 53 / FADM Date: 05/10/24 Loc: HO.MRI Attending Dr: Rolando Brito SHAREPOINT ADMINISTRATOR Ordering Physician: Rolando Brtio Date of Service: 05/10/24 Procedure(s): MR head/brain wo con Accession Number(s): [id number] cc: Tracie Mcginnis DO; Rolando Brito EXAMINATION: [...] Eduardo Yang MD 05/13/2024 07:17 AM EDT RP Dictated By: Eduardo Yang MD Signed By: <Electronically signed by Eduardo Yang MD in OV> 05/13/24 0717 DD/ 1440 TD/TT: 05/10/24 1456 Medical I D Sales: us Rolando Brito CNP IMG MRI PROCEDURES Final Result * Referral to Endocrinology (03/13/2024) us Tracie Mcginnis DO OUTPATIENT REFERRAL ORDERABL ES Final Result * BI Mammogram Screening Tomosynthesis Bilateral (12/25/2023 1:40 PM EDT) Anatomical Region Laterality Modality Breast Bilateral Mammography 12/25/2023 1:40 PM EDT Narrative 01/07/2024 3:49 PM EST ? [facility] [place] ? [address] ?[place] [address] ? Mammography Report ? Signed ? Patient: Tiffanie Dumont ?MR#: [id number] ?? [id number] ? : 1970 ?Acct:[id number] ? Age/Sex: 53 / F ?ADM Date: 10/22/24 ? Loc: HO.MAMMO ? Attending Dr: Tracie Mcginnis DO ? Ordering Physician: Tracie Mcginnis DO ?Results: 2B ?? enign Findings ? Date of Service: 12/25/23 ?Follow Up: 1 Year From Orig ?? inal Mammogram ? Procedure(s): MM tomosynthesis screening BI ?? Accession Number(s): [id number] ? cc: Tracie Mcginnis DO ? EXAMINATION: [...] DD/ 1340 ? TD/TT: 12/25/23 1353 ? Medical I D Sales: ? Procedure Note Donotuseinterpreter, Image - [facility]/07/2024 [facility] [address] [place] [address] Mammography Report Signed Patient: Tiffanie Dumont AMR#: [id number] : 1970Acct:[id number] Age/Sex: 53 / FADM Date: 12/25/23 Loc: HO.MAMMO Attending Dr: Tracie Mcginnis DO Ordering Physician: Tracie Mcginnisults: 2B enign Findings Date of Service: 12/25/23Follow Up: 1 Year From Orig inal Mammogram Procedure(s): MM tomosynthesis screening BI Accession Number(s): [id number] cc: Tracie Mcginnis DO EXAMINATION: MM SCREENING [...] by: Zandra Casas DO 01/07/2024 03:46 PM [facility] Dictated By: Zandra Casas DO Signed By: <Electronically signed by Zandra Casas DO in OV> 01/07/24 1546 DD/ 1340 TD/TT: 12/25/23 1353 Medical I D Sales: Tracie Mcginnis DO IMG BI PROCEDURES Edited Res ult - Final * Hepatitis C Antibody with Reflex to HCV, RNA, Quantitative, Real-Time PCR (12/10/2023 3:11 PM EDT) Hepatitis C Antibody Nonreactive Nonreactive [facility] Comment:Antibodies to HCV no t detected; does not exclude early acuteHCV infection. Blood Venous blood specimen / Unknown 12/10/2023 3:11 PM EDT 12/10/2023 3:11 PM EDT Tracie Mcginnis DO LAB BLOOD ORDERABLES Final R esult [facility] [address] [place] [address] [phone] * HIV-1/2 Antigen and Antibodies, Fourth Generation, with Reflexes (12/10/2023 3:11 PM EDT) HIV AB/AG Nonreactive Nonreactive [facility] Comment:HIV-1 p24 Ag and/or HIV-1/HIV-2 Ab not detected.A test result that is nonreactive does not exclude thepossibility of exposure to or infection with HIV-1 and/orHIV-2. Nonreactive results in this assay for individualswith prior exposure to HIV-1 and/or HIV-2 may be due toantigen and antibody levels that are below the limit ofdetection of this assay.The [employer] HIV Ag/Ab Combo assay result andsupplemental assay results should be interpreted inconjunction with the patient's clinical presentation,history and other laboratory results. If the results areinconsistent with clinical evidence, additional testing issuggested to confirm the result. Blood Venous blood specimen / Unknown 12/10/2023 3:11 PM EDT 12/10/2023 3:11 PM EDT us Tracie Mcginnis DO LAB BLOOD ORDERABLES Final R esult [facility] [address] [place] [phone] * Hm Colonoscopy (11/21/2022 6:53 PM EDT) Historical Provider HEALTH MAINTENANCE Final Result from Last 3 Months or Most Recently Relevant to Health Maintenance Insurance [facility] Care Teams Postal Sorting Officer Relationship Specialty Start Date End Date Tracie Mcginnis DO [address] [place] [phone] PCP - General Family Medicine 08/27/13
--- OUTSIDE RECORDS SUMMARY | 2024-06-11 17:55 | XMS_ITS | Encounter Summary ---
Author Organization [facility] Address [address] [place] [address] [place] [phone] Phone Care Team Providers Care Main Line Station Engineer Name Role Phone Debbie Luna MD Primary Care Provider [phone] Encounter Details Date Type Department Care Team (Late st Contact Info) Description 02/20/2023 Procedure Pass [facility] Endoscopy Admitting Dept Virtual Department [address] [place] [address] Social History Tobacco Use Types Packs/Day Years [...] on filedocumented in this encounter Care Teams Main Line Station Engineer Relationship Specialty Start Date End Date Debbie Luna MD [email or web address] PCP - General Internal Medicine 02/08/23 KAVYA SUBRAMANIAN Primary Care Physician 02/20/23 documented as of this encounter Additional Source Comments The information contained in this document represents components of the legal health record. It is not the complete legal health record.[facility]
--- OUTSIDE RECORDS SUMMARY | 2024-06-11 17:55 | XMS_ITS | Data Portability ---
Author Organization [facility] Address [address] [place] [phone] Care Team Providers Care Sprayer Automatic Spray Machine Name Role Phone SAMPSONTAMELA KAVYA Primary Care Provider HIM FLAQUITA OTHER Assessment Encounter Date Assessment Date Assessment LastModified by Organization Details LastModified Time 09/17/2023 09/17/2023 As noted, we kathia murillo called to see this patient regarding concerns of laryngospasm. PMHx notable for: BMI 31.0-31.9 Essential hypertension Chronic gastroesophageal reflux disease Chronic migraine Tobacco dependence Type 2 diabetes mellitus ([facility]/HCC) Nephrolithiasis Healthcare maintenance Arthralgia Nausea, vomiting, and [...] in the field was performed by my director of valuation colleague, as noted above, I provided real-time [...] in 250 mg capsule 2023 024 [email or web address], [address], [place], [address], 17:27:11 cephalex in 500 mg capsule 2023 024 [facility] [address], [address], [place], [address], 4 17:27:14 ketorola c 30 mg/mL injectio n solution 2023 024 [email or web address] Not available 4 12:28:31 ketorola c 30 mg/mL injectio n solution 2023 024 [email or web address] Not available 4 21:43:11 ketorola c 30 [...] Not available Not available Not available 09/17/2023 64900 8 RxNorm SELENA ODOM MD [address] [place] [address],[address], [place], [phone], [employer] 4 17:33:21 5440 Wellbutri n medicatio n Not available Not available Not available 09/17/2023 14568 RxNorm SELENA ODOM MD [address] [facility],[address], [place], [phone], [employer] 4 17:33:29 5441 metformin medicatio n Not available Not available Not available 09/17/2023 6809 RxNorm SELENA ODOM MD [address] [place] [address],[address], [place], [phone], [employer] 4 17:33:39 Medications Name Sig Start Date [...] Not Available Not Available No t Available [facility] spacer active Not Available Not Available Not [...] % 126 mm[Hg] 65 mm[Hg] Not Available [email or web address] Business Plan - Sanghvi 3 18:08:47 Date Recorded Body weight Body temperature Oxygen saturation Oxygen saturation in Arterial blood by Pulse oximetry Respiratory rate Heart rate Body height Systolic blood pressure Diastolic blood pressure Provider Name and Address Organization Details Last Updated DateTime 4 19812.8 g 98.4 [degF] 98 % 98 % 14 /min 106 /min 157.48 cm 124 mm[Hg] 80 mm[Hg] Not Available [employer] 4 19:03:10 Date Recorded Respiratory rate Oxygen saturation Oxygen saturation in Arterial blood by Pulse oximetry Body weight Body temperature Body height Heart rate Systolic blood pressure Diastolic blood pressure Provider Name and Address Organization Details Last Updated DateTime 4 14 /min 95 % 95 % 23327.3 76 g 98.3 [degF] 160.02 cm 80 [...] % 98.3 [degF] 160.02 cm 96 /min 18650.6 g 16 /min 111 mm[Hg] 76 mm[Hg] [...] /min 122 mm[Hg] 86 mm[Hg] Not Available [email or web address] - production 4 17:18:53 Social History None recorded. Functional Status None recorded. Mental Status None recorded. Family History Nothing Reported. Medical History No medical history recorded. Gynecological HistoryNo gynecological history recorded. Obstetrics History GPAL:G 0 P 0 0 0 0 Past Encounters Encounter ID Performer Location Encounter Start Date Encounter Closed Date Diagnosis/Indication Diagnosis SNOMED-CT Code Diagnosis ICD10 Code Diagnosis Note [id number] Leigha Edwards MD [facility] [address] [place] [phone] 11/24/2022 19:46:20 11/26/2022 18:07:10 Kidney stone 92705207 N20.0 52 year old female with history [...] assessment and plan as documented by the director of valuation. I provided real-time medical direction for this encounter and was immediatel y available to provide additional phone-base d assistance as needed. [id number] Lisa Hensley MD Main - [facility] [address] [place] [phone] 11/29/2022 18:06:21 01/15/2023 14:59:54 Kidney stone 04208104 N20.0 I provided real -time medical direction via phone for this encounter, and was available for additional phone based assistance as needed. I have reviewed and agree with the Assessment and Plan as documented by the Kiln Transfer Operator. Patient given the opportunit y to ask [...] signs/sx. Leigha Edwards MD Main - [facility] [address] [place] [phone] 04/18/2023 19:03:08 04/18/2023 21:43:21 Fall W19.XXXS [...] assessment and plan as documented by the director of valuation. I provided real-time medical direction for this encounter and was immediatel y available to provide additional phone-base d assistance as needed. We discussed the diagnostic uncertaint y of home visits and associated risks. We discussed the need to seek care urgently/e mergently in the setting of any new or worsening symptoms. Lisa Hensley MD Main - [facility] [address] [place] [phone] 04/23/2023 12:08:33 04/24/2023 11:07:37 Pain in wrist 27750612 M25.532 I provided real -time medical direction via phone for this encounter, and was available for additional phone based assistance as needed. I have reviewed and agree with the Assessment and Plan as documented by the Kiln Transfer Operator. Patient given the opportunit y to ask [...] d wrapping wrist and using heat/cold therapy. [id number] SELENA ODOM MD Main - [facility] [address] [place] [phone] 09/17/2023 17:31:28 09/17/2023 20:57:33 Chronic hoarseness 3784473738 105 R49.0 Cough 12047443 R05.9 Laryngeal spasm 21127576 2 J38.5 [id number] Brennan Gonzalez MD Main - [facility] [address] [place] [phone] 10/26/2023 17:18:45 10/28/2023 18:19:59 Cellulitis of skin 222626166 L03.90 Health Concerns Section Related Observation LastModified by Organization Detai ls LastModified Time None Recorded Concern Status LastModified by Organization Details LastModified Time None Recorded Advance Directives Directive None Recorded Payers Encounter Date Sequence Insurance Name Policy Number Policy Amor Covered Member ID Amor Member ID Guarantor Name 11/29/2022 1 [facility] - DOS ON OR AFTER 2022 - DUAL ELIGIBLE - CUSTODIAL OPTIONS AND ONE CARE (MEDICARE REPLACEMENT/ADV ANTAGE - HMO) Tiffanie Dumont [id number] Tiffanie Dumont 04/18/2023 1 [facility] - DOS ON OR AFTER 2022 - DUAL ELIGIBLE - CUSTODIAL OPTIONS AND ONE CARE (MEDICARE REPLACEMENT/ADV ANTAGE - HMO) Tiffanie Dumont [id number] Tiffanie Dumont 04/23/2023 1 [facility] - DOS ON OR AFTER 2022 - DUAL ELIGIBLE - CUSTODIAL OPTIONS AND ONE CARE (MEDICARE REPLACEMENT/ADV ANTAGE - HMO) Tiffanie Julia [id number] Tiffanie Carlson Julia 09/17/2023 1 [facility] - DOS ON OR AFTER 2022 - DUAL ELIGIBLE - CUSTODIAL OPTIONS AND ONE CARE (MEDICARE REPLACEMENT/ADV ANTAGE - HMO) Tiffanie Julia [id number] Tiffanie Carlson Julia 10/26/2023 1 [facility] - DOS ON OR AFTER 2022 - DUAL ELIGIBLE - CUSTODIAL OPTIONS AND ONE CARE (MEDICARE REPLACEMENT/ADV ANTAGE - HMO) Tiffanie Julia [id number] Tiffanie A Julia Notes Date Note Type [...] ................... ................... ................... ................... ................... ................... ........ Kiln Transfer Operator Note From Biju Garsia: Pt reports that she was recently [...] ........ Disposition: Fulfilled Lisa Hensley MD [address] [facility],[address], [place], [phone], [facility] 01/07/2023 23:23:06 04/18/2023 text/html CRC Nurse Triage [...] ................... ................... ................... ................... ................... ................... ........ Kiln Transfer Operator Note From Jarrod Morgan: Pt [place] x3 [...] dry, no visible bruising or deformity noted. [facility] orders toradol 30mg IM, administered as noted. Red flags and pt education discussed. ................... ................... ................... ................... ................... ................... ................... ........ Disposition: Fulfilled Leigha Edwards MD [address] [place] [address],[address], [place], [phone], [facility] 04/18/2023 21:43:19 04/23/2023 text/html CRC Nurse Triage [...] ................... ................... ................... ................... ................... ................... ........ Kiln Transfer Operator Note From Jose Cantu: 52 yo F [...] and flex to below 90 degrees. Equal double backer strength, and POS PMS in affected extremity. [...] ................... ........ Disposition: Evy Hensley MD [address] [facility],[address], [place], [phone], [facility] [employer] 04/23/2023 23:27:41 09/17/2023 text/html HPI: Call returned [...] fever. Pt advised of disposition, agrees to [facility] for exam as not able to come into our [facility] for exam today. Reviewed home care advise, ER precautions and reasons to call back.Pt address confirmed [id number] [place] [address] ................... ................... ................... ................... ................... ................... ................... ........ CRC Nurse Triage Notes (Guillermina Jenkins): Comments: CRC RN DID NOT NEED FURTHER INFO Kiln Transfer Operator POC Test Results from Edy Torre JOHN Rapid strep test (18:24:28) Strep: - ................... ................... ................... ................... ................... ................... ................... ........ Kiln Transfer Operator Note From Edy Torre: [facility] visit for female patient. Pt presents conscious [...] or inflammation in posterior pharynx. Consulted with [facility] Odom who advised follow up with PCP. Reviewed red flags for ED. Pt education provided. ................... ................... ................... ................... ................... ................... ................... ........ Disposition: Fulfilled SELENA ODOM MD [address] [place] [address],[address], [place], [address], [employer] 09/17/2023 18:42:32 10/26/2023 text/html HPI: Patient with [...] ................... ................... ................... ................... ................... ................... ........ Kiln Transfer Operator Note From Santosh Hernandez: Dispatched to the call address for the female with a spot of concern on her stomach. Pt states she had this small area on her lower left abd that didn't bother her really but after a month she saw her cnc wood lathe operator who advised to just leave it alone unless it starts to bother her. About 2 weeks ago it started to become painful and tender. Pt called her cnc wood lathe operator today who was not able to [...] ................... ........ Disposition: Fulfilled Brennan Gonzalez MD [address] [place] [address],[address], [place], [address], [employer] [facility] 10/26/2023 23:27:43 OBGyn Episode No OBEpisode recorded.
--- OUTSIDE RECORDS SUMMARY | 2024-06-11 17:55 | XMS_ITS | Encounter Summary ---
Author Organization [employer] Address [address] [facility] 7[address] [place] [address] Care Team Providers Care Coding Manager Name Role Phone Tracie Mcginnis DO Primary Care Provider + [phone] Reason for Visit * Reason Comments Med Refill Encounter Details Date Type Department Care Team ([facility] st Contact Info) Description 10/04/2023 Refill [facility] [address] [place], [place] [phone] Tracie Mcginnis DO [address] [place], [place] [phone] Diabetic polyneuropathy associated with type 2 diabetes [...] polyneuropathy associated with type 2 diabetes mellitus ([facility]) Nausea Nausea alone documented in this encounter Additional Health Concerns Assessment Noted Time PHQ-9 Depression Total Score: 0 05/11/19 24 11:50 AM EST documented as of this encounter Care Teams Coding Manager Relationship Specialty Start Date End Date Tracie Mcginnis DO [address] [place] [address] PCP - General Family Medicine 08/27/13 documented as of this encounter
--- OUTSIDE RECORDS SUMMARY | 2024-06-11 17:55 | XMS_ITS | Encounter Summary ---
Author Organization [employer] Address [address] [place] [address] [address] [place] [address] Care Team Providers Care Condenser Tester Name Role Phone Tracie Mcginnis DO Primary Care Provider + [phone] Reason for Visit * Reason Comments Med Refill Encounter Details Date Type Department Care Team ([facility] st Contact Info) Description 02/12/2023 Refill [facility] [address] [place], [place] [phone] Tracie Mcginnis DO [address] [place], [place] [phone] Social History Tobacco Use Types Packs/Day Years [...] on filedocumented in this encounter Care Teams Condenser Tester Relationship Specialty Start Date End Date Tracie Mcginnis DO [address] [place] [address] PCP - General Family Medicine 08/27/13 documented as of this encounter
--- OUTSIDE RECORDS SUMMARY | 2024-06-11 17:55 | XMS_ITS | Encounter Summary ---
Author Organization [employer] Address [address] [place] [address] [address] [place] [address] Care Team Providers Care Machine Operator Farmworker Name Role Phone Tracie Mcginnis DO Primary Care Provider + [phone] Reason for Visit * Reason Onset Date Comments Nurse Triage 10/26/2023 Encounter Details Date Type Department Care Team ([facility] st Contact Info) Description 10/26/2023 Telephone [facility] [address] [place], [place] [phone] Tracie Mcginnis DO [address] [place], [place] [phone] Nurse Triage Social History Tobacco Use Types [...] 1:52 PM EDT Noted. [facility] Pt was dx w/ cellulitis and given RX for cephalexin 500mg q6 hours x10 days. Per [facility] note: Dispatched to the call address for the female with a spot of concern on her stomach. Pt states shehad this small area on her lower left abd that didn't bother her really but after a month she saw her miniature train driver who advised to just leave it alone unless it starts to bother her. About 2 weeks ago it started to become painful and tender. Pt called her miniature train driver today who was not able to see [...] times are approx. TC placed to pt [phone] who reports she has NOT p/u abx yet from the pharmacy. Pt reports she will p/u the abx today (from [facility] pharmacy). Pt advised if no improvement once the abx are completed to call [facility] for an appt for re-evaluation. Pt [...] documented as of this encounter Care Teams Machine Operator Farmworker Relationship Specialty Start Date End Date Tracie Mcginnis DO [address] [place] [address] PCP - General Family Medicine 08/27/13 documented as of this encounter
--- OUTSIDE RECORDS SUMMARY | 2024-06-11 17:55 | XMS_ITS | Clinical Summary ---
Author Organization [employer] Address [address] [place] [place] [address] Care Team Providers Care Mica Sizer Name Role Phone Tracie Mcginnis Primary Care [...] Adults 18 yrs or above (or HM Modifier)([facility]) 05/27/1987 Hepatitis C Virus Infection in Adolescents and Adults: Screening (or Modifier) ([facility]) 05/27/1987 SDOH Screening Reminder: Jacki cummins for all adults ([facility]) 05/27/1987 Tobacco Smoking Cessation: i n Adults excluding Women: Behavioral and Pharmacotherapy Interventions ([facility]) 05/27/1987 DTaP/Tdap/Td Vaccines ([facility]) (1 - Tdap) 1988 Cervical Cancer Screenin 1-65 yrs of age (or Modifier) 1990 Cervical Cancer Screening: P ap every 3 yrs pts age 21-65 1990 Cervical Cancer: Pap Screeni ng with Modifier timing ([facility]) 1990 Cervical Cancer: hrHPV alone or with cotesting Pap for Pts 30-65yrs screening every 5yrs ([facility]) 1990 Colorectal Cancer Screening 45 -75 Yrs (or HM Modifier) 2014 Colorectal Cancer: FLEXIBLE SIGMOIDOSCOPY Screening every 5 yrs 2014 Colorectal Cancer: Fecal Immunochemical Test (FIT) Annually [facility] 2014 Colorectal Cancer: High-sens itivity gFOBT Screening Annually [facility] 2014 Colorectal Cancer: Stool Col oguard Screening every 3 yrs 2014 Colorectal Cancer:CT Colonog joao Screening every 5 yrs 2014 Lipid Screening: Every 5 yrs for Women aged 45+ (or HM Modifier) ([facility]) 05/27/2015 Breast Cancer: Screening Jacki ually age 50-74 yrs (or HM Modifier)([facility]) 05/27/2019 Lung Cancer: Screening Annua lly in adults aged 50 to 80 years (or HM Modifiers)([facility]) 05/27/2019 Zoster/Shingles Vaccine Seri es Screening: Adults aged 18+ yrs (or HM Modifiers)([facility]) (1 of 2) 05/27/2019 Flu Vaccination: Yearly for ages 18mos through 64 years (or Modifier)([facility]) 10/04/2023 COVID-19 Vaccine Screening: Initial Series and Booster Status ([facility]) (2023- season) 2023 Pneumococcal Vaccination Scr eening: Pts 0-19 & 19-49 yrs of age ([facility]) Aged Out No longer eligible based on patient's age to complete this topic Medical Devices Not on file Insurance [facility] [employer] Care Teams Mica Sizer Relationship Specialty Start Date End Date Tracie Mcginnis DO [address] [place] [phone] PCP - General Family Medicine 09/03/15
--- OUTSIDE RECORDS SUMMARY | 2024-06-11 17:55 | XMS_ITS | Encounter Summary ---
Author Organization [employer] Address [address] [place] [address] 7 [place] [address] Care Team Providers Care Underwater Photographer Name Role Phone Tracie Mcginnis DO Primary Care Provider + [phone] Reason for Visit * Reason Onset Date Comments Nurse Triage 06/10/2024 Encounter Details Date Type Department Care Team ([facility] st Contact Info) Description 06/10/2024 Telephone [facility] MED[facility]INE [address] [place], [place] [phone] Tracie Mcginnis DO [address] [place], [place] [phone] Nurse Triage Social History Tobacco Use Types [...] encounter Miscellaneous Notes * Telephone Encounter - Carrie Massey LPN - 06/10/2024 2:58 PM EDT Triage call placed to patient and asked to hold. Patient returned to line and requests appt as advised to call back by Office staff. Patient reports burning with urination that started last night. Upfrequently to void. Reports she had a yeast infection last week. No back or flank pain no blood or pus in urine. Fluid intake maintained. No reported fever. Disposition reviewed and patient in agreement with plan. ASK/Anny HOUSTON today at 345pm. Protocol Used: Urination Pain - Female (Adult) Protocol-Based Disposition: See in Office or Video Visit Today Video visit offer not recorded Positive Triage Question: * All other females with painful urination, or patient wants to be seen * All higher-acuity triage questions were negative Care Advice Discussed: * Drink Extra Fluids * Reasons To Call Back - Fever or back pain occurs - You become worse * Telephone Encounter - Ivan Samaniego - 06/10/2024 2:50 PM EDT Symptoms: Urination Pain, Urine Symptoms Outcome: Schedule an urgent appointment (within 4 hours) or talk to a nurse or provider soon Reason: Pain when passing urine (peeing) The caller accepted this outcome. Contact pt at [phone] documented in this encounter Plan of Treatment Not on file documented as of this encounter Visit Diagnoses Not on filedocumented in this encounter Additional Health Concerns Assessment Noted Time PHQ-9 Depression Total Score: 14 025 11:26 AM EDT documented as of this encounter Care Teams Underwater Photographer Relationship Specialty Start Date End Date Tracie Mcginnis DO [address] [place] [address] PCP - General Family Medicine 08/27/13 documented as of this encounter
--- OUTSIDE RECORDS SUMMARY | 2024-06-11 17:55 | XMS_ITS | Encounter Summary ---
Author Organization [employer] Address [address] [place] [address] Care Team Providers Care Vest Maker Name Role Phone Tracie Mcginnis DO Primary Care Provider + [phone] Encounter Details Date Type Department Care Team ([facility] st Contact Info) Description 12/13/2022 Telephone [facility] MEDICINE [address] [place], [place] [phone] Tracie Mcginnis DO [address] [place], [place] [phone] Social History Tobacco Use Types Packs/Day Years [...] filedocumented in this encounter Care Teams Vest Maker Relationship Specialty Start Date End Date Tracie Mcginnis DO [address] [place] [address] PCP - General Family Medicine 08/27/13 documented as of this encounter
--- OUTSIDE RECORDS SUMMARY | 2024-06-11 17:55 | XMS_ITS | Encounter Summary ---
Author Organization [facility] Address [address] [place] [address] [place] [address] Phone Care Team Providers Care Paperhanger Apprentice Name Role Phone Debbie Luna MD Primary Care Provider [phone] Encounter Details Date Type Department Care Team (Late st Contact Info) Description 11/21/2022 Procedure Pass [facility] Endoscopy Admitting Dept Virtual Department [address] [place] [address] Social History Tobacco Use Types Packs/Day Years [...] on filedocumented in this encounter Care Teams Paperhanger Apprentice Relationship Specialty Start Date End Date Debbie Luna MD PCP - General Internal Medicine 02/08/23 KAVYA SUBRAMANIAN Primary Care Physician 02/20/23 documented as of this encounter Additional Source Comments The information contained in this document represents components of the legal health record. It is not the complete legal health record.[facility]
--- OUTSIDE RECORDS SUMMARY | 2024-06-11 17:55 | XMS_ITS | Clinical Summary ---
Author Organization [facility] Address [address] [place] [address] Phone Care Team Providers Care Tapping Machine Operator Name Role Phone Debbie Luna MD Primary Care Provider [phone] Allergies Active Allergy Reactions Criticality Noted Date [...] BT Active lamoTRIgine (LAMICTAL XR) 100 mg [id number]:@ BT Take 150 mg by mouth daily. [...] Take 40 mg by mouth daily. Active BECC 2 READER as directed. 05/25/2022 Active Active [...] MD, MPH - 11/21/2022 9:42 AM EDT [facility] Patient Name: Tiffanie Julia Attending MD:: Debbie Luna MD, Procedure Date: 11/21/2022 9:42 AM Date of : 1970 Age: 52 Admit Type: Outpatient Gender: Female Room: [place] [address] Referring MD: Kavya Mcginnis MD Exam Type: [...] monitored continuously. The Olympus adult variable colonoscope [id number] #6 was introduced through the anus and advanced to the cecum, identified by appendiceal orifice andileocecal valve. The colonoscopy was performed without difficulty. The patient tolerated the procedurewell. The quality of the bowel preparation was evaluated using the BBPS ([place] Bowel Preparation Scale)with scores of: Right Colon [...] 9:42 AM Procedure Code(s): --- Professional --- 95129, Colonoscopy, flexible; with biopsy, single or multiple --- Technical --- 61301, Colonoscopy, flexible; with biopsy, single or multiple Diagnosis Code(s): --- Professional --- R10.84, Generalized abdominal pain R19.7, Diarrhea, unspecified --- Technical --- R10.84, Generalized abdominal pain R19.7, Diarrhea, unspecified CPT copyright 2021 [employer]. All rights reserved. The codes documented in this report are preliminary and upon professional fee coder reviewmay be revised to meet current compliance requirements. Procedure Date: 11/21/2022 9:42:58 AM [address] [place] [address] Kavya CAIN PROCEDURE ORDERAB LES from Last 3 Months or Most Recently Relevant to Health Maintenance Care Teams Tapping Machine Operator Relationship Specialty Start Date End Date eDbbie Luna MD [email or web address] PCP - General Internal Medicine 02/08/23 KAVYA MCGINNIS Primary Care Physician 02/20/23 Additional Source Comments The information contained in this document represents components of the legal health record. It is not the complete legal health record.[facility]
--- OUTSIDE RECORDS SUMMARY | 2024-06-11 17:55 | XMS_ITS | Encounter Summary ---
Author Organization [employer] Address [address] [place] [address] 7 [place] [address] Care Team Providers Care Summer Child Caregiver Name Role Phone Tracie Mcginnis DO Primary Care Provider + [phone] Reason for Visit * Reason Onset Date Comments call back 06/10/2024 Encounter Details Date Type Department Care Team ([facility] st Contact Info) Description 06/10/2024 Telephone [facility] MED[facility]INE [address] [place], [place] [phone] Tracie Mcginnis DO [address] [place], [place] [phone] call back Social History Tobacco Use Types Packs/Day Years [...] Telephone Encounter - Deyanira Dye RN - 06/10/2024 12:13 PM EDT TC placed to patient [phone] to discuss below message. Patient reports she believes she has a UTI. Patient reports she was tx for a yeast infection with diflucan recently (06/04/24) and terconazole cream (patient only used for 3-4 days). Patient reports she has burning on urination and urinary urgency. Patient denies fevers, abdominal pain, blood in urine of abdominal pain. Patient is requesting PCP RX abx. Patient advised PCP is currently OUT and unable to RX abx. Patient advised to come toWIC to be evaluated by a provider, urine tested and be Rx'd abx if needed. Patient verbalized understanding and is agreeable to POC. Patient to f/u PRN. * Telephone Encounter - Anita Marshall - 06/10/2024 11:21 AM EDT Tc from pt requesting to speak to RN's Deyanira or Mireya. Social Work Administrator inquired reason for call and pt stated UTI food writer advise will send message to triage nurse if symptomatic but pt denied and only wantsto speak to red team nurses. Social Work Administrator advise will send a message. Contact pt at [phone] documented in this encounter Plan of Treatment Not on file documented as of this encounter Visit Diagnoses Not on filedocumented in this encounter Additional Health Concerns Assessment Noted Time PHQ-9 Depression Total Score: 14 025 11:26 AM EDT documented as of this encounter Care Teams Summer Child Caregiver Relationship Specialty Start Date End Date Tracie Mcginnis DO [address] [place] [address] PCP - General Family Medicine 08/27/13 documented as of this encounter
--- OUTSIDE RECORDS SUMMARY | 2024-06-11 17:55 | XMS_ITS | Encounter Summary ---
Author Organization [employer] Address [address] [place] [address] [address] [place] [address] Care Team Providers Care Reordering Clerk Name Role Phone Ras Tracie Primary Care Provider + [phone] Reason for Visit * Reason Comments Med Refill Encounter Details Date Type Department Care Team ([facility] st Contact Info) Description 03/03/2024 Refill [facility] MED[facility]INE [address] [place], [place] [phone] Gwendolyn Ortega MD [address] [place], [place] [phone] Nonintractable chronic migraine Social History Tobacco Use [...] documented as of this encounter Care Teams Reordering Clerk Relationship Specialty Start Date End Date Tracie Mcginnis DO [address] [place] [address] PCP - General Family Medicine 08/27/13 documented as of this encounter
== END 2024-06-11 17:05 | disposition home or self-care (01) ==
LOC: HO.HHCLNP 17:04
PROVIDERS: Visit Provider Advanced Practice Midwife
DX: R30.0 Dysuria (principal)
CPT/HCPCS: 87086

== ENCOUNTER 2024-09-03 08:44 | Outpatient (AMB) | payer OTHER, SELFPAY ==
--- OUTSIDE RECORDS SUMMARY | 2024-09-03 08:50 | XMS_ITS | Encounter Summary ---
Author Organization [employer] Address [address] [facility] 7t [place] [address] Care Team Providers Care Editor Magazine Name Role Phone Tracie Mcginnis DO Primary Care Provider + [phone] Reason for Visit * Reason Onset Date Comments Nurse Triage 04/18/2023 Encounter Details Date Type Department Care Team ([facility] st Contact Info) Description 04/18/2023 Telephone [facility] MEDICINE [address] [place], [place] [phone] Tracie Mcginnis DO [address] [place], [place] [phone] Nurse Triage Social History Tobacco Use Types [...] documented in this encounter Plan of Treatment Upcoming Encounters Date Type Department Care Team (Late st Contact Info) Description 09/19/2024 1:00 PM EDT Medication Management [facility] MED[facility]INE [address] [place] [address] [address] Denise, NiviaD [address] [place], [place] [phone] documented as of this encounter Visit Diagnoses Not on filedocumented in this encounter Care Teams Editor Magazine Relationship Specialty Start Date End Date Tracie Mcginnis DO [address] [place] [address] PCP - General Family Medicine 08/27/13 documented as of this encounter
--- OUTSIDE RECORDS SUMMARY | 2024-09-03 08:50 | XMS_ITS | Clinical Summary ---
Author Organization [employer] Address [address] [place] [address] Care Team Providers Care Supervisor Tumbling And Rolling Name Role Phone Tracie Mcginnis Primary Care [...] 80 09/03/2015 5:53 PM EDT Temperature 37.7 C (99.8 F) 09/03/2015 5:53 PM EDT Respiratory Rate 14 09/03/2015 5:53 PM EDT [...] Adults 18 yrs or above (or HM Modifier)([facility]) 05/27/1987 Hepatitis C Virus Infection in Adolescents and Adults: Screening (or Modifier) ([facility]) 05/27/1987 SDOH Screening Reminder: Jacki cummins for all adults ([facility]) 05/27/1987 Tobacco Smoking Cessation: i n Adults excluding Women: Behavioral and Pharmacotherapy Interventions ([facility]) 05/27/1987 DTaP/Tdap/Td Vaccines ([facility]) (1 - Tdap) 1988 Cervical Cancer Screenin 1-65 yrs of age (or Modifier) 1990 Cervical Cancer Screening: P ap every 3 yrs pts age 21-65 1990 Cervical Cancer: Pap Screeni ng with Modifier timing ([facility]) 1990 Cervical Cancer: hrHPV alone or with cotesting Pap for Pts 30-65yrs screening every 5yrs ([facility]) 1990 Colorectal Cancer Screening 45 -75 Yrs (or HM Modifier ) 2014 Colorectal Cancer: FLEXIBLE SIGMOIDOSCOPY Screening every 5 yrs 2014 Colorectal Cancer: Fecal Imm unochemical Test (FIT) Annually [facility] 2014 Colorectal Cancer: High-sens itivity gFOBT Screening Annually [facility] 2014 Colorectal Cancer: Stool Col oguard Screening every 3 yrs 2014 Colorectal Cancer:CT Colonography Screening every 5 yr s 2014 Breast Cancer: Screening Jacki ually age 50-74 yrs (or HM Modifier)([facility]) 05/27/2019 Lung Cancer: Screening Annua lly in adults aged 50 to 80 years (or HM Modifiers)([facility]) 05/27/2019 Pneumococcal Vaccination Scr eening: Patients 50+ yrs of age ([facility]) (1 of 1 - PCV) 05/27/2019 Zoster/Shingles Vaccine Seri es Screening: Adults aged 18+ yrs (or HM Modifiers)([facility]) (1 of 2) 05/27/2019 COVID-19 Vaccine Screening: Initial Series and Booster Status ([facility]) ( - 2023-25 season) 2023 Flu Vaccination: Yearly for ages 18mos through 64 years (or Modifier)([facility]) 10/03/2024 Medical Devices Not on file Insurance [facility] PLAN Care Teams Supervisor Tumbling And Rolling Relationship Specialty Start Date End Date Tracie Mcginnis DO [address] [place] [phone] PCP - General Family Medicine 09/03/15
--- OUTSIDE RECORDS SUMMARY | 2024-09-03 08:50 | XMS_ITS | Clinical Summary ---
Author Organization [facility] Address [address] [place] [address] Care Team Providers Care Medical Office Specialist Name Role Phone BroallieWendy marshallfer Robyn MATUTE Primary Care Provider [phone] Social History Tobacco Use Types Packs/Day Years [...] age to complete this topic Care Teams Medical Office Specialist Relationship Specialty Start Date End Date Tracie Mcginnis DO [address] [place] [address] PCP - General 10/10/16
--- OUTSIDE RECORDS SUMMARY | 2024-09-03 08:50 | XMS_ITS | Data Portability ---
Author Organization [employer] [facility], [facility] Address [address] [place] [phone] Care Team Providers Care Physicist Acoustics Name Role Phone KAVYA SUBRAMANIAN Primary Care Provider HIM CCA OTHER Assessment Encounter Date Assessment Date Assessment LastModified by Organization Details LastModified Time 09/17/2023 09/17/2023 As noted, we kathia murillo called to see this patient regarding concerns of laryngospasm. PMHx notable for: BMI 31.0-31.9 Essential hypertension Chronic gastroesophageal reflux disease Chronic migraine Tobacco dependence Type 2 diabetes mellitus ([facility]) Nephrolithiasis Healthcare maintenance Arthralgia Nausea, vomiting, and diarrhea Fatty liver Hyperlipidemia Erosive esophagitis Gastroparesis Chronic bipolar disorder ([facility]) Irritable bowel syndrome 53 yo F with [...] in the field was performed by my telemetry rn colleague, as noted above, I provided real-time [...] in 250 mg capsule 2023 024 [email or web address] [facility] [address], [place], [address], 17:27:11 cephalex in 500 mg capsule 2023 024 [facility] [address], [address], [place], [address], 4 17:27:14 ketorola c 30 mg/mL injectio n solution 2023 024 [email or web address] Not available 4 12:28:31 ketorola c 30 mg/mL injectio n solution 2023 024 [email or web address] Not available 4 21:43:11 ketorola c 30 [...] Not available Not available Not available 09/17/2023 [id number] RxNorm SELENA ODOM MD [address] [place] [address],[address], [place], [phone], [facility] 4 17:33:21 5440 Wellbutri n medicatio n Not available Not available Not available 09/17/2023 24576 RxNorm SELENA ODOM MD [address] [place] [address],[address], [place], [phone], [facility] 4 17:33:29 5441 metformin medicatio n Not available Not available Not available 09/17/2023 6809 RxNorm SELENA ODOM MD [address] [place] [address],[address], [place], [phone], [facility] 4 17:33:39 Medications Name Sig Start Date [...] Not Available Not Available No t Available [facility] spacer active Not Available Not Available Not [...] Available No t Available Vitals Date Recorded Body weight Body temperature Oxygen saturation Oxygen saturation in Arterial blood by Pulse oximetry Respiratory rate Heart rate Body height Systolic blood pressure Diastolic blood pressure Provider Name and Address Organization Details Last Updated DateTime 4 67677.8 g 98.4 [degF] 98 % 98 % 14 /min 106 /min 157.48 cm 124 mm[Hg] 80 mm[Hg] Not Available [facility] production 4 19:03:10 Date Recorded Respiratory rate Oxygen saturation Oxygen saturation in Arterial blood by Pulse oximetry Body weight Body temperature Body height Heart rate Systolic blood pressure Diastolic blood pressure Provider Name and Address Organization Details Last Updated DateTime 4 14 /min 95 % 95 % 84045.3 76 g 98.3 [degF] 160.02 cm 80 [...] % 98.3 [degF] 160.02 cm 96 /min 15127.6 g 16 /min 111 mm[Hg] 76 mm[Hg] [...] /min 122 mm[Hg] 86 mm[Hg] Not Available [facility] 4 17:18:53 Date Recorded Heart rate Respiratory rate Body temperature Oxygen saturation Oxygen saturation in Arterial blood by Pulse oximetry Systolic blood pressure Diastolic blood pressure Provider Name and Address Organization Details Last Updated DateTime 3 98 /min 16 /min 97 [degF] 97 % 97 % 126 mm[Hg] 65 mm[Hg] Not Available [facility] 3 18:08:47 Social History None recorded. Functional Status None recorded. Mental Status None recorded. Family History Nothing Reported. Medical History No medical history recorded. Gynecological HistoryNo gynecological history recorded. Obstetrics History GPAL:G 0 P 0 0 0 0 Past Encounters Encounter ID Performer Location Encounter Start Date Encounter Closed Date Diagnosis/Indication Diagnosis SNOMED-CT Code Diagnosis ICD10 Code Diagnosis Note [id number] Leigha Edwards MD [facility] [address] [place] [phone] 11/24/2022 19:46:20 11/26/2022 18:07:10 Kidney stone 20104628 N20.0 52 year old female with history [...] assessment and plan as documented by the telemetry rn. I provided real-time medical direction for this encounter and was immediatel y available to provide additional phone-base d assistance as needed. [id number] Lisa Hensley MD [facility] [address] [place] [phone] 11/29/2022 18:06:21 01/15/2023 14:59:54 Kidney stone 68043016 N20.0 I provided real -time medical direction via phone for this encounter, and was available for additional phone based assistance as needed. I have reviewed and agree with the Assessment and Plan as documented by the Mill Platform Supervisor. Patient given the opportunit y to ask [...] signs/sx. Leigha Edwards MD [facility] [address] [place] [id number] 04/18/2023 19:03:08 07/04/2024 00:25:10 Fall W19.XXXS 52 year old female being [...] assessment and plan as documented by the telemetry rn. I provided real-time medical direction for this encounter and was immediatel y available to provide additional phone-base d assistance as needed. We discussed the diagnostic uncertaint y of home visits and associated risks. We discussed the need to seek care urgently/e mergently in the setting of any new or worsening symptoms. Lisa Hensley MD [facility] [address] [place] [phone] 04/23/2023 12:08:33 04/24/2023 11:07:37 Pain of wrist region 93030795 M25.532 I provided real -time medical direction via phone for this encounter, and was available for additional phone based assistance as needed. I have reviewed and agree with the Assessment and Plan as documented by the Mill Platform Supervisor. Patient given the opportunit y to ask [...] d wrapping wrist and using heat/cold therapy. [id number] SELENA ODOM MD [facility] [address] [place] [phone] 09/17/2023 17:31:28 09/17/2023 20:57:33 Chronic hoarseness 8048217189 105 R49.0 Cough 67243515 R05.9 Laryngeal spasm 84015965 2 J38.5 [id number] Brennan Gonzalez MD [facility] [address] [place] [phone] 10/26/2023 17:18:45 10/28/2023 18:19:59 Cellulitis of skin 978159457 L03.90 Health Concerns Section Related Observation LastModified by Organization Detai ls LastModified Time None Recorded Concern Status LastModified by Organization Details LastModified Time None Recorded Advance Directives Directive None Recorded Payers Insurance Date Sequence Insurance Name Policy Number Policy Amor Covered Member ID Amor Member ID Guarantor Name 07/04/2024 1 [facility] DOS ON OR AFTER 2022 - DUAL ELIGIBLE - CUSTODIAL OPTIONS AND ONE CARE (MEDICARE REPLACEMENT/ADV ANTAGE - HMO) Tiffanie Dumont [id number] Tiffanie Dumont Notes Date Note Type Note Provider Name [...] ................... ................... ................... ................... ................... ................... ........ Mill Platform Supervisor Note From Biju Garsia: Pt reports that she was recently DX with a kidney stone states that she has been having pain . States that her DR will not give her med and states that she hasn t been taking any OTC states that she had a toradol shot last Sunday which help and is requesting another denies any changes or worsening of pain or symptoms. On scene vs taken and C was called m. Pt given 30mg of toradol and cleared. ................... ................... ................... ................... ................... ................... ................... ........ Disposition: Evy Hensley MD [address] [facility],[address], [place], [address], [employer] [facility] [employer] 01/07/2023 23:23:06 04/18/2023 text/html [facility] Nurse Triage Notes (Guillermina Jenkins): Reason For [...] ................... ................... ................... ................... ................... ................... ........ Mill Platform Supervisor Note From Jarrod Morgan: Pt [place] x3 [...] dry, no visible bruising or deformity noted. [facility] orders toradol 30mg IM, administered as noted. Red flags and pt education discussed. ................... ................... ................... ................... ................... ................... ................... ........ Disposition: Fulfilled Leigha Edwards MD [address] [facility],[address], [place], [phone], [employer] 04/18/2023 21:43:19 04/23/2023 text/html [facility] Nurse Triage [...] ................... ................... ................... ................... ................... ................... ........ Mill Platform Supervisor Note From Jose Cantu: 52 yo F [...] and flex to below 90 degrees. Equal ecg technician strength, and POS PMS in affected extremity. [...] ................... ........ Disposition: Fulfilled Lisa Hensley MD [address] [place] [address],[address], [place], [address], [facility] [employer] 04/23/2023 23:27:41 09/17/2023 text/html HPI: Call returned [...] fever. Pt advised of disposition, agrees to [employer] for exam as not able to come into our [facility] for exam today. Reviewed home care advise, ER precautions and reasons to call back.Pt address confirmed [id number] [place] [address] ................... ................... ................... ................... ................... ................... ................... ........ [facility] Nurse Triage Notes (Guillermina Jenkins): Comments: [facility] RN DID NOT NEED FURTHER INFO Mill Platform Supervisor POC Test Results from Edy Torre - [facility] Rapid strep test (18:24:28) Strep: - ................... ................... ................... ................... ................... ................... ................... ........ Mill Platform Supervisor Note From Edy Torre: [facility]. Pt presents conscious [...] or inflammation in posterior pharynx. Consulted with [facility] Dr. Odom who advised follow up with PCP. Reviewed red flags for ED. Pt education provided. ................... ................... ................... ................... ................... ................... ................... ........ Disposition: Fulfilled SELENA ODOM MD [address] [facility],[address], [place], [address], [employer] 09/17/2023 18:42:32 10/26/2023 text/html HPI: Patient with [...] ................... ................... ................... ................... ................... ................... ........ Mill Platform Supervisor Note From Santosh Hernandez: Dispatched to the call address for the female with a spot of concern on her stomach. Pt states she had this small area on her lower left abd that didn't bother her really but after a month she saw her payroll benefits clerk who advised to just leave it alone unless it starts to bother her. About 2 weeks ago it started to become painful and tender. Pt called her payroll benefits clerk today who was not able to see [...] ................... ........ Disposition: Fulfilled Brennan Gonzalez MD [address] [facility],[address], [place], [address], [facility] [employer] 10/26/2023 23:27:43 OBGyn Episode No OBEpisode recorded.
--- NOTE | 2024-09-03 09:13 | MHC.OFFVIS ---
Vital Signs 09/03/24 09:21 Height 5 ft 3 in Weight 179 lb 4 oz BMI 31.7 BP 111/67 Blood Pressure Location Lt brachial Position Sitting Pulse 101 H Intake Visit Reasons: Hemorrhoids Intake Note: Patient is seen in office for evaluation of hemorrhoids. Pt c/o: had sphincterotomy with Dr Matta on 2019, per pt has internal and external hemorrhoids, denies bleeding, admits to consitpation and diarrhea on and off, uncontrolled bm, area feels raw, ithcy and burning sensation [employer]able [employer] Broker Required: No Accompanied by: Self / Same As Patient Allergies bupropion (From WELLBUTRIN) Allergy (Severe, Verified 09/03/24 09:15) SHAKES, VIOLENTLY ILL metformin (METFORMIN) Allergy (Severe, Verified 09/03/24 09:15) VIOLENTLY SICK, nausea and vomiting promethazine (From PHENERGAN) Allergy (Severe, Verified 09/03/24 09:15) HIVES,sob Medication List - Last Reconciled 09/03/24 by Joshua Starks MD atorvastatin 40 mg PO BEDTIME butorphanol intranasal cetirizine 10 mg PO QAM diazepam 10 mg PO BID PRN ergocalciferol (vitamin D2) 1,250 mcg PO QWEEK famotidine 40 mg PO BEDTIME ferrous sulfate 325 mg PO QAM fluticasone propionate 50 mcg/actuation 2 sprays intranasal DAILY folic acid 1 mg PO QAM gabapentin 300 mg PO TID insulin degludec (Tresiba FlexTouch U-100 insulin) 5 units subcut DAILY lamotrigine 150 mg PO DAILY qbnqne-edkplout-icahxbp 12,000-38,000 -60,000 unit (Creon) 1 cap PO QID metoclopramide HCl 5 mg PO TID metoprolol tartrate 50 mg PO BID mirtazapine 60 mg PO BEDTIME ondansetron HCl 4 mg PO Q8H psyllium seed (sugar) (Metamucil (sugar) oral powder) 1 tbsp PO BID quetiapine 900 mg PO BEDTIME triamcinolone acetonide 2 sprays intranasal DAILY varenicline tartrate 1 mg PO BID zolpidem 10 mg PO BEDTIME PRN HPI HPI Hemorrhoids: Details: [age] year old female here because of her hemorrhoid issues as well as because of incontinence. She describes leakage of stool periodically. She says that sometimes, she would be having a conversation with somebody and she would just noticed stool would come out. She does have alternating diarrhea and constipation. She also describes having hemorrhoids which she says causes itching and discomfort. She has a history of lateral internal sphincterotomy in 2019 for an anal fissure with Dr. Matta. [facility] Medical History Mixed internal and external hemorrhoid Frequent fecal incontinence Full dentures Arthritis Peripheral neuropathy High cholesterol HTN (hypertension) Bipolar disorder Personal history of nicotine dependence Takotsubo cardiomyopathy Diabetes mellitus GERD (gastroesophageal reflux disease) Smoker Abscess of skin or subcutaneous tissue Surgical History History of esophagogastroduodenoscopy (EGD) History of cystoscopy History of rectal sphincterotomy S/P excision of ganglion cyst S/P hysterectomy Hx of release of tendon Hx of nephrolithotomy with removal of calculi Hx of colonoscopy Hx of eye surgery History of endometrial ablation Hx of bilateral breast reduction surgery Hx of cholecystectomy Hx of tonsillectomy Hx of appendectomy Family History Mother Ovarian cancer Social History Are you a primary child caregiver private home to a significant other at home: No Do you presently have visiting nurse or other home services: No Alcohol intake: current Alcohol intake frequency: does not drink Patient Tobacco Use Status: Current everyday Tobacco user Tobacco use type: Cigarette Cigarette Packs Per Day: 2 Cigarettes Per Day: 15 Years Smoked: 35 (onset 14, 1ppd x 36yrs, now 2-2.5ppd - 35+PYH) Substance Use Type: Marijuana Current occupational status: disabled Current occupation: rt handed Review of Systems Const Denies chills and Denies fever(s) Card Denies chest pain, Denies dyspnea and Denies dyspnea on exertion Resp Denies cough, Denies dyspnea and Denies dyspnea on exertion GI Denies hematochezia, Denies change in bowel habits, Reports constipation and Reports diarrhea Denies hematuria Musc Denies back pain and Denies limited range of motion Neuro Denies focal weakness and Denies convulsions Psych Denies depression and Denies mood swings Physical Exam Vital Signs: Last Vital Signs Pulse 101 H 09/03/24 09:21 BP 111/67 09/03/24 09:21 BMI result Body Mass Index 31.7 Const General: comfortable and no acute distress Orientation/consciousness: patient oriented x3 Neck Neck: Yes no lymphadenopathy Resp Auscultation: clear to auscultation bilaterally Cardio Rhythm: regular rhythm GI Other: Rectal exam shows large hemorrhoids, a mix of internal external Palpation (GI): Soft to palpation, nontender and no guarding Neuro General: patient oriented x3 Office Procedures Anoscopy She was in kneeling tommy-knife position. The anoscope was gently inserted. A full examination of the anal canal was done. She did have this internal and external hemorrhoidal columns, moderate-sized on both the left and right side. There were no other lesions seen. There was no fissure. There was no ulceration. There is no bleeding She did have large external hemorrhoids as well. She had good squeeze and resting pressure of her sphincters. [id number]-[id number] Assessment & Plan Assessment & Plan (1) Frequent fecal incontinence: Code(s): R15.9 - Full incontinence of feces Category: Medical Plan: She describes periodic leakage of stool from her anus. Currently, she does have good sphincter tone on resting and squeeze pressures. I explained to her that the 1st step in controlling her incontinence would be to increase fiber in her diet. I have given her prescription for Metamucil and she is to take this twice a day . Hopefully this will buckle per stool and improve the consistency so that her incontinence will be better controlled. I explained to her that removing her hemorrhoids may make the incontinence worse. I told her to see me again in the office in about 2-3 months in the office. (2) Mixed internal and external hemorrhoid: Code(s): K64.8 - Other hemorrhoids; K64.4 - Residual hemorrhoidal skin tags Category: Medical Plan: She does have large internal external hemorrhoids with some prolapse. I explained to her that removing her hemorrhoids may worsen her fecal incontinence so I would hold off on doing that at this time. Medications: New psyllium seed (sugar) (Metamucil (sugar) oral powder) 1 tbsp PO BID 1,254 grams 2RF Coding Level of Care Code Est Pt Level 3 (83852) Diagnoses Frequent fecal incontinence R15.9 Mixed internal and external hemorrhoid K64.8; K64.4 CPT Codes Details - CPT: 99488-Aamlmklu ([id number])
[2024-09-03 09:21] VITALS: BP 111/67; PULSE 101; BMI 31.7
== END 2024-09-03 09:35 | disposition home or self-care (01) ==
LOC: HO.HGS 08:44
PROVIDERS: PCP Family Medicine; Visit Provider Surgery
DX: R15.9 Full incontinence of feces (principal); K64.8 Other hemorrhoids; K64.4 Residual hemorrhoidal skin tags
CPT/HCPCS: 46600; 99213

== ENCOUNTER → 2024-09-03 08:44 | Outpatient (BNVA) | payer OTHER, SELFPAY | PROVIDERS: PCP Family Medicine; Visit Provider Surgery | DX: K64.4 Residual hemorrhoidal skin tags (principal); K64.8 Other hemorrhoids; R15.9 Full incontinence of feces | CPT/HCPCS: 46600; 99212 ==

== ENCOUNTER 2024-11-21 08:24 | Outpatient (REF) | payer OTHER, SELFPAY ==
--- NOTE | ~2024-11-21 | US_ITS ---
EXAMINATION: US ABDOMEN HISTORY: f/u fatty liver TECHNIQUE: Real-time grayscale ultrasound imaging of the abdomen was performed and images were reviewed. COMPARISON: Correlation is made with an unenhanced CT of the abdomen dated 11/24/2022. FINDINGS: Liver: The right lobe of the liver measures 19.0 cm in size. The left lobe of the liver measures 14.1 cm in size. The liver demonstrates increased echotexture, consistent with steatosis. No focal mass or intrahepatic biliary ductal dilatation is identified. There is normal hepatopedal flow in the portal vein. Gallbladder and biliary tree: The gallbladder is surgically absent. The common bile duct is normal in caliber measuring 2 mm. Kidneys: The right kidney measures 11.6 cm in length and demonstrates a cluster of tiny calculi measuring up to 4 mm in size. The left kidney measures 11.1 cm in length. The kidneys are otherwise unremarkable, without evidence of masses or hydronephrosis. Pancreas: The pancreatic head, neck, and body are unremarkable. The pancreatic tail is obscured by bowel gas. Spleen: Spleen is enlarged measuring 12.9 cm in length. Abdominal aorta and inferior vena cava: The visualized portions of the abdominal aorta and inferior vena cava are normal in caliber. There is no free fluid in the abdomen. US/US abdomen complete IMPRESSION: 1. Hepatosplenomegaly and hepatic steatosis. 2. Cluster of tiny calculi in the interpolar region of the right kidney. No hydronephrosis. Electronically signed by: Eduardo Yang MD 11/21/2024 09:52 AM EDT
--- OUTSIDE RECORDS SUMMARY | 2024-11-21 08:58 | XMS_ITS | Encounter Summary ---
Author Organization [employer] Address [address] [facility] [address] [place] [address] Care Team Providers Care Manager Human Resources Name Role Phone Tracie Mcginnis DO Primary Care Provider + [phone] Lane Denise PharmD Unavailable [phone] Reason for Visit * Reason Comments Med Refill Encounter Details Date Type Department Care Team (Late st Contact Info) Description 02/07/2024 Refill [facility] [address] [place], [place] [phone] Tracie Mcginnis DO [address] [place], [place] [phone] Primary insomnia Social History Tobacco Use Types [...] as of this encounter Plan of Treatment Upcoming Encounters Date Type Department Care Team (Late st Contact Info) Description 01/23/2025 2:00 PM EST Medication Management [facility] [address] [place] [address] Lane Denise, PharmD [address] [place] [address] documented as of this encounter Visit Diagnoses Diagnosis Primary insomnia Persistent disorder of initiating or maintaining sleep documented in this encounter Additional Health Concerns Assessment Noted Time PHQ-9 Depression Total Score: 0 05/11/19 24 11:50 AM EST documented as of this encounter Care Teams Manager Human Resources Relationship Specialty Start Date End Date Tracie Mcginnis DO [address] [place] [phone] PCP - General Family Medicine 08/27/13 Lane Denise, PharmD [address] [place] [phone] Pharmacist Pharmacy 10/06/24 documented as of this encounter
--- OUTSIDE RECORDS SUMMARY | 2024-11-21 08:58 | XMS_ITS | Encounter Summary ---
Author Organization [employer] Address [address] [facility] [address] [place] [address] Care Team Providers Care Timber Mill Worker Name Role Phone Tracie Mcginnis DO Primary Care Provider + [phone] Lane Denise PharmD Unavailable [phone] Reason for Visit * Reason Comments Med Refill Encounter Details Date Type Department Care Team (Late st Contact Info) Description 05/11/2023 Refill [facility] [address] [place], [place] [phone] Tracie Mcginnis DO [address] [place], [place] [phone] Nonintractable chronic migraine Social History Tobacco Use [...] AM EDT documented as of this encounter Functional Status * Over the past 2 weeks, how often have you been bothered by any of the following problems? Question Answer Date of Assessment Author Patient Health Questionnaire -2 Score 0 05/11/2023 11:50 AM Marine Garcia MA * Over the past 2 weeks, how often have you been bothered by any of the following problems? Question Answer Date of Assessment Author Little interest or pleasure in doing things Not at all 05/11/2023 11:50 AM Marine Garcia MA Feeling down, depressed, or hopeless Not at all 05/11/2023 11:50 AM Marine Garcia [place] Trouble falling or staying asleep, or sleeping too much Not at all 05/11/2023 11:50 AM Annita Alexander pe, [place] Feeling tired or having little energy Not at all 05/11/2023 11:50 AM Marine Garcia MA Poor appetite or overeating Not at all 05/11/2023 11 :50 AM Annita Garcia MA Feeling bad about yourself - or that you are a failure or have let yourself or your family down Not at all 05/11/2023 11:50 AM Marine Garcia MA Trouble concentrating on things, such as reading the newspaper or watching television Not at all 05/11/2023 11:50 AM EST Marine Nichols MA Moving or speaking so slowly that other people could have noticed? Or the opposite - being so fidgety or restless that you have been moving around a lot more than usual. Not at all 05/11/2023 11:50 AM Annita Davila MA Thoughts that you would be better off or hurting yourself in some way Not at all 05/11/2023 11:50 AM Alia Garcia MA Patient Health Questionnaire-9 Score 0 05/11/2023 11:50 AM Sameera Garcia MA documented as of this encounter Plan of Treatment Upcoming Encounters Date Type Department Care Team (Late st Contact Info) Description 01/23/2025 2:00 PM EST Medication Management [facility] [address] [place] [address] Lane Denise, PharmD [address] [place] [address] documented as of this encounter Visit Diagnoses Diagnosis Nonintractable chronic migraine documented in this encounter Additional Health Concerns Assessment Noted Time PHQ-9 Depression Total Score: 0 05/11/19 24 11:50 AM EST documented as of this encounter Care Teams Timber Mill Worker Relationship Specialty Start Date End Date Tracie Mcginnis DO [address] [place] [address] PCP - General Family Medicine 08/27/13 Lane Denise, PharmD [address] [place] [address] Pharmacist Pharmacy 10/06/24 documented as of this encounter
--- OUTSIDE RECORDS SUMMARY | 2024-11-21 08:58 | XMS_ITS | Encounter Summary ---
Author Organization [employer] Address [address] [facility] 7t [place] [address] Care Team Providers Care Cat Skinner Name Role Phone Tracie Mcginnis DO Primary Care Provider + [phone] Robina Denise PharmD Unavailable [phone] Reason for Visit * Reason Onset Date Comments Appointment Request 09/12/2024 Encounter Details Date Type Department Care Team (Late st Contact Info) Description 09/12/2024 Telephone [facility] MEDICINE [address] [place], [place] [phone] Tracie Mcginnis DO [address] [place], [place] [phone] Appointment Request Social History Tobacco Use Types Packs/Day Years [...] encounter Miscellaneous Notes * Telephone Encounter - Garfield Cooper - 09/12/2024 11:54 AM EDT Tc from pt canceled 09/19 visit with robina . Requesting to be rescheduled for another day documented in this encounter Plan of Treatment Upcoming Encounters Date Type Department Care Team (Late st Contact Info) Description 01/23/2025 2:00 PM EST Medication Management [facility] MEDICINE [address] [place] [address] Robina Denise, PharmD [address] [place] [address] documented as of this encounter Visit Diagnoses Not on filedocumented in this encounter Additional Health Concerns Assessment Noted Time PHQ-9 Depression Total Score: 14 025 11:26 AM EDT documented as of this encounter Care Teams Cat Skinner Relationship Specialty Start Date End Date Tracie Mcginnis DO [address] [place] [address] PCP - General Family Medicine 6/25/14 Robina Denise, PharmD [address] [place] [phone] Pharmacist Pharmacy 10/06/24 documented as of this encounter
--- OUTSIDE RECORDS SUMMARY | 2024-11-21 08:58 | XMS_ITS | Encounter Summary ---
Author Organization [employer] Address 75 [facility] 7t [place] [address] Care Team Providers Care Digital Marketing Coordinator Name Role Phone Tracie Mcginnis DO Primary Care Provider + [phone] Lane Denise PharmD Unavailable [phone] Encounter Details Date Type Department Care Team (Late st Contact Info) Description 06/14/2023 Orders Only [facility] MEDICINE [address] [place], [place] [phone] Abbi Conway MD [address] [place] [address] Social History Tobacco Use Types Packs/Day Years [...] Description 01/23/2025 2:00 PM EST Medication Management [facility] MEDICINE [address] [place] [address] [address] Denise, PharmD [address] [place] [address] documented as of this encounter Visit Diagnoses Not on filedocumented in this encounter Additional Health Concerns Assessment Noted Time PHQ-9 Depression Total Score: 0 05/11/19 24 11:50 AM EST documented as of this encounter Care Teams Digital Marketing Coordinator Relationship Specialty Start Date End Date Tracie Mcginnis DO [address] [place] [phone] PCP - General Family Medicine 08/27/13 Laen Denise, PharmD [address] [place] [address] [phone] Pharmacist Pharmacy 10/06/24 documented as of this encounter
--- OUTSIDE RECORDS SUMMARY | 2024-11-21 08:58 | XMS_ITS | Encounter Summary ---
Author Organization [employer] Address 75 [facility] 7t [place] [address] Care Team Providers Care Hot Man Name Role Phone Tracie Mcginnis DO Primary Care Provider + [phone] Lane Denise PharmD Unavailable [phone] Reason for Visit * Reason Comments Med Refill Encounter Details Date Type Department Care Team (Late st Contact Info) Description 06/27/2024 Refill [facility] MEDICINE [address] [place], [place] [phone] Tracie Mcginnis DO [address] [place], [place] [phone] Nonintractable chronic migraine Social History Tobacco Use [...] Description 01/23/2025 2:00 PM EST Medication Management [facility] MEDICINE [address] [place] [address] [address] Denise, PharmD [address] [place] [address] documented as of this encounter Visit Diagnoses Diagnosis Nonintractable chronic migraine documented in this encounter Additional Health Concerns Assessment Noted Time PHQ-9 Depression Total Score: 14 025 11:26 AM EDT documented as of this encounter Care Teams Hot Man Relationship Specialty Start Date End Date Tracie Mcginnis DO [address] [place] [phone] PCP - General Family Medicine 08/27/13 Lane Denise, PharmD [address] [place] [phone] Pharmacist Pharmacy 10/06/24 documented as of this encounter
--- OUTSIDE RECORDS SUMMARY | 2024-11-21 08:58 | XMS_ITS | Clinical Summary ---
Author Organization [facility] Address [address] [place] [address] Care Team Providers Care Bagger Meat Name Role Phone BroallieWendy marshallfer Robyn MATUTE Primary Care Provider [phone] Social History Tobacco Use Types Packs/Day Years [...] 05/27/2019 Zoster Vaccines (1 of 2) 05/27/2019 Depression Screening 03/05/2024 COVID-19 Vaccine (1 - 2023-2 5 season) 2024 Influenza Vaccine (#1) 2024 RSV Immunization Adult Patie nts (1 - 1-dose 75+ series) 2044 HIB Vaccines Aged Out No longer eligi [...] age to complete this topic Care Teams Bagger Meat Relationship Specialty Start Date End Date Tracie Mcginnis DO [address] [place] [address] PCP - General 10/10/16
--- OUTSIDE RECORDS SUMMARY | 2024-11-21 08:58 | XMS_ITS | Clinical Summary ---
Author Organization [employer] Address 75 [facility] 7t [place] [address] Care Team Providers Care Instrument Mechanics Supervisor Name Role Phone Tracie Mcginnis DO Primary Care Provider + [phone] Lane Denise PharmD Unavailable [phone] Allergies Active Allergy Reactions Criticality Noted Date [...] varies form rash to difficulty breathing. Medications lamoTRIgine (LaMICtal) 100 MG tablet TAKE 1 AND 1/2 TABLETS BY MOUTH IN THE MORNING AND AT BEDTIME 023 Active mirtazapine (Remeron) 30 MG tablet TAKE 2 TABLETS BY MOUTH EVERY DAY AT BEDTIME 023 Active Oral Electrolytes (Pedialyte) pack MIX ONE PACKET WITH LARGE GLASS OF WATER AND TAKE SMALL SIPS THROUGHOUT THE DAY NEEDED FOR VOMITING Active haloperidol (Haldol) 1 MG tablet Active omeprazole (PriLOSEC) [address] capsule Active naloxone (Narcan) 4 mg/0.1 mL nasal spray FOR SUSPECTED OPIOID OVERDOSE. SPRAY 0.1mL IN ONE NOSTRIL. REPEAT IN ALTERNATE NOSTRIL 2-3 MINUTES IF NEEDED. SEEK MEDICAL ATTENTION IMMEDIATELY EVEN IF PATIENT RESPONDS. Active metoprolol succinate XL (Toprol XL) 50 MG 24 hr tablet Take 1 tablet (50 mg) by mouth Once per day. Do not crush or chew. 30 tablet 11 Active vilazodone (Viibryd) 10 mg tablet Active Diclofenac Sodium 1 % gel Apply 2 g topically if needed in the morning, at noon, in the evening, and at bedtime (pain). 150 g 3 Active famotidine (Pepcid) 40 MG tablet Take 40 mg by mouth at bedtime. Active Spacer/Aero-Holdi ng Chambers device Use with albuterol MDI as directed 1 each Active QUEtiapine (SEROquel) 300 MG tablet TAKE 3 TABLETS BY MOUTH AT BEDTIME 90 tablet Active zolpidem (Ambien) 10 MG tabletIndications :Primary insomnia Take 1 tablet (10 mg) by mouth if needed at bedtime for sleep. 30 tablet Active D3 Super Strength 50 MCG (2000 UT) capsuleIndication s:Vitamin D deficiency TAKE 1 CAPSULE BY MOUTH EVERY MORNING 90 capsule 3 025 Active atorvastatin (Lipitor) 40 MG tabletIndications :Other hyperlipidemia TAKE 1 TABLET BY MOUTH AT BEDTIME 90 tablet 3 025 Active potassium chloride CR (Klor-Con M20) 20 MEQ ER tablet TAKE 1 TABLET BY MOUTH TWICE DAILY WITH FOOD 60 tablet Active Fiber-Lax 625 MG tablet TAKE 1 TABLET BY MOUTH TWICE DAILY WITH A FULL GLASS OF WATER 60 tablet 5 Active triamcinolone (Nasacort) 55 MCG/ACT nasal inhaler Administer 2 sprays into each nostril Once per day. 16.5 g Active cetirizine (ZyrTEC) 10 MG tablet Take 1 tablet (10 mg) by mouth Once per day. 30 tablet 2025 Active Continuous Glucose School Librarian (FreeStyle Nelda 3 [place]) deviceIndications :Type 2 diabetes mellitus with stage 3 chronic kidney disease, without long-term current use of insulin, unspecified whether stage 3a or 3b CKD ([facility]) 1 each Once per day. Use as directed for CGM 1 each Active Continuous Glucose Sensor (FreeStyle Nelda 3 Plus Sensor) miscIndications:T ype 2 diabetes mellitus with stage 3 chronic kidney disease, without long-term current use of insulin, unspecified whether stage 3a or 3b CKD ([facility]) 1 each every 15 days. Apply 1 [...] mcg) by mouth before breakfast. 90 tablet 3 2025 Active Ferrous Sulfate (iron) 325 (65 Fe) MG tabletIndications :Iron deficiency TAKE 1 TABLET BY MOUTH EVERY MORNING 90 tablet 1 Active folic acid (Folvite) 1 MG tablet TAKE 1 TABLET BY MOUTH EVERY MORNING 90 tablet 3 Active varenicline (Chantix) 1 MG tablet Take 1 tablet (1 mg) by mouth 2 times daily. 60 tablet 2 Active ondansetron ODT (Zofran-ODT) 4 MG disintegrating tabletIndications :Nausea, vomiting, and diarrhea DISSOLVE TWO TABLETS BY MOUTH TWICE A DAY DIRECTED 30 tablet 2 Active gabapentin (Neurontin) 300 MG capsuleIndication s:Diabetic polyneuropathy associated with type 2 diabetes mellitus ([facility]) TAKE 2 CAPSULES BY MOUTH THREE TIMES DAILY IN THE MORNING, EVENING AND BEDTIME 180 capsule 1 025 Active pen needle 32G x 4 mm miscIndications:T ype 2 diabetes mellitus with stage 3 chronic kidney disease, without long-term current use of insulin, unspecified whether stage 3a or 3b CKD ([facility]) Use with insulin as instructed 100 each 3 025 2025 Active Icosapent Ethyl (Vascepa) 1 g capsuleIndication s:Type 2 diabetes mellitus with stage 3 chronic kidney disease, without long-term current use of insulin, unspecified whether stage 3a or 3b CKD ([facility]) Take 2 capsules by mouth at bedtime 60 capsule 11 025 Active Semaglutide,0.25 or 0.5MG/DOS, (Ozempic, 0.25 or 0.5 MG/DOSE,) 2 MG/3ML solution pen-injectorIndic ations:Type 2 diabetes mellitus with stage 3 chronic kidney disease, without long-term current use of insulin, unspecified whether stage 3a or 3b CKD ([facility]) Inject 0.5 mg under the skin 1 (one) time per week. 2 mL 5 025 Active topiramate 50 MG tablet TAKE 1 TABLET BY MOUTH TWICE DAILY IN THE MORNING AND AT BEDTIME 60 tablet 5 025 Active butorphanol (Stadol) 10 MG/ML nasal sprayIndications: Nonintractable chronic migraine SPRAY 1 SPRAY IN one NOSTRIL ONCE DAILY NEEDED FOR MIGRAINE 2.5 mL 025 Active albuterol 108 (90 Base) MCG/ACT inhaler Inhale 2 puffs every 4 (four) hours if needed for wheezing or shortness of breath. 18 g 025 2025 Active albuterol 108 (90 Base) MCG/ACT inhaler Inhale 2 puffs every 4 (four) hours if needed for wheezing or shortness of breath. 18 g 025 2024 Discontinued(R eorder (will not trigger notification to Pharmacy)) butorphanol (Stadol) 10 MG/ML nasal sprayIndications: Nonintractable chronic migraine Administer 1 spray into one nostril if needed each day for moderate pain (Migraines). 2.5 mL 025 2024 Discontinued Active Problems Problem Noted Date Diagnosed Date Injury of left toe 10/31/2024 Hammer toe of left foot 10/31/2024 Mild cognitive impairment 04/25/2024 Assessment & Plan [...] amitriptyline -advised reschedule rheumatology eval -advised contact [facility] if sx worsen or do not [...] (04/27/2023 1:33 PM EST): Completely healed. 10 Protem removed w/ staple removed w/out complication -advised [...] 3 days Atypical chest pain 08/11/2022 08/12/19 23 Bipolar affective disorder, currently depressed, moderate 08/11/2022 08/11/2022 Daily nausea 08/11/2022 08/11/2022 Epigastric pain 08/11/2022 08/11/2022 Heartburn symptom 08/11/2022 08/11/2022 Pain in unspecified foot 04/06/202211/2022 Assessment & Plan (04/06/2022 11:39 AM EST): Likely diabetic neuropathy -cont gabapentin 600mg TID -cont check feet daily -advised contact [facility] if sx change or worsen Urinary [...] Encounters Date Type Department Care Team Description 11/17/2024 Refill [facility] MEDICINE [address] [place] [address] Tracie Mcginnis DO Diabetic polyneuropathy associated with type 2 diabetes mellitus ([facility]) 11/16/2024 Refill [facility] MEDICINE [address] [place] [address] Tracie Mcginnis DO Diabetic polyneuropathy associated with type 2 diabetes mellitus ([facility]) 10/31/2024 3:45 PM EDT Office Visit [facility] MEDICINE [address] [place] [phone] Rita Calderon, LYRIC Type 2 diabetes mellitus with stage 3 chronic kidney disease, without long-term current use of insulin, unspecified whether stage 3a or 3b CKD ([facility]) (Primary Dx); Injury of toe on left foot, initial encounter; Hammer toe of left foot 10/31/2024 Travel 10/30/2024 Telephone [facility] MEDICINE [address] [place] [address] Xuan Vargas [place] CHARTPREP 10/29/2024 Orders Only [facility] MED[facility]INE [address] [place] [address] Tracie Mcginnis DO 10/29/2024 Telephone [facility] MEDICINE [address] [place] [address] Tracie Mcginnis DO Nurse Triage 10/24/2024 Travel 10/24/2024 Refill [facility] [address] [place] [address] Tracie Mcginnis DO Nonintractable chronic migraine 10/17/2024 Refill [facility] MEDICINE [address] [place] [address] Tiffanie Crooks MD 10/03/2024 2:00 PM EDT Telemedicine [facility] MEDICINE [address] [place] [address] [address] Denise, Myah Type 2 diabetes mellitus with stage 3 chronic kidney disease, without long-term current use of insulin, unspecified whether stage 3a or 3b CKD ([facility]) (Primary Dx) 09/29/2024 Refill [facility] [address] [place] [address] Tracie Mcginnis DO Nonintractable chronic migraine 09/26/2024 Refill [facility] MED[facility]INE [address] [place] [address] Tracie Mcginnis DO Nonintractable chronic migraine 09/24/2024 Refill [facility] MED[facility] [address] [place] [address] Tracie Mcginnis DO Diabetic polyneuropathy associated with type 2 diabetes mellitus ([facility]) 09/17/2024 Refill [facility] MED[facility]INE [address] [place] [address] Tracie Mcginnis DO Diabetic polyneuropathy associated with type 2 diabetes mellitus ([facility]) 09/12/2024 Telephone [facility] MED[facility]INE [address] [place] [address] Tracie Mcginnis DO Appointment Request 09/04/2024 Telephone [facility] MED[facility]INE [address] [place] [address] Tracie Mcginnis DO Call Back Request 09/02/2024 Refill [facility] [address] [place] [address] Tracie Mcginnis DO 09/02/2024 Refill [facility] [address] [place] [address] Tracie Mcginnis DO 09/01/2024 Refill [facility] [address] [place] [address] Tracie Mcginnis DO Nonintractable chronic migraine 08/31/2024 Refill [facility] MED[facility] [address] [place] [address] Shira Peace, REGISTERED RADIOGRAPHER Nonintractable chronic migraine 08/28/2024 Refill [facility] MED[facility]INE [address] [place] [address] Tracie Mcginnis DO from Last 3 Months Immunizations Immunization Administration Dates Next Due Hep A, Adult [...] Used Date Smoking Tobacco: Every Day Cigarettes 2 39.7 Started: 1985 Passive Smoke Exposure: Current Smokeless Tobacco: Never Tobacco Cessation:Ready to Q uit: Yes; Counseling Given: Yes Comments:Smoked 1-2 ppd for 40+ years Alcohol Use Standard Drinks/Week Comments Never 0 [...] Sign Reading Time Taken Comments Blood Pressure 110/72 10/31/2024 4:01 PM EDT Pulse 80 10/31/2024 4:01 PM EDT Temperature 37 C (98.6 F) 10/31/2024 4:01 PM EDT Respiratory Rate 22 10/31/2024 4:01 PM EDT Oxygen Saturation 99% 10/31/2024 4:01 PM EDT Inhaled Oxygen Concentration - - Weight 76.3 kg (168 lb 2 oz) 10/31/2024 4:01 PM EDT Height 160 cm (5' 3 ) 10/31/2024 4:01 PM EDT Body Mass Index 29.78 10/31/2024 4:01 PM EDT Plan of Treatment Upcoming Encounters Date Type Department Care Team (Late st Contact Info) Description 01/23/2025 2:00 PM EST Medication Management [facility] MEDICINE [address] [place] [address] [address] Denise, PharmD [address] [place] [address] Health Maintenance Due Date Last Done Comments CT Colonography 1969 FIT DNA/Cologuard 1969 FIT 1969 FOBT 1970 Sigmoidoscopy 1969 Diabetes: Foot Exam 05/27/1979 Eye Exam 05/27/1979 Pap Smear 1990 Cervical Cancer Screening 05/27/1999 HPV/Cotest 05/27/1999 Lung Cancer Screening 05/27/2019 Influenza Vaccine (#1) 2024 , 11/11/2021, 02/18/2021, Additional history exists Depression Monitoring 12/04/2024 06/04/2024, 025 Mammogram 12/24/2024 12/25/2023, 06/2021, 07/29/2020, Additional history exists Diabetes: Hemoglobin A1C 01/24/2025 025, 06/04/2024, 06/04/2024, Additional history exists Alcohol/Substance Use Screening 06/04/2025 06/04/2024 Disability Screening 06/04/2025 06/04/2024 Lipid Panel 06/04/2025 06/04/2024, 09/2023, 01/03/2023, Additional history exists SDOH Screening 06/04/2025 06/04/2024 Tobacco Screening 10/31/2025 10/31/2024 Colonoscopy 11/21/2032 11/21/2022 Colorectal Cancer Screening 11/21/2032 [...] Name Priority Date/Time Associated Diagnosis Comments POCT GLUCOSE Routine 10/31/2024 4:02 PM EDT Type 2 diabetes mellitus with stage 3 chronic kidney disease, without long-term current use of insulin, unspecified whether stage 3a or 3b CKD (CMS/HCC) POCT GLYCATED HEMOGLOBIN, TOTAL Routine 10/24/2024 2:56 PM EDT Type 2 diabetes mellitus with stage 3 chronic kidney disease, without long-term current use of insulin, unspecified whether stage 3a or 3b CKD (CMS/HCC) LIPID PANEL, STANDARD Routine 06/04/2024 12:26 PM EDT Type 2 diabetes mellitus with stage 3 chronic kidney disease, without long-term current use of insulin, unspecified whether stage 3a or 3b CKD (CMS/HCC) BI MAMMOGRAM SCREENING TOMOSYNTHESIS BILATERAL Routine 12/25/2023 [...] Recently Relevant to Health Maintenance Results * POCT Glucose (10/31/2024 4:02 PM EDT) Glucose Blood, POC 128 60 - 200 mg/dL QC Media Lot # [id number] Lot# Expiration Date ,447,914 Blood Capillary blood specimen / Unknown 10/31/2024 4:02 PM EDT Rita Calderon NP POINT OF CARE TEST ENTER/EDIT OR DERABLES Final Result * (ABNORMAL) POCT HGB A1C (10/24/2024 2:56 PM EDT) Hemoglobin A1C 7.0(A) 4.0 - 5.7 % QC Media Lot # [id number] Lot# Expiration Date ,028,667 Blood 10/24/2024 2:56 PM EDT Tracie Mcginnis DO POINT OF CARE TEST ENTER/CRISTOPHER T ORDERABLES Final Result * (ABNORMAL) Lipid Panel, Standard (06/04/2024 12:26 PM EDT) Triglycerides 165(H) <150 mg/dL [facility] Comment:Desirable Triglyceri de: less than 150 mg/dLBorderline High Triglyceride 150-199 mg/dLHigh Triglyceride: 200-499 mg/dLVery High Triglyceride: greater than or equal to 5OO mg/dL Cholesterol 146 <200 mg/dL [facility] Comment:Desirable Cholestero l: less than 200 mg/dLBorderline High Cholesterol: 200-239 mg/dLHigh Cholesterol: greater than 239 mg/dL LDL Cholesterol Calculated 82 <100 mg/dL [facility] Comment:Desirable LDL: less than 100 mg/dLNear Optimal/Above Optimal LDL: 110- 129 mg/dLBorderline High LDL: 130-159 mg/dLHigh LDL: 160-189 mg/dLVery High LDL: greater than or equal to 190 mg/dL HDL Cholesterol 31(L) >40 mg/dL [facility] Comment:Desirable HDL: great er than 40 mg/dL Note: This HDL assay may give artificially low results in patients with liver disease. Blood Venous blood specimen / Unknown 06/04/2024 12:26 PM EDT 06/04/2024 1:12 PM EDT us Tracie Mcginnis DO LAB BLOOD ORDERABLES Final R esult [facility] [address] [place] [address] [phone] * BI Mammogram Screening Tomosynthesis Bilateral (12/25/2023 1:40 PM EDT) Anatomical Region Laterality Modality Breast Bilateral Mammography 12/25/2023 1:40 PM EDT Narrative 01/07/2024 3:49 PM [facility] [address] [place] [address] Mammography Report Signed Patient: Tiffanie Dumont MR#: [id number] : 1970 Acct:[id number] Age/Sex: 53 / F ADM Date: 12/25/23 Loc: HO.MAMMO Attending Dr: Tracie Mcginnis DO Ordering Physician: Tracie Mcginnis DO Results: 2B enign Findings Date of Service: 12/25/23 Follow Up: 1 Year From Orig inal Mammogram Procedure(s): MM tomosynthesis screening BI Accession Number(s): [id number] cc: Tracie Mcginnis DO EXAMINATION: MM SCREENING [...] 01/07/24 1546 DD/ 1340 TD/TT: 12/25/23 1353 Private Equity Associate: Procedure Note Donotuseinterpreter, Image - 01/07/2024 [facility] [address] [place] [address] Mammography Report Signed Patient: Tiffanie Dumont AMR#: [id number] : 1970Acct:[id number] Age/Sex: 53 / FADM Date: 12/25/23 Loc: HO.MAMMO Attending Dr: Tracie Mcginnis DO Ordering Physician: Tracie Mcginnisults: 2B enign Findings Date of Service: 12/25/23Follow Up: 1 Year From Orig inal Mammogram Procedure(s): MM tomosynthesis screening BI Accession Number(s): [id number] cc: Tracie Mcginnis DO EXAMINATION: MM SCREENING [...] 01/07/24 1546 DD/ 1340 TD/TT: 12/25/23 1353 Private Equity Associate: Tracie Mcginnis DO IMG BI PROCEDURES Edited Res ult - Final * Hepatitis C Antibody with Reflex to HCV, RNA, Quantitative, Real-Time PCR (12/10/2023 3:11 PM EDT) Hepatitis C Antibody Nonreactive Nonreactive [facility] Comment:Antibodies to HCV no t detected; does not exclude early acuteHCV infection. Blood Venous blood specimen / Unknown 12/10/2023 3:11 PM EDT 12/10/2023 3:11 PM EDT Tracie Mcginnis DO LAB BLOOD ORDERABLES Final R esult [facility] [address] [place] [phone] * HIV-1/2 Antigen and Antibodies, Fourth Generation, with Reflexes (12/10/2023 3:11 PM EDT) HIV AB/AG Nonreactive Nonreactive [facility] Comment:HIV-1 p24 Ag and/or HIV-1/HIV-2 Ab not detected.A test result that is nonreactive does not exclude thepossibility of exposure to or infection with HIV-1 and/orHIV-2. Nonreactive results in this assay for individualswith prior exposure to HIV-1 and/or HIV-2 may be due toantigen and antibody levels that are below the limit ofdetection of this assay.The Phizzbo HIV Ag/Ab Combo assay result andsupplemental assay results should be interpreted inconjunction with the patient's clinical presentation,history and other laboratory results. If the results areinconsistent with clinical evidence, additional testing issuggested to confirm the result. Blood Venous blood specimen / Unknown 12/10/2023 3:11 PM EDT 12/10/2023 3:11 PM EDT Tracie Mcginnis DO LAB BLOOD ORDERABLES Final R esult [facility] [address] [place] [address] [phone] * Hm Colonoscopy (11/21/2022 6:53 PM EDT) us Historical Provider HEALTH MAINTENANCE Final Result from Last 3 Months or Most Recently Relevant to Health Maintenance Insurance [facility] ONE CARE < 65 Care Teams Instrument Mechanics Supervisor Relationship Specialty Start Date End Date Tracie Mcginnis DO [address] [place] [address] PCP - General Family Medicine 08/27/13 Lane Denise, NiviaD [address] [place] [address] Pharmacist Pharmacy 10/06/24
--- OUTSIDE RECORDS SUMMARY | 2024-11-21 08:58 | XMS_ITS | Encounter Summary ---
Author Organization [employer] Address 75 [facility] 7t [place] [address] Care Team Providers Care Computer Art Instructor Name Role Phone Tracie Mcginnis DO Primary Care Provider + [phone] Lane Denise PharmD Unavailable [phone] Reason for Visit * Reason Comments Med Refill Encounter Details Date Type Department Care Team (Late st Contact Info) Description 02/06/2024 Refill [facility] 230 [place], [place] [phone] Tracie Mcginnis DO 230 [place], [place] [phone] Primary insomnia Social History Tobacco Use Types [...] Description 01/23/2025 2:00 PM EST Medication Management [facility] [address] [place] [address] Lane Denise, PharmD 230 [place] [address] documented as of this encounter Visit Diagnoses Diagnosis Primary insomnia Persistent disorder of initiating or maintaining sleep documented in this encounter Additional Health Concerns Assessment Noted Time PHQ-9 Depression Total Score: 0 05/11/19 24 11:50 AM EST documented as of this encounter Care Teams Computer Art Instructor Relationship Specialty Start Date End Date Tracie Mcginnis DO [address] [place] [address] PCP - General Family Medicine 08/27/13 Lane Denise, PharmD [address] [place] [address] [phone] Pharmacist Pharmacy 10/06/24 documented as of this encounter
--- OUTSIDE RECORDS SUMMARY | 2024-11-21 08:58 | XMS_ITS | Clinical Summary ---
Author Organization [employer] Address [address] [place] [place] [address] Care Team Providers Care Petroleum Blending Plant Operator Name Role Phone Tracie Mcginnis Primary [...] Adults 18 yrs or above (or HM Modifier)([facility]) 05/27/1987 Hepatitis C Virus Infection in Adolescents and Adults: Screening (or Modifier) ([facility]) 05/27/1987 SDOH Screening Reminder: Jacki cummins for all adults ([facility]) 05/27/1987 Tobacco Smoking Cessation: i n Adults excluding Women: Behavioral and Pharmacotherapy Interventions ([facility]) 05/27/1987 DTaP/Tdap/Td Vaccines ([facility]) (1 - Tdap) 1988 Cervical Cancer Screenin 1-65 yrs of age (or Modifier) 1990 Cervical Cancer Screening: P ap every 3 yrs pts age 21-65 1990 Cervical Cancer: Pap Screeni ng with Modifier timing ([facility]) 1990 Cervical Cancer: hrHPV alone or with cotesting Pap for Pts 30-65yrs screening every 5yrs ([facility]) 1990 Colorectal Cancer Screening 45 -75 Yrs (or HM Modifier ) 2014 Colorectal Cancer: FLEXIBLE SIGMOIDOSCOPY Screening every 5 yrs 2014 Colorectal Cancer: Fecal Imm unochemical Test (FIT) Annually [facility] 2014 Colorectal Cancer: High-sens itivity gFOBT Screening Annually [facility] 2014 Colorectal Cancer: Stool Col oguard Screening every 3 yrs 2014 Colorectal Cancer:CT Colonography Screening every 5 yr s 2014 Breast Cancer: Screening Jacki ually age 50-74 yrs (or HM Modifier)([facility]) 05/27/2019 Lung Cancer: Screening Annua lly in adults aged 50 to 80 years (or HM Modifiers)([facility]) 05/27/2019 Pneumococcal Vaccination Scr eening: Patients 50+ yrs of age ([facility]) (1 of 1 - PCV) 05/27/2019 Zoster/Shingles Vaccine Seri es Screening: Adults aged 18+ yrs (or HM Modifiers)([facility]) (1 of 2) 05/27/2019 Flu Vaccination: Yearly for ages 18mos through 64 years (or Modifier)([facility]) 10/03/2024 COVID-19 Vaccine Screening: Initial Series and Booster Status ([facility]) ( season) 2024 [employer] Not on file Insurance [facility] PLAN Care Teams Petroleum Blending Plant Operator Relationship Specialty Start Date End Date Tracie Mcginnis DO [address] [place] [address] [phone] PCP - General Family Medicine 09/03/15
--- OUTSIDE RECORDS SUMMARY | 2024-11-21 08:58 | XMS_ITS | Encounter Summary ---
Author Organization [employer] Address 75 [facility] 7t [place] [address] Care Team Providers Care Paper Cutting Machine Operator Name Role Phone Tracie Mcginnis DO Primary Care Provider + [phone] Lane Denise PharmD Unavailable [phone] Encounter Details Date Type Department Care Team (Late st Contact Info) Description 04/19/2024 Orders Only [facility] 230 [place] [address] ProviderMarlon MD Social History Tobacco Use Types [...] Description 01/23/2025 2:00 PM EST Medication Management [facility] [address] [place] [address] Lane Denise, PharmMaritza 230 [place] [address] documented as of this encounter Procedures Procedure Name Priority Date/Time Associated Diagnosis Comments COLONOSCOPY Routine 11/21/2022 6:53 PM EDT documented in this encounter Results * Hm Colonoscopy (11/21/2022 6:53 PM EDT) Historical Provider HEALTH MAINTENANCE Final Result documented in this encounter Visit Diagnoses Not on filedocumented in this encounter Additional Health Concerns Assessment Noted Time PHQ-9 Depression Total Score: 0 05/11/19 24 11:50 AM EST documented as of this encounter Care Teams Paper Cutting Machine Operator Relationship Specialty Start Date End Date Tracie Mcginnis DO [address] [place] [address] [phone] PCP - General Family Medicine 08/27/13 Lane Denise, PharmD [address] [place] [address] [phone] Pharmacist Pharmacy 10/06/24 documented as of this encounter
--- OUTSIDE RECORDS SUMMARY | 2024-11-21 08:58 | XMS_ITS | Encounter Summary ---
Author Organization [employer] Address 75 [facility] 7t [place] [address] Care Team Providers Care Instrumentation Instructor Name Role Phone Tracie Mcginnis DO Primary Care Provider + [phone] Lane Denise PharmD Unavailable [phone] Reason for Visit * Reason Comments Med Refill Encounter Details Date Type Department Care Team (Late st Contact Info) Description 12/07/2023 Refill [facility] 230 [place], [place] [phone] Tracie Mcginnis DO 230 [place], [place] [phone] Primary insomnia Social History Tobacco Use Types [...] Description 01/23/2025 2:00 PM EST Medication Management [facility] [address] [place] [address] [address] Denise, PharmD 230 [place] [address] documented as of this encounter Visit Diagnoses Diagnosis Primary insomnia Persistent disorder of initiating or maintaining sleep documented in this encounter Additional Health Concerns Assessment Noted Time PHQ-9 Depression Total Score: 0 05/11/19 24 11:50 AM EST documented as of this encounter Care Teams Instrumentation Instructor Relationship Specialty Start Date End Date Tracie Mcginnis DO [address] [place] [address] PCP - General Family Medicine 08/27/13 Lane Denise, PharmD [address] [place] [address] [phone] Pharmacist Pharmacy 10/06/24 documented as of this encounter
--- OUTSIDE RECORDS SUMMARY | 2024-11-21 08:58 | XMS_ITS | Encounter Summary ---
Author Organization [employer] Address 75 [facility] 7t [place] [address] Care Team Providers Care Revenue Investigator Name Role Phone Tracie Mcginnis DO Primary Care Provider + [phone] Lane Denise PharmD Unavailable [phone] Reason for Visit * Reason Comments Med Refill Encounter Details Date Type Department Care Team (Late st Contact Info) Description 06/15/2023 Refill [facility] 230 [place], [place] [phone] Tracie Mcginnis DO 230 [place] [address] Social History Tobacco Use Types Packs/Day Years [...] Description 01/23/2025 2:00 PM EST Medication Management [facility] [address] [place] [address] [address] Denise, PharmD 230 [place] [address] documented as of this encounter Visit Diagnoses Not on filedocumented in this encounter Additional Health Concerns Assessment Noted Time PHQ-9 Depression Total Score: 0 05/11/19 24 11:50 AM EST documented as of this encounter Care Teams Revenue Investigator Relationship Specialty Start Date End Date Tracie Mcginnis DO [address] [place] [address] PCP - General Family Medicine 08/27/13 Lane Denise, PharmD [address] [place] [address] [phone] Pharmacist Pharmacy 10/06/24 documented as of this encounter
--- OUTSIDE RECORDS SUMMARY | 2024-11-21 08:58 | XMS_ITS | Encounter Summary ---
Author Organization [employer] Address 75 [facility] 7[place] [address] Care Team Providers Care Wooden Boat Builder Name Role Phone Tracie Mcginnis DO Primary Care Provider + [phone] Lane Denise PharmD Unavailable [phone] Encounter Details Date Type Department Care Team (Late st Contact Info) Description 02/28/2022 Orders Only [facility] [address] [place] [address] Tracie Dalton LPN Social History Tobacco Use [...] Description 01/23/2025 2:00 PM EST Medication Management [facility] [address] [place] [address] [address] Denise, PharmD 230 [place] [address] documented as of this encounter Visit Diagnoses Not on filedocumented in this encounter Care Teams Wooden Boat Builder Relationship Specialty Start Date End Date Tracie Mcginnis DO 230 [place] [address] PCP - General Family Medicine 08/27/13 Lane Denise, PharmD [address] [place] [phone] Pharmacist Pharmacy 10/06/24 documented as of this encounter
--- OUTSIDE RECORDS SUMMARY | 2024-11-21 08:58 | XMS_ITS | Encounter Summary ---
Author Organization [employer] [facility] Address [address] [place] [address] 7 [place] [address] Care Team Providers Care Patch Washer Name Role Phone Tracie Mcginnis DO Primary Care Provider [phone] Lane Denise PharmD Unavailable [phone] Encounter Details Date Type Department Care Team (Late st Contact Info) Description 03/16/2022 Telephone [facility] [address] [place] [address] Tracie Mcginnis DO 230 [place] [address] Social History Tobacco Use Types Packs/Day Years [...] Description 01/23/2025 2:00 PM EST Medication Management [facility] [address] [place] [address] [address] Denise, PharmD 230 [place] [address] documented as of this encounter Visit Diagnoses Not on filedocumented in this encounter Care Teams Patch Washer Relationship Specialty Start Date End Date Tracie Mcginnis DO [address] [place] [address] PCP - General Family Medicine 08/27/13 Lane Denise, NiviaD [address] [place] [address] [phone] Pharmacist Pharmacy 10/06/24 documented as of this encounter
--- OUTSIDE RECORDS SUMMARY | 2024-11-21 08:58 | XMS_ITS | Encounter Summary ---
Author Organization [employer] Address 75 [facility] 7t [place] [address] Care Team Providers Care Clipper Counters Name Role Phone Tracie Mcginnis DO Primary Care Provider + [phone] Lane Denise PharmD Unavailable [phone] Reason for Visit * Reason Comments Med Refill Encounter Details Date Type Department Care Team (Late st Contact Info) Description 04/11/2024 Refill [facility] MED[facility]INE 230 [place], [place] [phone] Tracie Mcginnis DO 230 [place], [place] [phone] Primary insomnia Social History Tobacco Use Types [...] your housing situation today? I have nahid samrt 05/11/[address] you li [...] Description 01/23/2025 2:00 PM EST Medication Management [facility] [address] [place] [address] Lane Denise, PharmD 230 [place] [address] documented as of this encounter Visit Diagnoses Diagnosis Primary insomnia Persistent disorder of initiating or maintaining sleep documented in this encounter Additional Health Concerns Assessment Noted Time PHQ-9 Depression Total Score: 0 05/11/19 24 11:50 AM EST documented as of this encounter Care Teams Clipper Counters Relationship Specialty Start Date End Date Tracie Mcginnis DO [address] [place] [address] PCP - General Family Medicine 08/27/13 Lane Denise, PharmD [address] [place] [address] [phone] Pharmacist Pharmacy 10/06/24 documented as of this encounter
--- OUTSIDE RECORDS SUMMARY | 2024-11-21 08:58 | XMS_ITS | Encounter Summary ---
Author Organization [employer] Address 75 [facility] 7t [place] [address] Care Team Providers Care Boat Canvas Maker And Installer Name Role Phone Tracie Mcginnis DO Primary Care Provider + [phone] Lane Denise PharmD Unavailable [phone] Reason for Visit * Reason Comments Med Refill Encounter Details Date Type Department Care Team (Late st Contact Info) Description 09/26/2024 Refill [facility] 230 [place], [place] [phone] Tracie Mcginnis DO 230 [place], [place] [phone] Nonintractable chronic migraine Social History Tobacco Use [...] Telephone Encounter - Tracie Mcginnis DO - 09/29/2024 2:02 PM EDT Rx already sent. documented in this encounter Plan of Treatment Upcoming Encounters Date Type Department Care Team (Late st Contact Info) Description 01/23/2025 2:00 PM EST Medication Management [facility] [address] [place] [address] Lane Denise PharmD 230 [place] [address] documented as of this encounter Visit Diagnoses Diagnosis Nonintractable chronic migraine documented in this encounter Additional Health Concerns Assessment Noted Time PHQ-9 Depression Total Score: 14 025 11:26 AM EDT documented as of this encounter Care Teams Boat Canvas Maker And Installer Relationship Specialty Start Date End Date Tracie Mcginnis DO 230 [place] [address] PCP - General Family Medicine 08/27/13 Lane Denise, PharmD 230 [place] [address] Pharmacist Pharmacy 10/06/24 documented as of this encounter
--- OUTSIDE RECORDS SUMMARY | 2024-11-21 08:58 | XMS_ITS | Encounter Summary ---
Author Organization [employer] Address 75 [facility] 7t [place] [address] Care Team Providers Care Zoning Administrator Name Role Phone Tracie Mcginnis DO Primary Care Provider + [phone] Lane Denise PharmD Unavailable [phone] Reason for Visit * Reason Comments Med Refill Encounter Details Date Type Department Care Team (Late st Contact Info) Description 02/26/2024 Refill [facility] 230 [place], [place] [phone] Tracie Mcginnis DO 230 [place], [place] [phone] Primary insomnia Social History Tobacco Use Types [...] Description 01/23/2025 2:00 PM EST Medication Management [facility] [address] [place] [address] [address] Denise, PharmD 230 [place] [address] documented as of this encounter Visit Diagnoses Diagnosis Primary insomnia Persistent disorder of initiating or maintaining sleep documented in this encounter Additional Health Concerns Assessment Noted Time PHQ-9 Depression Total Score: 0 05/11/19 24 11:50 AM EST documented as of this encounter Care Teams Zoning Administrator Relationship Specialty Start Date End Date Tracie Mcginnis DO [address] [place] [address] PCP - General Family Medicine 08/27/13 Lane Denise, PharmD [address] [place] [address] [phone] Pharmacist Pharmacy 10/06/24 documented as of this encounter
--- OUTSIDE RECORDS SUMMARY | 2024-11-21 08:58 | XMS_ITS | Encounter Summary ---
Author Organization [employer] Address 75 [facility] 7t [place] [address] Care Team Providers Care Javascript Ui Developer Name Role Phone Tracei Mcginnis DO Primary Care Provider + [phone] Lane Denise PharmD Unavailable [phone] Reason for Visit * Reason Comments Med Refill Encounter Details Date Type Department Care Team (Late st Contact Info) Description 04/23/2024 Refill [facility] [address] [place] [address] Tracie Mcginnis DO 230 [place], [place] [phone] Social History Tobacco Use Types Packs/Day Years [...] Description 01/23/2025 2:00 PM EST Medication Management [facility]INE [address] [place] [address] Lane Denise, PharmD 230 [place] [address] documented as of this encounter Visit Diagnoses Not on filedocumented in this encounter Additional Health Concerns Assessment Noted Time PHQ-9 Depression Total Score: 0 05/11/19 24 11:50 AM EST documented as of this encounter Care Teams Javascript Ui Developer Relationship Specialty Start Date End Date Tracie Mcginnis DO [address] [place] [address] PCP - General Family Medicine 08/27/13 Lane Denise, PharmD [address] [place] [address] [phone] Pharmacist Pharmacy 10/06/24 documented as of this encounter
--- OUTSIDE RECORDS SUMMARY | 2024-11-21 08:58 | XMS_ITS | Encounter Summary ---
Author Organization [employer] Address 75 [facility] 7t [place] [address] Care Team Providers Care Mattress Specialist Name Role Phone Tracie Mcginnis DO Primary Care Provider + [phone] Lane Denise PharmD Unavailable [phone] Reason for Visit * Reason Comments Med Refill Encounter Details Date Type Department Care Team (Late st Contact Info) Description 08/01/2024 Refill [facility]S [address] [place], [place] [phone] Tracie Mcginnis DO 230 [place], [place] [phone] Diabetic polyneuropathy associated with type 2 diabetes mellitus (CMS/HCC) Social History Tobacco Use Types Packs/Day [...] Description 01/23/2025 2:00 PM EST Medication Management [facility] MEDICINE [address] [place] [address] Lane Denise, PharmD 230 [place] [address] documented as of this encounter Visit Diagnoses Diagnosis Diabetic polyneuropathy associated with type 2 diabetes mellitus ([facility]) documented in this encounter Additional Health Concerns Assessment Noted Time PHQ-9 Depression Total Score: 14 025 11:26 AM EDT documented as of this encounter Care Teams Mattress Specialist Relationship Specialty Start Date End Date Tracie Mcginnis DO 230 [place], [place] [phone] PCP - General Family Medicine 08/27/13 Lane Denise, PharmD [address] [place] [phone] Pharmacist Pharmacy 10/06/24 documented as of this encounter
--- OUTSIDE RECORDS SUMMARY | 2024-11-21 08:58 | XMS_ITS | Encounter Summary ---
Author Organization [employer] Address 75 [facility] 7t [place] [address] Care Team Providers Care Creative Art Therapist Name Role Phone Tracie Mcginnis DO Primary Care Provider + [phone] Lane Denise PharmD Unavailable [phone] Reason for Visit * Reason Onset Date Comments Nurse Triage 04/18/2023 Encounter Details Date Type Department Care Team (Late st Contact Info) Description 04/18/2023 Telephone [facility] MEDICINE 230 [place], [place] [phone] Tracie Mcginnis DO 230 [place], [place] [phone] Nurse Triage Social History Tobacco Use Types [...] Description 01/23/2025 2:00 PM EST Medication Management [facility] MEDICINE [address] [place] [address] Lane Denise, Myah 230 [place] [address] documented as of this encounter Visit Diagnoses Not on filedocumented in this encounter Care Teams Creative Art Therapist Relationship Specialty Start Date End Date Tracie Mcginnis DO [address] [place] [address] PCP - General Family Medicine 08/27/13 Lane Denise, PharmMaritza [address] [place] [address]49 Pharmacist Pharmacy 10/06/24 documented as of this encounter
--- OUTSIDE RECORDS SUMMARY | 2024-11-21 08:58 | XMS_ITS | Encounter Summary ---
Author Organization [employer] Address 75 [facility] 7t [place] [address] Care Team Providers Care Biomass Plant Technician Name Role Phone Tracie Mcginnis DO Primary Care Provider + [phone] Laen Denise PharmD Unavailable [phone] Encounter Details Date Type Department Care Team ([facility] st Contact Info) Description 08/17/2023 Telephone [facility] MEDICINE 230 [place], [place] [phone] Tracie Mcginnis DO 230 [place], [place] [phone] Social History Tobacco Use Types Packs/Day Years [...] 01/23/2025 2:00 PM EST Medication Management [facility] MEDICINE [address] [place] [address] Lane Denise, PharmD 230 [place] [address] documented as of this encounter Visit Diagnoses Not on filedocumented in this encounter Additional Health Concerns Assessment Noted Time PHQ-9 Depression Total Score: 0 05/11/19 24 11:50 AM EST documented as of this encounter Care Teams Biomass Plant Technician Relationship Specialty Start Date End Date Tracie Mcginnis DO [address] [place] [address] PCP - General Family Medicine 08/27/13 Lane Denise, PharmD [address] [place] [address] [phone] Pharmacist Pharmacy 10/06/24 documented as of this encounter
--- OUTSIDE RECORDS SUMMARY | 2024-11-21 08:58 | XMS_ITS | Encounter Summary ---
Author Organization [employer] Address 75 [facility] 7t [place] [address] Care Team Providers Care National Accounts Sales Name Role Phone Tracie Mcginnis DO Primary Care Provider + [phone] Lane Denise PharmD Unavailable [phone] Encounter Details Date Type Department Care Team ([facility] st Contact Info) Description 12/13/2022 Telephone [facility] MEDICINE 230 [place], [place] [phone] Tracie Mcginnis DO 230 [place], [place] [phone] Social History Tobacco Use Types Packs/Day Years [...] Description 01/23/2025 2:00 PM EST Medication Management [facility] MEDICINE [address] [place] [address] Lane Denise, PharmD 230 [place] [address] documented as of this encounter Visit Diagnoses Not on filedocumented in this encounter Care Teams National Accounts Sales Relationship Specialty Start Date End Date Tracie Mcginnis DO [address] [place] [address] PCP - General Family Medicine 08/27/13 Lane Denise, PharmD [address] [place] [address] [phone] Pharmacist Pharmacy 10/06/24 documented as of this encounter
--- OUTSIDE RECORDS SUMMARY | 2024-11-21 08:58 | XMS_ITS | Encounter Summary ---
Author Organization [employer] Address 75 [facility] 7t [place] [address] Care Team Providers Care Aerial Crop Duster Name Role Phone Tracie Mcginnis DO Primary Care Provider + [phone] Lane Denise PharmD Unavailable [phone] Reason for Visit * Reason Comments Med Refill Encounter Details Date Type Department Care Team (Late st Contact Info) Description 09/17/2024 Refill [facility] MEDICINE 230 [place], [place] [phone] Tracie Mcginnis DO 230 [place], [place] [phone] Diabetic polyneuropathy associated with type 2 diabetes [...] Description 01/23/2025 2:00 PM EST Medication Management [facility]INE [address] [place] [address] Lane Denise, PharmD 230 [place] [address] documented as of this encounter Visit Diagnoses Diagnosis Diabetic polyneuropathy associated with type 2 diabetes mellitus ([facility]) documented in this encounter Additional Health Concerns Assessment Noted Time PHQ-9 Depression Total Score: 14 025 11:26 AM EDT documented as of this encounter Care Teams Aerial Crop Duster Relationship Specialty Start Date End Date Tracie Mcginnis DO [address] [place] [address] [phone] PCP - General Family Medicine 08/27/13 Lane Denise, PharmD [address] [place] [phone] Pharmacist Pharmacy 10/06/24 documented as of this encounter
--- OUTSIDE RECORDS SUMMARY | 2024-11-21 08:58 | XMS_ITS | Encounter Summary ---
Author Organization [employer] Address 75 [facility] 7t [place] [address] Care Team Providers Care Printed Circuit Boards Inspector Name Role Phone Tracie Mcginnis DO Primary Care Provider + [phone] Lane Denise PharmD Unavailable [phone] Reason for Visit * Reason Comments Med Refill Encounter Details Date Type Department Care Team (Late st Contact Info) Description 11/17/2024 Refill [facility] 230 [place], [place] [phone] Tracie Mcginnis DO 230 [place], [place] [phone] Diabetic polyneuropathy associated with type 2 diabetes mellitus (CMS/HCC) Social History Tobacco Use Types Packs/Day Years Used Date Smoking Tobacco: Every Day Cigarettes 2 39.7 Started: 1985 Passive Smoke Exposure: Current Smokeless Tobacco: Never Comments:Smoked 1-2 ppd for 40+ years Alcohol [...] Description 01/23/2025 2:00 PM EST Medication Management [facility] [address] [place], [place] [phone] Lane Denise, PharmD 230 [place] [address] documented as of this encounter Visit Diagnoses Diagnosis Diabetic polyneuropathy associated with type 2 diabetes mellitus ([facility]) documented in this encounter Additional Health Concerns Assessment Noted Time PHQ-9 Depression Total Score: 14 025 11:26 AM EDT documented as of this encounter Care Teams Printed Circuit Boards Inspector Relationship Specialty Start Date End Date Tracie Mcginnis DO [address] [place] [address] [phone] PCP - General Family Medicine 08/27/13 Lane Denise, PharmD [address] [place] [address] [phone] Pharmacist Pharmacy 10/06/24 documented as of this encounter
--- OUTSIDE RECORDS SUMMARY | 2024-11-21 08:58 | XMS_ITS | Encounter Summary ---
Author Organization [employer] Address 75 [facility] 7t [place] [address] Care Team Providers Care Union Laborer Name Role Phone Tracie Mcginnis DO Primary Care Provider + [phone] [address] Denise PharmD Unavailable [phone] Reason for Visit * Reason Comments Med Refill Encounter Details Date Type Department Care Team (Late st Contact Info) Description 11/16/2024 Refill [facility] 230 [place], [place] [phone] Tracie Mcginnis DO 230 [place], [place] [phone] Diabetic polyneuropathy associated with type 2 diabetes [...] Description 01/23/2025 2:00 PM EST Medication Management [facility] [address] [place], [place] [phone] Lane Denise, PharmD 230 [place] [address] documented as of this encounter Visit Diagnoses Diagnosis Diabetic polyneuropathy associated with type 2 diabetes mellitus ([facility]) documented in this encounter Additional Health Concerns Assessment Noted Time PHQ-9 Depression Total Score: 14 025 11:26 AM EDT documented as of this encounter Care Teams Union Laborer Relationship Specialty Start Date End Date Tracie Mcginnis DO [address] [place] [address] [phone] PCP - General Family Medicine 08/27/13 Lane Denise, PharmD [address] [place] [address] [phone] Pharmacist Pharmacy 10/06/24 documented as of this encounter
--- OUTSIDE RECORDS SUMMARY | 2024-11-21 08:58 | XMS_ITS | Encounter Summary ---
Author Organization [employer] Address 75 [facility] 7t [place] [address] Care Team Providers Care Oil Refiner Name Role Phone Tracie Mcginnis DO Primary Care Provider + [phone] Lane Denise PharmD Unavailable [phone] Reason for Visit * Reason Comments Med Refill Encounter Details Date Type Department Care Team (Late st Contact Info) Description 09/02/2024 Refill [facility] 230 [place], [place] [phone] Tracie Mcginnis DO 230 [place] [address] Social History Tobacco Use Types Packs/Day Years [...] Description 01/23/2025 2:00 PM EST Medication Management [facility] [address] [place] [address] [address] Denise, PharmD 230 [place] [address] documented as of this encounter Visit Diagnoses Not on filedocumented in this encounter Additional Health Concerns Assessment Noted Time PHQ-9 Depression Total Score: 14 025 11:26 AM EDT documented as of this encounter Care Teams Oil Refiner Relationship Specialty Start Date End Date Tracie Mcginnis DO [address] [place] [address] 99[address] PCP - General Family Medicine 08/27/13 Lane Denise, PharmD [address] [place] [phone] Pharmacist Pharmacy 10/06/24 documented as of this encounter
--- OUTSIDE RECORDS SUMMARY | 2024-11-21 08:58 | XMS_ITS | Clinical Summary ---
Author Organization [facility] Address [address] [facility] [address] [place] [address] Phone Care Team Providers Care Ip Attorney Name Role Phone Debbie Luna MD Primary Care Provider [phone] Allergies Active Allergy Reactions Criticality Noted Date [...] Comments) High 11/16/2022 Very nervous, agitation Medications diazePAM (VALIUM) 5 MG tabletIndicatio ns:anxiety,as needed only Take 5 mg by mouth 3 (three) times a day. Indications: anxious, as needed only Active zolpidem (AMBIEN) 10 mg tabletIndicatio ns:@ BT Take 10 mg by mouth daily. Indications: @ BT Active haloperidoL (HALDOL) 1 MG tabletIndicatio ns:as needed only Take 1 mg by mouth 3 (three) times a day. Indications: as needed only Active butorphanol (STADOL) 10 mg/mL nasal spray 1 spray by Nasal route as needed for pain (specific location in comments). Active QUEtiapine (SEROQUEL) 300 MG tabletIndicatio ns:@ BT Take 900 mg by mouth nightly at bedtime. Indications: @ BT Active mirtazapine (REMERON) 30 MG tablet Take 60 mg by mouth nightly at bedtime. Active metoprolol succinate (TOPROL-XL) 50 MG 24 hr tabletIndicatio ns:@ BT Take 50 mg by mouth daily. Indications: @ BT Active lamoTRIgine (LAMICTAL XR) 100 mg [id number] :@ BT Take 150 mg by mouth daily. Indications: @ BT Active gabapentin (NEURONTIN) 600 MG tabletIndicatio ns:@ BT Take 600 mg by mouth daily. Indications: @ BT Active atorvastatin (LIPITOR) 40 MG tabletIndicatio ns:hyperlipidem ia Take 40 mg by mouth daily. Indications: excessive fat in the blood Active famotidine (PEPCID) 40 MG tabletIndicatio ns:@ BT Take 40 mg by mouth daily. Indications: @ BT Active potassium chloride (KLOR-CON) 10 MEQ ER tablet Take 20 mEq by mouth 2 (two) times a day. Active fluticasone propionate (FLONASE) 50 mcg/actuation nasal spray 1 spray by Nasal route daily. Active pantoprazole (PROTONIX) 40 MG tablet Take 40 mg by mouth daily. Active [employer] BEREKET 2 READER as directed. 3 Active Active Problems No known active problems [...] or tries to control you? No 02/19/2023 Comments No Sex and Gender Information Value Date Recorded Sex Assigned at Not on file Legal Sex Female 10:32 PM EDT Gender Identity Not on file Sexual Orientation Not on file Last Filed Vital Signs Vital Sign Reading Time Taken Comments Blood Pressure 90/53 02/20/2023 11:36 AM EST Pulse 80 02/20/2023 11:36 AM EST Temperature 36.1 C (97 F) 02/20/2023 11:29 AM EST Respiratory Rate 16 [...] 2014 MAMMOGRAM 11/22/2019 11/21/2017 INFLUENZA VACCINE (#1) 2024 , 11/11/2021, 02/18/2021, Additional history exists COVID-19 VACCINE ( season) 2024 01/16/2023, 04/06/2022, 06/24/2021, Additional history exists Adult [...] age to complete this topic MENINGOCOCCAL VACCINES (B) Aged Out N o longer eligible based on patient's age to complete this topic Medical Devices Not on file Procedures Procedure Name Priority Date/Time Associated Diagnosis Comments ENDOSCOPY, COLON 11/21/2022 9:42 AM EDT from Last 3 Months or Most Recently Relevant to Health Maintenance Results * ENDOSCOPY, COLON (11/21/2022 9:42 AM EDT) Narrative Transcriptions Debbie Luna MD, MPH - 11/21/2022 9:42 AM EDT [facility] Patient Name: Tiffanie Neil MD:: Debbie Luna MD, Procedure Date: 11/21/2022 9:42 AM Date of : 1970 Age: 52 Admit Type: Outpatient Gender: Female Room: [facility] Referring MD: Kavya Mcginnis MD Exam Type: [...] monitored continuously. The Olympus adult variable colonoscope [id number] #6 was introduced through the anus and advanced to the cecum, identified by appendiceal orifice andileocecal valve. The colonoscopy was performed without difficulty. The patient tolerated the procedurewell. The quality of the bowel preparation was evaluated using the BBPS ([place] Bowel Preparation Scale)with scores of: Right Colon [...] 9:42 AM Procedure Code(s): --- Professional --- 01929, Colonoscopy, flexible; with biopsy, single or multiple --- Technical --- 82484, Colonoscopy, flexible; with biopsy, single or multiple Diagnosis Code(s): --- Professional --- R10.84, Generalized abdominal pain R19.7, Diarrhea, unspecified --- Technical --- R10.84, Generalized abdominal pain R19.7, Diarrhea, unspecified CPT copyright 2021 [employer]. All rights reserved. The codes documented in this report are preliminary and upon garment liner reviewmay be revised to meet current compliance requirements. Procedure Date: 11/21/2022 9:42:58 AM 30 [place] [address] Kavya Mcginnis DO GI PROCEDURE ORDERABLES Denise l Result from Last 3 Months or Most Recently Relevant to Health Maintenance Insurance [facility] MEDICARE REPLACEMENT MEDICARE PART A & B [facility] MEDICARE REPLACEMENT MEDICARE PART A & B [facility] MEDICARE REPLACEMENT MEDICARE PART A & B [facility] MEDICARE REPLACEMENT MEDICARE PART A & B [facility] MEDICARE REPLACEMENT MEDICARE PART A & B [facility] MEDICARE REPLACEMENT MEDICARE PART A & B Care Teams Ip Attorney Relationship Specialty Start Date End Date Debbie Luna MD PCP - General Internal Medicine 02/08/23 KAVYA MCGINNIS Primary Care Physician 02/20/23 Additional Source Comments The information contained in this document represents components of the legal health record. It is not the complete legal health record.[facility]
--- OUTSIDE RECORDS SUMMARY | 2024-11-21 08:58 | XMS_ITS | Encounter Summary ---
Author Organization [employer] Address 75 [facility] 7t [place] [address] Care Team Providers Care Plug Paster Name Role Phone Tracie Mcginnis DO Primary Care Provider + [phone] Lane Denise PharmD Unavailable [phone] Reason for Visit * Reason Comments Med Refill Encounter Details Date Type Department Care Team (Late st Contact Info) Description 02/29/2024 Refill [facility] 230 [place], [place] [phone] Gwendolyn Ortega MD 230 [place], [place] [phone] Nonintractable chronic migraine Social History Tobacco Use [...] is your housing situation today? I have nahidduke smart 05/11/[address] you [...] Description 01/23/2025 2:00 PM EST Medication Management [facility] [address] [place] [address] [address] Denise, PharmD 230 [place] [address] documented as of this encounter Visit Diagnoses Diagnosis Nonintractable chronic migraine documented in this encounter Additional Health Concerns Assessment Noted Time PHQ-9 Depression Total Score: 0 05/11/19 24 11:50 AM EST documented as of this encounter Care Teams Plug Paster Relationship Specialty Start Date End Date Trcaie Mcginnis DO [address] [place] [address] PCP - General Family Medicine 08/27/13 Lane Denise, PharmD [address] [place] [phone] Pharmacist Pharmacy 10/06/24 documented as of this encounter
--- OUTSIDE RECORDS SUMMARY | 2024-11-21 08:58 | XMS_ITS | Encounter Summary ---
Author Organization [employer] Address 75 [facility] 7t [place] [address] Care Team Providers Care Goring Cutter Name Role Phone Tracie Mcginnis DO Primary Care Provider + [phone] Lane Denise PharmD Unavailable [phone] Reason for Visit * Reason Onset Date Comments Nurse Triage 10/26/2023 Encounter Details Date Type Department Care Team (Late st Contact Info) Description 10/26/2023 Telephone [facility] 230 [place], [place] [phone] Tracie Mcginnis DO 230 [place], [place] [phone] Nurse Triage Social History Tobacco Use Types [...] 1:52 PM EDT Noted. Pt seen by [facility] on 10/26/23. Pt was dx w/ cellulitis and given RX for cephalexin 500mg q6 hours x10 days. Per [facility] note: Dispatched to the call address for the female with a spot of concern on her stomach. Pt states shehad this small area on her lower left abd that didn't bother her really but after a month she saw her radial drill operator for plastic who advised to just leave it alone unless it starts to bother her. About 2 weeks ago it started to become painful and tender. Pt called her radial drill operator for plastic today who was not able to see [...] times are approx. TC placed to pt [phone] who reports she has NOT p/u abx yet from the pharmacy. Pt reports she will p/u the abx today (from [facility]). Pt advised if no improvement once the abx are completed to call [facility] for an appt for re-evaluation. Pt [...] Description 01/23/2025 2:00 PM EST Medication Management [facility] [address] [place] [address] [address] Denise, PharmD 230 [place] [address] documented as of this encounter Visit Diagnoses Not on filedocumented in this encounter Additional Health Concerns Assessment Noted Time PHQ-9 Depression Total Score: 0 05/11/19 24 11:50 AM EST documented as of this encounter Care Teams Goring Cutter Relationship Specialty Start Date End Date Tracie Mcginnis DO [address] [place] [address] PCP - General Family Medicine 08/27/13 Lane Denise, PharmD [address] [place] [address] [phone] Pharmacist Pharmacy 10/06/24 documented as of this encounter
--- OUTSIDE RECORDS SUMMARY | 2024-11-21 08:58 | XMS_ITS | Encounter Summary ---
Author Organization [employer] Address 75 [facility] 7t [place] [address] Care Team Providers Care Retail Sales Associate Name Role Phone Tracie Mcginnis DO Primary Care Provider + [phone] Lane Denise PharmD Unavailable [phone] Reason for Visit * Reason Comments Med Refill Encounter Details Date Type Department Care Team (Late st Contact Info) Description 08/11/2022 Refill [facility] 230 [place], [place] [phone] Traice Mcginnis DO 230 [place], [place] [phone] Nonintractable chronic migraine Social History Tobacco Use [...] Description 01/23/2025 2:00 PM EST Medication Management [facility] [address] [place] [address] [address] Denise, PharmD 230 [place] [address] documented as of this encounter Visit Diagnoses Diagnosis Nonintractable chronic migraine documented in this encounter Care Teams Retail Sales Associate Relationship Specialty Start Date End Date Tracie Mcginnis DO [address] [place] [address] PCP - General Family Medicine 08/27/13 Lane Denise, PharmD [address] [place] [phone] Pharmacist Pharmacy 10/06/24 documented as of this encounter
--- OUTSIDE RECORDS SUMMARY | 2024-11-21 08:58 | XMS_ITS | Encounter Summary ---
Author Organization [facility] Address [address] [place] [address] 7 [place] [address] Care Team Providers Care Drapery Maker Name Role Phone Tracie Mcginnis DO Primary Care Provider + [phone] Lane Denise PharmD Unavailable [phone] Reason for Visit * Reason Comments Med Refill Encounter Details Date Type Department Care Team (Late Contact Info) Description 11/28/2022 Refill [facility] [address] [place] [address] Tracie Mcginnis DO 230 [place] [address] Social History Tobacco Use Types Packs/Day Years [...] Encounters Date Type Department Care Team (Late Contact Info) Description 01/23/2025 2:00 PM EST Medication Management [facility] [address] [place] [address] [address] Denise, PharmD 230 [place] [address] documented as of this encounter Visit Diagnoses Not on filedocumented in this encounter Care Teams Drapery Maker Relationship Specialty Start Date End Date Tracie Mcginnis DO [address] [place] [address] PCP - General Family Medicine 08/27/13 Lane Denise, PharmD [address] [place] [address] [phone] Pharmacist Pharmacy 10/06/24 documented as of this encounter
--- OUTSIDE RECORDS SUMMARY | 2024-11-21 08:58 | XMS_ITS | Encounter Summary ---
Author Organization [employer] Address 75 [facility] 7t [place] [address] Care Team Providers Care Delinquent Account Clerk Name Role Phone Tracie Mcginnis DO Primary Care Provider + [phone] Lane Denise PharmD Unavailable [phone] Reason for Visit * Reason Comments Med Refill Encounter Details Date Type Department Care Team (Late st Contact Info) Description 10/04/2023 Refill [facility] [address] [place], [place] [phone] Tracie Mcginnis DO 230 [place], [place] [phone] Diabetic polyneuropathy associated with type 2 diabetes [...] Description 01/23/2025 2:00 PM EST Medication Management [facility] MED[facility]INE [address] [place] [address] [address] Denise, PharmD 230 [place] [address] documented as of this encounter Visit Diagnoses Diagnosis Diabetic polyneuropathy associated with type 2 diabetes mellitus ([facility]) Nausea Nausea alone documented in this encounter Additional Health Concerns Assessment Noted Time PHQ-9 Depression Total Score: 0 05/11/19 24 11:50 AM EST documented as of this encounter Care Teams Delinquent Account Clerk Relationship Specialty Start Date End Date Tracie Mcginnis DO 230 [place] [address] PCP - General Family Medicine 08/27/13 Lane Denise, PharmD [address] [place] [address] Pharmacist Pharmacy 10/06/24 documented as of this encounter
--- OUTSIDE RECORDS SUMMARY | 2024-11-21 08:58 | XMS_ITS | Encounter Summary ---
Author Organization [employer] Address 75 [facility] 7t [place] [address] Care Team Providers Care Knifer Up Name Role Phone Tracie Mcginnis DO Primary Care Provider + [phone] Lane Denise PharmD Unavailable [phone] Reason for Visit * Reason Comments Med Refill Encounter Details Date Type Department Care Team (Late st Contact Info) Description 02/12/2023 Refill [facility]INE 230 [place], [place] [phone] Tracie Mcginnis DO 230 [place] [address] Social History Tobacco Use Types Packs/Day Years [...] Medication Management [facility] MED[facility]INE [address] [place] [address] Denise, PharmD [address] [place] [address] documented as of this encounter Visit Diagnoses Not on filedocumented in this encounter Care Teams Knifer Up Relationship Specialty Start Date End Date Tracie Mcginnis DO [address] [place] [address] PCP - General Family Medicine 08/27/13 Lane Denise, PharmD [address] [place] [address]27 Pharmacist Pharmacy 10/06/24 documented as of this encounter
--- OUTSIDE RECORDS SUMMARY | 2024-11-21 08:58 | XMS_ITS | Encounter Summary ---
Author Organization [employer] Address 75 [facility] 7t [place] [address] Care Team Providers Care X Ray Consultant Name Role Phone Tracie Mcginnis DO Primary Care Provider + [phone] Lane Denise PharmD Unavailable [phone] Reason for Visit * Reason Comments Med Refill Encounter Details Date Type Department Care Team (Late st Contact Info) Description 03/03/2024 Refill [facility] 230 [place], [place] [phone] Gwendolyn Ortega MD 230 [place], [place] [phone] Nonintractable chronic migraine Social History Tobacco Use [...] Description 01/23/2025 2:00 PM EST Medication Management [facility] [address] [place] [phone] Denise PharmD [address] [place] [address] documented as of this encounter Visit Diagnoses Diagnosis Nonintractable chronic migraine documented in this encounter Additional Health Concerns Assessment Noted Time PHQ-9 Depression Total Score: 0 05/11/19 24 11:50 AM EST documented as of this encounter Care Teams X Ray Consultant Relationship Specialty Start Date End Date Tracie Mcginnis DO [address] [place] [address] PCP - General Family Medicine 08/27/13 Lane Denise, NiviaD [address] [place] [address]38 Pharmacist Pharmacy 10/06/24 documented as of this encounter
--- OUTSIDE RECORDS SUMMARY | 2024-11-21 08:58 | XMS_ITS | Encounter Summary ---
Author Organization [employer] Address 75 [facility] 7t [place] [address] Care Team Providers Care Tax Accounting Assistant Name Role Phone Tracie Mcginnis DO Primary Care Provider + [phone] Lane Denise PharmD Unavailable [phone] Reason for Visit * Reason Comments Med Refill Encounter Details Date Type Department Care Team (Late st Contact Info) Description 03/30/2022 Refill [facility] MED[facility]INE 230 [place], [place] [phone] Tracie Mcginnis DO 230 [place], [place] [phone] Other hyperlipidemia (Primary Dx) Social History Tobacco [...] Description 01/23/2025 2:00 PM EST Medication Management [facility] [address] [place] [address] Denise, Myah [address] [place] [address] documented as of this encounter Visit Diagnoses Diagnosis Other hyperlipidemia- Primary documented in this encounter Care Teams Tax Accounting Assistant Relationship Specialty Start Date End Date Tracie Mcginnis DO [address] [place] [address] PCP - General Family Medicine 08/27/13 Lane Denise, PharmD [address] [place] [phone] Pharmacist Pharmacy 10/06/24 documented as of this encounter
--- OUTSIDE RECORDS SUMMARY | 2024-11-21 08:58 | XMS_ITS | Encounter Summary ---
Author Organization [employer] Address 75 [facility] 7t [place] [address] Care Team Providers Care Tube Closing Machine Operator Name Role Phone Tracie Mcginnis DO Primary Care Provider + [phone] Lane Denise PharmD Unavailable [phone] Reason for Visit * Reason Onset Date Comments Med Refill 08/17/2023 Encounter Details Date Type Department Care Team (Late st Contact Info) Description 08/17/2023 Telephone [facility] 230 [place], [place] [phone] Tracie Mcginnis DO 230 [place], [place] [phone] Med Refill Social History Tobacco Use Types [...] MG disintegrating tablet To be sent to: [facility] [address] documented in this encounter Plan of Treatment Upcoming Encounters Date Type Department Care Team (Late st Contact Info) Description 01/23/2025 2:00 PM EST Medication Management [facility] [address] [place], [place] [phone] Lane Denise, PharmD 230 [place] [address] documented as of this encounter Visit Diagnoses Not on filedocumented in this encounter Additional Health Concerns Assessment Noted Time PHQ-9 Depression Total Score: 0 05/11/19 24 11:50 AM EST documented as of this encounter Care Teams Tube Closing Machine Operator Relationship Specialty Start Date End Date Tracie Mcginnis DO 230 [place] [address] PCP - General Family Medicine 08/27/13 Lane Denise, NiviaD 230 [place] [address] Pharmacist Pharmacy 10/06/24 documented as of this encounter
--- OUTSIDE RECORDS SUMMARY | 2024-11-21 08:59 | XMS_ITS | Encounter Summary ---
Author Organization [facility] Address [address] [place] [address] Phone Care Team Providers Care Education Consultant Name Role Phone Debbie Luna MD Primary Care Provider [phone] Encounter Details Date Type Department Care Team (Late st Contact Info) Description 02/20/2023 Procedure Pass [facility] Endoscopy Admitting Dept Virtual Department [address] [place] [address] Social History Tobacco Use Types Packs/Day Years [...] on filedocumented in this encounter Care Teams Education Consultant Relationship Specialty Start Date End Date Debbie Luna MD [email or web address] PCP - General Internal Medicine 02/08/23 KAVYA SUBRAMANIAN Primary Care Physician 02/20/23 documented as of this encounter Additional Source Comments The information contained in this document represents components of the legal health record. It is not the complete legal health record.[facility]
--- OUTSIDE RECORDS SUMMARY | 2024-11-21 08:59 | XMS_ITS | Encounter Summary ---
Author Organization [facility] Address [address] [place] [address] [place] [id number] Phone Care Team Providers Care Dynamite Packing Machine Feeder Name Role Phone Debbie Luna MD Primary Care Provider [phone] Encounter Details Date Type Department Care Team (Late st Contact Info) Description 11/21/2022 Procedure Pass [facility] Endoscopy Admitting Dept Virtual Department [address] [place] [address] Social History Tobacco Use Types Packs/Day Years [...] with a working camera? Not on file Comments No Sex and Gender Information Value Date Recorded Sex Assigned at Not on file Legal Sex Female 10:32 PM EDT Gender Identity Not on file Sexual Orientation Not on file documented as of this encounter Plan of Treatment Not on file documented as of this encounter Visit Diagnoses Not on filedocumented in this encounter Care Teams Dynamite Packing Machine Feeder Relationship Specialty Start Date End Date Debbie Luna MD PCP - General Internal Medicine 02/08/23 KAVYA SUBRAMANIAN Primary Care Physician 02/20/23 documented as of this encounter Additional Source Comments The information contained in this document represents components of the legal health record. It is not the complete legal health record.[facility]
== END 2024-11-21 08:25 | disposition home or self-care (01) ==
LOC: HO.US 08:24
PROVIDERS: PCP Family Medicine; Visit Provider Family Medicine
DX: K76.0 Fatty (change of) liver, not elsewhere classified (principal)
CPT/HCPCS: 76700

== ENCOUNTER → 2024-11-21 08:29 | Outpatient (BNV) | payer OTHER, SELFPAY | PROVIDERS: PCP Family Medicine; Visit Provider Radiology Diagnostic Radiology | DX: K76.0 Fatty (change of) liver, not elsewhere classified (principal); R16.2 Hepatomegaly with splenomegaly, not elsewhere classified; N20.0 Calculus of kidney | CPT/HCPCS: 76700 ==

== ENCOUNTER 2024-12-30 16:14 | Outpatient (REF) | payer OTHER, SELFPAY ==
--- OUTSIDE RECORDS SUMMARY | 2024-12-30 10:45 | XMS_ITS | Encounter Summary ---
Author Organization [employer] Address [address] [facility] [address] [place] [address] Care Team Providers Care Caddy/Caddie Supervisor Name Role Phone Tracie Mcginnis DO Primary Care Provider + [phone] [address] Denise PharmD Unavailable [phone] Reason for Referral * Medications - Closed Specialty Diagnoses / Procedures Referred By Christoph us Referred To Contact Diagnoses Type 2 diabetes mellitus with stage 3 chronic kidney disease, without long-term current use of insulin, unspecified whether stage 3a or 3b CKD (HCC) Tracie Mcginnis DO [address] [place] [address] Phone: tel: fax: Referral ID Status Reason Start Date Expiration Date Visits Re quested Visits Authorized [id number] Closed 1 1 * Medications - Closed Specialty Diagnoses / Procedures Referred By Christoph us Referred To Contact Diagnoses Type 2 diabetes mellitus with stage 3 chronic kidney disease, without long-term current use of insulin, unspecified whether stage 3a or 3b CKD (HCC) Tracie Mcginnis DO [address] [place] [address] Phone: tel: fax: Referral ID Status Reason Start Date Expiration Date Visits Re quested Visits Authorized [id number] Closed 1 1 * Consultation (Urgent) - Pending Review Specialty Diagnoses / Procedures Referred By Contac t Referred To Contact Gastroenterology Diagnoses Hemorrhoids, unspecified hemorrhoid type Tracie Mcginnis DO [address] [place], [place] Phone: tel: fax: Referral ID Status Reason Start Date Expiration Date Visits Requested Visits Authorized [id number] Pending Review Specialty Services Required 12/30/2025 1 1 * PFT (Routine) - Pending Review Specialty Diagnoses / Procedures Referred By Contkorey t Referred To Contact Diagnoses Sleep related laryngospasm Procedures Pulmonary Function Test Tracie Mcginnis DO [address] [place], [place] Phone: tel: fax: Referral ID Status Reason Start Date Expiration Date V isits Requested Visits Authorized [id number] Pending Review 12/30/2024 12/30/2025 1 1 * Consultation (Urgent) - Pending Review Specialty Diagnoses / Procedures Referred By Contkorey t Referred To Contact Rheumatology Diagnoses Positive FESTUS (antinuclear antibody) Tracie Mcginnis DO [address] [place], [place] Phone: tel: fax: Referral ID Status Reason Start Date Expiration Date Visits Requested Visits Authorized [id number] Pending Review Specialty Services Required 12/30/2025 1 1 * Consultation (Urgent) - Pending Review Specialty Diagnoses / Procedures Referred By Contac t Referred To Contact Otolaryngology Diagnoses Sleep related laryngospasm Tracie Mcginnis DO [address] [place], [place] Phone: tel: fax: Referral ID Status Reason Start Date Expiration Date Visits Requested Visits Authorized [id number] Pending Review Specialty Services Required 12/30/2025 1 1 * Consultation (Urgent) - Pending Review Specialty Diagnoses / Procedures Referred By Christoph us Referred To Contact Gastroenterology Diagnoses Gastroparesis Tracie Mcginnis DO [address] [place] [address] Phone: tel: fax: Referral ID Status Reason Start Date Expiration Date Visits Requested Visits Authorized [id number] Pending Review Specialty Services Required 5 12/30/2025 1 1 * Medications - Closed Specialty Diagnoses / Procedures Referred By Christoph us Referred To Contact Diagnoses Type 2 diabetes mellitus with stage 3 chronic kidney disease, without long-term current use of insulin, unspecified whether stage 3a or 3b CKD (HCC) Tracie Mcginnis DO [address] [place] [id number] Phone: tel: fax: Referral ID Status Reason Start Date Expiration Date Visits Re quested Visits Authorized [id number] Closed 1 1 Encounter Details Date Type Department Care Team (Latest Contact Info) Description 12/30/2024 10:45 AM EDT Office Visit [facility] [address] [place] [id number] Tracie Mcginnis DO [address] [place] [id number] Type 2 diabetes mellitus with stage 3 chronic kidney disease, without long-term current use of insulin, unspecified whether stage 3a or 3b CKD (HCC) (Primary Dx); Essential hypertension; Other hyperlipidemia; Chronic bipolar disorder (CMS/HCC) (HCC); Chronic migraine; Sleep related laryngospasm; Fatty liver; Chronic gastroesophageal reflux disease; Gastroparesis; Irritable bowel syndrome, unspecified type; Nephrolithiasis; Paresthesia of both feet; Chronic pain of left wrist; Positive FESTUS (antinuclear antibody); Forgetfulness; Hemorrhoids, unspecified hemorrhoid type; Healthcare maintenance; Dietary counseling; Exercise counseling; Encounter for immunization; Encounter for vaccination; Primary insomnia Social History Tobacco Use Types Packs/Day Years Used Date Smoking Tobacco: Every Day Cigarettes 2 39.8 Started: 1985 Passive Smoke Exposure: Current Smokeless Tobacco: Never Comments:Smoked 1-2 ppd for 40+ years Alcohol Use Standard Drinks/Week Comments Never 0 (1 standard drink = 0.6 oz pur e alcohol) Depression Answer Date Recorded Patient Health Questionnaire-9 Score 22 12/30/2024 Patient Health Questionnaire-9 Score 22 12/30/2024 Last PHQ-9: Questionnaire Data Not on file 1 Housing Stability Answer Date Recorded What is [...] Answer Date Recorded Patient Health Questionnaire-2 Score 6 12/30/2024 Internet Access Answer Date Recorded Internet Access [...] Reading Time Taken Comments Blood Pressure 110/70 12/30/2024 11:15 AM EDT Pulse 90 12/30/2024 11:15 AM EDT Temperature 36.9 C (98.4 F) 12/30/2024 11:15 AM EDT Respiratory Rate 21 12/30/2024 11:15 AM EDT Oxygen Saturation 100% 12/30/2024 11:15 AM EDT Inhaled Oxygen Concentration - - Weight 79.4 kg (175 lb 2 oz) 12/30/2024 11:15 AM EDT Height 160 cm (5' 3 ) 12/30/2024 11:15 AM EDT Body Mass Index 31.02 12/30/2024 11:15 AM EDT documented in this encounter Functional Status * Over the past 2 weeks, how often have you been bothered by any of the following problems? Question Answer Date of Assessment Author Patient Health Questionnaire -2 Score 6 12/30/2024 2:25 PM EDT Cristin Jain MA * Little interest or pleasure in doing things Answer Date of Assessment Author Nearly every day 12/30/2024 2:25 PM EDT Cristin Jain MA * Feeling down, depressed, or hopeless Answer Date of Assessment Author Nearly every day 12/30/2024 2:25 PM EDT Cristin Jain MA * Trouble falling or staying asleep, or sleeping too much Answer Date of Assessment Author Nearly every day 12/30/2024 2:25 PM EDT Cristin Jain MA * Feeling tired or having little energy Answer Date of Assessment Author Nearly every day 12/30/2024 2:25 PM EDT Cristin Jain MA * Poor appetite or overeating Answer Date of Assessment Author Nearly every day 12/30/2024 2:25 PM EDT Cristin Jain MA * Feeling bad about yourself - or that you are a failure or have let yourself or your family down Answer Date of Assessment Author Nearly every day 12/30/2024 2:25 PM EDT Cristin Jain MA * Trouble concentrating on things, such as reading the newspaper or watching television Answer Date of Assessment Author Nearly every day 12/30/2024 2:25 PM EDT Cristin Jain MA * Moving or speaking so slowly that other people could have noticed? Or the opposite - being so fidgety or restless that you have been moving around a lot more than usual. Answer Date of Assessment Author Several days 12/30/2024 2:25 PM EDT Gregory Jain MA * Thoughts that you would be better off or hurting yourself in some way Answer Date of Assessment Author Not at all 12/30/2024 2:25 PM EDT Gregory Jain MA * Patient Health Questionnaire-9 Score Answer Date of Assessment Author 22 12/30/2024 2:25 PM EDT Gregory Jain MA * How difficult have these problems made it for you to do your work, take care of things at home, or get along with other people? Answer Date of Assessment Author Extremely difficult 12/30/2024 2:25 PM EDT Cristin Montano MA * Over the last 2 weeks, how often have you been bothered by any of the following problems? Question Answer Date of Assessment Author Feeling nervous, anxious, or on edge 3 12/30/2024 2:26 PM EDT Cristin Jain MA Not being able to stop or co ntrol worrying 3 12/30/2024 2:26 PM EDT Cristin Jain MA Worrying too much about diff erent things 3 12/30/2024 2:26 PM EDT Cristin Jain MA Trouble relaxing 3 12/30/2024 2:26 PM EDT Cristin Sotelo MA Being so restless that it is hard to sit still 3 12/30/2024 2:26 PM EDT Cristin Jain MA Becoming easily annoyed or irritable 3 12/30/2024 2:26 PM EDT Cristin Jain MA Feeling afraid as if somethi ng awful might happen 0 12/30/2024 2:26 PM EDT Cristin Jain MA KENNA-7 Total Score 18 12/30/2024 2:26 PM RASHAWNT Cristin Jain MA documented as of this encounter Progress Notes * Tracie Mcginnis DO - 12/30/2024 10:45 AM EDT SUBJECTIVE: Tiffanie Dumont is a 54 y.o. year old female who presents for follow up. HPI She missed her last appointment with me because her stomach was so rotten. She says a couple of weeks ago she was incapacitated with her vomiting and diarrhea which lasted ~ 4 days then took her 2-3 days to recover. She thinks that it was just a flare of her gastroparesisand IBS but it was the worst flare that she's ever had. She missed her psych meds 3 nights because she couldn't put anything in her stomach. She says that her stool was a blackish green for about a mos now turning back to brown but sometimes sees coffee grounds in her stool. She has no coffee grounds or blood in her emesis. She says that omeprazole isn't doing shit . She has been drinking mylanta which works better. She has not had f/u with GI in 1-2 years. She doesn't want to do another mammo; she feels that she just did a mammogram. She will do mammos every 2 years. She was very frustrated with her surgery appointment. She GS and he told her no hemorrhoid surgery due to risk of fecal incontinence but she wants her hemorrhoids gone as they are super painful. She wants to make appts for the places that she never went to. She never completed the PFTs. She says that every time she went to make an appointment and would get distracted and it would never happen. She never saw the sql server d[employer]. She needs to make a new appointment with ENT, bit thinks she needs a new referral. She has appointment with neurologist in Apr. She needs to make an eye appointment. She has not been using the tresiba because her sugars have been good. She says that the Freestyle 3is terrible. She says that it doesn't stay on, it is frequently inaccurate and the tape causes an irritating rash. She wants to trial dexcom. She has been ~ 3 weeks without using the ozempic because she forgot a dose then was having a stomach flare. Review of Systems Constitutional: Negative for chills and fever. Respiratory: Negative for shortness of breath. Cardiovascular: Negative for chest pain and leg swelling. Gastrointestinal: Negative for abdominal pain, diarrhea and vomiting. Neurological: Negative for headaches. Patient Active Problem List Diagnosis BMI 31.0-31.9,adult Essential hypertension Chronic gastroesophageal reflux disease Chronic migraine Tobacco dependence Type 2 diabetes mellitus (HCC) Nephrolithiasis Healthcare maintenance Polyarthralgia Fatty liver Hyperlipidemia Erosive esophagitis Gastroparesis Chronic bipolar disorder (CMS/HCC) (HCC) Irritable bowel syndrome Chronic pain of left wrist Paresthesia of both feet Mild cognitive impairment Injury of left toe Hammer toe of left foot Allergies Allergen Reactions Bupropion Anxiety Other reaction(s): Not Indicated, severe tremors Other reaction(s): Other (See Comments) Very nervous, agitation Other Reaction(s): severe tremors Other reaction(s): Not Indicated, severe tremors Other reaction(s): Other (See Comments) Very nervous, agitation Fish Allergy Anaphylaxis Reaction varies form rash to shortness of breath Fish Protein-Containing Drug Products Anaphylaxis Reaction varies form rash to shortness of breath Promethazine Hives, Shortness of breath and Anaphylaxis Other reaction(s): Not Indicated hives Shellfish Allergy Anaphylaxis Reaction varies form rash to difficulty breathing. Reaction varies form rash to difficulty breathing. Metformin Diarrhea Other reaction(s): GI Intolerance Other reaction(s): Gi upset, Not Indicated vomiting OBJECTIVE Vitals: 12/30/24 1115 BP: 110/70 BP Location: Left arm Patient Position: Sitting BP Cuff Size: Adult Pulse: 90 Resp: 21 Temp: 98.4 ??F (36.9 ??C) TempSrc: Oral SpO2: 100% Weight: 175 lb 2 oz (79.4 kg) Height: 5' 3 (1.6 m) Physical Exam Constitutional: General: She is not in acute distress. Appearance: Normal appearance. Cardiovascular: Rate and Rhythm: Normal rate and regular rhythm. Heart sounds: Normal heart sounds. No murmur heard. Pulmonary: Effort: Pulmonary effort is normal. Breath sounds: Normal breath sounds. No wheezing or rhonchi. Neurological: General: No focal deficit present. Mental Status: She is alert and oriented to person, place, and time. Cranial Nerves: No cranial nerve deficit. Motor: No weakness. Gait: Gait normal. Psychiatric: Attention and Perception: Attention normal. Mood and Affect: Mood is anxious. Behavior: Behavior normal. Thought Content: Thought content normal. Office Visit on 12/30/2024 Component Date Value Ref Range Status Glucose Blood, POC 12/30/2024 264 (A) 60 - 200 mg/dL Final QC Media Lot # 12/30/2024 [id number] Final Lot# Expiration Date 12/30/2024 [id number] Final Hemoglobin A1C 12/30/2024 6.3 (A) 4.0 - 5.7 % Final QC Media Lot # 12/30/2024 [id number] Final Lot# Expiration Date 12/30/2024 [id number] Final ASSESSMENT/PLAN Diagnoses and all orders for this visit: Type 2 diabetes mellitus with stage 3 chronic kidney disease, without long-term current use of insulin, unspecified whether stage 3a or 3b CKD ([facility]) A1c at goal -restart ozempic at 0.25mg weeksly -cont to hold tresiba daily -cont regular BS monitoring with CGM, will change Freestyle 3 to Dexcom -f/u with [facility] pharmacist as scheduled -cont lipitor daily -s/p optho eval APR 2023 at [facility] for annual f/u, she will schedule f/u appt -nml monofilament exam JAN 2020, repeat next visit* - POCT Glucose - POCT Hgb A1c - Semaglutide,0.25 or 0.5MG/DOS, (Ozempic, 0.25 or 0.5 MG/DOSE,) 2 MG/3ML solution pen-injector; Inject 0.25 mg under the skin 1 (one) time per week. - Continuous Glucose Circulation Manager (Dexcom G7 Circulation Manager) device; 1 each Once per day for 1 day. - Continuous Glucose Sensor (Dexcom G7 Sensor) misc; 1 each every 14 (fourteen) days. Apply 1 sensor every 10 days Essential hypertension BP controlled -cont toprol daily -Cr/GFR improved with nml urine microalbumin Jun 2024 -there is EKG in chart -optho as above -f/u with cards as scheduled, review next visit Other hyperlipidemia LDL unchanged Jun 2024 -cont lipitor nightly -cont fish oil supplementation Chronic bipolar disorder (CMS/HCC) ([facility]) -she denies any current SI/HI -she denies any AH/VH -she has the number for crisis and contracts for safety -cont current med regimen as per psychiatry -f/u with therapist and psychiatrist as scheduled Chronic migraine -cont topamax 50mg BID -cont SC imitrex for acute migraine and stadol if no relief with imitrex -she is to use marinol as needed for severe N/V -keep evaluation with neurology as scheduled Sleep related laryngospasm No recent episodes -cont PPI as rx'd -cont pepcid nightly -cont albuterol prn -sleep study with no MARS Oct 2023 -re-referred for PFTs -re-referred to ENT for eval - Referral to ENT; Future - Pulmonary Function Test; Future Fatty liver -abd US with echogenic liver and hepatomegaly, no focal lesion Nov 2024 -AFP nml, LFTs stable Dec 2023 -s/p Hep A vaccine -Hep B NI, booster today Chronic gastroesophageal reflux disease Symptoms uncontrolled -change prilosec to nexium BID -cont mylanta prn -check H. Pylori breath test -referred to GI for f/u - Helicobacter pylori, Urea Breath Test; Future Gastroparesis Irritable bowel syndrome, unspecified type With recent worsening flares -CT abd/pelvis with no acute abnormalities JUN 2020 -stool studies and fecal WBCs neg JUN 2021 -GES with delayed gastric emptying FEB 2022 -EGD with esophageal stricture, esophagitis, and gastritis FEB 2022 -EGD with esophagitis NOV 2022 -EGD nml FEB 2023 -cont prilosec daily -cont fiber supplement BID -cont zofran prn -referred to GI for f/u eval - Referral to Gastroenterology; Future Nephrolithiasis Currently asymptomatic -f/u with urology prn Paresthesia of both feet Likely diabetic neuropathy -cont gabapentin 600mg TID -check feet daily -advised contact [facility] if sx change or worsen Chronic pain of left wrist Positive FESTUS (antinuclear antibody) -MRI wrist with non-displaced triquetral body fracture and degeneration of the scapholunate ligament and findings concerning for underlying inflammatory arthritis JULY 2023 -cont tylenol and diclofenac gel prn -re-referred to rheum for eval -f/u with orthopedics prn - Referral to Rheumatology; Future Forgetfulness With h/o ECT and progressively worsening forgetfulness -MRI brain with minimal nonspecific white matter hyperintensities May 2024 -TSH, RPR nml Dec 2023 -B12 nml /folate low Jun 2024 -keep neurology evaluation as scheduled Hemorrhoids, unspecified hemorrhoid type Painful hemorrhoids, desiring surgical treatment -referred to [facility] colorectal surgery for 2nd opinion evaluation -advised go to ED if symptoms become unbearable - Referral to Colorectal Surgery; Future Tobacco dependence -strongly encouraged tobacco cessation -review lung CA screening eval next visit* Healthcare maintenance -s/p flu vaccine JAN 2023, repeat today -s/p COVID vaccine Feb 2024, repeat today -s/p Tdap NOV 2014 -s/p Td APR 2023 -s/p pneumovax JAN 2020 -s/p PCV20 FEB 2022 -s/p shingrix SEP 2020 -s/p RSV vaccine APR 2023 -MMRV immune -s/p Hep A vaccine -Hep B non-immune, booster today -T-spot negative Apr 2023 -pap wnl/HPV neg OCT 2014 with midwifery, s/p [facility] B[facility], pathology benign OCT 2016 -mammo BIRADS 05 DEC 2023, she agrees to screening every 2 years -colonoscopy nml NOV 2022 at [facility]ST[facility]/HIV screen negative Dec 2023 Dietary counseling Exercise counseling -encouraged [id number] Encounter for immunization - HEPATITIS B VACCINE ADULT 20 yrs + - FLU VACCINE TRIVALENT [id number] (Fluarix) 19 yrs + Encounter for vaccination - COVID-19 VACCINE [id number] (Comirnaty) 19 yrs + F/U with me in 4 mos or sooner prn Current Outpatient Medications: atorvastatin (Lipitor) 40 MG tablet, TAKE 1 TABLET BY MOUTH AT BEDTIME, Disp: 90 tablet, Rfl: 3 butorphanol (Stadol) 10 MG/ML nasal spray, INHALE 1 SPRAY INTO 1 NOSTRIL ONCE DAILY NEEDED FOR MIGRAINE, Disp: 2.5 mL, Rfl: 0 butorphanol (Stadol) 10 MG/ML nasal spray, Administer 1 spray into one nostril if needed each day for moderate pain., Disp: 2.5 mL, Rfl: 0 cetirizine (ZyrTEC) 10 MG tablet, Take 1 tablet (10 mg) by mouth Once per day., Disp: 30 tablet, Rfl: 11 Continuous Glucose Circulation Manager (Dexcom G7 Circulation Manager) device, 1 each Once per day for 1 day., Disp: 1 each, Rfl: 0 Continuous Glucose Sensor (Dexcom G7 Sensor) misc, 1 each every 14 (fourteen) days. Apply 1 sensor every 10 days, Disp: 3 each, Rfl: 11 D3 Super Strength 50 MCG (2000 UT) capsule, TAKE 1 CAPSULE BY MOUTH EVERY MORNING, Disp: 90 capsule, Rfl: 3 Diclofenac Sodium 1 % gel, Apply 2 g topically if needed in the morning, at noon, in the evening, and at bedtime (pain)., Disp: 150 g, Rfl: 3 esomeprazole (NexIUM) [address] capsule, Take 1 capsule (20 mg) by mouth before breakfast and beforeevening meal. Do not open capsule., Disp: 60 capsule, Rfl: 11 famotidine (Pepcid) 40 MG tablet, Take 40 mg by mouth at bedtime., Disp: , Rfl: Ferrous Sulfate (iron) 325 (65 Fe) MG tablet, TAKE 1 TABLET BY MOUTH EVERY MORNING, Disp: 90 tablet, Rfl: 1 Fiber-Lax 625 MG tablet, TAKE 1 TABLET BY MOUTH TWICE DAILY WITH A FULL GLASS OF WATER, Disp: 60 tablet, Rfl: 5 folic acid (Folvite) 1 MG tablet, TAKE 1 TABLET BY MOUTH EVERY MORNING, Disp: 90 tablet, Rfl: 3 gabapentin (Neurontin) 300 MG capsule, TAKE 2 CAPSULES BY MOUTH THREE TIMES DAILY IN THE MORNING, EVENING AND BEDTIME, Disp: 180 capsule, Rfl: 1 glucose blood (FreeStyle Precision Krystian Test) test strip, Use to test blood sugar 3 times daily in case of CGM failure or extremes of BG, Disp: 100 each, Rfl: 11 haloperidol (Haldol) 1 MG tablet, , Disp: , Rfl: Icosapent Ethyl (Vascepa) 1 g capsule, Take 2 capsules by mouth at bedtime, Disp: 60 capsule, Rfl: 11 insulin degludec (Tresiba FlexTouch) 100 UNIT/ML injection, Inject 5 Units under the skin at bedtime., Disp: 3 mL, Rfl: 3 lamoTRIgine (LaMICtal) 100 MG tablet, TAKE 1 AND 1/2 TABLETS BY MOUTH IN THE MORNING AND AT BEDTIME, Disp: , Rfl: levothyroxine (Synthroid) 25 MCG tablet, Take 1 tablet (25 mcg) by mouth before breakfast., Disp: 90 tablet, Rfl: 3 metoprolol succinate XL (Toprol XL) 50 MG 24 hr tablet, Take 1 tablet (50 mg) by mouth Once per day. Do not crush or chew., Disp: 30 tablet, Rfl: 11 mirtazapine (Remeron) 30 MG tablet, TAKE 2 TABLETS BY MOUTH EVERY DAY AT BEDTIME, Disp: , Rfl: naloxone (Narcan) 4 mg/0.1 mL nasal spray, FOR SUSPECTED OPIOID OVERDOSE. SPRAY 0.1mL IN ONE NOSTRIL. REPEAT IN ALTERNATE NOSTRIL 2-3 MINUTES IF NEEDED. SEEK MEDICAL ATTENTION IMMEDIATELY EVEN IF PATIENT RESPONDS., Disp: , Rfl: ondansetron ODT (Zofran-ODT) 4 MG disintegrating tablet, DISSOLVE TWO TABLETS BY MOUTH TWICE A DAY DIRECTED, Disp: 30 tablet, Rfl: 2 Oral Electrolytes (Pedialyte) pack, MIX ONE PACKET WITH LARGE GLASS OF WATER AND TAKE SMALL SIPS THROUGHOUT THE DAY NEEDED FOR VOMITING, Disp: , Rfl: pen needle 32G x 4 mm misc, Use with insulin as instructed, Disp: 100 each, Rfl: 3 potassium chloride CR (Klor-Con M20) 20 MEQ ER tablet, TAKE 1 TABLET BY MOUTH TWICE DAILY WITH FOOD, Disp: 60 tablet, Rfl: 5 QUEtiapine (SEROquel) 300 MG tablet, TAKE 3 TABLETS BY MOUTH AT BEDTIME, Disp: 90 tablet, Rfl: 0 Semaglutide,0.25 or 0.5MG/DOS, (Ozempic, 0.25 or 0.5 MG/DOSE,) 2 MG/3ML solution pen-injector, Inject 0.25 mg under the skin 1 (one) time per week., Disp: 2 mL, Rfl: 5 Spacer/Aero-Holding Chambers device, Use with albuterol MDI as directed, Disp: 1 each, Rfl: 0 topiramate 50 MG tablet, TAKE 1 TABLET BY MOUTH TWICE DAILY IN THE MORNING AND AT BEDTIME, Disp: 60tablet, Rfl: 5 triamcinolone (Nasacort) 55 MCG/ACT nasal inhaler, Administer 2 sprays into each nostril Once per day., Disp: 16.5 g, Rfl: 11 varenicline (Chantix) 1 MG tablet, Take 1 tablet (1 mg) by mouth 2 times daily., Disp: 60 tablet, Rfl: 2 Ventolin HFA 108 (90 Base) MCG/ACT inhaler, INHALE 2 PUFFS BY MOUTH EVERY 4 HOURS NEEDED FOR WHEEZING OR SHORTNESS OF BREATH, Disp: 18 g, Rfl: 0 vilazodone (Viibryd) 10 mg tablet, , Disp: , Rfl: zolpidem (Ambien) 10 MG tablet, Take 1 tablet (10 mg) by mouth if needed at bedtime for sleep., Disp: 30 tablet, Rfl: 1 documented in this encounter Plan of Treatment Upcoming Encounters Date Type Department Care Team (Late st Contact Info) Description 01/23/2025 2:00 PM EST Medication Management [facility] [address] [place] [address] [address] Denise, NiviaD [address] [place], [place] [id number] Scheduled Orders Name Type Priority Associated Diagnoses Orde r Schedule Helicobacter pylori, Urea Breath Test Lab Routine Chronic gastroesophageal reflux disease Expected: 12/30/2024 (Approximate), Expires: 12/30/2025 Pulmonary Function Test PFT Routine Sleep related laryngospasm Expected: 12/30/2024, Expires: 06/30/2025 Scheduled Referrals Name Type Priority Associated Diagnoses Order Schedule Referral to Gastroenterology Outpatient Referral Urgent Gastroparesis Expected: 12/30/2024 (Approximate), Expires: 12/30/2025 Referral to ENT Outpatient Referral Urgent Sleep related laryngospasm Expected: 12/30/2024 (Approximate), Expires: 12/30/2025 Referral to Rheumatology Outpatient Referral Urgent Positive FESTUS (antinuclear antibody) Expected: 12/30/2024 (Approximate), Expires: 12/30/2025 Referral to Colorectal Surgery Outpatient Referral Urgent Hemorrhoids, unspecified hemorrhoid type Expected: 12/30/2024 (Approximate), Expires: 12/30/2025 documented as of this encounter Procedures Procedure Name Priority Date/Time Associated Diagnosis Comments POCT GLYCATED HEMOGLOBIN, TOTAL Routine 12/30/2024 11:20 AM EDT Type 2 diabetes mellitus with stage 3 chronic kidney disease, without long-term current use of insulin, unspecified whether stage 3a or 3b CKD (HCC) POCT GLUCOSE Routine 12/30/2024 11:19 AM EDT Type 2 diabetes mellitus with stage 3 chronic kidney disease, without long-term current use of insulin, unspecified whether stage 3a or 3b CKD (HCC) documented in this encounter Results * (ABNORMAL) POCT Hgb A1c (12/30/2024 11:20 AM EDT) Hemoglobin A1C 6.3(A) 4.0 - 5.7 % QC Media Lot # [id number] Lot# Expiration Date , Blood 12/30/2024 11:2 0 AM EDT Tracie Mcginnis DO POINT OF CARE TEST ENTER/CRISTOPHER T ORDERABLES Final Result * (ABNORMAL) POCT Glucose (12/30/2024 11:19 AM EDT) Glucose Blood, POC 264(A) 60 - 200 mg/dL QC Media Lot # [id number] Lot# Expiration Date ,026 Blood Capillary blood specimen / Unknown 12/30/2024 11:19 AM EDT Tracie Mcginnis DO POINT OF CARE TEST ENTER/CRISTOPHER T ORDERABLES Final Result documented in this encounter Visit Diagnoses Diagnosis Type 2 diabetes mellitus with stage 3 chronic kidney disease, without long-term current use of insulin, unspecified whether stage 3a or 3b CKD (HCC)- Primary Essential hypertension Unspecified essential hypertension Other hyperlipidemia Chronic bipolar disorder (CMS/HCC) (HCC) Chronic migraine Sleep related laryngospasm Fatty liver Other chronic nonalcoholic liver disease Chronic gastroesophageal reflux disease Gastroparesis Irritable bowel syndrome, unspecified type Nephrolithiasis Calculus of kidney Paresthesia of both feet Chronic pain of left wrist Positive FESTUS (antinuclear antibody) Other and unspecified nonspecific immunological findings Forgetfulness Other general symptoms Hemorrhoids, unspecified hemorrhoid type Healthcare maintenance Dietary counseling Dietary surveillance and counseling Exercise counseling Encounter for immunization Encounter for vaccination Primary insomnia Persistent disorder of initiating or maintaining sleep documented in this encounter Additional Health Concerns Assessment Noted Time PHQ-9 Depression Total Score: 22 025 2:25 PM EDT documented as of this encounter Care Teams Caddy/Caddie Supervisor Relationship Specialty Start Date End Date Tracie Mcginnis DO [address] [place], [place] [phone] PCP - General Family Medicine 08/27/13 Lane Denise, NiviaD [address] [place] [address] Pharmacist Pharmacy 10/06/24 documented as of this encounter
--- OUTSIDE RECORDS SUMMARY | 2024-12-30 20:09 | XMS_ITS | Encounter Summary ---
Author Organization [employer] Address [address] [facility] 7t [place] [address] Care Team Providers Care Supervisor Stage Carpentry Name Role Phone Tracie Mcginnis DO Primary Care Provider + [phone] Lane Denise PharmD Unavailable [phone] Reason for Visit * Reason Comments Med Refill Encounter Details Date Type Department Care Team (Late st Contact Info) Description 02/26/2024 Refill [facility] [address] [place], [place] [phone] Tracie Mcginnis DO [address] [place], [place] [phone] Primary insomnia Social History Tobacco Use Types [...] Description 01/23/2025 2:00 PM EST Medication Management [facility] [address] [place] [address] [address] Denise, PharmD [address] [place] [address] documented as of this encounter Visit Diagnoses Diagnosis Primary insomnia Persistent disorder of initiating or maintaining sleep documented in this encounter Additional Health Concerns Assessment Noted Time PHQ-9 Depression Total Score: 0 05/11/19 24 11:50 AM EST documented as of this encounter Care Teams Supervisor Stage Carpentry Relationship Specialty Start Date End Date Tracie Mcginnis DO [address] [place] [id number] PCP - General Family Medicine 08/27/13 Lane Denise, PharmD [address] [place] [address] [phone] Pharmacist Pharmacy 10/06/24 documented as of this encounter
--- OUTSIDE RECORDS SUMMARY | 2024-12-30 20:09 | XMS_ITS | Encounter Summary ---
Author Organization [employer] Address 75 [facility] 7t [place] [address] Care Team Providers Care Coil Former Name Role Phone Tracie Mcginnis DO Primary Care Provider + [phone] Lane Denise PharmD Unavailable [phone] Reason for Visit * Reason Comments Med Refill Encounter Details Date Type Department Care Team (Late st Contact Info) Description 06/27/2024 Refill [facility] MED[facility]INE [address] [place], [place] [phone] Tracie Mcginnis DO [address] [place], [place] [phone] Nonintractable chronic migraine Social History Tobacco Use [...] Description 01/23/2025 2:00 PM EST Medication Management [facility] MEDICINE [address] [place] [address] [address] Denise, PharmD [address] [place] [address] documented as of this encounter Visit Diagnoses Diagnosis Nonintractable chronic migraine documented in this encounter Additional Health Concerns Assessment Noted Time PHQ-9 Depression Total Score: 14 025 11:26 AM EDT documented as of this encounter Care Teams Coil Former Relationship Specialty Start Date End Date Tracie Mcginnis DO [address] [place] [address] PCP - General Family Medicine 08/27/13 Lane Denise, PharmD [address] [place] [phone] Pharmacist Pharmacy 10/06/24 documented as of this encounter
--- OUTSIDE RECORDS SUMMARY | 2024-12-30 20:09 | XMS_ITS | Encounter Summary ---
Author Organization [employer] Address 75 [facility] 7t [place] [address] Care Team Providers Care Painting Technician Name Role Phone Tracie Mcginnis DO Primary Care Provider + [phone] Lane Denise PharmD Unavailable [phone] Reason for Visit * Reason Comments Med Refill Encounter Details Date Type Department Care Team (Late st Contact Info) Description 09/02/[address] [facility] MEDICINE [address] [place], [place] [phone] Tracie Mcginnis DO [address] [place] [address] Social History Tobacco Use Types Packs/Day Years [...] PM EST Medication Management [facility] MEDICINE [address] [place] [address] [address] Denise, PharmD [address] [place] [address] documented as of this encounter Visit Diagnoses Not on filedocumented in this encounter Additional Health Concerns Assessment Noted Time PHQ-9 Depression Total Score: 14 025 11:26 AM EDT documented as of this encounter Care Teams Painting Technician Relationship Specialty Start Date End Date Tracie Mcginnis DO [address] [place] [address] PCP - General Family Medicine 08/27/13 Lane Denise, PharmD [address] [place] [phone] Pharmacist Pharmacy 10/06/24 documented as of this encounter
--- OUTSIDE RECORDS SUMMARY | 2024-12-30 20:09 | XMS_ITS | Encounter Summary ---
Author Organization [employer] Address 75 [facility] 7t [place] [address] Care Team Providers Care Saute Chef Name Role Phone Tracie Mcginnis DO Primary Care Provider + [phone] Lane Denise PharmD Unavailable [phone] Reason for Visit * Reason Comments Med Refill Encounter Details Date Type Department Care Team (Late st Contact Info) Description 12/24/2024 Refill [facility] MEDICINE [address] [place], [place] [phone] Tracie Mcginnis DO [address] [place], [place] [phone] Nonintractable chronic migraine Social History Tobacco Use [...] Description 01/23/2025 2:00 PM EST Medication Management [facility] MEDICINE [address] [place] [address] [address] Denise, PharmD [address] [place] [address] documented as of this encounter Visit Diagnoses Diagnosis Nonintractable chronic migraine documented in this encounter Additional Health Concerns Assessment Noted Time PHQ-9 Depression Total Score: 14 025 11:26 AM EDT documented as of this encounter Care Teams Saute Chef Relationship Specialty Start Date End Date Tracie Mcginnis DO [address] [place] [address] PCP - General Family Medicine 08/27/13 Lane Denise, NiviaD [address] [place] [phone] Pharmacist Pharmacy 10/06/24 documented as of this encounter
--- OUTSIDE RECORDS SUMMARY | 2024-12-30 20:09 | XMS_ITS | Encounter Summary ---
Author Organization [employer] Address 75 [facility] 7t [place] [address] Care Team Providers Care Piecer Up Name Role Phone Tracie Mcginnis DO Primary Care Provider + [phone] Lane Denise PharmD Unavailable [phone] Reason for Visit * Reason Comments Med Refill Encounter Details Date Type Department Care Team (Late st Contact Info) Description 02/06/2024 Refill [facility] MEDICINE [address] [place], [place] [phone] Tracie Mcginnis DO [address] [place], [place] [phone] Primary insomnia Social History Tobacco Use Types [...] 01/23/2025 2:00 PM EST Medication Management [facility] MEDICINE [address] [place] [address] [address] Denise, PharmD [address] [place] [address] documented as of this encounter Visit Diagnoses Diagnosis Primary insomnia Persistent disorder of initiating or maintaining sleep documented in this encounter Additional Health Concerns Assessment Noted Time PHQ-9 Depression Total Score: 0 05/11/19 24 11:50 AM EST documented as of this encounter Care Teams Piecer Up Relationship Specialty Start Date End Date Tracie Mcginnis DO [address] [place] [phone] PCP - General Family Medicine 08/27/13 Lane Denise, PharmD [address] [place] [phone] Pharmacist Pharmacy 10/06/24 documented as of this encounter
--- OUTSIDE RECORDS SUMMARY | 2024-12-30 20:09 | XMS_ITS | Encounter Summary ---
Author Organization [employer] Address 75 [facility] 7t [place] [address] Care Team Providers Care Internet Marketing Executive Name Role Phone Tracie Mcginnis DO Primary Care Provider + [phone] Lane Denise PharmD Unavailable [phone] Reason for Visit * Reason Comments Med Refill Encounter Details Date Type Department Care Team (Late st Contact Info) Description 10/04/2023 Refill [facility] [address] [place], [place] [phone] Tracie Mcginnis DO [address] [place], [place] [phone] Diabetic polyneuropathy associated with type 2 diabetes [...] Description 01/23/2025 2:00 PM EST Medication Management [facility] [address] [place] [address] [address] Denise, PharmD [address] [place] [address] documented as of this encounter Visit Diagnoses Diagnosis Diabetic polyneuropathy associated with type 2 diabetes mellitus (HCC) Nausea Nausea alone documented in this encounter Additional Health Concerns Assessment Noted Time PHQ-9 Depression Total Score: 0 05/11/19 24 11:50 AM EST documented as of this encounter Care Teams Internet Marketing Executive Relationship Specialty Start Date End Date Tracie Mcginnis DO [address] [place] [address] PCP - General Family Medicine 08/27/13 Lane Denise, PharmD [address] [place] [phone] Pharmacist Pharmacy 10/06/24 documented as of this encounter
--- OUTSIDE RECORDS SUMMARY | 2024-12-30 20:09 | XMS_ITS | Encounter Summary ---
Author Organization [employer] Address 75 [facility] 7t [place] [address] Care Team Providers Care Semiconductor Assembler Name Role Phone Tracie Mcginnis DO Primary Care Provider + [phone] Lane Denise PharmD Unavailable [phone] Reason for Visit * Reason Onset Date Comments Med Refill 08/17/2023 Encounter Details Date Type Department Care Team (Late st Contact Info) Description 08/17/2023 Telephone [facility] MEDICINE [address] [place], [place] [phone] Tracie Mcginnis DO [address] [place], [place] [phone] Med Refill Social History Tobacco Use Types [...] MG disintegrating tablet To be sent to: [facility] [address] [facility] [address] documented in this encounter Plan of Treatment Upcoming Encounters Date Type Department Care Team (Late st Contact Info) Description 01/23/2025 2:00 PM EST Medication Management [facility] [address] [place], [place] [phone] Lane Denise, PharmD [address] [place] [address] documented as of this encounter Visit Diagnoses Not on filedocumented in this encounter Additional Health Concerns Assessment Noted Time PHQ-9 Depression Total Score: 0 05/11/19 24 11:50 AM EST documented as of this encounter Care Teams Semiconductor Assembler Relationship Specialty Start Date End Date Tracie Mcginnis DO [address] [place] [address] PCP - General Family Medicine 08/27/13 Lane Denise, NiviaD [address] [place] [address] Pharmacist Pharmacy 10/06/24 documented as of this encounter
--- OUTSIDE RECORDS SUMMARY | 2024-12-30 20:09 | XMS_ITS | Clinical Summary ---
Author Organization [employer] Address [address] [facility] [address] [place] [address] Care Team Providers Care Manager Linux Name Role Phone Tracie Mcginnis DO Primary Care Provider [phone] [address] Denise PharmD Unavailable [phone] Allergies Active Allergy Reactions Criticality Noted Date Comments Bupropion Anxiety High 09/03/2015 Other reaction(s): Not Indicated, severe tremors Other reaction(s): Other (See Comments) Very nervous, agitation Other Reaction(s): severe tremors Other reaction(s): Not Indicated, severe tremors Other reaction(s): Other (See Comments) Very nervous, agitation Fish Allergy Anaphylaxis High 08/11/2022 Reaction varies form rash to shortness of breath Fish Protein-Containing Drug Products Anaphylaxis High 08/11/2022 Reaction varies form [...] Active haloperidol (Haldol) 1 MG tablet Active naloxone (Narcan) 4 mg/0.1 mL nasal spray FOR SUSPECTED OPIOID OVERDOSE. SPRAY 0.1mL IN ONE NOSTRIL. REPEAT IN ALTERNATE NOSTRIL 2-3 MINUTES IF NEEDED. SEEK MEDICAL ATTENTION IMMEDIATELY EVEN IF PATIENT RESPONDS. Active metoprolol succinate XL (Toprol XL) 50 MG 24 hr tablet Take 1 tablet (50 mg) by mouth Once per day. Do not crush or chew. 30 tablet Active vilazodone (Viibryd) 10 mg tablet Active Diclofenac Sodium 1 % gel Apply 2 g topically if needed in the morning, at noon, in the evening, and at bedtime (pain). 150 g Active famotidine (Pepcid) 40 MG tablet Take 40 mg by mouth at bedtime. Active Spacer/Aero-Holdi ng Chambers device Use with albuterol MDI as directed 1 each Active QUEtiapine (SEROquel) 300 MG tablet TAKE 3 TABLETS BY MOUTH AT BEDTIME 90 tablet Active D3 Super Strength 50 MCG (1999 UT) capsuleIndication s:Vitamin D deficiency TAKE 1 CAPSULE BY MOUTH EVERY MORNING 90 capsule 3 Active atorvastatin (Lipitor) 40 MG tabletIndications :Other hyperlipidemia TAKE 1 TABLET BY MOUTH AT BEDTIME 90 tablet 3 Active triamcinolone (Nasacort) 55 MCG/ACT nasal inhaler Administer 2 sprays into each nostril Once per day. 16.5 g Active cetirizine (ZyrTEC) 10 MG tablet Take 1 tablet (10 mg) by mouth Once per day. 30 tablet 2025 Active glucose blood (FreeStyle Precision Krystian Test) test strip Use to test blood sugar 3 times daily in case of CGM failure or extremes of BG 100 each 2025 Active insulin degludec (Tresiba FlexTouch) 100 UNIT/ML injection Inject 5 Units under the skin at bedtime. 3 mL 3 025 2025 Active levothyroxine (Synthroid) 25 MCG tablet Take 1 tablet (25 mcg) by mouth before breakfast. 90 tablet 3 025 2025 Active folic acid (Folvite) 1 MG tablet TAKE 1 TABLET BY MOUTH EVERY MORNING 90 tablet 3 Active varenicline (Chantix) 1 MG tablet Take 1 tablet (1 mg) by mouth 2 times daily. 60 tablet 2 Active pen needle 32G x 4 mm miscIndications:T ype 2 diabetes mellitus with stage 3 chronic kidney disease, without long-term current use of insulin, unspecified whether stage 3a or 3b CKD (HCC) Use with insulin as instructed 100 each 3 025 2025 Active Icosapent Ethyl (Vascepa) 1 g capsuleIndication s:Type 2 diabetes mellitus with stage 3 chronic kidney disease, without long-term current use of insulin, unspecified whether stage 3a or 3b CKD (HCC) Take 2 capsules by mouth at bedtime 60 capsule 11 025 Active topiramate 50 MG tablet TAKE 1 TABLET BY MOUTH TWICE DAILY IN THE MORNING AND AT BEDTIME 60 tablet 5 025 Active gabapentin (Neurontin) 300 MG capsuleIndication s:Diabetic polyneuropathy associated with type 2 diabetes mellitus (HCC) TAKE 2 CAPSULES BY MOUTH THREE TIMES DAILY IN THE MORNING, EVENING AND BEDTIME 180 capsule 1 025 Active ondansetron ODT (Zofran-ODT) 4 MG disintegrating tabletIndications :Nausea, vomiting, and diarrhea DISSOLVE TWO TABLETS BY MOUTH TWICE A DAY DIRECTED 30 tablet 2 025 Active Ferrous Sulfate (iron) 325 (65 Fe) MG tabletIndications :Iron deficiency TAKE 1 TABLET BY MOUTH EVERY MORNING 90 tablet 1 025 Active Fiber-Lax 625 MG tablet TAKE 1 TABLET BY MOUTH TWICE DAILY WITH A FULL GLASS OF WATER 60 tablet 5 Active potassium chloride CR (Klor-Con M20) 20 MEQ ER tablet TAKE 1 TABLET BY MOUTH TWICE DAILY WITH FOOD 60 tablet 5 Active butorphanol (Stadol) 10 MG/ML nasal sprayIndications: Nonintractable chronic migraine INHALE 1 SPRAY INTO 1 NOSTRIL ONCE DAILY NEEDED FOR MIGRAINE 2.5 mL Active Ventolin HFA 108 (90 Base) MCG/ACT inhaler INHALE 2 PUFFS BY MOUTH EVERY 4 HOURS NEEDED FOR WHEEZING OR SHORTNESS OF BREATH 18 g Active butorphanol (Stadol) 10 MG/ML nasal sprayIndications: Nonintractable chronic migraine Administer 1 spray into one nostril if needed each day for moderate pain. 2.5 mL Active esomeprazole (NexIUM) [address] capsule Take 1 capsule (20 mg) by mouth before breakfast and before evening meal. Do not open capsule. 60 capsule 11 2025 Active zolpidem (Ambien) 10 MG tabletIndications :Primary insomnia Take 1 tablet (10 mg) by mouth if needed at bedtime for sleep. 30 tablet 1 Active Semaglutide,0.25 or 0.5MG/DOS, (Ozempic, 0.25 or 0.5 MG/DOSE,) 2 MG/3ML solution pen-injectorIndic ations:Type 2 diabetes mellitus with stage 3 chronic kidney disease, without long-term current use of insulin, unspecified whether stage 3a or 3b CKD (HCC) Inject 0.25 mg under the skin 1 (one) time per week. 2 mL 5 Active Continuous Glucose Kitchen Lead (Dexcom G7 Kitchen Lead) deviceIndications :Type 2 diabetes mellitus with stage 3 chronic kidney disease, without long-term current use of insulin, unspecified whether stage 3a or 3b CKD (HCC) 1 each Once per day for 1 day. 1 each 025 2024 Active Continuous Glucose Sensor (Dexcom G7 Sensor) miscIndications:T ype 2 diabetes mellitus with stage 3 chronic kidney disease, without long-term current use of insulin, unspecified whether stage 3a or 3b CKD (HCC) 1 each every 14 (fourteen) days. Apply 1 sensor every 10 days 3 each 11 025 2024 Active omeprazole (PriLOSEC) [address] capsule 023 2024 Discontinued(I neffective) zolpidem (Ambien) 10 MG tabletIndications :Primary insomnia Take 1 tablet (10 mg) by mouth if needed at bedtime for sleep. 30 tablet 024 2024 Discontinued(R eorder (will not trigger notification to Pharmacy)) potassium chloride CR (Klor-Con M20) 20 MEQ ER tablet TAKE 1 TABLET BY MOUTH TWICE DAILY WITH FOOD 60 tablet 5 025 2024 Discontinued Fiber-Lax 625 MG tablet TAKE 1 TABLET BY MOUTH TWICE DAILY WITH A FULL GLASS OF WATER 60 tablet 5 025 2024 Discontinued Continuous Glucose Kitchen Lead (FreeStyle Nelda 3 [employer]) deviceIndications :Type 2 diabetes mellitus with stage 3 chronic kidney disease, without long-term current use of insulin, unspecified whether stage 3a or 3b CKD (HCC) 1 each Once per day. Use as directed for CGM 1 each 025 2024 Discontinued Continuous Glucose Sensor (FreeStyle Nelda 3 Plus Sensor) miscIndications:T ype 2 diabetes mellitus with stage 3 chronic kidney disease, without long-term current use of insulin, unspecified whether stage 3a or 3b CKD (HCC) 1 each every 15 days. Apply 1 every 15 days as directed for CGM 2 each 025 2024 Discontinued Ferrous Sulfate (iron) 325 (65 Fe) MG tabletIndications :Iron deficiency TAKE 1 TABLET BY MOUTH EVERY MORNING 90 tablet 1 025 2024 Discontinued ondansetron ODT (Zofran-ODT) 4 MG disintegrating tabletIndications :Nausea, vomiting, and diarrhea DISSOLVE TWO TABLETS BY MOUTH TWICE A DAY DIRECTED 30 tablet 2 025 2024 Discontinued Semaglutide,0.25 or 0.5MG/DOS, (Ozempic, 0.25 or 0.5 MG/DOSE,) 2 MG/3ML solution pen-injectorIndic ations:Type 2 diabetes mellitus with stage 3 chronic kidney disease, without long-term current use of insulin, unspecified whether stage 3a or 3b CKD (HCC) Inject 0.5 mg under the skin 1 (one) time per week. 2 mL 5 025 2024 Discontinued(R eorder (will not trigger notification to Pharmacy)) butorphanol (Stadol) 10 MG/ML nasal sprayIndications: Nonintractable chronic migraine INHALE 1 SPRAY IN one NOSTRIL ONCE DAILY NEEDED FOR MIGRAINE 2.5 mL 025 2024 Discontinued(R eorder (will not trigger notification to Pharmacy)) albuterol 108 (90 Base) MCG/ACT inhaler Inhale 2 puffs every 4 (four) hours if needed for wheezing or shortness of breath. 18 g 025 2024 Discontinued Active Problems Problem Noted [...] esophagitis 08/11/2022 Gastroparesis 08/11/2022 Chronic bipolar disorder (CMS/HCC) 08/11/2022 Irritable bowel syndrome 08/11/2022 Hyperlipidemia 05/05/2022 [...] neg Oct 2014 with midwifery, s/p RA TLH BSO, pathology benign, Oct 2016 -mammo BIRADS [...] amitriptyline -advised reschedule rheumatology eval -advised contact [facility] if sx worsen or do not improve Fatty liver 04/06/2022 Assessment & Plan (04/06/2022 [...] cards as scheduled, due APR 2022 BMI 31.0-31.9,adult 12/08/2014 Chronic gastroesophageal reflux disease 12/09/19 15 [...] (04/27/2023 1:33 PM EST): Completely healed. 10 Stephanie removed w/ staple removed w/out complication -advised pt keep area clean and dry -advised shampoo gently w/ warm water -advised pt if she notices any additional stephanie, she may RTC -will put Td booster [...] 23 Bipolar affective disorder, currently depressed, moderate (CMS/HCC) 08/11/2022 08/11/2022 Daily nausea 08/11/2022 08/11/2022 Epigastric pain 08/11/2022 08/11/2022 Heartburn symptom 08/11/2022 08/11/2022 Pain in unspecified foot 04/06/202211/2022 Assessment & Plan (04/06/2022 11:39 AM EST): Likely diabetic neuropathy -cont gabapentin 600mg TID -cont check feet daily -advised contact [facility] if sx change or worsen Nausea, vomiting, and diarrhea 04/06/2022 12/30/2024 Assessment & Plan (05/05/2022 2:36 PM EST): [...] -will have sooner f/u w/ GI scheduled Urinary urgency 08/20/2017 04/06/2022 Bipolar I disorder (CMS/HCC) 12/08/2014 08/11/2022 Assessment & Plan (04/06/2022 11:36 AM EST): [...] Encounters Date Type Department Care Team Description 12/30/2024 10:45 AM EDT Office Visit [facility] [address], [place] [phone] Tracie Mcginnis DO Type 2 diabetes mellitus [...] for immunization; Encounter for vaccination; Primary insomnia 12/30/2024 Travel 12/25/2024 Refill [facility] [address], [place] [phone] Tracie Mcginnis DO Nonintractable chronic migraine 12/24/2024 Refill [facility] [address], [place] [phone] Tracie Mcginnis DO Nonintractable chronic migraine 12/18/2024 Refill [facility] [address] [place] [address] Tracie Mcginnis DO 12/16/2024 Refill [facility] [address] [facility] [place] [address] Tracie Mcginnis DO Iron deficiency 12/09/2024 Travel 12/06/2024 Telephone [facility] [address] [place] [address] Tracie Mcginnis DO Chart Prep 11/28/2024 Refill [facility] [address] [place] [address] Tracie Mcginnis DO Nausea, vomiting, and diarrhea 11/28/2024 Telephone [facility] [address] [place] [address] Tracie Mcginnis DO FYI 11/27/2024 Refill [facility] [address] [place] [address] Tracie Mcginnis DO 11/25/2024 Refill [facility] [address] [place] [address] Tracie Mcginnis DO Diabetic polyneuropathy associated with type 2 diabetes mellitus ([facility]/HCC); Nonintractable chronic migraine 11/17/2024 Refill [facility] [address] [facility] [place] [address] Tracie Mcginnis DO Diabetic polyneuropathy associated with type 2 diabetes mellitus ([facility]/HCC) 11/16/2024 Refill [facility] [address] [facility] [address] Tracie Mcginnis DO Diabetic polyneuropathy associated with type 2 diabetes mellitus (CMS/HCC) 10/31/2024 3:45 PM EDT Office Visit [facility] [address] [place] [address] Rita Calderon NP Type 2 diabetes mellitus with stage 3 chronic kidney disease, without long-term current use of insulin, unspecified whether stage 3a or 3b CKD (CMS/HCC) (Primary Dx); Injury of toe on left foot, initial encounter; Hammer toe of left foot 10/31/2024 Travel 10/30/2024 Telephone [facility] [address] [place] [address] [employer] [place] [employer] 10/29/2024 Orders Only [facility] [address] [place] [address] Tracie Mcginnis, 10/29/2024 Telephone [facility] [address] [place] [address] Tracie Mcginnis, Nurse Triage 10/24/2024 Travel 10/24/2024 Refill [facility] [address] [place] [address] Tarcie Mcginnis DO Nonintractable chronic migraine 10/17/2024 Refill [facility] [address] [place] [address] Tiffanie Crooks MD 10/03/2024 2:00 PM EDT Telemedicine [facility] [address] [place] [address] Lane Denise, PharmD Type 2 diabetes mellitus with stage 3 chronic kidney disease, without long-term current use of insulin, unspecified whether stage 3a or 3b CKD (CMS/HCC) (Primary Dx) 09/29/2024 Refill [facility] [address] [place] [address] Tracie Mcginnis DO Nonintractable chronic migraine from Last 3 Months Immunizations Immunization Administration Dates Next Due Hep A, Adult 03/27/2017,09/12/2016 Hep B, adult 12/30/2024, 6,01/20/2015,11/16 Influenza injectable quadriv alent IIV4 with preservative 01/25/2016,11/16/2014 Influenza injectable quadriv alent preservative free 01/16/2023,11/11/2021,02/18/2021,11/25,11/29/2018,03/12/2018,12/12/2016 Influenza, IIV3, injectable 02/14/2011 Influenza, Split (incl. suki fied surface antigen) 02/22/2012 Influenza, seasonal, injecta ble, preservative free 12/30/2024 Moderna Covid-19 Vaccine 12+ 06/24/2021,06/09/19 21,05/11/2020 Moderna Covid-19 Vaccine 6+ Bivalent 04/06/2022 Pfizer Covid-19 Vaccine 12+ 12/30/2024 Pneumococcal Conjugate PCV 20 02/14/2022 Pneumococcal Polysaccharide [...] Mass Index 31.02 12/30/2024 11:15 AM EDT Plan of Treatment Upcoming Encounters Date Type Department Care Team (Late st Contact Info) Description 01/23/2025 2:00 PM EST Medication Management [facility] [address] [place] [address] [address] Denise, PharmD [address] [place] [address] Health Maintenance Due Date Last Done Comments CT Colonography 1969 FIT DNA/Cologuard 1969 FIT 1969 FOBT 1970 Sigmoidoscopy 1969 Diabetes: Foot Exam 05/27/1979 Eye Exam 05/27/1979 Pap Smear 1990 Cervical Cancer Screening 05/27/1999 HPV/Cotest 05/27/1999 Lung Cancer Screening 05/27/2019 Mammogram 12/24/2024 12/25/2023, 10/0 06/2021, 07/29/2020, Additional history exists Alcohol/Substance Use Screening 06/04/2025 06/04/2024 Disability Screening 06/04/2025 06/04/2024 Lipid Panel 06/04/2025 06/04/2024, 09/2023, 01/03/2023, Additional history exists SDOH Screening 06/04/2025 06/04/2024 Depression Monitoring 06/30/2025 12/30/2024, 025 Diabetes: Hemoglobin A1C 06/30/2025 025, 10/24/2024, 06/04/2024, Additional history exists Tobacco Screening 12/30/2025 12/30/2024 Colonoscopy 11/21/2032 11/21/2022 Colorectal Cancer Screening 11/21/2032 DTaP/Tdap/Td Vaccines (3 - Td or Tdap) 04/27/2033 04/27/2023, 11/16/2014 Hepatitis A Vaccines Completed 03/27/2017, 09/13/19 17 Zoster Vaccines Completed 09/09/2020, 06/29/2020 Pneumococcal Vaccine: 50+ Years Completed 02/14/2022, 02/02/2020, 11/16/2014 RSV Patients and Patients Aged 60 years or older Completed 04/27/2023 HIV Screening Completed 12/10/2023, 03/2022, 11/22/2020, Additional history exists Hepatitis C Screening Completed 12/10/2023 , 01/03/2023, 11/22/2020, Additional history exists COVID-19 Vaccine Completed 12/30/2024, 12/2023, 01/16/2023, Additional history exists Hepatitis B Vaccines Completed 12/30/2024, 06/23/2015, 01/20/2015, Additional history exists Influenza Vaccine Completed 12/30/2024, , 11/11/2021, Additional history exists HIB Vaccines Aged Out [...] whether stage 3a or 3b CKD (HCC) US ABDOMEN COMPLETE Routine 11/21/2024 9 :09 AM EDT Fatty liver POCT GLUCOSE Routine 10/31/2024 4:02 PM EDT [...] to Health Maintenance Results * (ABNORMAL) POCT Hgb A1c (12/30/2024 11:20 AM EDT) Only the most recent of2 resultswithin the time period is included. Hemoglobin A1C 6.3(A) 4.0 - 5.7 % QC [employer] Lot # [id number] Lot# Expiration Date 5,027 Blood 12/30/2024 11:2 0 AM EDT Tracie Mcginnis DO POINT OF CARE TEST ENTER/CRISTOPHER T ORDERABLES Final Result * (ABNORMAL) POCT Glucose (12/30/2024 11:19 AM EDT) Only the most recent of2 resultswithin the time period is included. Glucose Blood, POC 264(A) 60 - 200 mg/dL QC [employer] Lot # [id number] Lot# Expiration Date 3,026 Blood Capillary blood specimen / Unknown 12/30/2024 11:19 AM EDT Tracie Mcginnis DO POINT OF CARE TEST ENTER/CRISTOPHER T ORDERABLES Final Result * US Abdomen Complete (11/21/2024 9:09 AM EDT) Anatomical Region Laterality Modality Abdomen Ultrasound 11/21/2024 9:09 AM EDT Narrative 11/21/2024 9:56 AM EDT [address] [address] Ultrasound Report Signed Patient: Tiffanie Dumont MR#: [id number] : 1970 Acct:[id number] Age/Sex: 54 / F ADM Date: 11/21/24 Loc: HO.US Attending Dr: Tracie Mcginnis DO Ordering Physician: Tracie Mcginnis DO Date of Service: 11/21/24 Procedure(s): US abdomen complete Accession Number(s): [id number] cc: Tracie Mcginnis DO Reason for Exam: f/u fatty liver EXAMINATION: US ABDOMEN HISTORY: f/u fatty liver TECHNIQUE: Real-time grayscale ultrasound imaging of the abdomen was performed and images were reviewed. COMPARISON: Correlation is made with an unenhanced CT of the abdomen dated 11/24/2022. FINDINGS: Liver: The right lobe of the liver measures 19.0 cm in size. The left lobe of the liver measures 14.1 cm in size. The liver demonstrates increased echotexture, consistent with steatosis. No focal mass or intrahepatic biliary ductal dilatation is identified. There is normal hepatopedal flow in the portal vein. Gallbladder and biliary tree: The gallbladder is surgically absent. The common bile duct is normal in caliber measuring 2 mm. Kidneys: The right kidney measures 11.6 cm in length and demonstrates a cluster of tiny calculi measuring up to 4 mm in size. The left kidney measures 11.1 cm in length. The kidneys are otherwise unremarkable, without evidence of masses or hydronephrosis. Pancreas: The pancreatic head, neck, and body are unremarkable. The pancreatic tail is obscured by bowel gas. Spleen: Spleen is enlarged measuring 12.9 cm in length. Abdominal aorta and inferior vena cava: The visualized portions of the abdominal aorta and inferior vena cava are normal in caliber. There is no free fluid in the abdomen. US/US abdomen complete IMPRESSION: 1. Hepatosplenomegaly and hepatic steatosis. 2. Cluster of tiny calculi in the interpolar region of the right kidney. No hydronephrosis. Electronically signed by: Eduardo Yang MD 11/21/2024 09:52 AM EDT Dictated By: Eduardo Yang MD Signed By: <Electronically signed by Eduardo Yang MD in OV> 11/21/24951 DD/ 8 TD/TT: 11/21/24928 Manager Managing: Procedure Note Donotuseinterpreter, Image - 11/21/[address] [address] Ultrasound Report Signed Patient: Tiffanie Dumont AMR#: [id number] : 1970Acct:[id number] Age/Sex: 54 / FADM Date: 11/21/24 Loc: HO.US Attending Dr: Tracie Mcginnis DO Ordering Physician: Tracie Mcginnis DO Date of Service: 11/21/24 Procedure(s): US abdomen complete Accession Number(s): [id number] cc: Tracie Mcginnis DO Reason for Exam: f/u fatty liver EXAMINATION: US ABDOMEN HISTORY: f/u fatty liver TECHNIQUE: Real-time grayscale ultrasound imaging of the abdomen was performed and images were reviewed. COMPARISON: Correlation is made with an unenhanced CT of the abdomen dated 11/24/2022. FINDINGS: Liver: The right lobe of the liver measures 19.0 cm in size. The left lobe of the liver measures 14.1 cm in size. The liver demonstrates increased echotexture, consistent with steatosis. No focal mass or intrahepatic biliary ductal dilatation is identified. There is normal hepatopedal flow in the portal vein. Gallbladder and biliary tree: The gallbladder is surgically absent. The common bile duct is normal in caliber measuring 2 mm. Kidneys: The right kidney measures 11.6 cm in length and demonstrates a cluster of tiny calculi measuring up to 4 mm in size. The left kidney measures 11.1 cm in length. The kidneys are otherwise unremarkable, without evidence of masses or hydronephrosis. Pancreas: The pancreatic head, neck, and body are unremarkable. The pancreatic tail is obscured by bowel gas. Spleen: Spleen is enlarged measuring 12.9 cm in length. Abdominal aorta and inferior vena cava: The visualized portions of the abdominal aorta and inferior vena cava are normal in caliber. There is no free fluid in the abdomen. US/US abdomen complete IMPRESSION: 1. Hepatosplenomegaly and hepatic steatosis. 2. Cluster of tiny calculi in the interpolar region of the right kidney. No hydronephrosis. Electronically signed by: Eduardo Yang MD 11/21/2024 09:52 AM EDT RP Dictated By: Eduardo Yang MD Signed By: <Electronically signed by Eduardo Yang MD in OV> 11/21/2452 DD/ 8 TD/TT: 11/21/24928 Manager Managing: Tracie Mcginnis DO IMG US PROCEDURES Edited Res ult - Final * (ABNORMAL) Lipid Panel, Standard (06/04/2024 12:26 PM EDT) Triglycerides 165(H) <150 mg/dL [facility] Comment:Desirable Triglyceri de: less than 150 mg/dLBorderline High Triglyceride 150-199 mg/dLHigh Triglyceride: 200-499 mg/dLVery High Triglyceride: greater than or equal to 5OO mg/dL Cholesterol 146 <200 mg/dL [facility] Comment:Desirable Cholestero l: less than 200 mg/dLBorderline High Cholesterol: 200-239 mg/dLHigh Cholesterol: greater than 239 mg/dL LDL Cholesterol Calculated 82 <100 mg/dL [facility] Comment:Desirable LDL: less than 100 mg/dLNear Optimal/Above Optimal LDL: 110- 129 mg/dLBorderline High LDL: 130-159 mg/dLHigh LDL: 160-189 mg/dLVery High LDL: greater than or equal to 190 mg/dL HDL Cholesterol 31(L) >40 mg/dL [facility] Comment:Desirable HDL: great er than 40 mg/dL Note: This HDL assay may give artificially low results in patients with liver disease. Blood Venous blood specimen / Unknown 06/04/2024 12:26 PM EDT 06/04/2024 1:12 PM EDT Tracie Mcginnis DO LAB BLOOD ORDERABLES Final R esult [facility] [address] [place] [address] [phone] * BI Mammogram Screening Tomosynthesis Bilateral (12/25/2023 1:40 PM EDT) Anatomical Region Laterality Modality Breast Bilateral Mammography 12/25/2023 1:40 PM EDT Narrative 01/07/2024 3:49 PM EST [address] [place] [address] Mammography Report Signed Patient: Tiffanie Dumont MR#: [id number] : 1970 Acct:[id number] Age/Sex: 53 / F ADM Date: 12/25/23 Loc: HO.MAMMO Attending Dr: Tracie Mcginnis DO Ordering Physician: Tracie Mcginnis DO Results: 2B enign Findings Date of Service: 12/25/23 Follow Up: 1 Year From [facility] Mammogram Procedure(s): MM tomosynthesis screening BI Accession Number(s): [id number] cc: Tracie Mcginnis DO EXAMINATION: MM SCREENING [...] Zandra Casas DO 01/07/2024 03:46 PM EST RP Dictated By: Zandra Casas DO Signed By: <Electronically signed by Zandra Casas DO in OV> 01/07/24 1546 DD/ 1340 TD/TT: 12/25/23 1353 Manager Managing: Procedure Note Donotuseinterpreter, Image - 01/07/2024 [facility] [address] [place], [place] [address] Mammography Report Signed Patient: Tiffanie Dumont AMR#: [id number] : 1970Acct:[id number] Age/Sex: 53 / FADM Date: 12/25/23 Loc: HO.MAMMO Attending Dr: Tracie Mcginnis DO Ordering Physician: Tracie Mcginnisults: 2B enign Findings Date of Service: 12/25/23Follow Up: [facility] Year [facility] Procedure(s): MM tomosynthesis screening BI Accession Number(s): [id number] cc: Tracie Mcginnis DO EXAMINATION: MM SCREENING [...] Zandra Casas DO 01/07/2024 03:46 PM EST RP Dictated By: Zandra Casas DO Signed By: <Electronically signed by Zandra Casas DO in OV> 01/07/24 1546 DD/ 1340 TD/TT: 12/25/23 1353 Manager Managing: Tracie Mcginnis DO IMG BI PROCEDURES Edited Res ult - Final * Hepatitis C Antibody with Reflex to HCV, RNA, Quantitative, Real-Time PCR (12/10/2023 3:11 PM EDT) Hepatitis C Antibody Nonreactive Nonreactive [facility] Comment:Antibodies to HCV no t detected; does not exclude early acuteHCV infection. Blood Venous blood specimen / Unknown 12/10/2023 3:11 PM EDT 12/10/2023 3:11 PM EDT Tracie Mcginnis DO LAB BLOOD ORDERABLES Final R esult [facility] [address] [place] [phone] * HIV-1/2 Antigen and Antibodies, Fourth Generation, with Reflexes (12/10/2023 3:11 PM EDT) HIV AB/AG Nonreactive Nonreactive [facility] Comment:HIV-1 p24 Ag and/or HIV-1/HIV-2 Ab not detected.A test result that is nonreactive does not exclude thepossibility of exposure to or infection with HIV-1 and/orHIV-2. Nonreactive results in this assay for individualswith prior exposure to HIV-1 and/or HIV-2 may be due toantigen and antibody levels that are below the limit ofdetection of this assay.The InSp[employer] HIV Ag/Ab Combo assay result andsupplemental assay results should be interpreted inconjunction with the patient's clinical presentation,history and other laboratory results. If the results areinconsistent with clinical evidence, additional testing issuggested to confirm the result. Blood Venous blood specimen / Unknown 12/10/2023 3:11 PM EDT 12/10/2023 3:11 PM EDT Tracie Mcginnis DO LAB BLOOD ORDERABLES Final R esult [facility] [address] [place] [address] [phone] * Hm Colonoscopy (11/21/2022 6:53 PM EDT) us Historical Provider MD HEALTH MAINTENANCE Final Result from Last 3 Months or Most Recently Relevant to Health Maintenance Insurance [facility] < 65 Care Teams Manager Linux Relationship Specialty Start Date End Date Tracie Mcginnis DO [address] [place] [phone] PCP - General Family Medicine 08/27/13 Lane Denise, PharmD [address] [place] [address] [phone] Pharmacist Pharmacy 10/06/24
--- OUTSIDE RECORDS SUMMARY | 2024-12-30 20:09 | XMS_ITS | Encounter Summary ---
Author Organization [employer] Address 75 [facility] 7t [place] [address] Care Team Providers Care Milieu Counselor Name Role Phone Tracie Mcginnis DO Primary Care Provider + [phone] Lane Denise PharmD Unavailable [phone] Reason for Visit * Reason Comments Med Refill Encounter Details Date Type Department Care Team (Late st Contact Info) Description 02/29/2024 Refill [facility] [address] [place], [place] [phone] Gwendolyn Ortega MD 230 [place], [place] [phone] Nonintractable chronic migraine Social History Tobacco Use [...] 01/23/2025 2:00 PM EST Medication Management [facility] [address] [place] [address] Lane Denise, PharmD 230 [place] [address] documented as of this encounter Visit Diagnoses Diagnosis Nonintractable chronic migraine documented in this encounter Additional Health Concerns Assessment Noted Time PHQ-9 Depression Total Score: 0 05/11/19 24 11:50 AM EST documented as of this encounter Care Teams Milieu Counselor Relationship Specialty Start Date End Date Tracie Mcginnis DO [address] [place] [address] PCP - General Family Medicine 08/27/13 Lane Denise, PharmD [address] [place] [address] 51830 Pharmacist Pharmacy 10/06/24 documented as of this encounter
--- OUTSIDE RECORDS SUMMARY | 2024-12-30 20:09 | XMS_ITS | Encounter Summary ---
Author Organization [facility] [facility] Address [address] [place] [address] 7 [place] [address] Care Team Providers Care Risk Officer Name Role Phone Tracie Mcginnis DO Primary Care Provider [phone] Lane Denise PharmD Unavailable [phone] Encounter Details Date Type Department Care Team (Late st Contact Info) Description 03/16/[address] [facility] [address] [place] [address] Tracie Mcginnis DO 230 [place] [address] Social History Tobacco Use Types Packs/Day Years [...] Management [facility] [address] [place] [address] [address] Denise, PharmD 230 [place] [address] documented as of this encounter Visit Diagnoses Not on filedocumented in this encounter Care Teams Risk Officer Relationship Specialty Start Date End Date Tracie Mcginnis DO [address] [place] [address] PCP - General Family Medicine 08/27/13 Lane Denise, NiviaD [address] [place] [address] Pharmacist Pharmacy 10/06/24 documented as of this encounter
--- OUTSIDE RECORDS SUMMARY | 2024-12-30 20:09 | XMS_ITS | Encounter Summary ---
Author Organization Located [facility] Address [address] [place] [address] [place] [address] Phone Care Team Providers Care Cashier Credit Name Role Phone Debbie Luna MD Primary Care Provider [phone] Encounter Details Date Type Department Care Team (Late st Contact Info) Description 11/21/2022 Procedure Pass [facility]oscopy Admitting Dept Virtual Department 30 [place] [address] Social History Tobacco Use Types Packs/Day Years [...] on filedocumented in this encounter Care Teams Cashier Credit Relationship Specialty Start Date End Date Debbie Luna MD PCP - General Internal Medicine 02/08/23 KAVYA SUBRAMANIAN Primary Care Physician 02/20/23 documented as of this encounter Additional Source Comments The information contained in this document represents components of the legal health record. It is not the complete legal health record.[facility]
--- OUTSIDE RECORDS SUMMARY | 2024-12-30 20:09 | XMS_ITS | Encounter Summary ---
Author Organization [employer] Address 75 [facility] 7t [place] [address] Care Team Providers Care Apparel Embroidery Digitizer Name Role Phone Tracie Mcginnis DO Primary Care Provider + [phone] Lane Denise PharmD Unavailable [phone] Reason for Visit * Reason Comments Med Refill Encounter Details Date Type Department Care Team (Late st Contact Info) Description 04/11/2024 Refill [facility] 230 [place], [place] [phone] Tracie Mcginnis DO 230 [place], [place] [phone] Primary insomnia Social History Tobacco Use Types [...] Description 01/23/2025 2:00 PM EST Medication Management [facility] [address] [place] [address] [address] Denise, PharmD 230 [place] [address] documented as of this encounter Visit Diagnoses Diagnosis Primary insomnia Persistent disorder of initiating or maintaining sleep documented in this encounter Additional Health Concerns Assessment Noted Time PHQ-9 Depression Total Score: 0 05/11/19 24 11:50 AM EST documented as of this encounter Care Teams Apparel Embroidery Digitizer Relationship Specialty Start Date End Date Tracie Mcginnis DO [address] [place] [address] PCP - General Family Medicine 08/27/13 Lane Denise, PharmD [address] [place] [address] [phone] Pharmacist Pharmacy 10/06/24 documented as of this encounter
--- OUTSIDE RECORDS SUMMARY | 2024-12-30 20:09 | XMS_ITS | Encounter Summary ---
Author Organization [facility] Address [address] [place] [address] 7 [place] [address] Care Team Providers Care Washer Meat Name Role Phone Tracie Mcginnis DO Primary Care Provider + [phone] Lane Denise PharmD Unavailable [phone] Reason for Visit * Reason Comments Med Refill Encounter Details Date Type Department Care Team (Late Contact Info) Description 11/28/2022 Refill [facility] [address] [place] [address] Tracie Mcginnis DO 230 [place] [address] Social History Tobacco Use Types Packs/Day Years [...] Description 01/23/2025 2:00 PM EST Medication Management [facility] [address] [place] [address] [address] Denise, PharmD 230 [place] [address] documented as of this encounter Visit Diagnoses Not on filedocumented in this encounter Care Teams Washer Meat Relationship Specialty Start Date End Date Tracie Mcginnis DO [address] [place] [address] PCP - General Family Medicine 08/27/13 Lane Denise, PharmD [address] [place] [address] Pharmacist Pharmacy 10/06/24 documented as of this encounter
--- OUTSIDE RECORDS SUMMARY | 2024-12-30 20:09 | XMS_ITS | Clinical Summary ---
Author Organization [facility] Address [address] [facility] [address] [place] [address] Phone Care Team Providers Care Dressmaking Teacher Name Role Phone Debbie Luna MD Primary Care Provider [phone] Allergies Active Allergy Reactions Criticality Noted Date [...] BT Active lamoTRIgine (LAMICTAL XR) 100 mg [id number] :@ BT Take 150 mg by mouth [...] Take 40 mg by mouth daily. Active Ketsu BEREKET 2 READER as directed. 3 Active [...] Intimate Partner Violence Answer Date R ecorded Denied Basic Needs Not on file 02/19/2023 In the past 12 months have y ou been in a relationship with a person who hurts, threatens, or tries to control you? No 02/19/2023 Worried food would run out Not on file 12/18 /2023 In the past 12 months have y [...] COLONOSCOPY 11/21/2032 11/21/2022 COLORECTAL CANCER SCREENING 11/21/2032 RSV VACCINE (1 - 1-dose 75+ series) 2044 HEPATITIS A VACCINES Aged Out 03/27/2017, 09/13/19 [...] MD, MPH - 11/21/2022 9:42 AM EDT [facility] Patient Name: Tiffanie Neil MD:: Debbie Luna MD, Procedure Date: 11/21/2022 9:42 AM Date of : 1970 Age: 52 Admit Type: Outpatient Gender: Female Room: [facility] Referring MD: Kavya Mcginnis MD Exam Type: [...] monitored continuously. The Olympus adult variable colonoscope [id number] #6 was introduced through the anus and advanced to the cecum, identified by appendiceal orifice andileocecal valve. The colonoscopy was performed without difficulty. The patient tolerated the procedurewell. The quality of the bowel preparation was evaluated using the BBPS ([place] Bowel Preparation Scale)with scores of: Right Colon [...] 9:42 AM Procedure Code(s): --- Professional --- 02250, Colonoscopy, flexible; with biopsy, single or multiple --- Technical --- 67581, Colonoscopy, flexible; with biopsy, single or multiple Diagnosis Code(s): --- Professional --- R10.84, Generalized abdominal pain R19.7, Diarrhea, unspecified --- Technical --- R10.84, Generalized abdominal pain R19.7, Diarrhea, unspecified CPT copyright 2021 [employer]. All rights reserved. The codes documented in this report are preliminary and upon echocardiography tech reviewmay be revised to meet current compliance requirements. Procedure Date: 11/21/2022 9:42:58 AM 30 [place] [address] Kavya Mcginnis DO GI PROCEDURE ORDERABLES Denise l Result from Last 3 Months or Most Recently Relevant to Health Maintenance Insurance [facility] MEDICARE REPLACEMENT MEDICARE PART A & B [facility] MEDICARE REPLACEMENT MEDICARE PART A & B [facility] MEDICARE REPLACEMENT MEDICARE PART A & B [facility] MEDICARE REPLACEMENT [place] [id number] MEDICARE PART A & B [facility] CARE MEDICARE REPLACEMENT MEDICARE PART A & B [facility] MEDICARE REPLACEMENT MEDICARE PART A & B Care Teams Dressmaking Teacher Relationship Specialty Start Date End Date Debbie Luna MD PCP - General Internal Medicine 02/08/23 KAVYA MCGINNIS Primary Care Physician 02/20/23 Additional Source Comments The information contained in this document represents components of the legal health record. It is not the complete legal health record.[facility]
--- OUTSIDE RECORDS SUMMARY | 2024-12-30 20:09 | XMS_ITS | Encounter Summary ---
Author Organization [email or web address] Address 75 [facility] 7t [place] [address] Care Team Providers Care Administrator Social Welfare Name Role Phone Tracie Mcginnis DO Primary Care Provider + [phone] Lane Denise PharmD Unavailable [phone] Reason for Visit * Reason Comments Med Refill Encounter Details Date Type Department Care Team (Late st Contact Info) Description 12/07/2023 Refill [facility] 230 [place], [place] [phone] Tracie Mcginnis DO 230 [place], [place] [phone] Primary insomnia Social History Tobacco Use Types [...] EST Medication Management [facility] [address] [place] [address] [address] Denise, PharmD 230 [place] [address] documented as of this encounter Visit Diagnoses Diagnosis Primary insomnia Persistent disorder of initiating or maintaining sleep documented in this encounter Additional Health Concerns Assessment Noted Time PHQ-9 Depression Total Score: 0 05/11/19 24 11:50 AM EST documented as of this encounter Care Teams Administrator Social Welfare Relationship Specialty Start Date End Date Tracie Mcginnis DO [address] [place] [address] PCP - General Family Medicine 08/27/13 Lane Denise, PharmD [address] [place] [address] [phone] Pharmacist Pharmacy 10/06/24 documented as of this encounter
--- OUTSIDE RECORDS SUMMARY | 2024-12-30 20:09 | XMS_ITS | Encounter Summary ---
Author Organization [employer] Address 75 [facility] 7t [place] [address] Care Team Providers Care Vegetable Tier Name Role Phone Tracie Mcginnis DO Primary Care Provider + [phone] Lane Denise PharmD Unavailable [phone] Reason for Visit * Reason Comments Med Refill Encounter Details Date Type Department Care Team (Late st Contact Info) Description 11/17/2024 Refill [facility] 230 [place], [place] [phone] Tracie Mcginnis DO 230 [place], [place] [phone] Diabetic polyneuropathy associated with type 2 diabetes [...] 2:00 PM EST Medication Management [facility] [address] [place], [place] [phone] Lane Denise, PharmMaritza [address] [place] [address] documented as of this encounter Visit Diagnoses Diagnosis Diabetic polyneuropathy associated with type 2 diabetes mellitus (HCC) documented in this encounter Additional Health Concerns Assessment Noted Time PHQ-9 Depression Total Score: 14 025 11:26 AM EDT documented as of this encounter Care Teams Vegetable Tier Relationship Specialty Start Date End Date Tracie Mcginnis DO [address] [place] [address] [phone] PCP - General Family Medicine 08/27/13 Lane Denise, PharmD [address] [place] [phone] Pharmacist Pharmacy 10/06/24 documented as of this encounter
--- OUTSIDE RECORDS SUMMARY | 2024-12-30 20:09 | XMS_ITS | Encounter Summary ---
Author Organization [facility] Address 75 [facility] 7t [place] [address] Care Team Providers Care Loss Prevention Associate Name Role Phone Tracie Mcginnis DO Primary Care Provider + [phone] Lane Denise PharmD Unavailable [phone] Encounter Details Date Type Department Care Team (Late st Contact Info) Description 06/14/2023 Orders Only [facility] 230 [place], [place] [phone] Abbi Conway MD 230 [place] [address] Social History Tobacco Use Types Packs/Day Years [...] Description 01/23/2025 2:00 PM EST Medication Management [facility] [address] [place] [address] [address] Denise, PharmD 230 [place] [address] documented as of this encounter Visit Diagnoses Not on filedocumented in this encounter Additional Health Concerns Assessment Noted Time PHQ-9 Depression Total Score: 0 05/11/19 24 11:50 AM EST documented as of this encounter Care Teams Loss Prevention Associate Relationship Specialty Start Date End Date Tracie Mcginnis DO [address] [place] [address] PCP - General Family Medicine 08/27/13 Lane Denise, PharmD [address] [place] [address] [phone] Pharmacist Pharmacy 10/06/24 documented as of this encounter
--- OUTSIDE RECORDS SUMMARY | 2024-12-30 20:09 | XMS_ITS | Encounter Summary ---
Author Organization [employer] Address 75 [facility] 7t [place] [address] Care Team Providers Care Fitness And Wellness Director Name Role Phone Tracie Mcginnis DO Primary Care Provider + [phone] Lane Denise PharmD Unavailable [phone] Reason for Visit * Reason Onset Date Comments Nurse Triage 10/26/2023 Encounter Details Date Type Department Care Team (Late st Contact Info) Description 10/26/2023 Telephone [facility] 230 [place], [place] [phone] Tracie Mcginnis DO 230 [place], [place] [phone] Nurse Triage Social History Tobacco Use Types [...] but after a month she saw her black oxide coating equipment tender who advised to just leave it alone unless it starts to bother her. About 2 weeks ago it started to become painful and tender. Pt called her black oxide coating equipment tender today who was not able to see [...] times are approx. TC placed to pt [phone] who reports she has NOT p/u abx yet from the pharmacy. Pt reports she will p/u the abx today (from [facility] pharmacy). Pt advised if no improvement once the abx are completed to call [facility] for an appt for re-evaluation. Pt [...] EST Medication Management [facility] [address] [place] [address] Lane Denise, PharmD 230 [place] [address] documented as of this encounter Visit Diagnoses Not on filedocumented in this encounter Additional Health Concerns Assessment Noted Time PHQ-9 Depression Total Score: 0 05/11/19 24 11:50 AM EST documented as of this encounter Care Teams Fitness And Wellness Director Relationship Specialty Start Date End Date Tracie Mcginnis DO [address] [place] [address] PCP - General Family Medicine 08/27/13 Lane Denise, PharmD [address] [place] [phone] Pharmacist Pharmacy 10/06/24 documented as of this encounter
--- OUTSIDE RECORDS SUMMARY | 2024-12-30 20:09 | XMS_ITS | Encounter Summary ---
Author Organization [employer] Address 75 [facility] 7t [place] [address] Care Team Providers Care Ampoule Inspector Name Role Phone Tracie Mcginnis DO Primary Care Provider + [phone] Lane Denise PharmD Unavailable [phone] Reason for Visit * Reason Comments Med Refill Encounter Details Date Type Department Care Team (Late st Contact Info) Description 06/15/2023 Refill [facility] 230 [place], [place] [phone] Tracie Mcginnis DO 230 [place] [address] Social History Tobacco Use Types Packs/Day Years [...] 01/23/2025 2:00 PM EST Medication Management [facility] [address] [place] [address] [address] Denise, PharmD 230 [place] [address] documented as of this encounter Visit Diagnoses Not on filedocumented in this encounter Additional Health Concerns Assessment Noted Time PHQ-9 Depression Total Score: 0 05/11/19 24 11:50 AM EST documented as of this encounter Care Teams Ampoule Inspector Relationship Specialty Start Date End Date Tracie Mcginnis DO [address] [place] [address] PCP - General Family Medicine 08/27/13 Lane Denise, PharmD [address] [place] [address]474 Pharmacist Pharmacy 10/06/24 documented as of this encounter
--- OUTSIDE RECORDS SUMMARY | 2024-12-30 20:09 | XMS_ITS | Encounter Summary ---
Author Organization [facility] Address [address] [place] [address] Phone Care Team Providers Care Haul Cane Brakeman Name Role Phone Debbie Luna MD Primary Care Provider [phone] Encounter Details Date Type Department Care Team (Late st Contact Info) Description 02/20/2023 Procedure Pass [facility] Endoscopy Admitting Dept Virtual Department 30 [place] [address] Social History Tobacco Use Types Packs/Day Years [...] food would run out Not on file 02/19 In the past 12 months have y [...] on filedocumented in this encounter Care Teams Haul Cane Brakeman Relationship Specialty Start Date End Date Debbie Luna MD PCP - General Internal Medicine 02/08/23 KAVYA SUBRAMANIAN Primary Care Physician 02/20/23 documented as of this encounter Additional Source Comments The information contained in this document represents components of the legal health record. It is not the complete legal health record.[facility]
--- OUTSIDE RECORDS SUMMARY | 2024-12-30 20:09 | XMS_ITS | Encounter Summary ---
Author Organization [employer] Address 75 [facility] 7t [place] [address] Care Team Providers Care Tufting Machine Operator Single Needle Name Role Phone Tracie Mcginnis DO Primary Care Provider + [phone] Lane Denise PharmD Unavailable [phone] Reason for Visit * Reason Onset Date Comments Nurse Triage 04/18/2023 Encounter Details Date Type Department Care Team (Late st Contact Info) Description 04/18/2023 Telephone [facility] 230 [place], [place] [phone] Tracie Mcginnis DO 230 [place], [place] [phone] Nurse Triage Social History Tobacco Use Types [...] 2:00 PM EST Medication Management [facility] [address] [place] [address] Lane Denise, Myah 230 [place] [address] documented as of this encounter Visit Diagnoses Not on filedocumented in this encounter Care Teams Tufting Machine Operator Single Needle Relationship Specialty Start Date End Date Tracie Mcginnis DO [address] [place] [address] PCP - General Family Medicine 08/27/13 Lane Denise, PharmMaritza [address] [place] [address] Pharmacist Pharmacy 10/06/24 documented as of this encounter
--- OUTSIDE RECORDS SUMMARY | 2024-12-30 20:09 | XMS_ITS | Encounter Summary ---
Author Organization [employer] Address 75 [facility] 7t [place] [address] Care Team Providers Care Objects Conservator Name Role Phone Tracie Mcginnis DO Primary Care Provider + [phone] Lane Denise PharmD Unavailable [phone] Reason for Visit * Reason Comments Med Refill Encounter Details Date Type Department Care Team (Late st Contact Info) Description 08/11/2022 Refill [facility] 230 [place], [place] [phone] Tracie Mcginnis DO 230 [place], [place] [phone] Nonintractable chronic migraine Social History Tobacco Use [...] Description 01/23/2025 2:00 PM EST Medication Management [facility] [address] [place] [address] [address] Denise, PharmD 230 [place] [address] documented as of this encounter Visit Diagnoses Diagnosis Nonintractable chronic migraine documented in this encounter Care Teams Objects Conservator Relationship Specialty Start Date End Date Tracie Mcginnis DO [address] [place] [address] PCP - General Family Medicine 08/27/13 Lane Denise, PharmD [address] [place] [address]471 Pharmacist Pharmacy 10/06/24 documented as of this encounter
--- OUTSIDE RECORDS SUMMARY | 2024-12-30 20:09 | XMS_ITS | Encounter Summary ---
Author Organization [employer] Address [address] [facility] 7t [place] [address] Care Team Providers Care Dye Machine Operator Name Role Phone Tracie Mcginnis DO Primary Care Provider + [phone] Lane Denise PharmD Unavailable [phone] Encounter Details Date Type Department Care Team ([facility] st Contact Info) Description 08/17/2023 Telephone [facility] 230 [place], [place] [phone] Tracie Mcginnis DO 230 [place], [place] [phone] Social History Tobacco Use Types Packs/Day Years [...] Description 01/23/2025 2:00 PM EST Medication Management [facility] [address] [place] [address] [address] Denise, PharmD 230 [place] [address] documented as of this encounter Visit Diagnoses Not on filedocumented in this encounter Additional Health Concerns Assessment Noted Time PHQ-9 Depression Total Score: 0 05/11/19 24 11:50 AM EST documented as of this encounter Care Teams Dye Machine Operator Relationship Specialty Start Date End Date Tracie Mcginnis DO [address] [place] [address] PCP - General Family Medicine 08/27/13 Lane Denise, PharmD [address] [place] [address] [phone] Pharmacist Pharmacy 10/06/24 documented as of this encounter
--- OUTSIDE RECORDS SUMMARY | 2024-12-30 20:09 | XMS_ITS | Encounter Summary ---
Author Organization [employer] Address [address] [facility] [address] 7t [place] [address] Care Team Providers Care Tower Loader Operator Name Role Phone Tracie Mcginnis DO Primary Care Provider + [phone] Lane Denise PharmD Unavailable [phone] Encounter Details Date Type Department Care Team (Latest Contact Info) Description 12/30/2024 Travel Social History Tobacco Use Types Packs/Day [...] KENNA-7 Total Score 18 12/30/2024 2:26 PM EDT Cristin Jain [place] documented as of this encounter Plan of Treatment Upcoming Encounters Date Type Department Care Team (Late st Contact Info) Description 01/23/2025 2:00 PM EST Medication Management [facility] MED[facility] 230 [place] [address] Lnae Denise, PharmD 230 [place] [address] documented as of this encounter Visit Diagnoses Not on filedocumented in this encounter Additional Health Concerns Assessment Noted Time PHQ-9 Depression Total Score: 22 025 2:25 PM EDT documented as of this encounter Care Teams Tower Loader Operator Relationship Specialty Start Date End Date Tracie Mcginnis DO 230 [place] [address] PCP - General Family Medicine 08/27/13 Lane Denise, PharmD [address] [place] [address] [phone] Pharmacist Pharmacy 10/06/24 documented as of this encounter
--- OUTSIDE RECORDS SUMMARY | 2024-12-30 20:09 | XMS_ITS | Encounter Summary ---
Author Organization [employer] Address 75 [facility] 7t [place] [address] Care Team Providers Care Long Chain Quiller Tender Name Role Phone Tracie Mcginnis DO Primary Care Provider + [phone] Robina Denise PharmD Unavailable [phone] Reason for Visit * Reason Onset Date Comments Appointment Request 09/12/2024 Encounter Details Date Type Department Care Team (Late st Contact Info) Description 09/12/2024 Telephone [facility] MEDICINE 230 [place], [place] [phone] Tracie Mcginnis DO 230 [place], [place] [phone] Appointment Request Social History Tobacco Use Types [...] Description 01/23/2025 2:00 PM EST Medication Management [facility] 230 [place] [address] Robina Denise, PharmD 230 [place] [address] documented as of this encounter Visit Diagnoses Not on filedocumented in this encounter Additional Health Concerns Assessment Noted Time PHQ-9 Depression Total Score: 14 025 11:26 AM EDT documented as of this encounter Care Teams Long Chain Quiller Tender Relationship Specialty Start Date End Date Tracie Mcginnis DO 230 [place] [address] PCP - General Family Medicine 6/25/14 Robina Denise, PharmD [address] [place] [phone] Pharmacist Pharmacy 10/06/24 documented as of this encounter
--- OUTSIDE RECORDS SUMMARY | 2024-12-30 20:09 | XMS_ITS | Encounter Summary ---
Author Organization [employer] Address 75 [facility] 7t [place] [address] Care Team Providers Care Agricultural Research Director Name Role Phone Tracie Mcginnis DO Primary Care Provider + [phone] Lane Denise PharmD Unavailable [phone] Reason for Visit * Reason Comments Med Refill Encounter Details Date Type Department Care Team (Late st Contact Info) Description 09/17/2024 Refill [facility] MEDICINE 230 [place], [place] [phone] Tracie Mcginnis DO 230 [place], [place] [phone] Diabetic polyneuropathy associated with type 2 diabetes [...] Description 01/23/2025 2:00 PM EST Medication Management [facility] MEDICINE [address] [place] [address] [address] Denise, PharmD 230 [place] [address] documented as of this encounter Visit Diagnoses Diagnosis Diabetic polyneuropathy associated with type 2 diabetes mellitus (HCC) documented in this encounter Additional Health Concerns Assessment Noted Time PHQ-9 Depression Total Score: 14 025 11:26 AM EDT documented as of this encounter Care Teams Agricultural Research Director Relationship Specialty Start Date End Date Tracie Mcginnis DO [address] [place] [address] [phone] PCP - General Family Medicine 08/27/13 Lane Denise, PharmD [address] [place] [phone] Pharmacist Pharmacy 10/06/24 documented as of this encounter
--- OUTSIDE RECORDS SUMMARY | 2024-12-30 20:09 | XMS_ITS | Encounter Summary ---
Author Organization [employer] Address 75 [facility] 7[place] [address] Care Team Providers Care Marine Equipment Engineer Name Role Phone Tracie Mcginnis DO Primary Care Provider + [phone] Lane Denise PharmD Unavailable [phone] Encounter Details Date Type Department Care Team (Late st Contact Info) Description 02/28/2022 Orders Only [facility] CHC MED & PEDS [address] [place] [address] Tracie Dalton LPN Social History Tobacco Use [...] Management [facility] MEDICINE [address] [place] [address] Lane Denise, PharmD 230 [place] [address] documented as of this encounter Visit Diagnoses Not on filedocumented in this encounter Care Teams Marine Equipment Engineer Relationship Specialty Start Date End Date Tracie Mcginnis DO 230 [place] [address] PCP - General Family Medicine 08/27/13 Lane Denise, PharmD [address] [place] [address] Pharmacist Pharmacy 10/06/24 documented as of this encounter
--- OUTSIDE RECORDS SUMMARY | 2024-12-30 20:09 | XMS_ITS | Encounter Summary ---
Author Organization [employer] Address 75 [facility] 7t [place] [address] Care Team Providers Care Ornamental Metal Erector Apprentice Name Role Phone Tracie Mcginnis DO Primary Care Provider + [phone] Lane Denise PharmD Unavailable [phone] Reason for Visit * Reason Comments Med Refill Encounter Details Date Type Department Care Team (Late st Contact Info) Description 03/03/2024 Refill [facility] MEDICINE 230 [place], [place] [phone] Gwendolyn Ortega MD 230 [place], [place] [phone] Nonintractable chronic migraine Social History Tobacco Use [...] EST Medication Management [facility] MEDICINE [address] [place] [phone] Denise PharmD [address] [place] [address] documented as of this encounter Visit Diagnoses Diagnosis Nonintractable chronic migraine documented in this encounter Additional Health Concerns Assessment Noted Time PHQ-9 Depression Total Score: 0 05/11/19 24 11:50 AM EST documented as of this encounter Care Teams Ornamental Metal Erector Apprentice Relationship Specialty Start Date End Date Tracie Mcginnis DO [address] [place] [address] PCP - General Family Medicine 08/27/13 Lane Denise, NiviaD [address] [place] [address] Pharmacist Pharmacy 10/06/24 documented as of this encounter
--- OUTSIDE RECORDS SUMMARY | 2024-12-30 20:09 | XMS_ITS | Clinical Summary ---
Author Organization [facility] Address [address] [place] [address] Care Team Providers Care Bumper Operator Name Role Phone BroallieWendy marshallfer Robyn MATUTE Primary Care Provider [phone] Social History Tobacco Use Types Packs/Day Years [...] age to complete this topic Care Teams Bumper Operator Relationship Specialty Start Date End Date Tracie Mcginnis DO [address] [place] [address] PCP - General 10/10/16
--- OUTSIDE RECORDS SUMMARY | 2024-12-30 20:09 | XMS_ITS | Encounter Summary ---
Author Organization [employer] Address 75 [facility] 7t [place] [address] Care Team Providers Care Supervisor Sulfuric Acid Plant Name Role Phone Tracie Mcginnis DO Primary Care Provider + [phone] Lane Denise PharmD Unavailable [phone] Reason for Visit * Reason Comments Med Refill Encounter Details Date Type Department Care Team (Late st Contact Info) Description 05/11/2023 Refill [facility] MEDICINE 230 [place], [place] [phone] Tracie Mcginnis DO 230 [place], [place] [phone] Nonintractable chronic migraine Social History Tobacco Use [...] Description 01/23/2025 2:00 PM EST Medication Management [facility] MEDICINE [address] [place] [address] [address] Denise, PharmD 230 [place] [address] documented as of this encounter Visit Diagnoses Diagnosis Nonintractable chronic migraine documented in this encounter Additional Health Concerns Assessment Noted Time PHQ-9 Depression Total Score: 0 05/11/19 24 11:50 AM EST documented as of this encounter Care Teams Supervisor Sulfuric Acid Plant Relationship Specialty Start Date End Date Tracie Mcginnis DO 230 [place] [address] PCP - General Family Medicine 08/27/13 Lane Denise, PharmD 230 [place] [address] Pharmacist Pharmacy 10/06/24 documented as of this encounter
--- OUTSIDE RECORDS SUMMARY | 2024-12-30 20:09 | XMS_ITS | Encounter Summary ---
Author Organization [employer] Address 75 [facility] 7t [place] [address] Care Team Providers Care Battery Charger Name Role Phone Tracie Mcginnis DO Primary Care Provider + [phone] Lane Denise PharmD Unavailable [phone] Reason for Visit * Reason Comments Med Refill Encounter Details Date Type Department Care Team (Late st Contact Info) Description 02/07/[address] [facility] MEDICINE 230 [place], [place] [phone] Tracie Mcginnis DO 230 [place], [place] [phone] Primary insomnia Social History Tobacco Use Types [...] PM EST Medication Management [facility] MEDICINE [address] [place] [address] Lane Denise, PharmD 230 [place] [address] documented as of this encounter Visit Diagnoses Diagnosis Primary insomnia Persistent disorder of initiating or maintaining sleep documented in this encounter Additional Health Concerns Assessment Noted Time PHQ-9 Depression Total Score: 0 05/11/19 24 11:50 AM EST documented as of this encounter Care Teams Battery Charger Relationship Specialty Start Date End Date Tracie Mcginnis DO [address] [place] [address] PCP - General Family Medicine 08/27/13 Lane Denise, PharmD [address] [place] [address] [phone] Pharmacist Pharmacy 10/06/24 documented as of this encounter
--- OUTSIDE RECORDS SUMMARY | 2024-12-30 20:09 | XMS_ITS | Encounter Summary ---
Author Organization [employer] Address 75 [facility] 7t [place] [address] Care Team Providers Care Manager Transplant Name Role Phone Tracie Mcginnis DO Primary Care Provider + [phone] Lane Denise PharmD Unavailable [phone] Reason for Visit * Reason Comments Med Refill Encounter Details Date Type Department Care Team (Late st Contact Info) Description 08/01/2024 Refill [facility] CHC MED & PEDS [address] [place], [place] [phone] Tracie Mcginnis DO 230 [place], [place] [phone] Diabetic polyneuropathy associated with type 2 diabetes [...] Description 01/23/2025 2:00 PM EST Medication Management [facility] MEDICINE [address] [place] [address] [address] Denise, PharmD 230 [place] [address] documented as of this encounter Visit Diagnoses Diagnosis Diabetic polyneuropathy associated with type 2 diabetes mellitus (HCC) documented in this encounter Additional Health Concerns Assessment Noted Time PHQ-9 Depression Total Score: 14 025 11:26 AM EDT documented as of this encounter Care Teams Manager Transplant Relationship Specialty Start Date End Date Tracie Mcginnis DO 230 [place], [place] [phone] PCP - General Family Medicine 08/27/13 Lane Denise, PharmD [address] [place] [address] Pharmacist Pharmacy 10/06/24 documented as of this encounter
--- OUTSIDE RECORDS SUMMARY | 2024-12-30 20:09 | XMS_ITS | Encounter Summary ---
Author Organization [employer] Address 75 [facility] 7t [place] [address] Care Team Providers Care Senior Hardware Engineer Name Role Phone Tracie Mcginnis DO Primary Care Provider + [phone] Lane Denise PharmD Unavailable [phone] Reason for Visit * Reason Comments Med Refill Encounter Details Date Type Department Care Team (Late st Contact Info) Description 11/16/2024 Refill [facility] MEDICINE 230 [place], [place] [phone] Tracie Mcginnis DO 230 [place], [place] [phone] Diabetic polyneuropathy associated with type 2 diabetes [...] Medication Management [facility] MEDICINE [address] [place], [place] [phone] Lane Denise, PharmMaritza [address] [place] [address] documented as of this encounter Visit Diagnoses Diagnosis Diabetic polyneuropathy associated with type 2 diabetes mellitus (HCC) documented in this encounter Additional Health Concerns Assessment Noted Time PHQ-9 Depression Total Score: 14 025 11:26 AM EDT documented as of this encounter Care Teams Senior Hardware Engineer Relationship Specialty Start Date End Date Tracie Mcginnis DO [address] [place] [address] [phone] PCP - General Family Medicine 08/27/13 Lane Denise, PharmD [address] [place] [facility] [place] [phone] Pharmacist Pharmacy 10/06/24 documented as of this encounter
--- OUTSIDE RECORDS SUMMARY | 2024-12-30 20:09 | XMS_ITS | Encounter Summary ---
Author Organization [employer] Address 75 [facility] 7t [place] [address] Care Team Providers Care Cigar Packer And Shader Name Role Phone Tracie Mcginnis DO Primary Care Provider + [phone] Lane Denise PharmD Unavailable [phone] Reason for Visit * Reason Comments Med Refill Encounter Details Date Type Department Care Team (Late st Contact Info) Description 03/30/2022 Refill [facility] MEDICINE 230 [place], [place] [phone] Tracie Mcginnis DO 230 [place], [place] [phone] Other hyperlipidemia (Primary Dx) Social History Tobacco [...] Medication Management [facility] MEDICINE [address] [place] [address] [address] Denise, Myah [address] [place] [address] documented as of this encounter Visit Diagnoses Diagnosis Other hyperlipidemia- Primary documented in this encounter Care Teams Cigar Packer And Shader Relationship Specialty Start Date End Date Tracie Mcginnis DO [address] [place] [address] PCP - General Family Medicine 08/27/13 Lane Denise, PharmD [address] [place] [address] Pharmacist Pharmacy 10/06/24 documented as of this encounter
--- OUTSIDE RECORDS SUMMARY | 2024-12-30 20:09 | XMS_ITS | Clinical Summary ---
Author Organization [employer] Address [address] [facility] [place] [address] Care Team Providers Care Architect Intern Name Role Phone Tracie Mcginnis Primary Care [...] Adults 18 yrs or above (or HM Modifier)([facility]) 05/27/1987 Hepatitis C Virus Infection in Adolescents and Adults: Screening (or Modifier) ([facility]) 05/27/1987 SDOH Screening Reminder: Jacki cummins for all adults ([facility]) 05/27/1987 Tobacco Smoking Cessation: i n Adults excluding Women: Behavioral and Pharmacotherapy Interventions ([facility]) 05/27/1987 DTaP/Tdap/Td Vaccines ([facility]) (1 - Tdap) 1988 Cervical Cancer Screenin 1-65 yrs of age (or Modifier) 1990 Cervical Cancer Screening: P ap every 3 yrs pts age 21-65 1990 Cervical Cancer: Pap Screeni ng with Modifier timing ([facility]) 1990 Cervical Cancer: hrHPV alone or with cotesting Pap for Pts 30-65yrs screening every 5yrs ([facility]) 1990 Colorectal Cancer Screening 45 -75 Yrs (or HM Modifier ) 2014 Colorectal Cancer: FLEXIBLE SIGMOIDOSCOPY Screening every 5 yrs 2014 Colorectal Cancer: Fecal Imm unochemical Test (FIT) Annually [facility] 2014 Colorectal Cancer: High-sens itivity gFOBT Screening Annually [facility] 2014 Colorectal Cancer: Stool Col oguard Screening every 3 yrs 2014 Colorectal Cancer:CT Colonography Screening every 5 yr s 2014 Breast Cancer: Screening Jacki ually age 50-74 yrs (or HM Modifier)([facility]) 05/27/2019 Lung Cancer: Screening Annua lly in adults aged 50 to 80 years (or HM Modifiers)([facility]) 05/27/2019 Pneumococcal Vaccination Scr eening: Patients 50+ yrs of age ([facility]) (1 of 1 - PCV) 05/27/2019 Zoster/Shingles Vaccine Seri es Screening: Adults aged 18+ yrs (or HM Modifiers)([facility]) (1 of 2) 05/27/2019 Flu Vaccination: Yearly for ages 18mos through 64 years (or Modifier)([facility]) 10/03/2024 COVID-19 Vaccine Screening: Initial Series and Booster Status ([facility]) ( season) 2024 Medical Devices Not on file Insurance [facility] [employer] Care Teams Architect Intern Relationship Specialty Start Date End Date Tracie Mcginnis DO [address] [place] [phone] PCP - General Family Medicine 09/03/15
--- OUTSIDE RECORDS SUMMARY | 2024-12-30 20:09 | XMS_ITS | Encounter Summary ---
Author Organization [employer] Address 75 [facility] 7t [place] [address] Care Team Providers Care Roof Cement And Paint Maker Helper Name Role Phone Tracie Mcginnis DO Primary Care Provider [phone] Lane Denise PharmD Unavailable [phone] Encounter Details Date Type Department Care Team ([facility] st Contact Info) Description 12/25/2024 Refill [facility] MEDICINE 230 [place], [place] [phone] Tracie Mcginnis DO 230 [place], [place] [phone] Nonintractable chronic migraine Social History Tobacco Use [...] [facility] MEDICINE [address] [place] [address] [address] Denise, PharmD 230 [place] [address] documented as of this encounter Visit Diagnoses Diagnosis Nonintractable chronic migraine documented in this encounter Additional Health Concerns Assessment Noted Time PHQ-9 Depression Total Score: 14 025 11:26 AM EDT documented as of this encounter Care Teams Roof Cement And Paint Maker Helper Relationship Specialty Start Date End Date Tracie Mcginnis DO [address] [place] [address] PCP - General Family Medicine 08/27/13 Lane Denise, PharmD [address] [place] [phone] Pharmacist Pharmacy 10/06/24 documented as of this encounter
--- OUTSIDE RECORDS SUMMARY | 2024-12-30 20:09 | XMS_ITS | Encounter Summary ---
Author Organization [employer] Address 75 [facility] 7t [place] [address] Care Team Providers Care Lasting Machine Operator Name Role Phone Tracie Mcginnis DO Primary Care Provider + [phone] Lane Denise PharmD Unavailable [phone] Reason for Visit * Reason Comments Med Refill Encounter Details Date Type Department Care Team (Late st Contact Info) Description 09/26/2024 Refill [facility] MEDICINE 230 [place], [place] [phone] Tracie Mcginnis DO 230 [place], [place] [phone] Nonintractable chronic migraine Social History Tobacco Use [...] 2:00 PM EST Medication Management [facility] MEDICINE [address] [place] [address] Lane Denise PharmD 230 [place] [address] documented as of this encounter Visit Diagnoses Diagnosis Nonintractable chronic migraine documented in this encounter Additional Health Concerns Assessment Noted Time PHQ-9 Depression Total Score: 14 025 11:26 AM EDT documented as of this encounter Care Teams Lasting Machine Operator Relationship Specialty Start Date End Date Tracie Mcginnis DO 230 [place] [address] PCP - General Family Medicine 08/27/13 Lane Denise, PharmD 230 [place] [address] Pharmacist Pharmacy 10/06/24 documented as of this encounter
--- OUTSIDE RECORDS SUMMARY | 2024-12-30 20:10 | XMS_ITS | Encounter Summary ---
Author Organization [employer] Address 75 [facility] 7t [place] [address] Care Team Providers Care Jail Officer Name Role Phone Tracie Mcginnis DO Primary Care Provider + [phone] Lane Denise PharmD Unavailable [phone] Reason for Visit * Reason Comments Med Refill Encounter Details Date Type Department Care Team (Late st Contact Info) Description 04/23/2024 Refill [facility] CHC MED & PEDS [address] [place], [place] [phone] Tracie Mcginnis DO 230 [place], [place] [phone] Social History Tobacco Use Types Packs/Day Years [...] Description 01/23/2025 2:00 PM EST Medication Management [facility] MEDICINE [address] [place] [address] [address] Denise, PharmD 230 [place] [address] documented as of this encounter Visit Diagnoses Not on filedocumented in this encounter Additional Health Concerns Assessment Noted Time PHQ-9 Depression Total Score: 0 05/11/19 24 11:50 AM EST documented as of this encounter Care Teams Jail Officer Relationship Specialty Start Date End Date Tracie Mcginnis DO [address] [place] [address] PCP - General Family Medicine 08/27/13 Lane Denise, PharmD [address] [place] [address] [phone] Pharmacist Pharmacy 10/06/24 documented as of this encounter
--- OUTSIDE RECORDS SUMMARY | 2024-12-30 20:10 | XMS_ITS | Data Portability ---
Author Organization [employer] [facility], [facility] Address [address] [place] [phone] Care Team Providers Care Dredge Hand Name Role Phone KAVYA SUBRAMANIAN Primary Care Provider HIM CCA OTHER Assessment Encounter Date Assessment Date Assessment LastModified by Organization Details LastModified Time 09/17/2023 09/17/2023 As noted, we kathia murillo called to see this patient regarding concerns of laryngospasm. PMHx notable for: BMI 31.0-31.9 Essential hypertension Chronic gastroesophageal reflux disease Chronic migraine Tobacco dependence Type 2 diabetes mellitus ([facility]) Nephrolithiasis Healthcare maintenance Arthralgia Nausea, vomiting, and diarrhea Fatty liver Hyperlipidemia Erosive esophagitis Gastroparesis Chronic bipolar disorder ([facility]) Irritable bowel syndrome 53 yo F with [...] in the field was performed by my television equipment operator colleague, as noted above, I provided real-time [...] in 250 mg capsule 2023 024 [email or web address] [facility], [employer] [address], [place], [address], 17:27:11 cephalex in 500 mg capsule 2023 024 [facility], [employer] [address], [place], [address], 4 17:27:14 ketorola c 30 mg/mL injectio n solution 2023 024 [email or web address] Not available 4 12:28:31 ketorola c 30 mg/mL injectio n solution 2023 024 Not available 4 21:43:11 ketorola c 30 [...] Not available Not available Not available 09/17/2023 [id number] RxNorm SELENA ODOM MD [address] [place] [address],[address], [place], [address], [employer] 4 17:33:21 5440 Wellbutri n medicatio n Not available Not available Not available 09/17/2023 70312 RxNorm SELENA ODOM MD [address] [place] [address],[address], [place], [address], [employer] 4 17:33:29 5441 metformin medicatio n Not available Not available Not available 09/17/2023 6809 RxNorm SELENA ODOM MD [address] [place] [address],[address], [place], [address], [employer] 4 17:33:39 Medications Name Sig Start Date [...] Not Available Not Available No t Available [facility] active Not Available Not [...] Respiratory rate Heart rate Body height Systolic And Diastolic Provider Name and Address Organization Details Last Updated DateTime 4 75564.8 g 98.4 [degF] 98 % 98 % 14 /min 106 /min 157.48 cm 124/80 mm[Hg] Not Available [employer] 4 19:03:10 Date Recorded Respiratory rate Oxygen saturation Oxygen saturation in Arterial blood by Pulse oximetry Body weight Body temperature Body height Heart rate Systolic And Diastolic Provider Name and Address Organization Details Last Updated DateTime 4 14 /min 95 % 95 % 47790.3 76 g 98.3 [degF] 160.02 cm 80 /min 107/68 mm[Hg] Not Available [employer] 4 12:08:35 Date Recorded Oxygen saturation Oxygen saturation in Arterial blood by Pulse oximetry Body temperature Body height Heart rate Body weight Respiratory rate Systolic And Diastolic Provider Name and Address Organization Details Last Updated DateTime 4 98 % 98 % 98.3 [degF] 160.02 cm 96 /min 81374.6 g 16 /min 111/76 mm[Hg] Not Available [facility] [employer] 4 17:31:33 Date Recorded Oxygen saturation Oxygen saturation in Arterial blood by Pulse oximetry Body temperature Respiratory rate Heart rate Systolic And Diastolic Provider Name and Address Organization Details Last Updated DateTime 4 97 % 97 % 98.5 [degF] 16 /min 85 /min 122/86 mm[Hg] Not Available [employer] [facility] [employer] 4 17:18:53 Date Recorded Heart rate Respiratory rate Body temperature Oxygen saturation Oxygen saturation in Arterial blood by Pulse oximetry Systolic And Diastolic Provider Name and Address Organization Details Last Updated DateTime 3 98 /min 16 /min 97 [degF] 97 % 97 % 126/65 mm[Hg] Not Available [facility] [employer] 3 18:08:47 Social History None recorded. Functional Status None recorded. Mental Status None recorded. Family History Nothing Reported. Medical History No medical history recorded. Gynecological HistoryNo gynecological history recorded. Obstetrics History GPAL:G 0 P 0 0 0 0 Past Encounters Encounter ID Performer Location Encounter Start Date Encounter Closed Date Diagnosis/Indication Diagnosis SNOMED-CT Code Diagnosis ICD10 Code Diagnosis IMO Codes Diagnosis Note [id number] Leigha Edwards MD [facility] [address] [place] [id number] 11/24/2022 19:46:20 11/26/2022 18:07:10 Kidney stone 08525707 N20.0 52 year old female with history [...] assessment and plan as documented by the television equipment operator. I provided real-time medical direction for this encounter and was immediatel y available to provide additional phone-base d assistance as needed. [id number] Lisa Hensley MD [facility] [address] [place] [id number] 11/29/2022 18:06:21 01/15/2023 14:59:54 Kidney stone 80759676 N20.0 I provided real -time medical direction via phone for this encounter, and was available for additional phone based assistance as needed. I have reviewed and agree with the Assessment and Plan as documented by the Uniform Patrol Police Officer. Patient given the opportunit y to ask [...] signs/sx. Leigha Edwards MD [facility] [address] [place] [id number] 04/18/2023 19:03:08 07/04/2024 00:25:10 Fall [id number] W19.XXXS 52 year old female being evaluated [...] assessment and plan as documented by the television equipment operator. I provided real-time medical direction for this encounter and was immediatel y available to provide additional phone-base d assistance as needed. We discussed the diagnostic uncertaint y of home visits and associated risks. We discussed the need to seek care urgently/e mergently in the setting of any new or worsening symptoms. Lisa Hensley MD [facility] [address] [place] [phone] 04/23/2023 12:08:33 04/24/2023 11:07:37 Pain of wrist region 15573380 M25.532 I provided real -time medical direction via phone for this encounter, and was available for additional phone based assistance as needed. I have reviewed and agree with the Assessment and Plan as documented by the Uniform Patrol Police Officer. Patient given the opportunit y to ask [...] d wrapping wrist and using heat/cold therapy. [id number] SELENA ODOM MD [facility] [address] [place] [id number] 09/17/2023 17:31:28 09/17/2023 20:57:33 Chronic hoarseness 9797036932 105 R49.0 Cough 77447672 R05.9 Laryngeal spasm 64576679 2 J38.5 [id number] Brennan Gonzalez MD [facility] [address] [place] [id number] 10/26/2023 17:18:45 10/28/2023 18:19:59 Cellulitis of skin 953715223 L03.90 Health Concerns Section Related Observation LastModified by Organization Detai ls LastModified Time None Recorded Concern Status LastModified by Organization Details LastModified Time None Recorded Advance Directives Directive None Recorded Payers Insurance Date Sequence Insurance Name Policy Number Policy Amor Covered Member ID Amor Member ID Guarantor Name 07/04/[address] [facility] - DOS ON OR AFTER 2022 - DUAL ELIGIBLE - RESIDENTIAL OPTIONS AND ONE CARE (MEDICARE REPLACEMENT/ADV ANTAGE - HMO) Tiffanie Dumont [id number] Tiffanie Dumont Notes Date Note Type Note [...] ................... ................... ................... ................... ................... ................... ........ Uniform Patrol Police Officer Note From Biju Garsia: Pt reports that [...] ................... ........ Disposition: Evy Hensley MD [address] [facility], [place], [phone], [employer] 01/07/2023 23:23:06 04/18/2023 text/html CRC Nurse Triage [...] ................... ................... ................... ................... ................... ................... ........ Uniform Patrol Police Officer Note From Jarrod Morgan: Pt [place] x3 [...] dry, no visible bruising or deformity noted. [facility] orders toradol 30mg IM, administered as noted. Red flags and pt education discussed. ................... ................... ................... ................... ................... ................... ................... ........ Disposition: Fulfilled Leigha Edwards MD [address] [facility],[address], [place], [address], [email or web address] 04/18/2023 21:43:19 04/23/2023 text/html CRC Nurse Triage [...] ................... ................... ................... ................... ................... ................... ........ Uniform Patrol Police Officer Note From Ewelinakanemelodie Jose: 52 yo F suffered a mechanical fall [...] and flex to below 90 degrees. Equal sales representative printing supplies strength, and POS PMS in affected extremity. [...] ................... ........ Disposition: Fulfilled Lisa Hensley MD [address] [place] [address],[address], [place], [address], [facility] - [email or web address] 04/23/2023 23:27:41 09/17/2023 text/html ROS as noted in the HPI HPI: Call returned to Tiffanie Dumont to [...] fever. Pt advised of disposition, agrees to [facility] for exam as not able to come into our [facility] for exam today. Reviewed home care advise, ER precautions and reasons to call back.Pt address confirmed [id number] [place] [address] ................... ................... ................... ................... ................... ................... ................... ........ CRC Nurse Triage Notes (Guillermina Jenkins): Comments: CRC RN DID NOT NEED FURTHER INFO Uniform Patrol Police Officer POC Test Results from Edy Torre - [facility] Rapid strep test (18:24:28) Strep: - ................... ................... ................... ................... ................... ................... ................... ........ Uniform Patrol Police Officer Note From Edy Torre: [facility] visit for female patient. Pt presents conscious [...] or inflammation in posterior pharynx. Consulted with [facility] Dr. Odom who advised follow up with PCP. Reviewed red flags for ED. Pt education provided. ................... ................... ................... ................... ................... ................... ................... ........ Disposition: Fulfilled SELENA OODM MD [address] [facility],[address], [place], [address], [email or web address] 09/17/2023 18:42:32 10/26/2023 text/html HPI: Patient with [...] ................... ................... ................... ................... ................... ................... ........ Uniform Patrol Police Officer Note From Santosh Hernandez: Dispatched to the call address for the female with a spot of concern on her stomach. Pt states she had this small area on her lower left abd that didn't bother her really but after a month she saw her assistant professor of spanish who advised to just leave it alone unless it starts to bother her. About 2 weeks ago it started to become painful and tender. Pt called her assistant professor of spanish today who was not able to see [...] ........ Disposition: Fulfilled Brennan Gonzalez MD [address] [facility],[address], [place], [address], [email or web address] 10/26/2023 23:27:43 OBGyn Episode No OBEpisode recorded.
--- OUTSIDE RECORDS SUMMARY | 2024-12-30 20:10 | XMS_ITS | Encounter Summary ---
Author Organization [employer] Address [address] [facility] [address] [place] [address] Care Team Providers Care Sap Developer Name Role Phone Tracie Mcginnis DO Primary Care Provider + [phone] Lane Denise PharmD Unavailable [phone] Reason for Visit * Reason Comments Med Refill Encounter Details Date Type Department Care Team (Late st Contact Info) Description 02/12/2023 Refill [facility] [address] [place], [place] [phone] Tracie Mcginnis DO [address] [place] [address] Social History Tobacco Use Types Packs/Day Years [...] Description 01/23/2025 2:00 PM EST Medication Management [facility] [address] [place] [address] Denise, PharmD [address] [place] [address] documented as of this encounter Visit Diagnoses Not on filedocumented in this encounter Care Teams Sap Developer Relationship Specialty Start Date End Date Tracie Mcginnis DO [address] [place] [id number] PCP - General Family Medicine 08/27/13 Lane Denise, PharmD [address] [place] [phone] Pharmacist Pharmacy 10/06/24 documented as of this encounter
--- OUTSIDE RECORDS SUMMARY | 2024-12-30 20:10 | XMS_ITS | Encounter Summary ---
Author Organization [employer] Address [address] [facility] [address] [place] [address] Care Team Providers Care Statistician Name Role Phone Tracie Mcginnis DO Primary Care Provider + [phone] Lane Denise PharmD Unavailable [phone] Encounter Details Date Type Department Care Team (Late st Contact Info) Description 04/19/2024 Orders Only [facility] [address] [place] [address] ProviderMarlon MD Social History Tobacco Use Types [...] Description 01/23/2025 2:00 PM EST Medication Management [facility] [address] [place] [address] [address] Denise, PharmMaritza [address] [place] [address] documented as of this encounter Procedures Procedure [...] documented as of this encounter Care Teams Statistician Relationship Specialty Start Date End Date Tracie Mcginnis DO [address] [place] [address] [phone] PCP - General Family Medicine 08/27/13 Lane Denise, PharmD [address] [place] [phone] Pharmacist Pharmacy 10/06/24 documented as of this encounter
--- OUTSIDE RECORDS SUMMARY | 2024-12-30 20:10 | XMS_ITS | Encounter Summary ---
Author Organization [employer] Address [address] [facility] [address] [place] [address] Care Team Providers Care Shredded Filler Machine Wrapper Layer Name Role Phone Tracie Mcginnis DO Primary Care Provider + [phone] Lane Denise PharmD Unavailable [phone] Encounter Details Date Type Department Care Team ([facility] st Contact Info) Description 12/13/2022 Telephone [facility] [address] [place], [place] [phone] Tracie Mcginnis DO [address] [place], [place] [phone] Social History Tobacco Use Types Packs/Day Years [...] Description 01/23/2025 2:00 PM EST Medication Management [facility] [address] [place] [address] [address] Denise, PharmD [address] [place] [address] documented as of this encounter Visit Diagnoses Not on filedocumented in this encounter Care Teams Shredded Filler Machine Wrapper Layer Relationship Specialty Start Date End Date Tracie Mcginnis DO [address] [place] [phone] PCP - General Family Medicine 08/27/13 Lane Denise, PharmD [address] [place] [phone] Pharmacist Pharmacy 10/06/24 documented as of this encounter
== END 2024-12-30 16:15 | disposition home or self-care (01) ==
LOC: HO.LNP 16:14
PROVIDERS: Visit Provider Family Medicine
DX: K21.9 Gastro-esophageal reflux disease without esophagitis (principal)
CPT/HCPCS: 83013

== ENCOUNTER 2025-01-14 10:49 | Outpatient (AMB) | payer OTHER, SELFPAY ==
--- NOTE | 2025-01-14 10:59 | A.OFFVIS_ITS ---
Vital Signs 01/14/25 11:02 Height 5 ft 3 in Weight 171 lb 4.787 oz BMI 30.3 BP 112/70 Blood Pressure Location Rt brachial Position Sitting Pulse 83 Pulse Source Pulse Oximeter Pulse Oximetry (%) 99 Oxygen Delivery Method Room Air Intake Visit Reasons: FESTUS+/ New Patient Intake Note: New patient presents for FESTUS+. Allergies bupropion (From WELLBUTRIN) Allergy (Severe, Verified 01/14/25 11:02) SHAKES, VIOLENTLY ILL metformin (METFORMIN) Allergy (Severe, Verified 01/14/25 11:02) VIOLENTLY SICK, nausea and vomiting promethazine (From PHENERGAN) Allergy (Severe, Verified 01/14/25 11:02) HIVES,sob fish derived (fish) Allergy (Intermediate, Verified 01/14/25 11:02) rash, anaphylaxis shellfish derived Allergy (Intermediate, Verified 01/14/25 11:02) Anaphylaxis Medication List - Last Reconciled 01/14/25 by Angela Maldonado MD atorvastatin 40 mg PO BEDTIME butorphanol intranasal cetirizine 10 mg PO QAM cyclobenzaprine 5 mg PO BEDTIME diazepam 10 mg PO BID PRN ergocalciferol (vitamin D2) 1,250 mcg PO QWEEK famotidine 40 mg PO BEDTIME ferrous sulfate 325 mg PO QAM fluticasone propionate 50 mcg/actuation 2 sprays intranasal DAILY folic acid 1 mg PO QAM gabapentin 300 mg PO TID insulin degludec (Tresiba FlexTouch U-100 insulin) 5 units subcut DAILY lamotrigine 150 mg PO DAILY vlgyxp-lywblywh-wgpmtia (pork) 12,000-38,000 -60,000 unit (Creon) 1 cap PO QID metoclopramide HCl 5 mg PO TID metoprolol tartrate 50 mg PO BID mirtazapine 60 mg PO BEDTIME ondansetron HCl 4 mg PO Q8H psyllium seed (sugar) (Metamucil (sugar) oral powder) 1 tbsp PO BID quetiapine 900 mg PO BEDTIME triamcinolone acetonide 2 sprays intranasal DAILY varenicline tartrate 1 mg PO BID zolpidem 10 mg PO BEDTIME PRN HPI Comments Details: 54-year-old female with a past medical history of left wrist pain type 2 diabetes mellitus, gastroparesis, bipolar disorder, personal history of nicotine dependence coming in for new patient evaluation of underlying autoimmune condition. She reports she has severe fatigue, and she complains of severe muscle cramps in legs, in the chest and shoulders. She also has a peeling rash on the hands. She also reports dry eyes and dry mouth, with reports crust formation on the eyelashes. For dry mouth she uses lozenges for dry eyes she uses cuzw-hsr-zopgygk eyedrops as needed. no photosensitivity no oral ulcers, no visible rash no miscarriage no blood clot no raynauds phenomenon in the hands. In terms of the joint pain she states she has joint pain in the hands, wrists, knees and ankles. She also has joint pain in the toes. morning stiffness lasts for 30 minutes and gets better during the day Previous imagining of hands in 2021 reviewed: it showed b/l mild DJD changes of the IP joints, no findings of inflammatory arthrits b/l knees showed mild DJD, patellofemoral spce narrowing MRI of the left wrist showed nondisplaced triquetral body fracture, multi compartment chondral thinning and areas of bony edema concerning for underlying inflammatory arthritis, degeneration and fraying of the scapholunate ligament with trace tenosynovitis involving the 1st extensor compartment on 07/2023 Family History: She reports that her sister has Sjogren syndrome On labs, she had white count 7.5 hemoglobin 11.7 platelets 216 ESR 29 RF negative FESTUS positive 1 in 80 nuclear homogeneous pattern PHYSICAL EXAM General: Comfortable CVS: RRR Respiratory: clear to auscultation bilaterally. Good respiratory effort Skin: No lesions seen No lymph nodes MSK:normal range of motion in bilateral upper extremities, no active synovitis noted in the hands, hypertrophy of the DIPs noted bilaterally consistent with osteoarthritis. Normal range of motion of the shoulders. Limited range of motion the hips strength by 5/5 in the lower extremities no edema in the lower extremities [facility] Medical History (Updated 01/14/25 @ 12:19 by Angela Maldonado MD) Type 2 diabetes mellitus Gastroparesis Paresthesia of both feet Mild cognitive impairment Hammer toe of left foot Injury of left toe Chronic pain of left wrist Bipolar 1 disorder IBS (irritable bowel syndrome) Headache, chronic migraine without aura Fatty liver Polyarthralgia Mixed internal and external hemorrhoid Frequent fecal incontinence Full dentures Arthritis Peripheral neuropathy High cholesterol HTN (hypertension) Bipolar disorder Personal history of nicotine dependence Takotsubo cardiomyopathy Diabetes mellitus GERD (gastroesophageal reflux disease) Smoker Abscess of skin or subcutaneous tissue Surgical History History of esophagogastroduodenoscopy (EGD) History of cystoscopy History of rectal sphincterotomy S/P excision of ganglion cyst S/P hysterectomy Hx of release of tendon Hx of nephrolithotomy with removal of calculi Hx of colonoscopy Hx of eye surgery History of endometrial ablation Hx of bilateral breast reduction surgery Hx of cholecystectomy Hx of tonsillectomy Hx of appendectomy Family History Mother Ovarian cancer Social History Are you a primary care partner to a significant other at home: No Do you presently have visiting nurse or other home services: No Alcohol intake: current Alcohol intake frequency: does not drink Patient Tobacco Use Status: Current everyday Tobacco user Tobacco use type: Cigarette Cigarette Packs Per Day: 2 Cigarettes Per Day: 15 Years Smoked: 35 (onset 14, 1ppd x 36yrs, now 2-2.5ppd - 35+PYH) Substance Use Type: Marijuana Current occupational status: disabled Current occupation: rt handed Physical Exam Vital Signs: Last Vital Signs Pulse 83 01/14/25 11:02 BP 112/70 01/14/25 11:02 Pulse Ox 99 01/14/25 11:02 Oxygen Delivery Method Room Air 01/14/25 11:02 BMI result Body Mass Index 30.3 Assessment & Plan Assessment & Plan (1) Polyarthralgia: Code(s): M25.50 - Pain in unspecified joint Category: Medical Plan: This is a 54-year-old lady coming in for the evaluation of joint pain, muscle cramps, dry eyes and dry mouth in the setting of a positive FESTUS on review of systems, she denies photosensitivity, oral ulcers, hair fall, Raynaud's, miscarriages blood clots X-rays of the hands and knees were reviewed, which showed mild degenerative osteoarthritis. A wrist MRI from 2023 reported that she may have chondral thinning and bone marrow edema concerning for inflammatory arthritis Patient may have a mild autoimmune disease contributing to her symptoms(UCTD) along with underlying degenerative joint disease and chronic pain contributing to her symptoms( joint pain in hands, dry eyes and dry mouth) Today I will obtain further workup including FESTUS specificity, SSA SSB dsDNA, anticentromere antibody, C3-C4 UPCR,ESR,CRP and CCP antibody. I will also prescribe her flexeril 5mg nightly for her symptomatic muscle cramps We will see her in 3 weeks to discuss further management (2) Positive FESTUS (antinuclear antibody): Code(s): R76.8 - Other specified abnormal immunological findings in serum Category: Medical (3) Muscle cramps at night: Code(s): R25.2 - Cramp and spasm Category: Medical Plan This is a 54-year-old lady coming in for the evaluation of joint pain, muscle cramps, dry eyes and dry mouth in the setting of a positive FESTUS on review of systems, she denies photosensitivity, oral ulcers, hair fall, Raynaud's, miscarriages blood clots X-rays of the hands and knees were reviewed, which showed mild degenerative osteoarthritis. A wrist MRI from 2023 reported that she may have chondral thinning and bone marrow edema concerning for inflammatory arthritis Patient may have a mild autoimmune disease contributing to her symptoms(UCTD) along with underlying degenerative joint disease and chronic pain contributing to her symptoms( joint pain in hands, dry eyes and dry mouth) Today I will obtain further workup including FESTUS specificity, SSA SSB dsDNA, anticentromere antibody, C3-C4 UPCR,ESR,CRP and CCP antibody. I will also prescribe her flexeril 5mg nightly for her symptomatic muscle cramps We will see her in 3 weeks to discuss further management Orders: Orders Erythrocyte Sedimentation Rate Today R76.0 - Raised antibody titer C Reactive Protein Today R76.0 - Raised antibody titer Complement C3 Today R76.0 - Raised antibody titer Cyclic Citrullinated Peptide Today R76.0 - Raised antibody titer Anti-Centromere B Antibodies Today R76.0 - Raised antibody titer ELIEZER 1 Antibody Today R76.0 - Raised antibody titer Anti DNA DS Antibody Today R76.0 - Raised antibody titer Histone Antibody Today R76.0 - Raised antibody titer Protein Creatinine Ratio, Ur Today R76.0 - Raised antibody titer Complement C4 Today R76.0 - Raised antibody titer Sm Sm/[employer]ATE Antibodies Today R76.0 - Raised antibody titer Sjogren's Antibodies Today R76.0 - Raised antibody titer Scleroderma 70 Antibody Today R76.0 - Raised antibody titer Medications: New cyclobenzaprine 5 mg PO BEDTIME 30 tabs 2RF Coding Level of Care Code New Pt Level 5 (99294) Diagnoses Polyarthralgia M25.50 Positive FESTUS (antinuclear antibody) R76.8 Muscle cramps at night R25.2
[2025-01-14 11:02] VITALS: BP 112/70; PULSE 83; O2SAT 99; BMI 30.3
--- OUTSIDE RECORDS SUMMARY | 2025-01-14 13:05 | XMS_ITS | Encounter Summary ---
Author Organization [employer] Address [address] [facility] 7t [place] [address] Care Team Providers Care Casing Wringer Operator Name Role Phone Tracie Mcginnis DO Primary Care Provider + [phone] Lane Denise PharmD Unavailable [phone] Reason for Visit * Reason Comments Med Refill Encounter Details Date Type Department Care Team (Late st Contact Info) Description 02/06/2024 Refill [facility] 230 [place], [place] [phone] Tracie Mcginnis DO 230 [place], [place] [phone] Primary insomnia Social History Tobacco Use Types [...] Description 01/23/2025 2:00 PM EST Medication Management [address] [address] [address] Denise, PharmD [address] [place] [address] 01/27/2025 9:15 AM EST Office Visit [address] [address] Tracie Mcginnis DO [address] [place] [address] documented as of this encounter Visit Diagnoses Diagnosis Primary insomnia Persistent disorder of initiating or maintaining sleep documented in this encounter Additional Health Concerns Assessment Noted Time PHQ-9 Depression Total Score: 0 05/11/19 24 11:50 AM EST documented as of this encounter Care Teams Casing Wringer Operator Relationship Specialty Start Date End Date Tracie Mcginnis DO [address] [place] [address] PCP - General Family Medicine 08/27/13 Lane Denise, PharmD [address] [place] [address] Pharmacist Pharmacy 10/06/24 documented as of this encounter
--- OUTSIDE RECORDS SUMMARY | 2025-01-14 13:05 | XMS_ITS | Clinical Summary ---
Author Organization [facility] ity Address [address] [place] [address] Care Team Providers Care Batt Machine Operator Name Role Phone BroallieWendy marshallfer Robyn MATUTE Primary Care Provider [phone] Social History Tobacco Use Types Packs/Day Years [...] Depression Screening 03/05/2024 COVID-19 Vaccine (1 - 2024-2 6 season) 2024 Influenza Vaccine (#1) 2024 RSV [...] age to complete this topic Care Teams Batt Machine Operator Relationship Specialty Start Date End Date Tracie Mcginnis DO [address] [place] [address] PCP - General 10/10/16
--- OUTSIDE RECORDS SUMMARY | 2025-01-14 13:05 | XMS_ITS | Encounter Summary ---
Author Organization [employer] Address 75 [facility] 7t [place] [address] Care Team Providers Care Rn Telephone Triage Name Role Phone Tracie Mcginnis DO Primary Care Provider + [phone] Lane Denise PharmD Unavailable [phone] Reason for Visit * Reason Comments Med Refill Encounter Details Date Type Department Care Team (Late st Contact Info) Description 12/07/2023 Refill [facility] 230 [place], [place] [phone] Tracie Mcginnis DO 230 [place], [place] [phone] Primary insomnia Social History Tobacco Use Types [...] Description 01/23/2025 2:00 PM EST Medication Management [address] [address] [address] Denise, PharmD [address] [place] [address] 01/27/2025 9:15 AM EST Office Visit [address] [address] Tracie Mcginnis DO [address] [place] [address] documented as of this encounter Visit Diagnoses Diagnosis Primary insomnia Persistent disorder of initiating or maintaining sleep documented in this encounter Additional Health Concerns Assessment Noted Time PHQ-9 Depression Total Score: 0 05/11/19 24 11:50 AM EST documented as of this encounter Care Teams Rn Telephone Triage Relationship Specialty Start Date End Date Tracie Mcginnis DO [address] [place] [address] PCP - General Family Medicine 08/27/13 Lane Denise, PharmD [address] [place] [address] Pharmacist Pharmacy 10/06/24 documented as of this encounter
--- OUTSIDE RECORDS SUMMARY | 2025-01-14 13:05 | XMS_ITS | Encounter Summary ---
Author Organization [employer] Address 75 [facility] 7t [place] [address] Care Team Providers Care Design Verification Engineer Name Role Phone Tracie Mcginnis DO Primary Care Provider + [phone] Lane Denise PharmD Unavailable [phone] Reason for Visit * Reason Comments Med Refill Encounter Details Date Type Department Care Team (Late st Contact Info) Description 08/11/2022 Refill [facility] 230 [place], [place] [phone] Tracie Mcginnis DO 230 [place], [place] [phone] Nonintractable chronic migraine Social History Tobacco Use [...] PM EST Medication Management [facility] [address] [place] [address] [address] Denise, Myah [address] [place] [address] 01/27/2025 9:15 AM EST Office Visit [address] [address] Tracie Mcginnis DO [address] [place] [address] documented as of this encounter Visit Diagnoses Diagnosis Nonintractable chronic migraine documented in this encounter Care Teams Design Verification Engineer Relationship Specialty Start Date End Date Tracie Mcginnis DO [address] [place] [address] PCP - General Family Medicine 08/27/13 Lane Denise, NiviaD [address] [place] [address] Pharmacist Pharmacy 10/06/24 documented as of this encounter
--- OUTSIDE RECORDS SUMMARY | 2025-01-14 13:06 | XMS_ITS | Encounter Summary ---
Author Organization [employer] Address 75 [facility] 7t [place] [address] Care Team Providers Care Counter Waiter Name Role Phone Tracie Mcginnis DO Primary Care Provider + [phone] Lane Denise PharmD Unavailable [phone] Reason for Visit * Reason Comments Med Refill Encounter Details Date Type Department Care Team (Late st Contact Info) Description 02/07/2024 Refill [facility] 230 [place], [place] [phone] Tracie Mcginnis DO 230 [place], [place] [phone] Primary insomnia Social History Tobacco Use Types [...] Description 01/23/2025 2:00 PM EST Medication Management [address] [address] [address] Denise, PharmD [address] [place] [address] 01/27/2025 9:15 AM EST Office Visit [address] [address] Tracie Mcginnis DO [address] [place] [address] documented as of this encounter Visit Diagnoses Diagnosis Primary insomnia Persistent disorder of initiating or maintaining sleep documented in this encounter Additional Health Concerns Assessment Noted Time PHQ-9 Depression Total Score: 0 05/11/19 24 11:50 AM EST documented as of this encounter Care Teams Counter Waiter Relationship Specialty Start Date End Date Tracie Mcginnis DO [address] [place] [address] PCP - General Family Medicine 08/27/13 Lane Denise, PharmD [address] [place] [address] Pharmacist Pharmacy 10/06/24 documented as of this encounter
--- OUTSIDE RECORDS SUMMARY | 2025-01-14 13:06 | XMS_ITS | Encounter Summary ---
Author Organization [employer] Address 75 [facility] 7t [place] [address] Care Team Providers Care Lead Web Application Developer Name Role Phone Tracie Mcginnis DO Primary Care Provider + [phone] Lane Denise PharmD Unavailable [phone] Reason for Visit * Reason Onset Date Comments Med Refill 08/17/2023 Encounter Details Date Type Department Care Team (Late st Contact Info) Description 08/17/2023 Telephone [facility] 230 [place], [place] [phone] Tracie Mcginnis DO 230 [place], [place] [phone] Med Refill Social History Tobacco Use Types [...] MG disintegrating tablet To be sent to: [facility] [address] documented in this encounter Plan of Treatment Upcoming Encounters Date Type Department Care Team (Late st Contact Info) Description 01/23/2025 2:00 PM EST Medication Management [facility] [address] [place] [address] [address] Denise, PharmD 230 [place] [address] 01/27/2025 9:15 AM EST Office Visit [facility] [address] [place] [address] Tracie Mcginnis DO 230 [place] [address] documented as of this encounter Visit Diagnoses Not on filedocumented in this encounter Additional Health Concerns Assessment Noted Time PHQ-9 Depression Total Score: 0 05/11/19 24 11:50 AM EST documented as of this encounter Care Teams Lead Web Application Developer Relationship Specialty Start Date End Date Tracie Mcginnis DO [address] [place] [address] PCP - General Family Medicine 08/27/13 Lane Denise, PharmD [address] [place] [address] Pharmacist Pharmacy 10/06/24 documented as of this encounter
--- OUTSIDE RECORDS SUMMARY | 2025-01-14 13:06 | XMS_ITS | Encounter Summary ---
Author Organization [employer] Address [address] [facility] 7t [place] [address] Care Team Providers Care Meat Washer Name Role Phone Tracie Mcginnis DO Primary Care Provider + [phone] Lane Denise PharmD Unavailable [phone] Reason for Visit * Reason Comments Med Refill Encounter Details Date Type Department Care Team (Late st Contact Info) Description 11/16/2024 Refill [facility] 230 [place], [place] [phone] Tracie Mcginnis DO 230 [place], [place] [phone] Diabetic polyneuropathy associated with type 2 diabetes mellitus (CMS/HCC) Social History Tobacco Use Types Packs/Day Years Used Date Smoking Tobacco: Every Day Cigarettes 2 39.9 Started: 1985 Passive Smoke Exposure: Current Smokeless [...] PM EST Medication Management [facility] [address] [place] [address] [address] Denise, PharmD [address] [place] [address] 01/27/2025 9:15 AM EST Office Visit [facility] [address] [place] [address] Tracie Mcginnis DO [address] [place] [address] documented as of this encounter Visit Diagnoses Diagnosis Diabetic polyneuropathy associated with type 2 diabetes mellitus (HCC) documented in this encounter Additional Health Concerns Assessment Noted Time PHQ-9 Depression Total Score: 14 025 11:26 AM EDT documented as of this encounter Care Teams Meat Washer Relationship Specialty Start Date End Date Tracie Mcginnis DO [address] [place] [address] PCP - General Family Medicine 08/27/13 Lane Denise, PharmD [address] [place] [address] [place] [address] Pharmacist Pharmacy 10/06/24 documented as of this encounter
--- OUTSIDE RECORDS SUMMARY | 2025-01-14 13:06 | XMS_ITS | Encounter Summary ---
Author Organization [employer] Address [address] [facility] 7t [place] [address] Care Team Providers Care City Jailer Name Role Phone Tracie Mcginnis DO Primary Care Provider + [phone] Lane Denise PharmD Unavailable [phone] Reason for Visit * Reason Comments Med Refill Encounter Details Date Type Department Care Team (Late st Contact Info) Description 10/04/2023 Refill [facility] [address] [place], [place] [phone] Tracie Mcginnis DO 230 [place], [place] [phone] Diabetic polyneuropathy associated with type 2 diabetes [...] 2:00 PM EST Medication Management [facility] [address] [place] [address] [address] Denise, PharmD [address] [place] [address] 01/27/2025 9:15 AM EST Office Visit [address] [address] Tracie Mcginnis DO [address] [place] [address] documented as of this encounter Visit Diagnoses Diagnosis Diabetic polyneuropathy associated with type 2 diabetes mellitus (HCC) Nausea Nausea alone documented in this encounter Additional Health Concerns Assessment Noted Time PHQ-9 Depression Total Score: 0 05/11/19 24 11:50 AM EST documented as of this encounter Care Teams City Jailer Relationship Specialty Start Date End Date Tracie Mcginnis DO [address] [place] [address] PCP - General Family Medicine 08/27/13 Lane Denise, PharmD [address] [place] [address] Pharmacist Pharmacy 10/06/24 documented as of this encounter
--- OUTSIDE RECORDS SUMMARY | 2025-01-14 13:06 | XMS_ITS | Encounter Summary ---
Author Organization [employer] Address 75 [facility] 7t [place] [address] Care Team Providers Care Dining Server Name Role Phone Tracie Mcginnis DO Primary Care Provider + [phone] Lane Denise PharmD Unavailable [phone] Encounter Details Date Type Department Care Team ([facility] st Contact Info) Description 12/13/2022 Telephone [facility] 230 [place], [place] [phone] Tracie Mcginnis DO 230 [place], [place] [phone] Social History Tobacco Use Types Packs/Day Years [...] Description 01/23/2025 2:00 PM EST Medication Management [address] [address] [address] Denise, Myah [address] [place] [address] 01/27/2025 9:15 AM EST Office Visit [address] [address] Tracie Mcginnis DO [address] [place] [address] documented as of this encounter Visit Diagnoses Not on filedocumented in this encounter Care Teams Dining Server Relationship Specialty Start Date End Date Tracie Mcginnis DO [address] [place] [address] PCP - General Family Medicine 08/27/13 Lane Denise, PharmD [address] [place] [address] Pharmacist Pharmacy 10/06/24 documented as of this encounter
--- OUTSIDE RECORDS SUMMARY | 2025-01-14 13:06 | XMS_ITS | Encounter Summary ---
Author Organization [employer] Address 75 [facility] 7t [place] [address] Care Team Providers Care Oracle Erp Architect Name Role Phone Tracie Mcginnis DO Primary Care Provider + [phone] Lane Denise PharmD Unavailable [phone] Reason for Visit * Reason Comments Med Refill Encounter Details Date Type Department Care Team (Late st Contact Info) Description 02/26/2024 Refill [facility] 230 [place], [place] [phone] Tracie Mcginnis DO 230 [place], [place] [phone] Primary insomnia Social History Tobacco Use Types [...] Description 01/23/2025 2:00 PM EST Medication Management [address] [address] [address] Denise, PharmD [address] [place] [address] 01/27/2025 9:15 AM EST Office Visit [address] [address] Tracie Mcginnis DO [address] [place] [address] documented as of this encounter Visit Diagnoses Diagnosis Primary insomnia Persistent disorder of initiating or maintaining sleep documented in this encounter Additional Health Concerns Assessment Noted Time PHQ-9 Depression Total Score: 0 05/11/19 24 11:50 AM EST documented as of this encounter Care Teams Oracle Erp Architect Relationship Specialty Start Date End Date Tracie Mcginnis DO [address] [place] [address] PCP - General Family Medicine 08/27/13 Lane Denise, PharmD [address] [place] [address] Pharmacist Pharmacy 10/06/24 documented as of this encounter
--- OUTSIDE RECORDS SUMMARY | 2025-01-14 13:06 | XMS_ITS | Encounter Summary ---
Author Organization [employer] Address 75 [facility] 7t [place] [address] Care Team Providers Care Senior Report Developer Name Role Phone Tracie Mcginnis DO Primary Care Provider + [phone] Lane Denise PharmD Unavailable [phone] Reason for Visit * Reason Comments Med Refill Encounter Details Date Type Department Care Team (Late st Contact Info) Description 09/17/2024 Refill [facility] MEDICINE 230 [place], [place] [phone] Tracie Mcginnis DO 230 [place], [place] [phone] Diabetic polyneuropathy associated with type 2 diabetes [...] Description 01/23/2025 2:00 PM EST Medication Management [address] [address] [address] Denise, PharmD [address] [place] [address] 01/27/2025 9:15 AM EST Office Visit [address] [address] Tracie Mcginnis DO [address] [place] [address] documented as of this encounter Visit Diagnoses Diagnosis Diabetic polyneuropathy associated with type 2 diabetes mellitus (HCC) documented in this encounter Additional Health Concerns Assessment Noted Time PHQ-9 Depression Total Score: 14 025 11:26 AM EDT documented as of this encounter Care Teams Senior Report Developer Relationship Specialty Start Date End Date Tracie Mcginnis DO [address] [place] [address] PCP - General Family Medicine 6/25/14 Lane Denise, PharmD [address] [place] [address] Pharmacist Pharmacy 10/06/24 documented as of this encounter
--- OUTSIDE RECORDS SUMMARY | 2025-01-14 13:06 | XMS_ITS | Encounter Summary ---
Author Organization [employer] Address [address] [facility] [address] 7t [place] [address] Care Team Providers Care Document Control Coordinator Name Role Phone Tracie Mcginnis DO Primary Care Provider + [phone] Lane Denise PharmD Unavailable [phone] Encounter Details Date Type Department Care Team (Latest Contact Info) Description 01/12/2025 Travel Social History Tobacco Use Types Packs/Day [...] Description 01/23/2025 2:00 PM EST Medication Management [address] [address] [address] Denise, PharmD [address] [place] [address] 01/27/2025 9:15 AM EST Office Visit [facility] MEDICINE [address] [place] [address] Tracie Mcginnis DO [address] [place] [address] documented as of this encounter Visit Diagnoses Not on filedocumented in this encounter Additional Health Concerns Assessment Noted Time PHQ-9 Depression Total Score: 22 025 2:25 PM EDT documented as of this encounter Care Teams Document Control Coordinator Relationship Specialty Start Date End Date Tracie Mcginnis DO [address] [place] [address] PCP - General Family Medicine 08/27/13 Lane Denise, PharmD [address] [place] [address] Pharmacist Pharmacy 10/06/24 documented as of this encounter
--- OUTSIDE RECORDS SUMMARY | 2025-01-14 13:06 | XMS_ITS | Encounter Summary ---
Author Organization [employer] Address 75 [facility] 7t [place] [address] Care Team Providers Care Gasoline Locomotive Crane Operator Name Role Phone Tracie Mcginnis DO Primary Care Provider + [phone] Lane Denise PharmD Unavailable [phone] Encounter Details Date Type Department Care Team (Late st Contact Info) Description 02/28/2022 Orders Only [facility]S [address] [place] [address] Tracie Dalton LPN Social History Tobacco Use [...] Medication Management [facility] MEDICINE [address] [place] [address] Denise, PharmD 230 [place] [address] 01/27/2025 9:15 AM EST Office Visit [address] [address] Tracie Mcginnis DO [address] [place] [address] [phone] documented as of this encounter Visit Diagnoses Not on filedocumented in this encounter Care Teams Gasoline Locomotive Crane Operator Relationship Specialty Start Date End Date Tracie Mcginnis DO 230 [place] [address] PCP - General Family Medicine 08/27/13 Lane Denise, Myah 230 [place] [address] Pharmacist Pharmacy 10/06/24 documented as of this encounter
--- OUTSIDE RECORDS SUMMARY | 2025-01-14 13:06 | XMS_ITS | Encounter Summary ---
Author Organization [facility] Address [address] [place] [address] 7 [place] [address] Care Team Providers Care Batter Scaler Name Role Phone Tracie Mcginnis DO Primary Care Provider + [phone] Lane Denise PharmD Unavailable [phone] Reason for Visit * Reason Comments Med Refill Encounter Details Date Type Department Care Team (Late Contact Info) Description 11/28/2022 Refill [facility] MEDICINE [address] [place] [address] Tracie Mcginnis DO 230 [place] [address] Social History Tobacco Use Types Packs/Day Years [...] EST Medication Management [facility] MEDICINE [address] [place] [address] Denise, PharmD [address] [place] [address] 01/27/2025 9:15 AM EST Office Visit [facility] MEDICINE [address] [place] [address] Tracie Mcginnis DO [address] [place] [address] documented as of this encounter Visit Diagnoses Not on filedocumented in this encounter Care Teams Batter Scaler Relationship Specialty Start Date End Date Tracie Mcginnis DO [address] [place] [address] PCP - General Family Medicine 08/27/13 Lane Denise, PharmD [address] [place] [address] Pharmacist Pharmacy 10/06/24 documented as of this encounter
--- OUTSIDE RECORDS SUMMARY | 2025-01-14 13:06 | XMS_ITS | Encounter Summary ---
Author Organization [employer] Address 75 [facility] 7t [place] [address] Care Team Providers Care Silviculture Forester Name Role Phone Tracie Mcginnis DO Primary Care Provider + [phone] Lane Denise PharmD Unavailable [phone] Reason for Visit * Reason Comments Med Refill Encounter Details Date Type Department Care Team (Late st Contact Info) Description 02/29/[address] [facility] MEDICINE 230 [place], [place] [phone] Gwendolyn Ortega MD 230 [place], [place] [phone] Nonintractable chronic migraine Social History Tobacco Use [...] Description 01/23/2025 2:00 PM EST Medication Management [address] [address] [address] Denise, PharmD [address] [place] [address] 01/27/2025 9:15 AM EST Office Visit [address] [address] Tracie Mcginnis DO [address] [place] [address] documented as of this encounter Visit Diagnoses Diagnosis Nonintractable chronic migraine documented in this encounter Additional Health Concerns Assessment Noted Time PHQ-9 Depression Total Score: 0 05/11/19 24 11:50 AM EST documented as of this encounter Care Teams Silviculture Forester Relationship Specialty Start Date End Date Tracie Mcginnis DO [address] [place] [address] PCP - General Family Medicine 08/27/13 Lane Denise, PharmD [address] [place] [address] Pharmacist Pharmacy 10/06/24 documented as of this encounter
--- OUTSIDE RECORDS SUMMARY | 2025-01-14 13:06 | XMS_ITS | Clinical Summary ---
Author Organization [employer] Address [address] [address] Care Team Providers Care Bilingual Case Manager Name Role Phone Tracie Mcginnis Primary Care [...] 09/03/2015 5:53 PM EDT Plan of Treatment Not on file Medical Devices Not on file Insurance [facility] [employer] Care Teams Bilingual Case Manager Relationship Specialty Start Date End Date Tracie Mcginnis DO [address] [place] [phone] PCP - General Family Medicine 09/03/15
--- OUTSIDE RECORDS SUMMARY | 2025-01-14 13:06 | XMS_ITS | Encounter Summary ---
Author Organization [employer] Address 75 [facility] 7t [place] [address] Care Team Providers Care Rib Chopper Name Role Phone Tracie Mcginnis DO Primary Care Provider + [phone] Lane Denise PharmD Unavailable [phone] Encounter Details Date Type Department Care Team ([facility] st Contact Info) Description 08/17/2023 Telephone [facility] MEDICINE 230 [place], [place] [phone] Tracie Mcginnis DO 230 [place], [place] [phone] Social History Tobacco Use Types Packs/Day Years [...] Description 01/23/2025 2:00 PM EST Medication Management [address] [address] [address] Denise, PharmD [address] [place] [address] 01/27/2025 9:15 AM EST Office Visit [address] [address] Tracie Mcginnis DO [address] [place] [address] documented as of this encounter Visit Diagnoses Not on filedocumented in this encounter Additional Health Concerns Assessment Noted Time PHQ-9 Depression Total Score: 0 05/11/19 24 11:50 AM EST documented as of this encounter Care Teams Rib Chopper Relationship Specialty Start Date End Date Tracie Mcginnis DO [address] [place] [address] PCP - General Family Medicine 08/27/13 Lane Denise, PharmD [address] [place] [address] Pharmacist Pharmacy 10/06/24 documented as of this encounter
--- OUTSIDE RECORDS SUMMARY | 2025-01-14 13:06 | XMS_ITS | Encounter Summary ---
Author Organization [employer] Address 75 [facility] 7t [place] [address] Care Team Providers Care Expert Medical Writer Name Role Phone Tracie Mcginnis DO Primary Care Provider + [phone] Robina Denise PharmD Unavailable [phone] Reason for Visit * Reason Onset Date Comments Appointment Request 09/12/2024 Encounter Details Date Type Department Care Team (Late st Contact Info) Description 09/12/2024 Telephone [facility] MEDICINE 230 [place], [place] [phone] Tracie Mcginnis DO 230 [place], [place] [phone] Appointment Request Social History Tobacco Use Types [...] Description 01/23/2025 2:00 PM EST Medication Management [facility] MEDICINE [address] [place] [address] Robina Denise, PharmD 230 [place] [address] 01/27/2025 9:15 AM EST Office Visit [facility] MEDICINE [address] [place] [address] [phone] Tracie Mcginnis DO 230 [place] [address] documented as of this encounter Visit Diagnoses Not on filedocumented in this encounter Additional Health Concerns Assessment Noted Time PHQ-9 Depression Total Score: 14 025 11:26 AM EDT documented as of this encounter Care Teams Expert Medical Writer Relationship Specialty Start Date End Date Tracie Mcginnis DO 230 [place] [address] PCP - General Family Medicine 08/27/13 Robina Denise, Myah 230 [place] [address] Pharmacist Pharmacy 10/06/24 documented as of this encounter
--- OUTSIDE RECORDS SUMMARY | 2025-01-14 13:06 | XMS_ITS | Encounter Summary ---
Author Organization [employer] Address 75 [facility] 7t [place] [address] Care Team Providers Care Veterans Rehabilitation Counselor Name Role Phone Tracie Mcginnis DO Primary Care Provider + [phone] Lane Denise PharmD Unavailable [phone] Reason for Visit * Reason Comments Med Refill Encounter Details Date Type Department Care Team (Late st Contact Info) Description 03/03/2024 Refill [facility] MEDICINE 230 [place], [place] [phone] Gwendolyn Ortega MD 230 [place], [place] [phone] Nonintractable chronic migraine Social History Tobacco Use [...] Description 01/23/2025 2:00 PM EST Medication Management [facility] MEDICINE [address] [place] [address] [address] Denise, PharmD [address] [place] [address] 01/27/2025 9:15 AM EST Office Visit [facility] MEDICINE [address] [place] [address] Tracie Mcginnis DO 230 [place] [address] documented as of this encounter Visit Diagnoses Diagnosis Nonintractable chronic migraine documented in this encounter Additional Health Concerns Assessment Noted Time PHQ-9 Depression Total Score: 0 05/11/19 11:50 AM EST documented as of this encounter Care Teams Veterans Rehabilitation Counselor Relationship Specialty Start Date End Date Tracie Mcginnis DO 230 [place] [address] PCP - General Family Medicine 08/27/13 Lane Denise, NiviaD 230 [place] [address] Pharmacist Pharmacy 10/06/24 documented as of this encounter
--- OUTSIDE RECORDS SUMMARY | 2025-01-14 13:06 | XMS_ITS | Encounter Summary ---
Author Organization [employer] Address 75 [facility] 7t [place] [address] Care Team Providers Care Welder Gas Automatic Name Role Phone Tracie Mcginnis DO Primary Care Provider Lane Denise PharmD Unavailable [phone] Reason for Visit * Reason Onset Date Comments Nurse Triage 01/12/2025 ER Follow-up 01/12/2025 Encounter Details Date Type Department Care Team (Late st Contact Info) Description 01/12/2025 Telephone [facility] MEDICINE 230 [place], [place] [phone] Tracie Mcginnis DO 230 [place], [place] [phone] Nurse Triage; ER Follow-up Social History Tobacco Use Types Packs/Day Years [...] encounter Miscellaneous Notes * Telephone Encounter - Delaney Meza RN - 01/12/2025 3:47 PM EST TC placed to pt who was admitted to [facility] for abdominal pain and vomiting. Patient reports that as ofthis time she feels the best she has felt in while and no longer having and abdominal pain. Pt scheduled for HDF with PCP 01/27/2025 * Telephone Encounter - Rajinder Deal - 01/12/2025 8:45 AM EST Patient calling to report ED visit on : Date: 12/09 Hospital: [facility] Seen for: Gastroparesis Symptomatic Yes *if yes message should go to Triage Patient advised will forward to team nurse for follow up Outsole Compressor advised that a message was going to be sent to triage. Pt became Irate. Pt was aggressive. Contact pt at [phone] documented in this encounter Plan of Treatment Upcoming Encounters Date Type Department Care Team (Late st Contact Info) Description 01/23/2025 2:00 PM EST Medication Management [facility] [place] [address] Lane Denise, [place] [address] 01/27/2025 9:15 AM EST Office Visit [facility] MEDICINE [address] [place] [address] Tracie Mcginnis DO 230 [place] [address] documented as of this encounter Visit Diagnoses Not on filedocumented in this encounter Additional Health Concerns Assessment Noted Time PHQ-9 Depression Total Score: 22 025 2:25 PM EDT documented as of this encounter Care Teams Welder Gas Automatic Relationship Specialty Start Date End Date Tracie Mcginnis DO [address] [place] [address] PCP - General Family Medicine 08/27/13 Lane Denise, PharmD [address] [place] [address] Pharmacist Pharmacy 10/06/24 documented as of this encounter
--- OUTSIDE RECORDS SUMMARY | 2025-01-14 13:06 | XMS_ITS | Encounter Summary ---
Author Organization [employer] Address 75 [facility] 7t [place] [address] Care Team Providers Care Hearth Feeder Name Role Phone Tracie Mcginnis DO Primary Care Provider + [phone] Lane Denise PharmD Unavailable [phone] Reason for Visit * Reason Comments Med Refill Encounter Details Date Type Department Care Team (Late st Contact Info) Description 09/26/2024 Refill [facility] MEDICINE 230 [place], [place] [phone] Tracie Mcginnis DO 230 [place], [place] [phone] Nonintractable chronic migraine Social History Tobacco Use [...] 01/23/2025 2:00 PM EST Medication Management [facility] MEDICINE [address] [place] [address] [address] Denise, PharmD [address] [place] [address] 01/27/2025 9:15 AM EST Office Visit [facility] MEDICINE [address] [place] [address] Tracie Mcginnis DO 230 [place] [address] documented as of this encounter Visit Diagnoses Diagnosis Nonintractable chronic migraine documented in this encounter Additional Health Concerns Assessment Noted Time PHQ-9 Depression Total Score: 14 025 11:26 AM EDT documented as of this encounter Care Teams Hearth Feeder Relationship Specialty Start Date End Date Tracie Mcginnis DO 230 [place] [address] PCP - General Family Medicine 08/27/13 Lane Dneise, Myah 230 [place] [address] Pharmacist Pharmacy 10/06/24 documented as of this encounter
--- OUTSIDE RECORDS SUMMARY | 2025-01-14 13:06 | XMS_ITS | Encounter Summary ---
Author Organization [employer] Address 75 [facility] 7t [place] [address] Care Team Providers Care Heavy Equipment Technician Name Role Phone Tracie Mcginnis DO Primary Care Provider + [phone] Lane Denise PharmD Unavailable [phone] Reason for Visit * Reason Comments Med Refill Encounter Details Date Type Department Care Team (Late st Contact Info) Description 03/30/2022 Refill [facility] MEDICINE 230 [place], [place] [phone] Tracie Mcginnis DO 230 [place], [place] [phone] Other hyperlipidemia (Primary Dx) Social History Tobacco [...] PM EST Medication Management [facility] MEDICINE [address] [place] [address] [address] Denise, Myah [address] [place] [address] 01/27/2025 9:15 AM EST Office Visit [facility] MEDICINE [address] [place] [address] Tracie Mcginnis DO [address] [place] [address] documented as of this encounter Visit Diagnoses Diagnosis Other hyperlipidemia- Primary documented in this encounter Care Teams Heavy Equipment Technician Relationship Specialty Start Date End Date Tracie Mcginnis DO [address] [place] [address] PCP - General Family Medicine 08/27/13 Lane Denise, PharmD [address] [place] [address] Pharmacist Pharmacy 10/06/24 documented as of this encounter
--- OUTSIDE RECORDS SUMMARY | 2025-01-14 13:06 | XMS_ITS | Encounter Summary ---
Author Organization [employer] Address 75 [facility] 7t [place] [address] Care Team Providers Care Bottle Inspector Name Role Phone Tracie Mcginnis DO Primary Care Provider + [phone] Lane Denise PharmD Unavailable [phone] Reason for Visit * Reason Comments Med Refill Encounter Details Date Type Department Care Team (Late st Contact Info) Description 11/17/2024 Refill [facility] MEDICINE 230 [place], [place] [phone] Tracie Mcginnis DO 230 [place], [place] [phone] Diabetic polyneuropathy associated with type 2 diabetes [...] Description 01/23/2025 2:00 PM EST Medication Management [facility] MEDICINE [address] [place] [address] [address] Denise, PharmD [address] [place] [address] 01/27/2025 9:15 AM EST Office Visit [facility] MEDICINE [address] [place] [address] Tracie Mcginnis DO [address] [place] [address] documented as of this encounter Visit Diagnoses Diagnosis Diabetic polyneuropathy associated with type 2 diabetes mellitus (HCC) documented in this encounter Additional Health Concerns Assessment Noted Time PHQ-9 Depression Total Score: 14 025 11:26 AM EDT documented as of this encounter Care Teams Bottle Inspector Relationship Specialty Start Date End Date Tracie Mcginnis DO [address] [place] [address] PCP - General Family Medicine 08/27/13 Lane Denise, PharmD [address] [place] [address] [place] [address] Pharmacist Pharmacy 10/06/24 documented as of this encounter
--- OUTSIDE RECORDS SUMMARY | 2025-01-14 13:06 | XMS_ITS | Encounter Summary ---
Author Organization [employer] Address 75 [facility] 7t [place] [address] Care Team Providers Care Hide Buyer Name Role Phone Tracie Mcginnis DO Primary Care Provider + [phone] Lane Denise PharmD Unavailable [phone] Reason for Visit * Reason Onset Date Comments Nurse Triage 10/26/2023 Encounter Details Date Type Department Care Team (Late st Contact Info) Description 10/26/2023 Telephone [facility] MEDICINE 230 [place], [place] [phone] Tracie Mcginnis DO 230 [place], [place] [phone] Nurse Triage Social History Tobacco Use Types [...] but after a month she saw her acute care certified nursing assistant who advised to just leave it alone unless it starts to bother her. About 2 weeks ago it started to become painful and tender. Pt called her acute care certified nursing assistant today who was not able to see [...] times are approx. TC placed to pt [phone] who reports she has NOT p/u abx yet from the pharmacy. Pt reports she will p/u the abx today (from [facility]). Pt advised if no improvement once the abx are completed to call [facility] for an appt for re-evaluation. Pt advised [...] Description 01/23/2025 2:00 PM EST Medication Management [facility] MEDICINE [address] [place] [address] [address] Denise, PharmD [address] [place] [address] 01/27/2025 9:15 AM EST Office Visit [facility] MEDICINE [address] [place] [address] Tracie Mcginnis DO [address] [place] [address] documented as of this encounter Visit Diagnoses Not on filedocumented in this encounter Additional Health Concerns Assessment Noted Time PHQ-9 Depression Total Score: 0 05/11/19 24 11:50 AM EST documented as of this encounter Care Teams Hide Buyer Relationship Specialty Start Date End Date Tracie Mcginnis DO [address] [place] [address] PCP - General Family Medicine 08/27/13 Lane Denise, PharmD [address] [place] [address] Pharmacist Pharmacy 10/06/24 documented as of this encounter
--- OUTSIDE RECORDS SUMMARY | 2025-01-14 13:06 | XMS_ITS | Encounter Summary ---
Author Organization [employer] Address [address] [place] [address] 7 [place] [address] Care Team Providers Care Project Mgr Name Role Phone Tracie Mcginnis DO Primary Care Provider [phone] Lane Denise PharmD Unavailable [phone] Encounter Details Date Type Department Care Team (Late st Contact Info) Description 03/16/[address] [address] Tracie Mcginnis DO [address] [place] [address] Social History Tobacco Use Types Packs/Day Years [...] Description 01/23/2025 2:00 PM EST Medication Management [facility] MEDICINE [address] [place] [address] Denise, PharmD 230 [place] [address] 01/27/2025 9:15 AM EST Office Visit [address] [address] Tracie Mcginnis DO [address] [place] [address] documented as of this encounter Visit Diagnoses Not on filedocumented in this encounter Care Teams Project Mgr Relationship Specialty Start Date End Date Tracie Mcginnis DO [address] [place] [address] PCP - General Family Medicine 08/27/13 Lane Denise, NiviaD [address] [place] [address] Pharmacist Pharmacy 10/06/24 documented as of this encounter
--- OUTSIDE RECORDS SUMMARY | 2025-01-14 13:06 | XMS_ITS | Encounter Summary ---
Author Organization [employer] Address 75 [facility] 7t [place] [address] Care Team Providers Care Cut Out Worker Name Role Phone Tracie Mcginnis DO Primary Care Provider + [phone] Lane Denise PharmD Unavailable [phone] Reason for Visit * Reason Comments Med Refill Encounter Details Date Type Department Care Team (Late st Contact Info) Description 04/23/2024 Refill [facility] CH[facility] MED & PEDS [address] [place], [place] [phone] Tracie Mcginnis DO 230 [place], [place] [phone] Social History Tobacco Use Types Packs/Day Years [...] Description 01/23/2025 2:00 PM EST Medication Management [address] [address] [address] Denise, PharmD [address] [place] [address] 01/27/2025 9:15 AM EST Office Visit [address] [address] Tracie Mcginnis DO [address] [place] [address] documented as of this encounter Visit Diagnoses Not on filedocumented in this encounter Additional Health Concerns Assessment Noted Time PHQ-9 Depression Total Score: 0 05/11/19 24 11:50 AM EST documented as of this encounter Care Teams Cut Out Worker Relationship Specialty Start Date End Date Tracie Mcginnis DO [address] [place] [address] PCP - General Family Medicine 08/27/13 Lane Denise, PharmD [address] [place] [address] Pharmacist Pharmacy 10/06/24 documented as of this encounter
--- OUTSIDE RECORDS SUMMARY | 2025-01-14 13:07 | XMS_ITS | Encounter Summary ---
Author Organization [employer] Address 75 [facility] 7t [place] [address] Care Team Providers Care Ring Maker Name Role Phone Tracie Mcginnis DO Primary Care Provider + [phone] Lane Denise PharmD Unavailable [phone] Reason for Visit * Reason Onset Date Comments Nurse Triage 04/18/2023 Encounter Details Date Type Department Care Team (Late st Contact Info) Description 04/18/2023 Telephone [facility] MEDICINE 230 [place], [place] [phone] Tracie Mcginnis DO 230 [place], [place] [phone] Nurse Triage Social History Tobacco Use Types [...] Description 01/23/2025 2:00 PM EST Medication Management [address] [address] Denise, [place]ah [address] [place] [address] 01/27/2025 9:15 AM EST Office Visit [address] [address] Tracie Mcginnis DO [address] [place] [address] documented as of this encounter Visit Diagnoses Not on filedocumented in this encounter Care Teams Ring Maker Relationship Specialty Start Date End Date Tracie Mcginnis DO [address] [place] [address] PCP - General Family Medicine 08/27/13 Lane Denise, Myah [address] [place] [address] Pharmacist Pharmacy 10/06/24 documented as of this encounter
--- OUTSIDE RECORDS SUMMARY | 2025-01-14 13:07 | XMS_ITS | Encounter Summary ---
Author Organization [employer] Address 75 [facility] 7t [place] [address] Care Team Providers Care Undercutter Name Role Phone Tracie Mcginnis DO Primary Care Provider + [phone] Lane Denise PharmD Unavailable [phone] Reason for Visit * Reason Comments Med Refill Encounter Details Date Type Department Care Team (Late st Contact Info) Description 08/01/2024 Refill [facility] CHC MED & PEDS [address] [place], [place] [phone] Tracie Mcginnis DO 230 [place], [place] [phone] Diabetic polyneuropathy associated with type 2 diabetes [...] Description 01/23/2025 2:00 PM EST Medication Management [address] [address] Denise, PharmD [address] [place] [address] 01/27/2025 9:15 AM EST Office Visit [address] [address] Tracie Mcginnis DO [address] [place] [address] documented as of this encounter Visit Diagnoses Diagnosis Diabetic polyneuropathy associated with type 2 diabetes mellitus (HCC) documented in this encounter Additional Health Concerns Assessment Noted Time PHQ-9 Depression Total Score: 14 025 11:26 AM EDT documented as of this encounter Care Teams Undercutter Relationship Specialty Start Date End Date Tracie Mcginnis DO [address] [place] [address] PCP - General Family Medicine 08/27/13 Lane Denise, PharmD 230 [place] [address] Pharmacist Pharmacy 10/06/24 documented as of this encounter
--- OUTSIDE RECORDS SUMMARY | 2025-01-14 13:07 | XMS_ITS | Clinical Summary ---
Author Organization [facility] Address [address] [facility] [address] [place] [address] Phone Care Team Providers Care Distribution Engineer Name Role Phone Debbie Luna MD Primary Care Provider [phone] Allergies Active Allergy Reactions Criticality Noted Date [...] BT Active lamoTRIgine (LAMICTAL XR) 100 mg [id number] :@ BT Take 150 mg by mouth [...] Take 40 mg by mouth daily. Active FREESTYLE BEREKET 2 READER as directed. 3 Active Active Problems No known active problems Encounters Date Type Department Care Team Description 12/31/2024 Transcribe Orders [facility] [address] [place] [address] Kavya Mcginnis DO from Last 3 Months Social History Tobacco Use Types Packs/Day Years [...] patient's age to complete this topic IPV VACCINES Aged Out No longer eligi ble [...] MD, MPH - 11/21/2022 9:42 AM EDT [facility] Patient Name: Tiffanie Julia Neli MD:: Debbie Luna MD, Procedure Date: 11/21/2022 9:42 AM Date of : 1970 Age: 52 Admit Type: Outpatient Gender: Female Room: [facility] 02 Referring MD: Kavya Mcginnis MD Exam Type: [...] monitored continuously. The Olympus adult variable colonoscope [id number] #6 was introduced through the anus and advanced to the cecum, identified by appendiceal orifice andileocecal valve. The colonoscopy was performed without difficulty. The patient tolerated the procedurewell. The quality of the bowel preparation was evaluated using the BBPS ([place] Bowel Preparation Scale)with scores of: Right Colon [...] 9:42 AM Procedure Code(s): --- Professional --- 79049, Colonoscopy, flexible; with biopsy, single or multiple --- Technical --- 59307, Colonoscopy, flexible; with biopsy, single or multiple Diagnosis Code(s): --- Professional --- R10.84, Generalized abdominal pain R19.7, Diarrhea, unspecified --- Technical --- R10.84, Generalized abdominal pain R19.7, Diarrhea, unspecified CPT copyright 2021 [employer]. All rights reserved. The codes documented in this report are preliminary and upon crossing guard reviewmay be revised to meet current compliance requirements. Procedure Date: 11/21/2022 9:42:[address] [place] [address] Kavya Mcginnis DO GI PROCEDURE ORDERABLES Denise l Result from Last 3 Months or Most Recently Relevant to Health Maintenance Insurance [facility] ONE CARE MEDICARE REPLACEMENT MEDICARE PART A & B Member Subscriber Plan / Payer (Ef fective 2016-Present) Name:Tiffanie Dumont Member ID:[id number] Relation to Subscriber:Self Name:Tiffanie Dumont Subscriber ID:[id number] Payer ID:[id number] Group ID:Not on file Type:Medicare Address: [facility] [address] [facility] [address] [facility] [place] [address] [facility] ONE CARE MEDICARE REPLACEMENT MEDICARE PART A & B [facility] CARE MEDICARE REPLACEMENT MEDICARE PART A & B [facility] CARE MEDICARE REPLACEMENT [place] [id number] MEDICARE PART A & B [facility] CARE MEDICARE REPLACEMENT MEDICARE PART A & B [facility] ONE CARE MEDICARE REPLACEMENT MEDICARE PART A & B Care Teams Distribution Engineer Relationship Specialty Start Date End Date Debbie Luna MD [email or web address] PCP - General Internal Medicine 02/08/23 KAVYA MCGINNIS Primary Care Physician 02/20/23 Additional Source Comments The information contained in this document represents components of the legal health record. It is not the complete legal health record.[facility]
--- OUTSIDE RECORDS SUMMARY | 2025-01-14 13:07 | XMS_ITS | Encounter Summary ---
Author Organization [employer] Address 75 [facility] 7t [place] [address] Care Team Providers Care Press Set Up Name Role Phone Tracie Mcginnis DO Primary Care Provider + [phone] Lane Denise PharmD Unavailable [phone] Encounter Details Date Type Department Care Team (Late st Contact Info) Description 06/14/2023 Orders Only [facility] MEDICINE 230 [place], [place] [phone] Abbi Conway MD 230 [place] [address] Social History Tobacco Use Types Packs/Day Years [...] Description 01/23/2025 2:00 PM EST Medication Management [address] [address] [address] Denise, PharmD [address] [place] [address] 01/27/2025 9:15 AM EST Office Visit [address] [address] Tracie Mcginnis DO [address] [place] [address] documented as of this encounter Visit Diagnoses Not on filedocumented in this encounter Additional Health Concerns Assessment Noted Time PHQ-9 Depression Total Score: 0 05/11/19 24 11:50 AM EST documented as of this encounter Care Teams Press Set Up Relationship Specialty Start Date End Date Tracie Mcginnis DO [address] [place] [address] PCP - General Family Medicine 08/27/13 Lane Denise, PharmD [address] [place] [address] Pharmacist Pharmacy 10/06/24 documented as of this encounter
--- OUTSIDE RECORDS SUMMARY | 2025-01-14 13:07 | XMS_ITS | Encounter Summary ---
Author Organization [employer] Address 75 [facility] 7t [place] [address] Care Team Providers Care Auto Bumper Straightener Name Role Phone Tracie Mcginnis DO Primary Care Provider + [phone] Lane Denise PharmD Unavailable [phone] Reason for Visit * Reason Comments Med Refill Encounter Details Date Type Department Care Team (Late st Contact Info) Description 02/12/2023 Refill [facility] MEDICINE 230 [place], [place] [phone] Tracie Mcginnis DO 230 [place] [address] Social History Tobacco Use Types Packs/Day Years [...] Description 01/23/2025 2:00 PM EST Medication Management [address] [address] [address] Denise, PharmD [address] [place] [address] 01/27/2025 9:15 AM EST Office Visit [address] [address] Tracie Mcginnis DO [address] [place] [address] documented as of this encounter Visit Diagnoses Not on filedocumented in this encounter Care Teams Auto Bumper Straightener Relationship Specialty Start Date End Date Tracie Mcginnis DO [address] [place] [address] PCP - General Family Medicine 08/27/13 Lane Denise, PharmD [address] [place] [address] Pharmacist Pharmacy 10/06/24 documented as of this encounter
--- OUTSIDE RECORDS SUMMARY | 2025-01-14 13:07 | XMS_ITS | Encounter Summary ---
Author Organization [employer] Address 75 [facility] 7t [place] [address] Care Team Providers Care Photographer Finish Name Role Phone Tracie Mcginnis DO Primary Care Provider + [phone] Lane Denise PharmD Unavailable [phone] Reason for Visit * Reason Comments Med Refill Encounter Details Date Type Department Care Team (Late st Contact Info) Description 06/15/2023 Refill [facility] MEDICINE 230 [place], [place] [phone] Tracie Mcginnis DO 230 [place] [address] Social History Tobacco Use Types Packs/Day Years [...] Description 01/23/2025 2:00 PM EST Medication Management [address] [address] [address] Denise, PharmD [address] [place] [address] 01/27/2025 9:15 AM EST Office Visit [address] [address] Tracie Mcginnis DO [address] [place] [address] documented as of this encounter Visit Diagnoses Not on filedocumented in this encounter Additional Health Concerns Assessment Noted Time PHQ-9 Depression Total Score: 0 05/11/19 24 11:50 AM EST documented as of this encounter Care Teams Photographer Finish Relationship Specialty Start Date End Date Tracie Mcginnis DO [address] [place] [address] PCP - General Family Medicine 08/27/13 Lane Denise, PharmD [address] [place] [address] Pharmacist Pharmacy 10/06/24 documented as of this encounter
--- OUTSIDE RECORDS SUMMARY | 2025-01-14 13:07 | XMS_ITS | Encounter Summary ---
Author Organization [email or web address] Address 75 [facility] 7t [place] [address] Care Team Providers Care Account Developer Name Role Phone Tracie Mcginnis DO Primary Care Provider + [phone] Lane Denise PharmD Unavailable [phone] Reason for Visit * Reason Comments Med Refill Encounter Details Date Type Department Care Team (Late st Contact Info) Description 06/27/2024 Refill [facility] MEDICINE 230 [place], [place] [phone] Tracie Mcginnis DO 230 [place], [place] [phone] Nonintractable chronic migraine Social History Tobacco Use [...] Description 01/23/2025 2:00 PM EST Medication Management [address] [address] [address] Denise, PharmD [address] [place] [address] 01/27/2025 9:15 AM EST Office Visit [address] [address] Tracie Mcginnis DO [address] [place] [address] documented as of this encounter Visit Diagnoses Diagnosis Nonintractable chronic migraine documented in this encounter Additional Health Concerns Assessment Noted Time PHQ-9 Depression Total Score: 14 025 11:26 AM EDT documented as of this encounter Care Teams Account Developer Relationship Specialty Start Date End Date Tracie Mcginnis DO [address] [place] [address] PCP - General Family Medicine 08/27/13 Lane Denise, PharmD [address] [place] [address] Pharmacist Pharmacy 10/06/24 documented as of this encounter
--- OUTSIDE RECORDS SUMMARY | 2025-01-14 13:07 | XMS_ITS | Encounter Summary ---
Author Organization [employer] Address 75 [facility] 7t [place] [address] Care Team Providers Care Ignition Specialist Name Role Phone Tracie Mcginnis DO Primary Care Provider + [phone] Lane Denise PharmD Unavailable [phone] Reason for Visit * Reason Comments Med Refill Encounter Details Date Type Department Care Team (Late st Contact Info) Description 09/02/2024 Refill [facility] MEDICINE 230 [place], [place] [phone] Tracie Mcginnis DO 230 [place] [address] Social History Tobacco Use Types Packs/Day Years [...] Description 01/23/2025 2:00 PM EST Medication Management [address] [address] [address] Denise, PharmD [address] [place] [address] 01/27/2025 9:15 AM EST Office Visit [address] [address] Tracie Mcginnis DO [address] [place] [address] documented as of this encounter Visit Diagnoses Not on filedocumented in this encounter Additional Health Concerns Assessment Noted Time PHQ-9 Depression Total Score: 14 025 11:26 AM EDT documented as of this encounter Care Teams Ignition Specialist Relationship Specialty Start Date End Date Tracie Mcginnis DO [address] [place] [address] PCP - General Family Medicine 08/27/13 Lane Denise, PharmD [address] [place] [address] Pharmacist Pharmacy 10/06/24 documented as of this encounter
--- OUTSIDE RECORDS SUMMARY | 2025-01-14 13:07 | XMS_ITS | Encounter Summary ---
Author Organization [employer] Address 75 [facility] 7t [place] [address] Care Team Providers Care Water Rights Specialist Name Role Phone Tracie Mcginnis DO Primary Care Provider + [phone] [address] Denise PharmD Unavailable [phone] Reason for Visit * Reason Comments Med Refill Encounter Details Date Type Department Care Team (Late st Contact Info) Description 05/11/2023 Refill [facility] MEDICINE 230 [place], [place] [phone] Tracie Mcginnis DO 230 [place], [place] [phone] Nonintractable chronic migraine Social History Tobacco Use [...] usual. Not at all 05/11/2023 11:50 AM EST Annita Gomez MA Thoughts that you would be better off or hurting yourself in some way Not at all 05/11/2023 11:50 AM EST Alia Nichols MA Patient Health Questionnaire-9 Score 0 05/11/2023 11:50 AM EST Sameera Nichols MA documented as of this encounter Plan of Treatment Upcoming Encounters Date Type Department Care Team (Late st Contact Info) Description 01/23/2025 2:00 PM EST Medication Management [facility] MEDICINE [address] [place] [address] [address] Denise, PharmD [address] [place] [address] 01/27/2025 9:15 AM EST Office Visit [facility] MEDICINE [address] [place] [address] Tracie Mcginnis DO [address] [place] [address] documented as of this encounter Visit Diagnoses Diagnosis Nonintractable chronic migraine documented in this encounter Additional Health Concerns Assessment Noted Time PHQ-9 Depression Total Score: 0 05/11/19 24 11:50 AM EST documented as of this encounter Care Teams Water Rights Specialist Relationship Specialty Start Date End Date Tracie Mcginnis DO [address] [place] [address] PCP - General Family Medicine 08/27/13 Lane Denise, PharmD [address] [place] [address] Pharmacist Pharmacy 10/06/24 documented as of this encounter
--- OUTSIDE RECORDS SUMMARY | 2025-01-14 13:07 | XMS_ITS | Clinical Summary ---
Author Organization [employer] Address [address] [facility] [address] [place] [address] Care Team Providers Care Car Ferry Master Name Role Phone Tracie Mcginnis DO Primary Care Provider + [phone] Lane Denise PharmD Unavailable [phone] Allergies Active Allergy Reactions Criticality Noted Date [...] week. 2 mL 5 Active Continuous Glucose Sensor (Dexcom G7 Sensor) [...] tablet 5 025 2024 Discontinued Continuous Glucose Bench Press Operator (FreeStyle Nelda 3 Cheraw) deviceIndications :Type 2 diabetes mellitus with stage [...] days as directed for CGM 2 each 2024 Discontinued Ferrous Sulfate (iron) 325 (65 Fe) MG tabletIndications :Iron deficiency TAKE 1 TABLET BY MOUTH EVERY MORNING 90 tablet 1 2024 Discontinued Semaglutide,0.25 or 0.5MG/DOS, (Ozempic, 0.25 or 0.5 MG/DOSE,) 2 MG/3ML solution pen-injectorIndic ations:Type 2 diabetes mellitus with stage 3 chronic kidney disease, without long-term current use of insulin, unspecified whether stage 3a or 3b CKD (HCC) Inject 0.5 mg under the skin 1 (one) time per week. 2 mL 5 2024 Discontinued(R eorder (will not trigger notification [...] of breath. 18 g 025 2024 Discontinued Continuous Glucose Bench Press Operator (Dexcom G7 Bench Press Operator) deviceIndications :Type 2 diabetes mellitus with stage 3 chronic kidney disease, without long-term current use of insulin, unspecified whether stage 3a or 3b CKD ([facility]) 1 each Once per day for 1 day. 1 each 025 2024 Active Problems Problem Noted Date [...] neg Oct 2014 with midwifery, s/p RA [facility] BSO, pathology benign, Oct 2016 -mammo BIRADS [...] -advised reschedule rheumatology eval -advised contact [facility] if sx worsen or do [...] 08/12/19 Bipolar affective disorder, currently depressed, moderate (CMS/HCC) 08/11/2022 08/11/2022 Daily nausea 08/11/2022 08/11/2022 Epigastric pain 08/11/2022 08/11/2022 Heartburn symptom 08/11/2022 08/11/2022 Pain in unspecified foot 04/06/202211/2022 Assessment & Plan (04/06/2022 11:39 AM EST): Likely diabetic neuropathy -cont gabapentin 600mg TID -cont check feet daily -advised contact [facility] if sx change or worsen [...] new psychiatrist as scheduled Other hyperlipidemia 12/08/2014 03//2 023 Assessment & Plan (04/06/2022 11:35 AM EST): Slight bump in LDL JUN 2021 -cont lipitor nightly -cont fish oil supplementation BID Kidney stone 12/08/2014 04/06/2022 Encounters Date Type Department Care Team Description 01/12/2025 Travel 01/12/[address] [address] Tracie Mcginnis DO Nurse Triage; ER Follow-up 01/08/[address] [address] Mireya Rodney, MICHAEL CGM PA 12/31/[address] [address] Tracie Mcginnis DO Order question 12/30/2024 10:45 AM EDT Office Visit [address] [address] Tracie Mcginnis DO Type 2 diabetes mellitus [...] vaccination; Primary insomnia 12/30/2024 Travel 12/25/[address] [address] Tracie Mcginnis DO Nonintractable chronic migraine 12/24/2024 Refill [facility] [address] [place] [address] Tracie Mcginnis DO Nonintractable chronic migraine 12/18/2024 Refill [facility] [address] [place] [address] Tracie Mcginnis DO 12/16/2024 Refill [facility] [address] [place] [address] Tracie Mcginnis DO Iron deficiency 12/09/2024 Travel 12/06/2024 Telephone [facility] [address] [place] [address] Tracie Mcginnis DO Chart Prep 11/28/2024 Refill [facility] [address] [place] [address] Tracie Mcginnis DO Nausea, vomiting, and diarrhea 11/28/2024 Telephone [facility] [address] [place] [address] Tracie Mcginnis DO FYI 11/27/2024 Refill [facility] [address] [place] [address] Tracie Mcginnis DO 11/25/2024 Refill [facility] [address] [place] [address] Tracie Mcginnis DO Diabetic polyneuropathy associated with type 2 diabetes mellitus ([facility]/HCC); Nonintractable chronic migraine 11/17/2024 Refill [facility] [address] [place] [address] Tracie Mcginnis DO Diabetic polyneuropathy associated with type 2 diabetes mellitus (CMS/HCC) 11/16/2024 Refill [facility] [address] [place] [address] Tracie Mcginnis DO Diabetic polyneuropathy associated with type 2 diabetes mellitus (CMS/HCC) 10/31/2024 3:45 PM EDT Office Visit [facility] [address] [place] [address] Rita Calderon NP Type 2 diabetes mellitus with stage 3 chronic kidney disease, without long-term current use of insulin, unspecified whether stage 3a or 3b CKD ([facility]) (Primary Dx); Injury of toe on left foot, initial encounter; Hammer toe of left foot 10/31/2024 Travel 10/30/2024 Telephone [facility] [address] [place] [address] Xuan Vargas [place] CHARTPREP 10/29/2024 Orders Only [facility] [address] [place] [address] Tracie Mcginnis DO 10/29/2024 Telephone [facility] [address] [place] [address] Tracie Mcginnis DO Nurse Triage 10/24/2024 Travel 10/24/2024 Refill [facility] [address] [place], [place] [phone] Tracie Mcginnis DO Nonintractable chronic migraine 10/17/2024 Refill [facility] [address] [place] [address] Tiffanie Crooks MD from Last 3 Months Immunizations Immunization Administration [...] 01/23/2025 2:00 PM EST Medication Management [facility] [address] [place] [address] Denise, PharmD [address] [place] [address] 01/27/2025 9:15 AM EST Office Visit [address] [address] Tracie Mcginnis DO [address] [place] [address] Health Maintenance Due Date Last Done Comments [...] Procedure Name Priority Date/Time Associated Diagnosis Comments HELICOBACTER PYLORI, UREA BREATH TEST Routine 12/30/2024 12:39 PM EDT Chronic gastroesophageal reflux disease POCT GLYCATED HEMOGLOBIN, TOTAL Routine 12/30/2024 11:20 [...] Recently Relevant to Health Maintenance Results * Helicobacter pylori, Urea Breath Test (12/30/2024 12:39 PM EDT) H. pylori Breath Test Negative Negative [facility] Comment:Antimicrobials, prot on pump inhibitors and bismuthpreparations are known to suppress H. pylori. Ingestingthese medications within two weeks prior to performing thebreath test may produce negative test results. A positiveresult is still clinically valid. Breath (Breath) 12/30/2024 1 2:39 PM EDT 12/30/2024 4:14 PM EDT us Tracie Mcginnis DO LAB BODY FLUIDS AND STOOLS O RDERABLES Final Result [facility] [address] [place] [address] [phone] * (ABNORMAL) POCT Hgb A1c (12/30/2024 11:20 AM EDT) Only the most recent of2 resultswithin the time period is included. Hemoglobin A1C 6.3(A) 4.0 - 5.7 % QC Media Lot # [id number] Lot# Expiration Date 5,,027 Blood 12/30/2024 11:2 0 AM EDT Tracie Mcginnis DO POINT OF CARE TEST ENTER/CRISTOPHER T ORDERABLES Final Result * (ABNORMAL) POCT Glucose (12/30/2024 11:19 AM EDT) Only the most recent of2 resultswithin the time period is included. [facility] Glucose Blood, POC 264(A) 60 - 200 mg/dL QC Media Lot # [id number] Lot# Expiration Date 3,026 Blood Capillary blood specimen / Unknown 12/30/2024 11:19 AM EDT Tracie Ras MATUTE POINT OF CARE TEST ENTER/CRISTOPHER T ORDERABLES Final Result * US Abdomen Complete (11/21/2024 9:09 AM EDT) Anatomical Region Laterality Modality Abdomen Ultrasound 11/21/2024 9:09 AM EDT Narrative 11/21/2024 9:56 AM EDT [place] [address] Ultrasound Report Signed Patient: Tiffanie Dumont MR#: [id number] : 1970 Acct:[id number] Age/Sex: 54 / F ADM Date: 11/21/24 Loc: HO.US Attending Dr: Tracie Mcginnis DO Ordering Physician: Tracie Mcginnis DO Date of Service: 11/21/24 Procedure(s): US abdomen complete Accession Number(s): [id number] cc: Tracie Mcginnis DO Reason for Exam: [...] signed by Eduardo Yang MD in OV> 11/21/24 0952 DD/ 8 TD/TT: 11/21/24928 Adult School Counselor: Procedure Note Donotuseinterpreter, Image - 11/21/[address] [address] Ultrasound Report Signed Patient: Tiffanie Dumont AMR#: [id number] : 1970Acct:[id number] Age/Sex: 54 / FADM Date: 11/21/24 Loc: .US Attending Dr: Tracie Mcginnis DO Ordering Physician: Tracie Mcginnis DO Date of Service: 11/21/24 Procedure(s): US abdomen complete Accession Number(s): [id number] cc: Tracie Mcginnis DO Reason for Exam: [...] signed by Eduardo Yang MD in OV> 11/21/24 0952 DD/ 8 TD/TT: 11/21/24928 Adult School Counselor: us Tracie Mcginnis DO IMG US PROCEDURES Edited Res ult - Final * (ABNORMAL) Lipid Panel, Standard (06/04/2024 12:26 PM EDT) Triglycerides 165(H) <150 mg/dL [facility] Comment:Desirable Triglyceri de: less than 150 mg/dLBorderline High Triglyceride 150-199 mg/dLHigh Triglyceride: 200-499 mg/dLVery High Triglyceride: greater than or equal to 5OO mg/dL Cholesterol 146 <200 mg/dL [facility] Comment:Desirable Cholestero l: less than 200 mg/dLBorderline High Cholesterol: 200-239 mg/dLHigh Cholesterol: greater than 239 mg/dL LDL Cholesterol Calculated 82 <100 mg/dL [facility] Comment:Desirable LDL: less than 100 mg/dLNear Optimal/Above Optimal LDL: 110- 129 mg/dLBorderline High LDL: 130-159 mg/dLHigh LDL: 160-189 mg/dLVery High LDL: greater than or equal to 190 mg/dL HDL Cholesterol 31(L) >40 mg/dL [facility] Comment:Desirable HDL: great er than 40 mg/dL Note: This HDL assay may give artificially low results in patients with liver disease. Blood Venous blood specimen / Unknown 06/04/2024 12:26 PM EDT 06/04/2024 1:12 PM EDT us Tracie Mcginnis DO LAB BLOOD ORDERABLES Final R esult [facility] [address] [place] [address] [phone] * BI Mammogram Screening Tomosynthesis Bilateral (12/25/2023 1:40 PM EDT) Anatomical Region Laterality Modality Breast Bilateral Mammography 12/25/2023 1:40 PM EDT Narrative 01/07/2024 3:49 PM [facility] [address] [place] [address] Mammography Report Signed Patient: Tiffanie Dumont MR#: [id number] : 1970 Acct:[id number] Age/Sex: 53 / F ADM Date: 12/25/23 Loc: HO.MAMMO Attending Dr: Tracie Mcginnis DO Ordering Physician: Tracie Mcginnis DO Results: 2B enign Findings Date of Service: 12/25/23 Follow Up: 1 Year From Orig inal Mammogram Procedure(s): MM tomosynthesis screening BI Accession Number(s): [id number] cc: Tracie Mcginnis DO EXAMINATION: MM SCREENING [...] 01/07/24 1546 DD/ 1340 TD/TT: 12/25/23 1353 Adult School Counselor: Procedure Note Donotuseinterpreter, Image - 01/07/2024 [facility] [address] [place] [address] Mammography Report Signed Patient: Tiffanie Dumont AMR#: [id number] : 1970Acct:[id number] Age/Sex: 53 / FADM Date: 12/25/23 Loc: HO.MAMMO Attending Dr: Tracie Mcginnis DO Ordering Physician: Tracie Mcginnisults: 2B enign Findings Date of Service: 12/25/23Follow Up: 1 Year From Orig inal Mammogram Procedure(s): MM tomosynthesis screening BI Accession Number(s): [id number] cc: Tracie Mcginnis DO EXAMINATION: MM SCREENING [...] 01/07/24 1546 DD/ 1340 TD/TT: 12/25/23 1353 Adult School Counselor: Tracie Mcginnis DO IMG BI PROCEDURES Edited Res ult - Final * Hepatitis C Antibody with Reflex to HCV, RNA, Quantitative, Real-Time PCR (12/10/2023 3:11 PM EDT) Hepatitis C Antibody Nonreactive Nonreactive [facility] Comment:Antibodies to HCV no t detected; does not exclude early acuteHCV infection. Blood Venous blood specimen / Unknown 12/10/2023 3:11 PM EDT 12/10/2023 3:11 PM EDT Tracie Mcginnis DO LAB BLOOD ORDERABLES Final R esult [facility] [address] [place] [phone] * HIV-1/2 Antigen and Antibodies, Fourth Generation, with Reflexes (12/10/2023 3:11 PM EDT) HIV AB/AG Nonreactive Nonreactive [facility] Comment:HIV-1 p24 Ag and/or HIV-1/HIV-2 Ab not detected.A test result that is nonreactive does not exclude thepossibility of exposure to or infection with HIV-1 and/orHIV-2. Nonreactive results in this assay for individualswith prior exposure to HIV-1 and/or HIV-2 may be due toantigen and antibody levels that are below the limit ofdetection of this assay.The [employer] HIV Ag/Ab Combo assay result andsupplemental assay results should be interpreted inconjunction with the patient's clinical presentation,history and other laboratory results. If the results areinconsistent with clinical evidence, additional testing issuggested to confirm the result. Blood Venous blood specimen / Unknown 12/10/2023 3:11 PM EDT 12/10/2023 3:11 PM EDT Tracie Mcginnis DO LAB BLOOD ORDERABLES Final R esult [facility] [address] [place] [address] [phone] * Hm Colonoscopy (11/21/2022 6:53 PM EDT) us Historical Provider HEALTH MAINTENANCE Final Result from Last 3 Months or Most Recently Relevant to Health Maintenance Insurance [facility] < 65 Care Teams Car Ferry Master Relationship Specialty Start Date End Date Tracie Mcginnis DO [address] [place] [address] PCP - General Family Medicine 08/27/13 Lane Denise, NiviaD [address] [place] [address] Pharmacist Pharmacy 10/06/24
--- OUTSIDE RECORDS SUMMARY | 2025-01-14 13:08 | XMS_ITS | Encounter Summary ---
Author Organization [employer] Address [address] [facility] 7[address] [place] [address] Care Team Providers Care Software Engineering Project Manager Name Role Phone Tracie Mcginnis DO Primary Care Provider + [phone] Lane Denise PharmD Unavailable [phone] Encounter Details Date Type Department Care Team (Late st Contact Info) Description 04/19/2024 Orders Only [facility] [address] [place] [address] ProviderMarlon MD Social History Tobacco Use Types [...] Description 01/23/2025 2:00 PM EST Medication Management [address] [address] [address] Denise, PharmD [address] [place] [phone] 01/27/2025 9:15 AM EST Office Visit [facility] [address] [place] [phone] Tracie Mcginnis DO [address] [place] [phone] documented as of this encounter Procedures Procedure [...] documented as of this encounter Care Teams Software Engineering Project Manager Relationship Specialty Start Date End Date Tracie Mcginnis DO [address] [place] [phone] PCP - General Family Medicine 08/27/13 Lane Denise, PharmD [address] [place] [phone] Pharmacist Pharmacy 10/06/24 documented as of this encounter
--- OUTSIDE RECORDS SUMMARY | 2025-01-14 13:08 | XMS_ITS | Data Portability ---
Author Organization [employer] [facility], [facility] Address [address] [place] [phone] Care Team Providers Care Instrument Worker Name Role Phone KAVYA SUBRAMANIAN Primary Care Provider HIM CCA OTHER Assessment Encounter Date Assessment Date Assessment LastModified by Organization Details LastModified Time 09/17/2023 09/17/2023 As noted, we kathia murillo called to see this patient regarding concerns of laryngospasm. PMHx notable for: BMI 31.0-31.9 Essential hypertension Chronic gastroesophageal reflux disease Chronic migraine Tobacco dependence Type 2 diabetes mellitus ([facility]) Nephrolithiasis Healthcare maintenance Arthralgia Nausea, vomiting, and diarrhea Fatty liver Hyperlipidemia Erosive esophagitis Gastroparesis Chronic bipolar disorder ([facility]) Irritable bowel syndrome 53 yo F with [...] in the field was performed by my integrated circuit design engineer colleague, as noted above, I provided real-time [...] in 250 mg capsule 2023 024 [email or web address], [place], [address], 17:27:11 cephalex in 500 mg capsule 2023 024 [facility] [address], [address], [place], [address], 4 17:27:14 ketorola c 30 mg/mL injectio [...] Not available Not available Not available 09/17/2023 [id number] RxNorm SELENA ODOM MD [address] [place] [address],[address], [place], [phone], [employer] 4 17:33:21 5440 Wellbutri n medicatio n Not available Not available Not available 09/17/2023 97915 RxNorm SELENA ODOM MD [address] [place] [address],[address], [place], [address], [employer] 4 17:33:29 5441 metformin medicatio n Not available Not available Not available 09/17/2023 6809 RxNorm SELENA ODOM MD [address] [place] [address],[address], [place], [address], [employer] 4 17:33:39 Medications Name Sig Start Date [...] Not Available Not Available No t Available [facility] active Not Available Not Available [...] Address Organization Details Last Updated DateTime 4 02573.8 g 98.4 [degF] 98 % 98 % 14 /min 106 /min 157.48 cm 124/80 mm[Hg] Not Available [employer] 4 19:03:10 Date Recorded Respiratory rate Oxygen saturation Oxygen saturation in Arterial blood by Pulse oximetry Body weight Body temperature Body height Heart rate Systolic And Diastolic Provider Name and Address Organization Details Last Updated DateTime 4 14 /min 95 % 95 % 54617.3 76 g 98.3 [degF] 160.02 cm 80 /min 107/68 mm[Hg] Not Available [email or web address] 4 12:08:35 Date Recorded Oxygen saturation Oxygen saturation in Arterial blood by Pulse oximetry Body temperature Body height Heart rate Body weight Respiratory rate Systolic And Diastolic Provider Name and Address Organization Details Last Updated DateTime 4 98 % 98 % 98.3 [degF] 160.02 cm 96 /min 28673.6 g 16 /min 111/76 mm[Hg] Not Available [employer] [facility] [employer] 4 17:31:33 Date Recorded Oxygen saturation Oxygen saturation in Arterial blood by Pulse oximetry Body temperature Respiratory rate Heart rate Systolic And Diastolic Provider Name and Address Organization Details Last Updated DateTime 4 97 % 97 % 98.5 [degF] 16 /min 85 /min 122/86 mm[Hg] Not Available [employer] 4 17:18:53 Date Recorded Heart [...] ICD10 Code Diagnosis IMO Codes Diagnosis Note [id number] Leigha Edwards MD Main - [facility] [address] [place] [phone] 11/24/2022 19:46:20 11/26/2022 18:07:10 Kidney stone 76000596 N20.0 52 year old female with history [...] assessment and plan as documented by the integrated circuit design engineer. I provided real-time medical direction for this encounter and was immediatel y available to provide additional phone-base d assistance as needed. [id number] Lisa Hensley MD Main - [facility] [address] [place] [phone] 11/29/2022 18:06:21 01/15/2023 14:59:54 Kidney stone 70663194 N20.0 I provided real -time medical direction via phone for this encounter, and was available for additional phone based assistance as needed. I have reviewed and agree with the Assessment and Plan as documented by the Baling Press Operator. Patient given the opportunit y to [...] signs/sx. Leigha Edwards MD Main - [facility] [address] [place] [phone] 04/18/2023 19:03:08 07/04/2024 00:25:10 Fall 5780235 W19.XXXS 52 year old female being evaluated [...] assessment and plan as documented by the integrated circuit design engineer. I provided real-time medical direction for this encounter and was immediatel y available to provide additional phone-base d assistance as needed. We discussed the diagnostic uncertaint y of home visits and associated risks. We discussed the need to seek care urgently/e mergently in the setting of any new or worsening symptoms. Lisa Hensley MD Main - [facility] [address] [place] [phone] 04/23/2023 12:08:33 04/24/2023 11:07:37 Pain of wrist region 13224958 M25.532 I provided real -time medical direction via phone for this encounter, and was available for additional phone based assistance as needed. I have reviewed and agree with the Assessment and Plan as documented by the Baling Press Operator. Patient given the opportunit y to [...] d wrapping wrist and using heat/cold therapy. [id number] SELENA ODOM MD Main - [facility] [address] [place] [phone] 09/17/2023 17:31:28 09/17/2023 20:57:33 Chronic hoarseness [id number] 105 R49.0 Cough 49103829 R05.9 Laryngeal spasm 47744392 2 J38.5 [id number] Brennan Gonzalez MD Main - [facility] [address] [place] [phone] 10/26/2023 17:18:45 10/28/2023 18:19:59 Cellulitis of skin 240878199 L03.90 Health Concerns Section Related Observation LastModified by Organization Detai ls LastModified Time None Recorded Concern Status LastModified by Organization Details LastModified Time None Recorded Advance Directives Directive None Recorded Payers Insurance Date Sequence Insurance Name Policy Number Policy Amor Covered Member ID Amor Member ID Guarantor Name 07/04/2024 1 [facility] - DOS ON OR AFTER 2022 - DUAL ELIGIBLE - LONGTERM OPTIONS AND ONE CARE (MEDICARE REPLACEMENT/ADV ANTAGE - HMO) Tiffanie Dumont [id number] Tiffanie Dumont Notes Date Note Type Note [...] ................... ................... ................... ................... ................... ................... ........ Baling Press Operator Note From Biju Garsia: Pt reports [...] MD [address] [facility],[address], [place], [address], [employer] 01/07/2023 23:23:06 04/18/2023 text/html CRC Nurse Triage [...] ................... ................... ................... ................... ................... ................... ........ Baling Press Operator Note From Jarrod Morgan: Pt [place] [...] dry, no visible bruising or deformity noted. [facility] orders toradol 30mg IM, administered as noted. Red flags and pt education discussed. ................... ................... ................... ................... ................... ................... ................... ........ Disposition: Fulfilled Leigha Edwards MD [address] [facility],[address], [place], [address], [employer] 04/18/2023 21:43:19 04/23/2023 text/html CRC Nurse Triage [...] ................... ................... ................... ................... ................... ................... ........ Baling Press Operator Note From Ewelinakanemelodie Jose: 52 yo F [...] and flex to below 90 degrees. Equal appraiser auditor strength, and POS PMS in affected extremity. [...] ................... ........ Disposition: Fulfilled Lisa Hensley MD [address] [place] [address],[address], [place], [address], [facility] [employer] 04/23/2023 23:27:41 09/17/2023 text/html ROS as noted [...] fever. Pt advised of disposition, agrees to [employer] for exam as not able to come into our [facility] for exam today. Reviewed home care advise, ER precautions and reasons to call back.Pt address confirmed [id number] [place] [address] ................... ................... ................... ................... ................... ................... ................... ........ CRC Nurse Triage Notes (Guillermina Jenkins): Comments: CRC RN DID NOT NEED FURTHER INFO Baling Press Operator POC Test Results from Edy Torre - [facility] Rapid strep test (18:24:28) Strep: - ................... ................... ................... ................... ................... ................... ................... ........ Baling Press Operator Note From Edy Torre: [facility] visit for [...] or inflammation in posterior pharynx. Consulted with [facility] Dr. Odom who advised follow up with PCP. Reviewed red flags for ED. Pt education provided. ................... ................... ................... ................... ................... ................... ................... ........ Disposition: Fulfilled SELENA ODOM MD [address] [facility],[address], [place], [address], [employer] 09/17/2023 18:42:32 10/26/2023 text/html HPI: Patient with [...] ................... ................... ................... ................... ................... ................... ........ Baling Press Operator Note From Santosh Hernandez: Dispatched to the call address for the female with a spot of concern on her stomach. Pt states she had this small area on her lower left abd that didn't bother her really but after a month she saw her cath lab radiological technologist who advised to just leave it alone unless it starts to bother her. About 2 weeks ago it started to become painful and tender. Pt called her cath lab radiological technologist today who was not able to see [...] MD [address] [facility],[address], [place], [address], [employer] 10/26/2023 23:27:43 OBGyn Episode No OBEpisode recorded.
--- OUTSIDE RECORDS SUMMARY | 2025-01-14 13:08 | XMS_ITS | Encounter Summary ---
Author Organization [facility] Address [address] [place] [address] Phone Care Team Providers Care Wax Engraver Name Role Phone Debbie Luna MD Primary Care Provider [phone] Encounter Details Date Type Department Care Team (Late st Contact Info) Description 02/20/2023 Procedure Pass [facility] Endoscopy Admitting Dept Virtual Department [address] [place] [address] Social History Tobacco Use Types Packs/Day Years [...] on filedocumented in this encounter Care Teams Wax Engraver Relationship Specialty Start Date End Date Debbie Luna MD PCP - General Internal Medicine 02/08/23 KAVYA SUBRAMANIAN Primary Care Physician 02/20/23 documented as of this encounter Additional Source Comments The information contained in this document represents components of the legal health record. It is not the complete legal health record.[facility]
--- OUTSIDE RECORDS SUMMARY | 2025-01-14 13:08 | XMS_ITS | Encounter Summary ---
Author Organization [employer] Address [address] [facility] 7t [place] [address] Care Team Providers Care Formulator Name Role Phone Tracie Mcginnis DO Primary Care Provider + [phone] Lane Denise PharmD Unavailable [phone] Reason for Visit * Reason Comments Med Refill Encounter Details Date Type Department Care Team (Late st Contact Info) Description 04/11/2024 Refill [facility] [address] [place], [place] [phone] Tracie Mcginnis DO [address] [place], [place] [phone] Primary insomnia Social History Tobacco Use Types [...] Description 01/23/2025 2:00 PM EST Medication Management [address] [address] [address] Denise, PharmD [address] [place] [address] 01/27/2025 9:15 AM EST Office Visit [address] [address] Tracie Mcginnis DO [address] [place] [address] documented as of this encounter Visit Diagnoses Diagnosis Primary insomnia Persistent disorder of initiating or maintaining sleep documented in this encounter Additional Health Concerns Assessment Noted Time PHQ-9 Depression Total Score: 0 05/11/19 24 11:50 AM EST documented as of this encounter Care Teams Formulator Relationship Specialty Start Date End Date Tracie Mcginnis DO [address] [place] [address] PCP - General Family Medicine 08/27/13 Lane Denise, PharmD [address] [place] [address] Pharmacist Pharmacy 10/06/24 documented as of this encounter
--- OUTSIDE RECORDS SUMMARY | 2025-01-14 13:08 | XMS_ITS | Encounter Summary ---
Author Organization [facility] Address [address] [place] [address] [place] [address] Phone Care Team Providers Care Excavating Machine Operator Name Role Phone Debbie Luna MD Primary Care Provider [phone] Encounter Details Date Type Department Care Team (Late st Contact Info) Description 11/21/2022 Procedure Pass [facility] Endoscopy Admitting Dept Virtual Department [address] [place] [address] Social History Tobacco Use Types Packs/Day Years [...] on filedocumented in this encounter Care Teams Excavating Machine Operator Relationship Specialty Start Date End Date Debbie Luna MD PCP - General Internal Medicine 02/08/23 KAVYA SUBRAMANIAN Primary Care Physician 02/20/23 documented as of this encounter Additional Source Comments The information contained in this document represents components of the legal health record. It is not the complete legal health record.[facility]
== END 2025-01-14 11:47 | disposition home or self-care (01) ==
LOC: HO.RHES 10:49
PROVIDERS: PCP Family Medicine; Visit Provider Student in an Organized Health Care Education/Training Program
DX: R25.2 Cramp and spasm (principal); R76.0 Raised antibody titer; M25.50 Pain in unspecified joint
CPT/HCPCS: 99204

== ENCOUNTER 2025-01-14 10:49 | Outpatient (REF) | payer OTHER, SELFPAY ==
[2025-01-14 18:43] LABS: Total Protein Urine Random < 7 mg/dL (<12)
[2025-01-15 14:52] LABS: Antibody to SS-A Antigen <1.0 NEG AI (<1.0 NEG); Antibody to SS-B Antigen <1.0 NEG AI (<1.0 NEG); SM/Ribonucleoprotein Ab <1.0 NEG AI (<1.0 NEG); Smith Protein <1.0 NEG AI (<1.0 NEG)
== END 2025-01-14 10:50 | disposition home or self-care (01) ==
LOC: HO.HKASLDS 10:49
PROVIDERS: PCP Family Medicine; Visit Provider Student in an Organized Health Care Education/Training Program
DX: M25.571 Pain in right ankle and joints of right foot (principal); M25.572 Pain in left ankle and joints of left foot; M25.561 Pain in right knee; M25.562 Pain in left knee; M25.531 Pain in right wrist; M25.532 Pain in left wrist; M79.642 Pain in left hand; M79.641 Pain in right hand; R76.0 Raised antibody titer; R25.2 Cramp and spasm; R76.89 Other specified abnormal immunological findings in serum
CPT/HCPCS: 36415; 82570; 83516; 84156; 85652; 86140; 86160; 86200; 86225; 86235; 99202

== ENCOUNTER 2025-01-27 10:59 | Outpatient (REF) | payer OTHER, SELFPAY ==
--- NOTE | ~2025-01-27 | XR_ITS ---
EXAMINATION: XR CHEST CLINICAL INFORMATION: cough and chest tightness COMPARISON: February 21, 2015 TECHNIQUE: 2 views of the chest were obtained. FINDINGS: No significant abnormality is noted involving the heart, lungs, mediastinum, bony thorax or soft tissues. XR/XR chest 2V IMPRESSION: No acute disease. Electronically signed by: Leoncio Ruiz MD 01/27/2025 12:26 PM [facility]
--- OUTSIDE RECORDS SUMMARY | 2025-01-27 09:15 | XMS_ITS | Encounter Summary ---
Author Organization [employer] Address [address] [facility] 7t [place] [address] Care Team Providers Care Director Law Enforcement Name Role Phone Traice Mcginnis DO Primary Care Provider [phone] Denise PharmD Unavailable [phone] Reason for Visit * Reason Comments hospital follow up Encounter Details Date Type Department Care Team (Late st Contact Info) Description 01/27/2025 9:15 AM EST Office Visit [facility] [address] [place], [place] [phone] Tracie Mcginnis DO [address] [place], [place] [phone] Acute cough (Primary Dx); Type 2 diabetes mellitus with stage 3 chronic kidney disease, without long-term current use of insulin, unspecified whether stage 3a or 3b CKD (HCC) Social History Tobacco Use Types Packs/Day Years [...] Sign Reading Time Taken Comments Blood Pressure 130/70 01/27/2025 8:55 AM EST Pulse 80 01/27/2025 8:55 AM EST Temperature 36.2 C (97.2 F) 01/27/2025 8:55 AM EST Respiratory Rate 20 01/27/2025 8:55 AM EST Oxygen Saturation - - Inhaled Oxygen Concentration - - Weight 83 kg (183 lb) 01/27/2025 8:55 AM EST Height 160 cm (5' 3 ) 01/27/2025 8:55 AM EST Body Mass Index 32.42 01/27/2025 8:55 AM EST documented in this encounter Plan of Treatment Not on file documented as of this encounter Goals Goal Patient Goal Type Associated Problems Recent Progress Patient-Stated? Author Help patients manage their type 2 diabetes Care Plan Help patients manage their type [address] Meier, PharmMaritza Patient has chronic kidney disease Care Plan Patient has chronic kidney disease Lane Meier PharmD Patient has chronic kidney disease Care Plan Patient has chronic kidney disease Ya Iverson PharmD Patient has chronic kidney disease Care Plan Patient has chronic kidney disease No Hanna Crooks Patient has chronic kidney disease Care Plan Patient has chronic kidney disease No Mireya Rodney RN Patient has chronic kidney disease Care Plan Patient has chronic kidney disease No Cristin Jain [place] Patient has chronic kidney disease Care Plan Patient has chronic kidney disease No Cristin Jain [place] documented as of this encounter Procedures Procedure Name Priority Date/Time Associated Diagnosis Comments XR CHEST 2 VIEWS STAT 01/27/2025 12:0 3 PM EST Acute cough POCT INFLUENZA B Routine 01/27/2025 11:0 0 AM EST Acute cough POCT INFLUENZA A Routine 01/27/2025 10:5 9 AM EST Acute cough POCT RAPID STREP A Routine 01/27/2025 10 :59 AM EST Acute cough POCT RAPID COVID ANTIGEN Routine 01/27/2025 10:58 AM EST Acute cough POCT GLUCOSE Routine 01/27/2025 9:02 AM EST Type 2 diabetes mellitus with stage 3 chronic kidney disease, without long-term current use of insulin, unspecified whether stage 3a or 3b CKD (HCC) documented in this encounter Results * XR Chest 2 Views (01/27/2025 12:03 PM EST) Anatomical Region Laterality Modality Chest Radiographic Cassidy ging 01/27/2025 12:0 3 PM EST Narrative 01/27/2025 12:29 PM EST [facility] [address] [place] [address] XRay Report Signed Patient: Tiffanie Dumont MR#: [id number] : 1970 Acct:[id number] Age/Sex: 54 / F ADM Date: 01/27/25 Loc: .HHCX Attending Dr: Tracie Mcginnis DO Ordering Physician: Tracie Mcginnis DO Date of Service: 01/27/25 Procedure(s): XR chest 2V Accession Number(s): [id number] cc: Tracie Mcginnis DO Reason for Exam: cough and chest tightness EXAMINATION: XR CHEST CLINICAL INFORMATION: cough and chest tightness COMPARISON: February 21, 2015 TECHNIQUE: 2 views of the chest were obtained. FINDINGS: No significant abnormality is noted involving the heart, lungs, mediastinum, bony thorax or soft tissues. XR/XR chest 2V IMPRESSION: No acute disease. Electronically signed by: Leoncio Ruiz MD 01/27/2025 12:26 PM EST RP Dictated By: Leoncio Ruiz MD Signed By: <Electronically signed by Leoncio Ruiz MD in OV> 01/27/25 1226 DD/ 1203 TD/TT: 01/27/25 1204 Trimmer Climber: Procedure Note Donotuseinterpreter, Image - 01/27/2025 [place] [address] XRay Report Signed Patient: Tiffanie Dumont AMR#: [id number] : 1970Acct:[id number] Age/Sex: 54 / FADM Date: 01/27/25 Loc: HO.HHCX Attending Dr: Tracie Mcginnis DO Ordering Physician: Tracie Mcginnis DO Date of Service: 01/27/25 Procedure(s): XR chest 2V Accession Number(s): [id number] cc: Tracie Mcginnis DO Reason for Exam: cough and chest tightness EXAMINATION: XR CHEST CLINICAL INFORMATION: cough and chest tightness COMPARISON: February 21, 2015 TECHNIQUE: 2 views of the chest were obtained. FINDINGS: No significant abnormality is noted involving the heart, lungs, mediastinum, bony thorax or soft tissues. XR/XR chest 2V IMPRESSION: No acute disease. Electronically signed by: Leoncio Ruiz MD 01/27/2025 12:26 PM EST RP Dictated By: Leoncio Ruiz MD Signed By: <Electronically signed by Leoncio Ruiz MD in OV> 01/27/25 1226 DD/ 1203 TD/TT: 01/27/25 1204 Trimmer Climber: Tracie Mcginnis DO IMG XR PROCEDURES Final Resu lt * POCT Rapid Influenza B OSOM (01/27/2025 11:00 AM EST) [facility] Rapid Influenza B Ag Negative Negative, Indeterminate QC Media Lot # [id number] Lot# Expiration Date Swab 01/27/2025 11:0 0 AM EST Tracie Mcginnis DO POINT OF CARE TEST ENTER/CRISTOPHER T ORDERABLES Final Result * POCT Rapid Strep A OSOM (01/27/2025 10:59 AM EST) [facility] Rapid Strep A Screen Negative Negative, None Detected QC Media Lot # [id number] Lot# Expiration Date , Swab 01/27/2025 10:5 9 AM EST Tracie Mcginnis DO POINT OF CARE TEST ENTER/CRISTOPHER T ORDERABLES Final Result * POCT Rapid Influenza A OSOM (01/27/2025 10:59 AM EST) [facility] Rapid Influenza A Ag Negative Negative, Indeterminate QC Media Lot # [id number] Lot# Expiration Date Swab Nasopharyngeal structure / Unknown 01/27/2025 10:59 AM EST Tracie Mcginnis DO POINT OF CARE TEST ENTER/CRISTOPHER T ORDERABLES Final Result * POCT Rapid Covid-19 [employer] (01/27/2025 10:58 AM EST) [facility] Rapid COVID Ag Negative QC Media Lot # [id number] Lot# Expiration Date ,026 Swab 01/27/2025 10:5 8 AM EST Tracie Mcginnis DO POINT OF CARE TEST ENTER/CRISTOPHER T ORDERABLES Final Result * (ABNORMAL) POCT Glucose (01/27/2025 9:02 AM EST) Glucose Blood, POC 362(A) 60 - 200 mg/dL QC Media Lot # [id number] Lot# Expiration Date Blood Capillary blood specimen / Unknown 01/27/2025 9:02 AM EST Tracie Mcginnis DO POINT OF CARE TEST ENTER/CRISTOPHER T ORDERABLES Final Result documented in this encounter Visit Diagnoses Diagnosis Acute cough- Primary Type 2 diabetes mellitus with stage 3 chronic kidney disease, without long-term current use of insulin, unspecified whether stage 3a or 3b CKD (HCC) documented in this encounter Additional Health Concerns Active Problems Noted Date Diagnosed Date Help patients manage their type 2 diabetes 01/22 Patient has chronic kidney disease 01/22/2025 Patient has chronic kidney disease 01/23/2025 Patient has chronic kidney disease 01/23/2025 Patient has chronic kidney disease 01/23/2025 Patient has chronic kidney disease 01/24/2025 Patient has chronic kidney disease 01/26/2025 Assessment Noted Time PHQ-9 Depression Total Score: 22 025 2:25 PM EDT documented as of this encounter Care Teams Director Law Enforcement Relationship Specialty Start Date End Date Tracie Mcginnis DO [address] [place] [address] PCP - General Family Medicine 08/27/13 Lane Denise, Myah [address] [place] [address] Pharmacist Pharmacy 10/06/24 documented as of this encounter
--- OUTSIDE RECORDS SUMMARY | 2025-01-27 14:25 | XMS_ITS | Encounter Summary ---
Author Organization [employer] Address [address] [facility] 7t [place] [address] Care Team Providers Care Skiver Welt End Name Role Phone Tracie Mcginnis DO Primary Care Provider + [phone] Lane Denise PharmD Unavailable [phone] Reason for Visit * Reason Comments Med Refill Encounter Details Date Type Department Care Team (Late st Contact Info) Description 02/29/2024 Refill [facility] [address] [place], [place] [phone] Gwendolyn Ortega MD [address] [place], [place] [phone] Nonintractable chronic migraine Social History Tobacco Use [...] documented as of this encounter Care Teams Skiver Welt End Relationship Specialty Start Date End Date Tracie Mcginnis DO [address] [place] [address] PCP - General Family Medicine 08/27/13 Lane Denise PharmD [address] [place] [address] Pharmacist Pharmacy 10/06/24 documented as of this encounter
--- OUTSIDE RECORDS SUMMARY | 2025-01-27 14:25 | XMS_ITS | Encounter Summary ---
Author Organization [employer] Address [address] [facility] 7t [place] [address] Care Team Providers Care Salesforce Administrator Name Role Phone Tracie Mcginnis DO Primary Care Provider + [phone] Lane Denise PharmD Unavailable [phone] Reason for Visit * Reason Comments Med Refill Encounter Details Date Type Department Care Team (Late st Contact Info) Description 04/23/2024 Refill [facility] [address] [place], [place] [phone] Tracie Mcginnis DO [address] [place], [place] [phone] Social History Tobacco Use Types Packs/Day Years [...] documented as of this encounter Care Teams Salesforce Administrator Relationship Specialty Start Date End Date Tracie Mcginnis DO [address] [place] [address] PCP - General Family Medicine 08/27/13 Lane Denise, Myah [address] [place] [address] Pharmacist Pharmacy 10/06/24 documented as of this encounter
--- OUTSIDE RECORDS SUMMARY | 2025-01-27 14:25 | XMS_ITS | Encounter Summary ---
Author Organization [employer] Address [address] [facility] [address] [place] [address] Care Team Providers Care Time Signal Wirer Name Role Phone Tracie Mcginnis DO Primary Care Provider + [phone] Lane Denise PharmD Unavailable [phone] Encounter Details Date Type Department Care Team (Late st Contact Info) Description 04/19/2024 Orders Only [facility] MEDICINE [address] [place] [address] ProviderMarlon MD Social History Tobacco Use Types [...] documented as of this encounter Care Teams Time Signal Wirer Relationship Specialty Start Date End Date Tracie Mcginnis DO [address] [place] [address] PCP - General Family Medicine 08/27/13 Lane Denise, [place]ah [address] [place] [address] Pharmacist Pharmacy 10/06/24 documented as of this encounter
--- OUTSIDE RECORDS SUMMARY | 2025-01-27 14:25 | XMS_ITS | Encounter Summary ---
Author Organization [employer] Address [address] [facility] 7[address] [place] [address] Care Team Providers Care Canceling Machine Operator Name Role Phone Tracie Mcginnis DO Primary Care Provider + [phone] Lane Denise PharmD Unavailable [phone] Reason for Visit * Reason Onset Date Comments Nurse Triage 04/18/2023 Encounter Details Date Type Department Care Team (Late st Contact Info) Description 04/18/2023 Telephone [facility] MEDICINE [address] [place], [place] [phone] Tracie Mcginnis DO [address] [place], [place] [phone] Nurse Triage Social History Tobacco Use Types [...] on filedocumented in this encounter Care Teams Canceling Machine Operator Relationship Specialty Start Date End Date Tracie Mcginnis DO [address] [place] [address] PCP - General Family Medicine 08/27/13 Lane Denise, NiviaD [address] [place] [address] Pharmacist Pharmacy 10/06/24 documented as of this encounter
--- OUTSIDE RECORDS SUMMARY | 2025-01-27 14:25 | XMS_ITS | Encounter Summary ---
Author Organization [employer] Address [address] [facility] [address] [place] [address] Care Team Providers Care Under Presser Name Role Phone Tracie Mcginnis DO Primary Care Provider + [phone] Lane Denise PharmD Unavailable [phone] Reason for Visit * Reason Comments Med Refill Encounter Details Date Type Department Care Team (Late st Contact Info) Description 08/11/2022 Refill [facility] MEDICINE [address] [place], [place] [phone] rTacie Mcginnis DO [address] [place], [place] [phone] Nonintractable chronic migraine Social History Tobacco Use [...] migraine documented in this encounter Care Teams Under Presser Relationship Specialty Start Date End Date Tracie Mcginnis DO [address] [place] [address] PCP - General Family Medicine 08/27/13 Lane Denise, PharmD [address] [place] [id number] Pharmacist Pharmacy 10/06/24 documented as of this encounter
--- OUTSIDE RECORDS SUMMARY | 2025-01-27 14:25 | XMS_ITS | Clinical Summary ---
Author Organization [facility] ity Address [address] [place] [address] Care Team Providers Care Electrical Logging Engineer Name Role Phone BroallieWendy marshallfer Robyn MATUTE Primary Care Provider [phone] Social History Tobacco Use Types Packs/Day Years [...] age to complete this topic Care Teams Electrical Logging Engineer Relationship Specialty Start Date End Date Tracie Mcginnis DO [address] [place] [address] PCP - General 10/10/16
--- OUTSIDE RECORDS SUMMARY | 2025-01-27 14:25 | XMS_ITS | Clinical Summary ---
Author Organization [employer] Address [address] [facility] [address] [place] [address] Care Team Providers Care Senior Quality Engineer Name Role Phone Wendy Mcginnisfer Primary Care Provider + [phone] [address] Denise PharmD Unavailable [phone] Allergies Active Allergy Reactions Criticality Noted Date [...] varies form rash to difficulty breathing. Medications * This document contains information received from the source organization and may not represent a complete record from that organization. lamoTRIgine (LaMICtal) 100 MG tablet TAKE 1 AND 1/2 TABLETS BY MOUTH IN THE MORNING AND AT BEDTIME 023 Active mirtazapine (Remeron) 30 MG tablet TAKE 2 TABLETS BY MOUTH EVERY DAY AT BEDTIME 01/04/2 023 Active Oral Electrolytes (Pedialyte) pack MIX [...] ATTENTION IMMEDIATELY EVEN IF PATIENT RESPONDS. Active Diclofenac Sodium 1 % gel Apply [...] mouth Once per day. 30 tablet 11 2025 Active glucose blood (FreeStyle Precision Krystian Test) test strip Use to test blood sugar 3 times daily in case of CGM failure or extremes of BG 100 each 2025 Active insulin degludec (Tresiba FlexTouch) 100 UNIT/ML injection Inject 5 Units under the skin at bedtime. 3 mL 3 01/28/20 25 11:05 AM EST 2025 Active levothyroxine (Synthroid) 25 MCG tablet Take 1 tablet (25 mcg) by mouth before breakfast. 90 tablet 3 025 2025 Active folic acid (Folvite) 1 MG tablet TAKE 1 TABLET BY MOUTH EVERY MORNING 90 tablet 3 01/28/20 11:05 AM EST Active varenicline (Chantix) 1 MG tablet Take 1 tablet (1 mg) by mouth 2 times daily. 60 tablet 2 Active pen needle 32G x 4 mm miscIndications:T ype 2 diabetes mellitus with stage 3 chronic kidney disease, without long-term current use of insulin, unspecified whether stage 3a or 3b CKD (HCC) Use with insulin as instructed 100 each 3 01/28/20 11:05 AM EST 2025 Active Icosapent Ethyl (Vascepa) 1 g capsuleIndication s:Type 2 diabetes mellitus with stage 3 chronic kidney disease, without long-term current use of insulin, unspecified whether stage 3a or 3b CKD (HCC) Take 2 capsules by mouth at bedtime 60 capsule 11 01/28/20 11:05 AM EST Active topiramate 50 MG tablet TAKE 1 TABLET BY MOUTH TWICE DAILY IN THE MORNING AND AT BEDTIME 60 tablet 5 01/28/20 11:05 AM EST Active ondansetron ODT (Zofran-ODT) 4 MG disintegrating tabletIndications :Nausea, vomiting, and diarrhea DISSOLVE TWO TABLETS BY MOUTH TWICE A DAY DIRECTED 30 tablet 2 Active Ferrous Sulfate (iron) 325 (65 Fe) MG tabletIndications :Iron deficiency TAKE 1 TABLET BY MOUTH EVERY MORNING 90 tablet 1 025 Active Fiber-Lax 625 MG tablet TAKE 1 TABLET BY MOUTH TWICE DAILY WITH A FULL GLASS OF WATER 60 tablet 5 01/28/20 11:05 AM EST 025 Active Ventolin HFA 108 (90 Base) MCG/ACT inhaler INHALE 2 PUFFS BY MOUTH EVERY 4 HOURS NEEDED FOR WHEEZING OR SHORTNESS OF BREATH 18 g Active esomeprazole (NexIUM) [address] capsule Take 1 capsule (20 mg) by mouth before breakfast and before evening meal. Do not open capsule. 60 capsule 11 025 2025 Active zolpidem (Ambien) 10 MG tabletIndications [...] (one) time per week. 2 mL 5 01/28/20 11:05 AM EST Active Continuous Glucose Sensor (Dexcom G7 Sensor) miscIndications:T ype 2 diabetes mellitus with stage 3 chronic kidney disease, without long-term current use of insulin, unspecified whether stage 3a or 3b CKD (HCC) 1 each every 14 (fourteen) days. Apply 1 sensor every 10 days 3 each 2024 Active butorphanol (Stadol) 10 MG/ML nasal sprayIndications: Nonintractable chronic migraine INHALE 1 SPRAY INTO 1 NOSTRIL ONCE DAILY NEEDED FOR MIGRAINE 2.5 mL 01/28/20 11:05 AM EST Active gabapentin (Neurontin) 300 MG capsuleIndication s:Diabetic polyneuropathy associated with type 2 diabetes mellitus (HCC) TAKE 2 CAPSULES BY MOUTH THREE TIMES DAILY IN THE MORNING, EVENING AND BEDTIME 180 capsule 1 01/28/20 11:05 AM EST Active hydrocortisone 2.5 % cream Apply topically 2 times daily. Apply in a thin film internally and externally to anus and rub in gently. Take 2 weeks off in between treatment. After this period do not use on a daily bases and only use if symptomatic 2024 Active diazePAM (Valium) 10 MG tablet Take 1 tablet by mouth if needed in the morning, at noon, and at bedtime for anxiety. 2024 Active predniSONE (Deltasone) 20 MG tablet Take 2 tablets (40 mg) by mouth Once per day for 5 days. 10 tablet 01/28/20 11:05 AM EST 2024 Active azithromycin (Zithromax) 250 MG tablet Take 2 tabs PO today then take 1 tab PO daily for the next 4 days 6 tablet 01/28/20 11:05 AM EST Active albuterol (2.5 MG/3ML) 0.083% nebulizer solutionIndicatio ns:Acute cough Take 3 mL (2.5 mg) by nebulization every 4 (four) hours if needed for wheezing or shortness of breath. 75 mL 1 01/28/20 11:05 AM EST 2025 Active guaiFENesin (Mucinex) 600 MG 12 hr tablet Take 1 tablet (600 mg) by mouth if needed in the morning and at bedtime for cough or congestion. Do not crush, chew, or split. 30 tablet 01/28/20 11:05 AM EST 2025 Active Nebulizer [facility] [place], [place] Patient received an nebulizer on 01/27/2025 while at a provider visit on 01/27/25. Given by Gagandeep Dia RN Active omeprazole (PriLOSEC) [address] capsule 2024 Discontinued(I neffective) metoprolol succinate XL (Toprol XL) 50 MG 24 hr tablet Take 1 tablet (50 mg) by mouth Once per day. Do not crush or chew. 30 tablet 11 2024 Discontinued(M ed list cleanup (will not trigger notification to Pharmacy)) vilazodone (Viibryd) 10 mg tablet 2024 Discontinued(M ed list cleanup (will not trigger notification to Pharmacy)) zolpidem (Ambien) 10 MG tabletIndications :Primary insomnia Take 1 tablet (10 mg) by mouth if needed at bedtime for sleep. 30 tablet 2024 Discontinued(R eorder (will not trigger notification to Pharmacy)) Continuous Glucose Transportation Engineer (KustomNoteStyle Nelda 3 [place]) deviceIndications :Type 2 diabetes mellitus with stage [...] for CGM 2 each 025 2024 Discontinued Semaglutide,0.25 or 0.5MG/DOS, (Ozempic, 0.25 or 0.5 MG/DOSE,) 2 MG/3ML solution pen-injectorIndic ations:Type 2 diabetes mellitus with stage 3 chronic kidney disease, without long-term current use of insulin, unspecified whether stage 3a or 3b CKD (HCC) Inject 0.5 mg under the skin 1 (one) time per week. 2 mL 5 025 2024 Discontinued(R eorder (will not trigger notification to Pharmacy)) gabapentin (Neurontin) 300 MG capsuleIndication s:Diabetic polyneuropathy associated with type 2 diabetes mellitus (HCC) TAKE 2 CAPSULES BY MOUTH THREE TIMES DAILY IN THE MORNING, EVENING AND BEDTIME 180 capsule 1 025 2024 Discontinued potassium chloride CR (Klor-Con M20) 20 MEQ ER tablet TAKE 1 TABLET BY MOUTH TWICE DAILY WITH FOOD 60 tablet 5 025 2024 Discontinued(M ed list cleanup (will not trigger notification to Pharmacy)) butorphanol (Stadol) 10 MG/ML nasal sprayIndications: Nonintractable chronic migraine INHALE 1 SPRAY INTO 1 NOSTRIL ONCE DAILY NEEDED FOR MIGRAINE 2.5 mL 025 2024 Discontinued(D uplicate order (will not trigger notification to Pharmacy)) butorphanol (Stadol) 10 MG/ML nasal sprayIndications: Nonintractable chronic migraine Administer 1 spray into one nostril if needed each day for moderate pain. 2.5 mL 025 2024 Discontinued Continuous Glucose Transportation Engineer (Dexcom G7 Transportation Engineer) deviceIndications :Type 2 diabetes mellitus with stage 3 chronic kidney disease, without long-term current use of insulin, unspecified whether stage 3a or 3b CKD ([facility]) 1 each Once per day for 1 [...] neg Oct 2014 with midwifery, s/p RA [facility] BSO, pathology benign, Oct 2016 -mammo BIRADS [...] amitriptyline -advised reschedule rheumatology eval -advised contact [facility] if sx worsen or do not improve [...] TID -cont check feet daily -advised contact [facility] if sx change or worsen Nausea, vomiting, [...] and new psychiatrist as scheduled Other hyperlipidemia 12/08/201405/05/2 023 Assessment & Plan (04/06/2022 11:35 AM EST): Slight bump in LDL JUN 2021 -cont lipitor nightly -cont fish oil supplementation BID Kidney stone 12/08/2014 04/06/2022 Encounters * This document contains information received from the source organization and may not represent a complete record from that organization. Date Type Department Care Team Description 01/27/2025 9:15 AM EST Office Visit [address] [address] Tracie Mcginnis DO Acute cough (Primary Dx); Type 2 diabetes mellitus with stage 3 chronic kidney disease, without long-term current use of insulin, unspecified whether stage 3a or 3b CKD (HCC) 01/27/2025 Travel 01/24/[address] [address] Tracie Mcginnis DO Chart Prep 01/23/[address] [address] Tracie Mcginnis DO Prior Authorization (PA: Esomeprazole Magnesium 20MG dr capsules) 01/19/[address] [address] Tracie Mcginnis DO Nonintractable chronic migraine; Diabetic polyneuropathy associated with type 2 diabetes mellitus (HCC) 01/14/2025 Orders Only GENERIC EXTERNAL DATA DEPARTMENT Provider, Generic External Data 01/12/2025 Travel 01/12/[address] [address] Tracie Mcginnis DO Nurse Triage; ER Follow-up 01/08/[address] [address] Mireya Rodney, RN CGM PA 12/31/20[address] [place] [address] Tracie Mcginnis DO Order question 12/30/2024 10:45 AM EDT Office Visit [facility] [address] [place] [address] Tracie Mcginnis DO Type 2 diabetes mellitus [...] vaccination; Primary insomnia 12/30/2024 Travel 12/25/2024 Refill [facility] [address] [place] [address] Tracie Mcginnis DO Nonintractable chronic migraine 12/24/2024 Refill [facility] [address] [place] [address] Tracei Mcginnis DO Nonintractable chronic migraine 12/18/2024 Refill [facility] [address] [place] [address] Tracie Mcginnis DO 12/16/2024 Refill [facility] [address] [place] [address] Tracie Mcginnis DO Iron deficiency 12/09/2024 Travel 12/06/2024 Telephone [facility] [address] [place] [address] Tracie Mcginnis DO Chart Prep 11/28/2024 Refill [facility] [address] [place] [address] Tracie Mcginnis DO Nausea, vomiting, and diarrhea 11/28/2024 Telephone [facility] [address] [place] [address] Tracie Mcginnis DO FYI 11/27/2024 Refill [facility] [address] [place] [address] Tracie Mcginnis DO 11/25/2024 Refill [facility] [address] [place] [address] Tracie Mcginnis DO Diabetic polyneuropathy associated with type 2 diabetes mellitus ([facility]); Nonintractable chronic migraine 11/17/2024 Refill [facility] [address] [place] [address] Tracie Mcginnis DO Diabetic polyneuropathy associated with type 2 diabetes mellitus ([facility]/HCC) 11/16/2024 Refill [facility] [address] [place] [address] Tracie Mcginnis DO Diabetic polyneuropathy associated with type 2 diabetes mellitus ([facility]/HCC) 10/31/2024 3:45 PM EDT Office Visit [facility] [address] [place] [phone] Rita Calderon NP Type 2 diabetes mellitus with stage 3 chronic kidney disease, without long-term current use of insulin, unspecified whether stage 3a or 3b CKD ([facility]) (Primary Dx); Injury of toe on left foot, initial encounter; Hammer toe of left foot 10/31/2024 Travel 10/30/2024 Telephone [facility] [address] [place] [phone] Xuan Vargas [place] CHARTPREP 10/29/2024 Orders Only [facility] [address] [place] [phone] Tracie Mcginnis DO 10/29/[address] [address] Tracie Mcginnis DO Nurse Triage from Last 3 Months Immunizations Immunization Administration [...] 20 01/27/2025 8:55 AM EST Oxygen Saturation 100% 12/30/2024 11:15 AM EDT Inhaled Oxygen Concentration - - Weight 83 kg (183 lb) 01/27/2025 8:55 AM EST Height 160 cm (5' 3 ) 01/27/2025 8:55 AM EST Body Mass Index 32.42 01/27/2025 8:55 AM EST Plan of Treatment Health Maintenance Due Date [...] on patient's age to complete this topic Goals Goal Patient Goal Type Associated Problems Recent Progress Patient-Stated? Author Help patients manage their type 2 diabetes Care Plan Help patients manage their type [address] Meier PharmD Patient has chronic kidney disease Care Plan Patient has chronic kidney disease No Lane Denise PharmD Patient has chronic kidney disease Care Plan Patient has chronic kidney disease No Ya Martin PharmD Patient has chronic kidney disease Care [...] chronic kidney disease No Cristin Jain MA Procedures Procedure Name Priority Date/Time Associated Diagnosis Comments XR CHEST 2 VIEWS STAT 01/27/2025 12:0 3 PM EST Acute cough POCT INFLUENZA B Routine 01/27/2025 11:0 0 AM EST Acute cough POCT RAPID STREP A Routine 01/27/2025 10 :59 AM EST Acute cough POCT INFLUENZA A Routine 01/27/2025 10:5 9 AM EST Acute cough POCT RAPID COVID ANTIGEN Routine 01/27/2025 10:58 AM EST Acute cough POCT GLUCOSE Routine 01/27/2025 9:02 AM EST Type 2 diabetes mellitus with stage 3 chronic kidney disease, without long-term current use of insulin, unspecified whether stage 3a or 3b CKD (HCC) CYCLIC CITRULLINATED PEPTIDE (CCP) AB (IGG) Routine 01/14/2025 12:00 PM EST CENTROMERE B ANTIBODY Routine 01/14/2025 12:00 PM EST COMPLEMENT COMPONENT C4C Routine 01/14/2025 12:00 PM EST COMPLEMENT COMPONENT C3C Routine 01/14/2025 12:00 PM EST DNA (DS) ANTIBODY Routine 01/14/2025 12: 00 PM EST SCL-70 ANTIBODY Routine 01/14/2025 12:00 PM EST SM AND SM/TOOL HONING MACHINE SET UP OPERATOR ANTIBODIES Routine 01/14/2025 12:00 PM EST SJOGREN'S ANTIBODIES (SS-A,SS-B) Routine 01/14/2025 12:00 PM EST SED RATE BY MODIFIED WESTERGREN Routine 01/14/2025 12:00 PM EST PROTEIN CREATININE RATIO, URINE Routine 01/14/2025 12:00 PM EST C-REACTIVE PROTEIN Routine 01/14/2025 12 :00 PM EST HELICOBACTER PYLORI, UREA BREATH TEST Routine 12/30/2024 [...] Recently Relevant to Health Maintenance Results * XR Chest 2 Views (01/27/2025 12:03 PM EST) Anatomical Region Laterality Modality Chest Radiographic Cassidy ging 01/27/2025 12:0 3 PM EST Narrative 01/27/2025 12:29 PM EST [address] [address] XRay Report Signed Patient: Tiffanie Dumont MR#: [id number] : 1970 Acct:[id number] Age/Sex: 54 / F ADM Date: 01/27/25 Loc: HO.HHCarlosX Attending Dr: Tracie Mcginnis DO Ordering Physician: Tracie Mcginnis DO Date of Service: 01/27/25 Procedure(s): XR chest 2V Accession Number(s): [id number] cc: Tracie Mcginnis DO Reason for Exam: [...] by: Leoncio Ruiz MD 01/27/2025 12:26 PM [facility] Dictated By: Leoncio Ruiz MD Signed By: <Electronically signed by Leoncio Ruiz MD in OV> 01/27/25 1226 DD/ 1203 TD/TT: 01/27/25 1204 Skilled Trades Teacher: Procedure Note Donotuseinterpreter, Image - 01/27/2025 [place] [address] XRay Report Signed Patient: Tiffanie Dumont [facility]#: [id number] : 1970Acct:[id number] Age/Sex: 54 / FADM Date: 01/27/25 Loc: ANDIE.JOELX Attending Dr: Tracie Mcginnis DO Ordering Physician: Traice Mcginnis DO Date of Service: 01/27/25 Procedure(s): XR chest 2V Accession Number(s): [id number] cc: Tracie Mcginnis DO Reason for Exam: [...] 01/27/25 1226 DD/ 1203 TD/TT: 01/27/25 1204 Skilled Trades Teacher: Tracie Mcginnis DO IMG XR PROCEDURES Final Resu lt * POCT Rapid Influenza B OSOM (01/27/2025 11:00 AM EST) [facility] Rapid Influenza B Ag Negative Negative, Indeterminate QC Media Lot # [id number] Lot# Expiration Date Swab 01/27/2025 11:0 0 AM EST Result [facility] Tracie Mcginnis DO POINT OF CARE TEST ENTER/CRISTOPHER T ORDERABLES Final Result * POCT Rapid Influenza A OSOM (01/27/2025 10:59 AM EST) [facility] Rapid Influenza A Ag Negative Negative, Indeterminate QC Media Lot # [id number] Lot# Expiration Date Swab Nasopharyngeal structure / Unknown 01/27/2025 10:59 AM EST Result [facility] Tracie Mcignnis DO POINT OF CARE TEST ENTER/CRISTOPHER T ORDERABLES Final Result * POCT Rapid Strep A OSOM (01/27/2025 10:59 AM EST) [facility] Rapid Strep A Screen Negative Negative, None Detected QC Media Lot # [id number] Lot# Expiration Date ,025 Swab 01/27/2025 10:5 9 AM EST Tracie Mcginnis DO POINT OF CARE TEST ENTER/CRISTOPHER T ORDERABLES Final Result * POCT Rapid Covid-19 BinaxNOW (01/27/2025 10:58 AM EST) [facility] Rapid COVID Ag Negative QC Media Lot # [id number] Lot# Expiration Date Swab 01/27/2025 10:5 8 AM EST Tracie Mcginnis DO POINT OF CARE TEST ENTER/CRISTOPHER T ORDERABLES Final Result * (ABNORMAL) POCT Glucose (01/27/2025 9:02 AM EST) Only the most recent of3 resultswithin the time period is included. Pathologist [facility] Glucose Blood, POC 362(A) 60 - 200 mg/dL QC Media Lot # [id number] Lot# Expiration Date Blood Capillary blood specimen / Unknown 01/27/2025 9:02 AM EST Tracie Mcginnis DO POINT OF CARE TEST ENTER/CRISTOPHER T ORDERABLES Final Result * Sm and Sm/TOOL HONING MACHINE SET UP OPERATOR Antibodies (01/14/2025 12:00 PM EST) [facility] Sm Antibody <1.0 NEG <1.0 NEG [facility] SM/TOOL HONING MACHINE SET UP OPERATOR Antibody <1.0 NEG <1.0 NEG [facility] Comment:THIS TEST WAS PERFOR MED AT:[employer] [place] [phone] FAITH MD 01/14/2025 12:0 0 PM EST 01/14/2025 6:03 PM EST Generic External Data Provider LAB BLOOD ORDERAB LES Final Result [facility] [address] [place], [place] [phone] * Protein Creatinine Ratio, Urine (01/14/2025 12:00 PM EST) [facility] Creatinine, Urine 68.72 mg/dL [facility] Protein, Total, Random Urine <7 <12 mg/dL [facility] Protein/Creatin ine Ratio, Ur TNP <0.2 [facility] Comment:Unable to calculate urine protein creatinine ratio due tolow creatinine or protein result. 01/14/2025 12:0 0 PM EST 01/14/2025 5:55 PM EST us Generic External Data Provider LAB URINE ORDERAB LES Final Result Performing Organization Address [facility] Co de Phone Number [facility] [address] [place] [phone] * Centromere B Antibody (01/14/2025 12:00 PM EST) Centromere B Antibody <1.0 NEG <1.0 NEG [facility] Comment:THIS TEST WAS PERFOR MED AT:[employer] [place] [phone] FAITH MD 01/14/2025 12:0 0 PM EST 01/14/2025 6:03 PM EST us Generic External Data Provider LAB BLOOD ORDERAB LES Final Result Performing Organization Address City/[facility] Co de Phone Number [facility] [address] [place] [phone] * Sjogren's Antibodies (SS-A,SS-B) (01/14/2025 12:00 PM EST) Sjogren's Antibody (SS-A) <1.0 NEG <1.0 NEG [facility] Sjogren's Antibody (SS-B) <1.0 NEG <1.0 NEG [facility] Comment:THIS TEST WAS PERFOR MED AT:[employer] [place] [phone] FAITH MD 01/14/2025 12:0 0 PM EST 01/14/2025 6:03 PM EST us Generic External Data Provider LAB BLOOD ORDERAB LES Final Result Performing Organization Address [facility] de Phone Number [facility] [address] [place] [phone] * Cyclic Citrullinated Peptide (CCP) Antibody (IgG) (01/14/2025 12:00 PM EST) Cyclic Citrullinated Peptide <16 UNITS [facility] Comment:Reference RangeNegat veronica: <20Weak Positive: 20-39Moderate Positive: 40-59Strong Positive: >59THIS TEST WAS PERFORMED AT:[employer] [place] [phone] FAITH MD 01/14/2025 12:0 0 PM EST 01/14/2025 6:03 PM EST us Generic External Data Provider LAB BLOOD ORDERAB LES Final Result Performing Organization Address [facility] de Phone Number [facility] [address] [place] [phone] * SCL-70 Antibody (01/14/2025 12:00 PM EST) SCL-70 Antibody <1.0 NEG <1.0 NEG AI [facility] Comment:THIS TEST WAS PERFOR MED AT:[employer] [place] [phone] FAITH MD 01/14/2025 12:0 0 PM EST 01/14/2025 6:03 PM EST us Generic External Data Provider LAB BLOOD ORDERAB LES Final Result Performing Organization Address [facility] de Phone Number [facility] [address] [place] [phone] * DNA (ds) Antibody (01/14/2025 12:00 PM EST) Anti DNA DS Antibody 1 IU/mL [facility] Comment:IU/mL Interpretation < or = 4 Negative 5-9 Indeterminate > or = 10 PositiveTHIS TEST WAS PERFORMED AT:[employer] [place] [phone] FAITH MD 01/14/2025 12:0 0 PM EST 01/14/2025 6:03 PM EST us Generic External Data Provider LAB BLOOD ORDERAB LES Final Result Performing Organization Address [facility]/ZIP Co de Phone Number [facility] [address] [place] [phone] * (ABNORMAL) Sed Rate by Modified Westergren (01/14/2025 12:00 PM EST) Erythrocyte Sedimentation Rate 28(H) 0 - 20 MM/HR [facility] Comment:Patients with polycy themia and many hemoglobin abnormalitiesmay have depressed sed rates whereas patients with anemiamay have elevated sed rates. 01/14/2025 12:0 0 PM EST 01/14/2025 6:03 PM EST us Generic External Data Provider LAB BLOOD ORDERAB LES Final Result Performing Organization Address [facility] Co de Phone Number [facility] [address] [place] [phone] * Complement Component C3c (01/14/2025 12:00 PM EST) Complement C3 140 83 - 193 mg/dL [facility] Comment:THIS TEST WAS PERFOR MED AT:[facility] [address] [place] [phone] FAITH MD 01/14/2025 12:0 0 PM EST 01/14/2025 5:55 PM EST us Generic External Data Provider LAB BLOOD ORDERAB LES Final Result Performing Organization Address [facility] Co de Phone Number [facility] [address] [place] [phone] * Complement Component C4c (01/14/2025 12:00 PM EST) Complement C4 20 15 - 57 mg/dL [facility] Comment:THIS TEST WAS PERFOR MED AT:[employer] [place] [phone] FAITH MD 01/14/2025 12:0 0 PM EST 01/14/2025 5:55 PM EST Generic External Data Provider LAB BLOOD ORDERAB LES Final Result Performing Organization Address [facility] Co de Phone Number [facility] [address] [place] [phone] * (ABNORMAL) C-reactive Protein (01/14/2025 12:00 PM EST) C Reactive Protein 0.95(H) < or = 0.50 mg/dL [facility] 01/14/2025 12:0 0 PM EST 01/14/2025 6:03 PM EST [employer] External Data Provider LAB BLOOD ORDERAB LES Final Result Performing Organization Address [facility] de Phone Number [facility] [address] [place] [phone] * Helicobacter pylori, Urea Breath Test (12/30/2024 12:39 PM EDT) H. pylori Breath Test Negative Negative [facility] Comment:Antimicrobials, prot on pump inhibitors and bismuthpreparations are known to suppress H. pylori. Ingestingthese medications within two weeks prior to performing thebreath test may produce negative test results. A positiveresult is still clinically valid. Breath (Breath) 12/30/2024 1 2:39 PM EDT 12/30/2024 4:14 PM EDT Tracie Mcginnis DO LAB BODY FLUIDS AND STOOLS O RDERABLES Final Result [facility] [address] [place] [phone] * (ABNORMAL) POCT Hgb A1c (12/30/2024 11:20 AM EDT) Hemoglobin A1C 6.3(A) 4.0 - 5.7 % QC Media Lot # [id number] Lot# Expiration Date ,667 Blood 12/30/2024 11:2 0 AM EDT us Tracie Mcginnis DO POINT OF CARE TEST ENTER/CRISTOPHER T ORDERABLES Final Result * US Abdomen Complete (11/21/2024 9:09 AM EDT) Anatomical Region Laterality Modality Abdomen Ultrasound 11/21/2024 9:09 AM EDT Narrative 11/21/2024 9:56 AM EDT [address] [address] Ultrasound Report Signed Patient: Tiffanie Dumont MR#: [id number] : 1970 Acct:[id number] Age/Sex: 54 / F ADM Date: 11/21/24 Loc: HO.US Attending Dr: Tracie Mcginnis DO Ordering Physician: Tracie Mcginnis DO Date of Service: 11/21/24 Procedure(s): US abdomen complete Accession Number(s): [id number] cc: Tracie Mcginnis DO Reason for Exam: [...] in OV> 11/21/2452 DD/ 8 TD/TT: 11/21/24928 Skilled Trades Teacher: Procedure Note Donotuseinterpreter, Image - 11/21/2024 [place] [address] Ultrasound Report Signed Patient: Tiffanie Dumont [facility]#: [id number] : 1970Acct:[id number] Age/Sex: 54 / FADM Date: 11/21/24 Loc: HO.US Attending Dr: Tracie Mcginnis DO Ordering Physician: Tracie Mcginnis DO Date of Service: 11/21/24 Procedure(s): US abdomen complete Accession Number(s): [id number] cc: Tracie Mcginnis DO Reason for Exam: [...] Yang MD in OV> 11/21/24 0952 DD/ TD/TT: 11/21/2429 Skilled Trades Teacher: us Tracie Mcginnis DO [facility] [place] PROCEDURES Edited Res ult - Final * (ABNORMAL) Lipid Panel, Standard (06/04/2024 12:26 PM EDT) Triglycerides 165(H) <150 mg/dL [facility] Comment:Desirable Triglyceri de: less than 150 mg/dLBorderline High Triglyceride 150-199 mg/dLHigh Triglyceride: 200-499 mg/dLVery High Triglyceride: greater than or equal to 5OO mg/dL Cholesterol 146 <200 mg/dL [facility] Comment:Desirable Cholestero l: less than 200 mg/dLBorderline High Cholesterol: 200-239 mg/dLHigh Cholesterol: greater than 239 mg/dL LDL Cholesterol Calculated 82 <100 mg/dL [facility] Comment:Desirable LDL: less than 100 [...] ORDERABLES Final R esult Performing Organization Address City/State/[facility] Co de Phone Number [facility] [address] [place] [phone] * BI Mammogram Screening Tomosynthesis Bilateral (12/25/2023 1:40 PM EDT) Anatomical Region Laterality Modality Breast Bilateral Mammography 12/25/2023 1:40 PM EDT Narrative 01/07/2024 3:49 PM [facility] [address] [place] [address] Mammography Report Signed Patient: Tiffanie Dumont MR#: [id number] : 1970 Acct:[id number] Age/Sex: 53 / F ADM Date: 12/25/23 Loc: HO.MAMMO Attending Dr: Tracie Mcginnis DO Ordering Physician: Tracie Mcginnis DO Results: 2B enign Findings Date of Service: 12/25/23 Follow Up: 1 Year From Orig inal Mammogram Procedure(s): MM tomosynthesis screening BI Accession Number(s): [id number] cc: Tracie Mcginnis DO EXAMINATION: MM SCREENING [...] 01/07/24 1546 DD/ 1340 TD/TT: 12/25/23 1353 Skilled Trades Teacher: Procedure Note Donotuseinterpreter, Image - [facility]/07/[facility] [address] [place], [place] [address] Mammography Report Signed Patient: Tiffanie Dumont [facility]#: [id number] : 1970Acct:[id number] Age/Sex: 53 / FADM Date: 12/25/23 Loc: HO.MAMMO Attending Dr: Tracie Mcginnis DO Ordering Physician: Tracie Mcginnisults: 2B enign Findings Date of Service: 12/25/23Follow Up: 1 Year From Orig inal Mammogram Procedure(s): MM tomosynthesis screening BI Accession Number(s): [id number] cc: Tracie Mcginnis DO EXAMINATION: MM SCREENING [...] 01/07/24 1546 DD/ 1340 TD/TT: 12/25/23 1353 Skilled Trades Teacher: us Tracie Mcginnis DO IMG BI PROCEDURES Edited Res ult - Final * Hepatitis C Antibody with Reflex to HCV, RNA, Quantitative, Real-Time PCR (12/10/2023 3:11 PM EDT) Pathologist [facility] Hepatitis C Antibody Nonreactive Nonreactive [facility] Comment:Antibodies to HCV no t detected; does not exclude early acuteHCV infection. Blood Venous blood specimen / Unknown 12/10/2023 3:11 PM EDT 12/10/2023 3:11 PM EDT Tracie Mcginnis DO LAB BLOOD ORDERABLES Final R esult [facility] [address] [place] [phone] * HIV-1/2 Antigen and Antibodies, Fourth Generation, with Reflexes (12/10/2023 3:11 PM EDT) HIV AB/AG Nonreactive Nonreactive [facility] Comment:HIV-1 p24 Ag and/or HIV-1/HIV-2 Ab not detected.A test result that is nonreactive does not exclude thepossibility of exposure to or infection with HIV-1 and/orHIV-2. Nonreactive results in this assay for individualswith prior exposure to HIV-1 and/or HIV-2 may be due toantigen and antibody levels that are below the limit ofdetection of this assay.The [employer] HIV Ag/Ab Combo assay result andsupplemental assay results should be interpreted inconjunction with the patient's clinical presentation,history and other laboratory results. If the results areinconsistent with clinical evidence, additional testing issuggested to confirm the result. Blood Venous blood specimen / Unknown 12/10/2023 3:11 PM EDT 12/10/2023 3:11 PM EDT Tracie Mcginnis DO LAB BLOOD ORDERABLES Final R esult [facility] [address] [place] [phone] [phone] * Hm Colonoscopy (11/21/2022 6:53 PM EDT) Historical Provider HEALTH MAINTENANCE Final Result from Last 3 Months or Most Recently Relevant to Health Maintenance Additional Health Concerns Active Problems Noted Date Diagnosed Date Help patients manage their type 2 diabetes 01/22 Patient has chronic kidney disease 01/22/2025 Patient has chronic kidney disease 01/23/2025 Patient has chronic kidney disease 01/23/2025 Patient has chronic kidney disease 01/23/2025 Patient has chronic kidney disease 01/24/2025 Patient has chronic kidney disease 01/26/2025 Insurance [facility] < 65 Care Teams Senior Quality Engineer Relationship Specialty Start Date End Date Tracie Mcginnis DO [address] [place] [address] PCP - General Family Medicine 08/27/13 Lane Denise, NiviaD [address] [place] [address] Pharmacist Pharmacy 10/06/24
--- OUTSIDE RECORDS SUMMARY | 2025-01-27 14:25 | XMS_ITS | Encounter Summary ---
Author Organization [employer] Address [address] [facility] 7t [place] [address] Care Team Providers Care Avionics Systems Technician Name Role Phone Tracie Mcginnis DO Primary Care Provider + [phone] Lane Denise PharmD Unavailable [phone] Reason for Visit * Reason Comments Med Refill Encounter Details Date Type Department Care Team (Late st Contact Info) Description 12/07/2023 Refill [facility] MEDICINE [address] [place], [place] [phone] Tracie Mcginnis DO [address] [place], [place] [phone] Primary insomnia Social History Tobacco Use Types [...] documented as of this encounter Care Teams Avionics Systems Technician Relationship Specialty Start Date End Date Tracie Mcginnis DO [address] [place] [address] PCP - General Family Medicine 08/27/13 Lane Denise, Myah [address] [place] [address] Pharmacist Pharmacy 10/06/24 documented as of this encounter
--- OUTSIDE RECORDS SUMMARY | 2025-01-27 14:25 | XMS_ITS | Clinical Summary ---
Author Organization [employer] lin Address [address] [facility] [place] [address] Care Team Providers Care Video News Editor Name Role Phone Tracie Mcginnis Primary Care [...] file Medical Devices Not on file Insurance [facility] PL[facility] Care Teams Video News Editor Relationship Specialty Start Date End Date Tracie Mcginnis DO [address] [place] [phone] PCP - General Family Medicine 09/03/15
--- OUTSIDE RECORDS SUMMARY | 2025-01-27 14:25 | XMS_ITS | Encounter Summary ---
Author Organization [employer] Address [address] [facility] 7t [place] [address] Care Team Providers Care Facility Maintenance Manager Name Role Phone Tracie Mcginnis DO Primary Care Provider + [phone] Lane Denise PharmD Unavailable [phone] Reason for Visit * Reason Comments Med Refill Encounter Details Date Type Department Care Team (Late st Contact Info) Description 03/03/2024 Refill [facility] MEDICINE [address] [place], [place] [phone] Gwendolyn Ortega MD [address] [place], [place] [phone] Nonintractable chronic migraine Social History Tobacco Use [...] documented as of this encounter Care Teams Facility Maintenance Manager Relationship Specialty Start Date End Date Tracie Mcginnis DO [address] [place] [address] PCP - General Family Medicine 08/27/13 Lane Denise, Myah [address] [place] [address] Pharmacist Pharmacy 10/06/24 documented as of this encounter
--- OUTSIDE RECORDS SUMMARY | 2025-01-27 14:25 | XMS_ITS | Encounter Summary ---
Author Organization [employer] Address [address] [facility] 7t [place] [address] Care Team Providers Care Supervisor Soldering Name Role Phone Tracie Mcginnis DO Primary Care Provider + [phone] Lane Denise PharmD Unavailable [phone] Reason for Visit * Reason Comments Med Refill Encounter Details Date Type Department Care Team (Late st Contact Info) Description 05/11/2023 Refill [facility] MEDICINE 230 [place], [place] [phone] Tracie Mcginnis DO [address] [place], [place] [phone] Nonintractable chronic migraine Social History Tobacco Use [...] television Not at all 05/11/2023 11:50 AM Marine Garcia [place] Moving or speaking so slowly that [...] as of this encounter Care Teams Supervisor Soldering Relationship Specialty Start Date End Date Tracie Mcginnis DO [address] [place] [address] PCP - General Family Medicine 08/27/13 Lane Denise, NiviaD [address] [place] [address] Pharmacist Pharmacy 10/06/24 documented as of this encounter
--- OUTSIDE RECORDS SUMMARY | 2025-01-27 14:25 | XMS_ITS | Encounter Summary ---
Author Organization [employer] Address [address] [facility] 7t [place] [address] Care Team Providers Care Poultry Buyer Name Role Phone Tracie Mcginnis DO Primary Care Provider + [phone] Lane Denise PharmD Unavailable [phone] Reason for Visit * Reason Comments Med Refill Encounter Details Date Type Department Care Team (Late st Contact Info) Description 04/11/2024 Refill [facility] MEDICINE [address] [place], [place] [phone] Tracie Mcginnis DO [address] [place], [place] [phone] Primary insomnia Social History Tobacco Use Types [...] documented as of this encounter Care Teams Poultry Buyer Relationship Specialty Start Date End Date Tracie Mcginnis DO [address] [place] [address] PCP - General Family Medicine 08/27/13 Lane Denise, Myah [address] [place] [address] Pharmacist Pharmacy 10/06/24 documented as of this encounter
--- OUTSIDE RECORDS SUMMARY | 2025-01-27 14:25 | XMS_ITS | Encounter Summary ---
Author Organization [employer] Address [address] [facility] 7t [place] [address] Care Team Providers Care Laminating Machine Operator Helper Name Role Phone Tracie Mcginnis DO Primary Care Provider + [phone] Lane Denise PharmD Unavailable [phone] Reason for Visit * Reason Comments Med Refill Encounter Details Date Type Department Care Team (Late st Contact Info) Description 10/04/2023 Refill [facility] [address] [place], [place] [phone] Tracie Mcginnis DO [address] [place], [place] [phone] Diabetic polyneuropathy associated with type 2 diabetes [...] documented as of this encounter Care Teams Laminating Machine Operator Helper Relationship Specialty Start Date End Date Tracie Mcginnis DO [address] [place] [address] PCP - General Family Medicine 08/27/13 Lane Denise PharmD [address] [place] [address] Pharmacist Pharmacy 10/06/24 documented as of this encounter
--- OUTSIDE RECORDS SUMMARY | 2025-01-27 14:25 | XMS_ITS | Encounter Summary ---
Author Organization [employer] Address [address] [facility] 7t [place] [address] Care Team Providers Care Learning Services Coordinator Name Role Phone Tracie Mcginnis DO Primary Care Provider + [phone] Lane Denise PharmD Unavailable [phone] Reason for Visit * Reason Comments Med Refill Encounter Details Date Type Department Care Team (Late st Contact Info) Description 02/07/2024 Refill [facility] MED[facility]INE [address] [place], [place] [phone] Tracie Mcginnis DO [address] [place], [place] [phone] Primary insomnia Social History Tobacco Use Types [...] documented as of this encounter Care Teams Learning Services Coordinator Relationship Specialty Start Date End Date Tracie Mcginnis DO [address] [place] [address] PCP - General Family Medicine 08/27/13 Lane Denise, Myah [address] [place] [address] Pharmacist Pharmacy 10/06/24 documented as of this encounter
--- OUTSIDE RECORDS SUMMARY | 2025-01-27 14:25 | XMS_ITS | Encounter Summary ---
Author Organization [employer] Address 75 [facility] 7t [place] [address] Care Team Providers Care Career Information Specialist Name Role Phone Tracie Mcginnis DO Primary Care Provider + [phone] Lane Denise PharmD Unavailable Reason for Visit * Reason Onset Date Comments Nurse Triage 10/26/2023 Encounter Details Date Type Department Care Team (Late st Contact Info) Description 10/26/2023 Telephone [facility] MEDICINE [address] [place], [place] [phone] Tracie Mcginnis DO [address] [place], [place] [phone] Nurse Triage Social History Tobacco Use Types [...] but after a month she saw her corporate claims examiner who advised to just leave it alone unless it starts to bother her. About 2 weeks ago it started to become painful and tender. Pt called her corporate claims examiner today who was not able to see [...] times are approx. TC placed to pt [phone] who reports she has NOT p/u abx yet from the pharmacy. Pt reports she will p/u the abx today (from [facility]). Pt advised if no improvement once the abx are completed to call [facility] for an appt for re-evaluation. Pt [...] documented as of this encounter Care Teams Career Information Specialist Relationship Specialty Start Date End Date Tracie Mcginnis DO [address] [place] [address] PCP - General Family Medicine 08/27/13 Lane Denise, Myah [address] [place] [address] Pharmacist Pharmacy 10/06/24 documented as of this encounter
--- OUTSIDE RECORDS SUMMARY | 2025-01-27 14:25 | XMS_ITS | Encounter Summary ---
Author Organization [employer] Address [address] [facility] 7t [place] [address] Care Team Providers Care Tester Electronic Scale Name Role Phone Tracie Mcginnis DO Primary Care Provider + [phone] Lane Denise PharmD Unavailable [phone] Encounter Details Date Type Department Care Team ([facility] st Contact Info) Description 12/13/2022 Telephone [facility] MEDICINE 230 [place], [place] [phone] Tracie Mcginnis DO [address] [place], [place] [phone] Social History Tobacco Use Types Packs/Day Years [...] on filedocumented in this encounter Care Teams Tester Electronic Scale Relationship Specialty Start Date End Date Tracie Mcginnis DO [address] [place] [address] PCP - General Family Medicine 08/27/13 Lane Denise, NiviaD [address] [place] [address] Pharmacist Pharmacy 10/06/24 documented as of this encounter
--- OUTSIDE RECORDS SUMMARY | 2025-01-27 14:25 | XMS_ITS | Encounter Summary ---
Author Organization [employer] Address [address] [facility] 7t [place] [address] Care Team Providers Care Duplicator Punch Set Up Operator Name Role Phone Tracie Mcginnis DO Primary Care Provider + [phone] Lane Denise PharmD Unavailable [phone] Reason for Visit * Reason Comments Med Refill Encounter Details Date Type Department Care Team (Late st Contact Info) Description 02/12/2023 Refill [facility] MEDICINE 230 [place], [place] [phone] Tracie Mcginnis DO [address] [place] [address] Social History Tobacco Use Types Packs/Day Years [...] on filedocumented in this encounter Care Teams Duplicator Punch Set Up Operator Relationship Specialty Start Date End Date Tracie Mcginnis DO [address] [place] [address] PCP - General Family Medicine 08/27/13 Lane Denise, NiviaD [address] [place] [address] Pharmacist Pharmacy 10/06/24 documented as of this encounter
--- OUTSIDE RECORDS SUMMARY | 2025-01-27 14:25 | XMS_ITS | Encounter Summary ---
Author Organization [employer] Address 75 [facility] 7t [place] [address] Care Team Providers Care Polymerization Helper Name Role Phone Tracie Mcginnis DO Primary Care Provider + [phone] Lane Denise PharmD Unavailable [phone] Reason for Visit * Reason Comments Med Refill Encounter Details Date Type Department Care Team (Late st Contact Info) Description 02/26/2024 Refill [facility] MEDICINE 230 [place], [place] [phone] Tracie Mcginnis DO [address] [place], [place] [phone] Primary insomnia Social History Tobacco Use Types [...] documented as of this encounter Care Teams Polymerization Helper Relationship Specialty Start Date End Date Tracie Mcginnis DO [address] [place] [address] PCP - General Family Medicine 08/27/13 Lane Denise, Myah [address] [place] [address] Pharmacist Pharmacy 10/06/24 documented as of this encounter
--- OUTSIDE RECORDS SUMMARY | 2025-01-27 14:25 | XMS_ITS | Encounter Summary ---
Author Organization [employer] Address [address] [facility] 7t [place] [address] Care Team Providers Care Air Conditioning Mechanic Industrial Name Role Phone Tracie Mcginnis DO Primary Care Provider + [phone] Lane Denise PharmD Unavailable [phone] Reason for Visit * Reason Comments Med Refill Encounter Details Date Type Department Care Team (Late st Contact Info) Description 02/06/2024 Refill [facility] MEDICINE [address] [place], [place] [phone] Tracie Mcginnis DO [address] [place], [place] [phone] Primary insomnia Social History Tobacco Use Types [...] documented as of this encounter Care Teams Air Conditioning Mechanic Industrial Relationship Specialty Start Date End Date Tracie Mcginnis DO [address] [place] [address] PCP - General Family Medicine 08/27/13 Lane Denise, Myah [address] [place] [address] Pharmacist Pharmacy 10/06/24 documented as of this encounter
--- OUTSIDE RECORDS SUMMARY | 2025-01-27 14:25 | XMS_ITS | Encounter Summary ---
Author Organization [employer] Address 75 [facility] 7t [place] [address] Care Team Providers Care Oven Attendant Name Role Phone Tracie Mcginnis DO Primary Care Provider + [phone] Lane Denise PharmD Unavailable [phone] Reason for Visit * Reason Onset Date Comments LIN SAENZ 01/08/2025 Encounter Details Date Type Department Care Team (Late st Contact Info) Description 01/08/2025 Telephone [facility] MEDICINE [address] [place], [place] [phone] Mireya Rodney, RN 230 [place], [place] [phone] LIN SAENZ Social History Tobacco Use Types Packs/Day Years [...] encounter Miscellaneous Notes * Telephone Encounter - Mireya Rodney RN - 01/23/2025 2:45 PM EST TC placed to [facility] pharmacy to check on status, reportedly still showing PA required. TC placed to [facility], they have no record of PA and provided me with alternative fax number to send it to. Dexcom reader also added to request. PA faxed to [facility], confirmation received. Postponing another 15 days to check on status. * Telephone Encounter - Mireya Rodney RN - 01/08/2025 2:02 PM EST Request for PA received from [facility] pharmacy for Dexcom sensors Continuous Glucose Monitor Prior Authorization Documentation: CGM PA initiated for: CGM DEVICE: Dexcom Insurance: [facility] PA form completed and faxed to [facility]. Patient's preferred pharmacy: [facility] - [facility] 230 [facility] 230 [facility] [phone] [facility] [address], [place] - [address] [place] [address] CGM PA should be approved by: 01/23/25 Pt. Will not require initiation appointment. as she is already established on CGM. Message postponed 15 days to check on status of approval. documented in this encounter Plan of Treatment [...] Care Plan Patient has chronic kidney disease Mireya Valdez, MICHAEL Patient has chronic kidney disease Care Plan Patient has chronic kidney disease No Cristin Jain [place] documented as of this encounter Visit Diagnoses Not on filedocumented in this encounter Additional Health Concerns Active Problems Noted Date Diagnosed Date Help patients manage their type 2 diabetes 01/22 Patient has chronic kidney disease 01/22/2025 Patient has chronic kidney disease 01/23/2025 Patient has chronic kidney disease 01/23/2025 Patient has chronic kidney disease 01/23/2025 Patient has chronic kidney disease 01/24/2025 Assessment Noted Time PHQ-9 Depression Total Score: 22 025 2:25 PM EDT documented as of this encounter Care Teams Oven Attendant Relationship Specialty Start Date End Date Tracie Mcginnis DO [address] [place] [address] PCP - General Family Medicine 08/27/13 Lane Denise PharmD [address] [place] [address] Pharmacist Pharmacy 10/06/24 documented as of this encounter
--- OUTSIDE RECORDS SUMMARY | 2025-01-27 14:25 | XMS_ITS | Encounter Summary ---
Author Organization [employer] Address [address] [place] [address] 7t [place] [address] Care Team Providers Care Supervisor Carding Name Role Phone Tracie Mcginnis DO Primary Care Provider + [phone] Lane Denise PharmD Unavailable [phone] Reason for Visit * Reason Comments Med Refill Encounter Details Date Type Department Care Team (Late st Contact Info) Description 11/28/2022 Refill [facility] MEDICINE [address] [place] [address] Tracie Mcginnis DO [address] [place] [address] Social History Tobacco Use Types Packs/Day Years [...] on filedocumented in this encounter Care Teams Supervisor Carding Relationship Specialty Start Date End Date Tracie Mcginnis DO [address] [place] [address] PCP - General Family Medicine 08/27/13 Lane Denise, NiviaD [address] [place] [address] Pharmacist Pharmacy 10/06/24 documented as of this encounter
--- OUTSIDE RECORDS SUMMARY | 2025-01-27 14:26 | XMS_ITS | Encounter Summary ---
Author Organization [employer] Address 75 [facility] 7[place] [address] Care Team Providers Care Cokeman Name Role Phone Tracie Mcginnis DO Primary Care Provider [phone] Lane Denise PharmD Unavailable [phone] Encounter Details Date Type Department Care Team (Late st Contact Info) Description 02/28/2022 Orders Only [facility]S [address] [place] [address] Tracie Dalton LPN Social History Tobacco Use [...] on filedocumented in this encounter Care Teams Cokeman Relationship Specialty Start Date End Date Tracie Mcginnis DO [address] [place] [address] PCP - General Family Medicine 08/27/13 Lane Denise, PharmD [address] [place] [address] Pharmacist Pharmacy 10/06/24 documented as of this encounter
--- OUTSIDE RECORDS SUMMARY | 2025-01-27 14:26 | XMS_ITS | Encounter Summary ---
Author Organization [employer] Address [address] [facility] [address] 7t [place] [address] Care Team Providers Care District Wildlife Manager Name Role Phone Tracie Mcginnis DO Primary Care Provider + [phone] Lane Denise PharmD Unavailable [phone] Encounter Details Date Type Department Care Team (Latest Contact Info) Description 01/27/2025 Travel Social History Tobacco Use Types Packs/Day [...] documented as of this encounter Care Teams District Wildlife Manager Relationship Specialty Start Date End Date Tracie Mcginnis DO [address] [place] [address] PCP - General Family Medicine 08/27/13 Lane Denise, PharmD [address] [place] [address] [place] [address] Pharmacist Pharmacy 10/06/24 documented as of this encounter
--- OUTSIDE RECORDS SUMMARY | 2025-01-27 14:26 | XMS_ITS | Encounter Summary ---
Author Organization [employer] Address 75 [facility] 7t [place] [address] Care Team Providers Care Seam Feller Name Role Phone Tracie Mcginnis DO Primary Care Provider + [phone] Lane Denise PharmD Unavailable [phone] Reason for Visit * Reason Onset Date Comments Med Refill 08/17/2023 Encounter Details Date Type Department Care Team (Late st Contact Info) Description 08/17/2023 Telephone [facility] MEDICINE 230 [place], [place] [phone] Tracie Mcginnis DO 230 [place], [place] [phone] Med Refill Social History Tobacco Use Types [...] MG disintegrating tablet To be sent to: [facility] [place] [facility] [address] documented in this encounter Plan of Treatment Not on file documented as of this encounter Visit Diagnoses Not on filedocumented in this encounter Additional Health Concerns Assessment Noted Time PHQ-9 Depression Total Score: 0 05/11/19 24 11:50 AM EST documented as of this encounter Care Teams Seam Feller Relationship Specialty Start Date End Date Tracie Mcginnis DO [address] [place] [address] PCP - General Family Medicine 6/25/14 Lane Denise, PharmD [address] [place] [address] Pharmacist Pharmacy 10/06/24 documented as of this encounter
--- OUTSIDE RECORDS SUMMARY | 2025-01-27 14:26 | XMS_ITS | Encounter Summary ---
Author Organization [employer] Address 75 [facility] 7t [place] [address] Care Team Providers Care Boss Dyer Name Role Phone Tracie Mcginnis DO Primary Care Provider + [phone] Lane Denise PharmD Unavailable [phone] Reason for Visit * Reason Comments Med Refill Encounter Details Date Type Department Care Team (Late st Contact Info) Description 09/26/2024 Refill [facility] MEDICINE 230 [place], [place] [phone] Tracie Mcginnis DO 230 [place], [place] [phone] Nonintractable chronic migraine Social History Tobacco Use [...] documented as of this encounter Care Teams Boss Dyer Relationship Specialty Start Date End Date Tracie Mcginnis DO 230 [place] [address] PCP - General Family Medicine 08/27/13 Lane Denise, Myah 230 [place] [address] Pharmacist Pharmacy 10/06/24 documented as of this encounter
--- OUTSIDE RECORDS SUMMARY | 2025-01-27 14:26 | XMS_ITS | Encounter Summary ---
Author Organization [employer] Address 75 [facility] 7t [place] [address] Care Team Providers Care Waste Examiner Name Role Phone Tracie Mcginnis DO Primary Care Provider + [phone] Lane Denise PharmD Unavailable [phone] Reason for Visit * Reason Onset Date Comments Prior Authorization 01/23/2025 PA: Esomepra zole Magnesium 20MG dr capsules Encounter Details Date Type Department Care Team ([facility] st Contact Info) Description 01/23/2025 Telephone [facility] MEDICINE 230 [place], [place] [phone] Tracie Mcginnis DO 230 [place], [place] [phone] Prior Authorization (PA: Esomeprazole Magnesium 20MG dr capsules) Social History Tobacco Use Types Packs/Day Years [...] the past 12 months, has t he [employer], gas, oil or water company threatened to [...] encounter Miscellaneous Notes * Telephone Encounter - Hanna Crooks - 01/23/2025 11:52 AM EST Unable to complete PA via CovermyMeds, item is a OTC med. PA at this time. documented in this encounter Plan of Treatment Not on file documented as of this encounter Goals Goal Patient Goal Type Associated Problems Recent Progress Patient-Stated? Author Help patients manage their type 2 diabetes Care Plan Help patients manage their type [address] Denise PharmD Patient has chronic [...] chronic kidney disease No Mireya Rodney RN documented as of this encounter Visit Diagnoses Not on filedocumented in this encounter Additional Health Concerns Active Problems Noted Date Diagnosed Date Help patients manage their type 2 diabetes 01/22 Patient has chronic kidney disease 01/22/2025 Patient has chronic kidney disease 01/23/2025 Patient has chronic kidney disease 01/23/2025 Patient has chronic kidney disease 01/23/2025 Assessment Noted Time PHQ-9 Depression Total Score: 22 025 2:25 PM EDT documented as of this encounter Care Teams Waste Examiner Relationship Specialty Start Date End Date Tracie Mcginnis DO 230 [place] [address] PCP - General Family Medicine 08/27/13 Lane Denise, NiviaD 230 [place] [address] Pharmacist Pharmacy 10/06/24 documented as of this encounter
--- OUTSIDE RECORDS SUMMARY | 2025-01-27 14:26 | XMS_ITS | Clinical Summary ---
Author Organization [facility] Address [address] [facility] [address] [place] [address] Phone Care Team Providers Care Backend Java Developer Name Role Phone Debbie Luna MD Primary Care Provider [phone] Allergies Active Allergy Reactions Criticality Noted Date [...] BT Active lamoTRIgine (LAMICTAL XR) 100 mg [id number] :@ BT Take 150 mg by mouth [...] Department Care Team Description 12/31/2024 Transcribe Orders [facility] [address] [place] [address] Kavya Mcginnis DO from Last 3 Months [...] MD, MPH - 11/21/2022 9:42 AM EDT [facility] Patient Name: Tiffanie Neil MD:: Debbie Luna MD, Procedure Date: 11/21/2022 9:42 AM Date of : 1970 Age: 52 Admit Type: Outpatient Gender: Female Room: [facility] Referring MD: Kavya Mcginnis MD Exam Type: [...] monitored continuously. The Olympus adult variable colonoscope [id number] #6 was introduced through the anus and advanced to the cecum, identified by appendiceal orifice andileocecal valve. The colonoscopy was performed without difficulty. The patient tolerated the procedurewell. The quality of the bowel preparation was evaluated using the BBPS ([place] Bowel Preparation Scale)with scores of: Right Colon [...] 9:42 AM Procedure Code(s): --- Professional --- 09297, Colonoscopy, flexible; with biopsy, single or multiple --- Technical --- 82266, Colonoscopy, flexible; with biopsy, single or multiple Diagnosis Code(s): --- Professional --- R10.84, Generalized abdominal pain R19.7, Diarrhea, unspecified --- Technical --- R10.84, Generalized abdominal pain R19.7, Diarrhea, unspecified CPT copyright 2021 [employer]. All rights reserved. The codes documented in this report are preliminary and upon documentation analyst reviewmay be revised to meet current compliance requirements. Procedure Date: 11/21/2022 9:42:[address] [place] [address] Kavya Mcginnis DO GI PROCEDURE ORDERABLES Denise l Result from Last 3 Months or Most Recently Relevant to Health Maintenance Insurance [facility] MEDICARE REPLACEMENT MEDICARE PART A & B [facility] MEDICARE REPLACEMENT MEDICARE PART A & B [facility] CARE MEDICARE REPLACEMENT MEDICARE PART A & B [facility] CARE MEDICARE REPLACEMENT MEDICARE PART A & B [facility] CARE MEDICARE REPLACEMENT MEDICARE PART A & B Member Subscriber Plan / Payer ( fective 2016-) Name:Tiffanie Dumont Member ID:[id number] Relation to Subscriber:Self Name:Tiffanie Dumont Subscriber ID:[id number] Payer ID:[id number] Group ID:Not on file Type:Medicare Address: [employer] [address] [facility] MEDICARE REPLACEMENT MEDICARE PART A & B Care Teams Backend Java Developer Relationship Specialty Start Date End Date Debbie Luna MD [phone] (work) [email or web address] PCP - General Internal Medicine 02/08/23 KAVYA MCGINNIS Primary Care Physician 02/20/23 Additional Source Comments The information contained in this document represents components of the legal health record. It is not the complete legal health record.[facility]
--- OUTSIDE RECORDS SUMMARY | 2025-01-27 14:26 | XMS_ITS | Encounter Summary ---
Author Organization [employer] Address 75 [facility] 7t [place] [address] Care Team Providers Care Financial Intern Name Role Phone Tracie Mcginnis DO Primary Care Provider + [phone] Lane Denise PharmD Unavailable [phone] Encounter Details Date Type Department Care Team ([facility] st Contact Info) Description 08/17/2023 Telephone [facility] MEDICINE 230 [place], [place] [phone] Tracie Mcginnis DO 230 [place], [place] [phone] Social History Tobacco Use Types Packs/Day Years [...] documented as of this encounter Care Teams Financial Intern Relationship Specialty Start Date End Date Tracie Mcginnis DO 230 [place] [address] PCP - General Family Medicine 08/27/13 Lane Denise, NiviaD 230 [place] [address] Pharmacist Pharmacy 10/06/24 documented as of this encounter
--- OUTSIDE RECORDS SUMMARY | 2025-01-27 14:26 | XMS_ITS | Encounter Summary ---
Author Organization [employer] Address 75 [facility] 7t [place] [address] Care Team Providers Care Computer Software Engineer Name Role Phone Tracie Mcginnis DO Primary Care Provider + [phone] Lane Denise PharmD Unavailable [phone] Reason for Visit * Reason Comments Med Refill Encounter Details Date Type Department Care Team (Late st Contact Info) Description 11/16/2024 Refill [facility] MEDICINE 230 [place], [place] [phone] Tracie Mcginnis DO 230 [place], [place] [phone] Diabetic polyneuropathy associated with type 2 diabetes [...] as of this encounter Care Teams Computer Software Engineer Relationship Specialty Start Date End Date Tracie Mcginnis DO 230 [place] [address] PCP - General Family Medicine 08/27/13 Lane Denise, Myah 230 [place] [address] Pharmacist Pharmacy 10/06/24 documented as of this encounter
--- OUTSIDE RECORDS SUMMARY | 2025-01-27 14:26 | XMS_ITS | Encounter Summary ---
Author Organization [employer] Address 75 [facility] 7t [place] [address] Care Team Providers Care Capacity Planning Engineer Name Role Phone Tracie Mcginnis DO Primary Care Provider + [phone] Lane Denise PharmD Unavailable [phone] Reason for Visit * Reason Comments Med Refill Encounter Details Date Type Department Care Team (Late st Contact Info) Description 09/02/2024 Refill [facility] MEDICINE 230 [place], [place] [phone] Tracie Mcginnis DO 230 [place] [address] Social History Tobacco Use Types Packs/Day Years [...] documented as of this encounter Care Teams Capacity Planning Engineer Relationship Specialty Start Date End Date Tracie Mcginnis DO 230 [place] [address] PCP - General Family Medicine 08/27/13 Lane Denise, Myah 230 [place] [address] Pharmacist Pharmacy 10/06/24 documented as of this encounter
--- OUTSIDE RECORDS SUMMARY | 2025-01-27 14:26 | XMS_ITS | Encounter Summary ---
Author Organization [employer] Address 75 [facility] 7t [place] [address] Care Team Providers Care Membership Correspondent Name Role Phone Tracie Mcginnis DO Primary Care Provider + [phone] Lane Denise PharmD Unavailable [phone] Reason for Visit * Reason Comments Med Refill Encounter Details Date Type Department Care Team (Late st Contact Info) Description 06/15/2023 Refill [facility] MEDICINE 230 [place], [place] [phone] Tracie Mcginnis DO 230 [place] [address] Social History Tobacco Use Types Packs/Day Years [...] documented as of this encounter Care Teams Membership Correspondent Relationship Specialty Start Date End Date Tracie Mcginnis DO 230 [place] [address] PCP - General Family Medicine 08/27/13 Lane Denise, NiviaD 230 [place] [address] Pharmacist Pharmacy 10/06/24 documented as of this encounter
--- OUTSIDE RECORDS SUMMARY | 2025-01-27 14:26 | XMS_ITS | Encounter Summary ---
Author Organization [employer] Address 75 [facility] 7t [place] [address] Care Team Providers Care Tractor Expert Name Role Phone Tracie Mcginnis DO Primary Care Provider + [phone] Lane Denise PharmD Unavailable [phone] Reason for Visit * Reason Onset Date Comments Chart Prep 01/24/2025 Encounter Details Date Type Department Care Team (Late st Contact Info) Description 01/24/2025 Telephone [facility] MEDICINE 230 [place], [place] [phone] Tracie Mcginnis DO 230 [place], [place] [phone] Chart Prep Social History Tobacco Use Types Packs/Day Years [...] encounter Miscellaneous Notes * Telephone Encounter - Cristin Jain [place] - 01/24/2025 8:24 AM EST Chart Prep Labs: done Images: not applicable Referrals: [facility] Rhe[facility]-01/14/25, ENT-05/08/25, PFT([facility])-01/13/25 and [facility] Gastro pending appointment Vaccines due: no updates Screenings: mammogram, pap smear, eye exam, foot exam, and Lung CA screening Overdue care gaps: A1c, Glucose, PHQ-9, and KENNA-7 documented in this encounter Plan of Treatment [...] Plan Patient has chronic kidney disease No Valeriy, Hanna Patient has chronic kidney disease Care Plan [...] documented as of this encounter Care Teams Tractor Expert Relationship Specialty Start Date End Date Tracie Mcginnis DO [address] [place] [address] PCP - General Family Medicine 08/27/13 Lane Denise, NiviaD [address] [place] [address] Pharmacist Pharmacy 10/06/24 documented as of this encounter
--- OUTSIDE RECORDS SUMMARY | 2025-01-27 14:26 | XMS_ITS | Encounter Summary ---
Author Organization [employer] Address 75 [facility] 7t [place] [address] Care Team Providers Care Proc Tech Name Role Phone Tracie Mcginnis DO Primary Care Provider + [phone] Lane Denise PharmD Unavailable [phone] Encounter Details Date Type Department Care Team (Late st Contact Info) Description 06/14/2023 Orders Only [facility] MEDICINE 230 [place], [place] [phone] Abbi Conway MD 230 [place] [address] Social History Tobacco Use Types Packs/Day Years [...] documented as of this encounter Care Teams Proc Tech Relationship Specialty Start Date End Date Tracie Mcginnis DO 230 [place] [address] PCP - General Family Medicine 08/27/13 Lane Denise, NiviaD 230 [place] [address] Pharmacist Pharmacy 10/06/24 documented as of this encounter
--- OUTSIDE RECORDS SUMMARY | 2025-01-27 14:26 | XMS_ITS | Encounter Summary ---
Author Organization [employer] Address 75 [facility] 7t [place] [address] Care Team Providers Care Auto Winder Name Role Phone Tracie Mcginnis DO Primary Care Provider + [phone] Lane Denise PharmD Unavailable [phone] Reason for Visit * Reason Comments Med Refill Encounter Details Date Type Department Care Team (Late st Contact Info) Description 06/27/2024 Refill [facility] MEDICINE 230 [place], [place] [phone] Tracie Mcginnis DO 230 [place], [place] [phone] Nonintractable chronic migraine Social History Tobacco Use [...] documented as of this encounter Care Teams Auto Winder Relationship Specialty Start Date End Date Tracie Mcginnis DO 230 [place] [address] PCP - General Family Medicine 08/27/13 Lane Denise, NiviaD 230 [place] [address] Pharmacist Pharmacy 10/06/24 documented as of this encounter
--- OUTSIDE RECORDS SUMMARY | 2025-01-27 14:26 | XMS_ITS | Encounter Summary ---
Author Organization [facility] Address [address] [place] [address] [place] [address] Phone Care Team Providers Care Pumper Gager Apprentice Name Role Phone Debbie Luna MD Primary Care Provider [phone] Encounter Details Date Type Department Care Team (Late st Contact Info) Description 11/21/2022 Procedure Pass [facility] Endoscopy Admitting Dept Virtual Department 30 [place] [address] Social History Tobacco Use Types Packs/Day Years [...] on filedocumented in this encounter Care Teams Pumper Gager Apprentice Relationship Specialty Start Date End Date Debbie Luna MD PCP - General Internal Medicine 02/08/23 KAVYA SUBRAMANIAN Primary Care Physician 02/20/23 documented as of this encounter Additional Source Comments The information contained in this document represents components of the legal health record. It is not the complete legal health record.[facility]
--- OUTSIDE RECORDS SUMMARY | 2025-01-27 14:26 | XMS_ITS | Encounter Summary ---
Author Organization [employer] Address 75 [facility] 7t [place] [address] Care Team Providers Care Pneumatic Riveter Name Role Phone Tracie Mcginnis DO Primary Care Provider + [phone] Lane Denise PharmD Unavailable [phone] Reason for Visit * Reason Comments Med Refill Encounter Details Date Type Department Care Team (Late st Contact Info) Description 09/17/2024 Refill [facility] MEDICINE 230 [place], [place] [phone] Tracie Mcginnis DO 230 [place], [place] [phone] Diabetic polyneuropathy associated with type 2 diabetes [...] documented as of this encounter Care Teams Pneumatic Riveter Relationship Specialty Start Date End Date Tracie Mcginnis DO 230 [place] [address] PCP - General Family Medicine 08/27/13 Lane Denise, Myah 230 [place] [address] Pharmacist Pharmacy 10/06/24 documented as of this encounter
--- OUTSIDE RECORDS SUMMARY | 2025-01-27 14:26 | XMS_ITS | Encounter Summary ---
Author Organization [employer] Address 75 [facility] 7t [place] [address] Care Team Providers Care Medical Insurance Claims Processor Name Role Phone Tracie Mcginnis DO Primary Care Provider + [phone] Lane Denise PharmD Unavailable [phone] Reason for Visit * Reason Comments Med Refill Encounter Details Date Type Department Care Team (Late st Contact Info) Description 03/30/2022 Refill [facility] MEDICINE 230 [place], [place] [phone] Tracie Mcginnis DO 230 [place], [place] [phone] Other hyperlipidemia (Primary Dx) Social History Tobacco [...] Primary documented in this encounter Care Teams Medical Insurance Claims Processor Relationship Specialty Start Date End Date Tracie Mcginnis DO 230 [place] [address] PCP - General Family Medicine 08/27/13 Lane Denise PharmD 230 [place] [address] Pharmacist Pharmacy 10/06/24 documented as of this encounter
--- OUTSIDE RECORDS SUMMARY | 2025-01-27 14:26 | XMS_ITS | Encounter Summary ---
Author Organization [employer] Address [address] [place] [address], [place] [address] Care Team Providers Care Protection Consultant Name Role Phone Tracie Mcginnis DO Primary Care Provider [phone] Lane Denise PharmD Unavailable [phone] Encounter Details Date Type Department Care Team (Late st Contact Info) Description 03/16/2022 Telephone [facility] MEDICINE 230 [place], [place] [phone] Tracie Mcginnis DO 230 [place] [address] Social History Tobacco Use Types Packs/Day Years [...] on filedocumented in this encounter Care Teams Protection Consultant Relationship Specialty Start Date End Date Tracie Mcginnis DO [address] [place] [address] [phone] PCP - General Family Medicine 08/27/13 Lane Denise, PharmD [address] [place] [address] [phone] Pharmacist Pharmacy 10/06/24 documented as of this encounter
--- OUTSIDE RECORDS SUMMARY | 2025-01-27 14:26 | XMS_ITS | Encounter Summary ---
Author Organization [facility] Address [address] [facility] [address] [place] [address] Phone Care Team Providers Care Jordan Worker Name Role Phone Debbie Luna MD Primary Care Provider [phone] Encounter Details Date Type Department Care Team (Late st Contact Info) Description 02/20/2023 Procedure Pass [facility] Endoscopy Admitting Dept Virtual Department [address] [place] [address] Social History Tobacco Use Types Packs/Day Years [...] on filedocumented in this encounter Care Teams Jordan Worker Relationship Specialty Start Date End Date Debbie Luna MD PCP - General Internal Medicine 02/08/23 KAVYA SUBRAMANIAN Primary Care Physician 02/20/23 documented as of this encounter Additional Source Comments The information contained in this document represents components of the legal health record. It is not the complete legal health record.[facility]
--- OUTSIDE RECORDS SUMMARY | 2025-01-27 14:26 | XMS_ITS | Encounter Summary ---
Author Organization [employer] Address 75 [facility] 7t [place] [address] Care Team Providers Care Editor At Large Name Role Phone Tracie Mcginnis DO Primary Care Provider + [phone] Lane Denise PharmD Unavailable [phone] Reason for Visit * Reason Comments Med Refill Encounter Details Date Type Department Care Team (Late st Contact Info) Description 11/17/2024 Refill [facility] MEDICINE 230 [place], [place] [phone] Tracie Mcginnis DO 230 [place], [place] [phone] Diabetic polyneuropathy associated with type 2 diabetes [...] documented as of this encounter Care Teams Editor At Large Relationship Specialty Start Date End Date Tracie Mcginnis DO 230 [place] [address] PCP - General Family Medicine 08/27/13 Lane Denise, Myah 230 [place] [address] Pharmacist Pharmacy 10/06/24 documented as of this encounter
--- OUTSIDE RECORDS SUMMARY | 2025-01-27 14:26 | XMS_ITS | Encounter Summary ---
Author Organization [employer] Address 75 [facility] 7t [place] [address] Care Team Providers Care Hand I Tube Bender Name Role Phone Tracie Mcginnis DO Primary Care Provider + [phone] Robina Denise PharmD Unavailable [phone] Reason for Visit * Reason Onset Date Comments Appointment Request 09/12/2024 Encounter Details Date Type Department Care Team (Late st Contact Info) Description 09/12/2024 Telephone [facility] MEDICINE 230 [place], [place] [phone] Tracie Mcginnis DO 230 [place], [place] [phone] Appointment Request Social History Tobacco Use Types [...] documented as of this encounter Care Teams Hand I Tube Bender Relationship Specialty Start Date End Date Tracie Mcginnis DO 230 [place] [address] PCP - General Family Medicine 08/27/13 Robina Denise, Myah 230 [place] [address] Pharmacist Pharmacy 10/06/24 documented as of this encounter
--- OUTSIDE RECORDS SUMMARY | 2025-01-27 14:26 | XMS_ITS | Encounter Summary ---
Author Organization [employer] Address 75 [facility] 7t [place] [address] Care Team Providers Care Textile Machine Operator Name Role Phone Tracie Mcginnis DO Primary Care Provider + [phone] Lane Denise PharmD Unavailable [phone] Reason for Visit * Reason Comments Med Refill Encounter Details Date Type Department Care Team (Late st Contact Info) Description 08/01/2024 Refill [facility] [address] [place], [place] [phone] Tracie Mcginnis DO 230 [place], [place] [phone] Diabetic polyneuropathy associated with type 2 diabetes [...] documented as of this encounter Care Teams Textile Machine Operator Relationship Specialty Start Date End Date Tracie Mcginnis DO 230 [place] [address] PCP - General Family Medicine 08/27/13 Lane Denise, Myah 230 [place] [address] Pharmacist Pharmacy 10/06/24 documented as of this encounter
== END 2025-01-27 11:00 | disposition home or self-care (01) ==
LOC: HO.HHCX 10:59
PROVIDERS: PCP Family Medicine; Visit Provider Family Medicine
DX: R05.1 Acute cough (principal); R07.89 Other chest pain
CPT/HCPCS: 71046

== ENCOUNTER → 2025-01-27 11:44 | Outpatient (BNV) | payer OTHER, SELFPAY | PROVIDERS: PCP Family Medicine; Visit Provider Radiology Diagnostic Radiology | DX: R05.9 Cough, unspecified (principal); R07.89 Other chest pain | CPT/HCPCS: 71046 ==